=== PATIENT | female | born 1940 | race Caucasian/White ===

== ENCOUNTER 2016-05-03 15:14 | Observation (INO) ==
--- NOTE | 2016-05-03 16:01 | Emergency Department Note ---
Disposition Clinical Impression: Syncope Qualifiers: Syncope type: unspecified Qualified Code(s): R55 - Syncope and collapse Disposition: Admitted As Inpatient Syncope HPI - General Chief Complaint: ED Syncope Stated Complaint: "light-headed" from bone and joint Time Seen by Provider: 05/03/16 15:42 Source: patient, family Limitations: no limitations Nursing Notes Reviewed: Yes Vital Signs Reviewed: Yes - History of Present Illness HPI Narrative: Ms. Masterson, a 76yo female, presents from [facility] where she felt light-headed, fell striking her head on carpet covered concrete. (+) LOC, brief. Admits to chest pain described as 'thumping' and lightheadedness. Denies chest heaviness, any sharp or radiating chest pain, diaphoresis. Her only pain at this time is over her right brow which is where her head impacted the floor. Patient has known past medical history of A. fib. She is currently anticoagulated on eliquis. Patient's [id number]'s bedside; collectively therefore stories. Past medical history will be obtained from chart check. - Related Data Home Medications Medication Instructions Recorded Confirmed Aspirin 81 mg PO DAILY 12/06/14 12/06/14 Ferrous Sulfate 325 mg PO DAILY 12/06/14 12/06/14 HydrALAZINE 10 mg PO TID 12/06/14 12/06/14 Hydrochlorothiazide 25 mg PO DAILY 12/06/14 12/06/14 Isosorbide MONOnitrate (24 HR) 30 mg PO DAILY 12/06/14 12/06/14 [Imdur] Lisinopril [Zestril] 10 mg PO DAILY 12/06/14 12/06/14 Nitroglycerin 0.4 mg SL Q5MIN PRN 12/06/14 12/06/14 Oxybutynin [Ditropan] 5 mg PO DAILY 12/06/14 12/06/14 Sertraline [Zoloft] 50 mg PO DAILY 12/06/14 12/06/14 Simvastatin [Zocor] 40 mg PO HS 12/06/14 12/06/14 Previous Rx's Medication Instructions Recorded Cyanocobalamin (B-12) [Vitamin B12] 1,000 mcg IM QWEEK #4 vial 12/07/14 Mupirocin [Bactroban Oint] 1 appl TP BID 14 Days 07/15/15 Allergies Allergy/AdvReac Type Severity Reaction Status Date / Time No Known Allergies Allergy Unverified 11/27/14 02:19 All systems ED: reviewed and negative except as stated. Constitutional: Denies: fever, chills, weakness Cardiovascular: Reports: palpitations, dyspnea on exertion, syncope. Denies: chest pain Respiratory: Denies: cough, dyspnea, wheezes Gastrointestinal: Denies: abdominal pain, nausea, vomiting, diarrhea, constipation, hematemesis, melena, hematochezia Genitourinary: Denies: dysuria Musculoskeletal: Denies: back pain, neck pain Integumentary: Reports: abrasion. Denies: rash, lesions Neurological: Reports: headache. Denies: weakness, numbness, paresthesias, confusion, abnormal gait Hematological/Lymphatic: Reports: easy bleeding, easy bruising Past Medical History - Past Medical History Medical history: Reports: diabetes, hypertension, other Surgical history: Reports: other Psychiatric history: Reports: depression ASSISTANT REFINERY OPERATOR history: Reports: no ASSISTANT REFINERY OPERATOR history - Social History Smoking Status: Never smoker Smokeless Tobacco Status: No Alcohol use: Reports: none Drug use: Reports: none Physical Exam General: Patient is alert, oriented, and in no acute distress. HEENT: No facial asymmetry. Head is normocephalic with developing ecchymosis over right brow; no laceration or abrasion. PERRLA, EOMI. trachea midline. Cardiovascular: Heart irregular rate rate and rhythm without clicks, rubs, gallops, or murmurs. Respiratory: Symmetric chest rise with good respiratory effort. Bilateral breath sounds are clear without wheezing, crackles, or rhonchi. Abdomen: Bowel sounds present normoactive x-4 quadrants. Abdomen is soft, nondistended, and nontender. No organomegaly noted. Neuro: Cranial nerves II through XII grossly intact. Sensation light touch intact. Psych: Patient's affect is appropriate for situation. - General Limitations: no limitations General appearance: alert Course Course Narrative: Suspect the patient's presentation is due to symptomatic atrial fibrillation causing her syncopal episode. Will CT head given her head trauma on anticoagulation. We will also do syncopal workup. Echo December 28 showed pulmonary hypertension with preserved left ventricular ejection fraction. PMH: Hypertension, hyperlipidemia, diabetes, chronic kidney disease stage III, previous WI, previous CVA, known atrial fibrillation Vital Signs Temperature 97.3 F L 05/03/16 15:36 Pulse Rate 84 05/03/16 15:36 Respiratory Rate 16 05/03/16 15:36 Blood Pressure 114/67 05/03/16 15:36 O2 Sat by Pulse Oximetry 99 05/03/16 15:36 Temperature 97.3 F L 05/03/16 15:36 Pulse Rate 83 05/03/16 16:49 Respiratory Rate 16 05/03/16 17:44 Blood Pressure 149/87 05/03/16 17:44 O2 Sat by Pulse Oximetry 99 05/03/16 16:49 Oxygen Delivery Oxygen Delivery Room Air Syncope - Lab Data Result diagrams: 05/03/16 16:35 05/03/16 16:35 Lab Results 05/03/16 05/03/16 05/03/16 Range/Units 16:16 16:35 16:35 WBC 6.1 (4.3-11.1) K/mcL RBC 3.09 L (3.82-4.97) M/mcL Hgb 9.3 L (11.5-15.4) g/dL Hct 29.5 L (35.3-44.9) % MCV 95.5 (83.0-100.0) fL MCH 30.1 (28.0-33.3) pg MCHC 31.5 L (31.6-35.5) g/dL RDW 13.3 (11.5-14.5) % Plt Count 241 (140-400) K/mcL MPV 9.8 (9.4-12.4) fL Immature Gran % 0.3 (0-4) % Seg Neutrophils % 65.6 % Lymphocytes % 23.2 % Monocytes % 7.0 % Eosinophils % 3.1 % Basophils % 0.8 % Neutrophils # 4.0 (1.6-8.9) K/mcL Lymphocytes # 1.4 (0.6-4.6) K/mcL Monocytes # 0.4 (0.0-1.3) K/mcL Eosinophils # 0.2 (0.0-0.6) K/mcL Basophils # 0.1 (0.0-0.2) K/mcL PT 33.9 H (9.4-12.1) Seconds INR 3.0 APTT 39.2 H (26.0-36.0) Seconds Sodium (136-145) mEq/L Potassium (3.5-4.5) mEq/L Chloride (98-109) mEq/L Carbon Dioxide (19-29) mEq/L BUN (7-20) mg/dL Creatinine (0.57-1.11) mg/dL Est GFR ( Amer) (> 60) Est GFR (Non-Af Amer) (> 60) BUN/Creatinine Ratio (6-26) Glucose (70-99) mg/dL POC Glucose 106 H (58-89) Calculated Osmolality (280-300) Calcium (8.6-10.8) mg/dL Troponin I (0-0.03) ng/mL 05/03/16 05/03/16 Range/Units 16:35 16:35 WBC (4.3-11.1) K/mcL RBC (3.82-4.97) M/mcL Hgb (11.5-15.4) g/dL Hct (35.3-44.9) % MCV (83.0-100.0) fL MCH (28.0-33.3) pg MCHC (31.6-35.5) g/dL RDW (11.5-14.5) % Plt Count (140-400) K/mcL MPV (9.4-12.4) fL Immature Gran % (0-4) % Seg Neutrophils % % Lymphocytes % % Monocytes % % Eosinophils % % Basophils % % Neutrophils # (1.6-8.9) K/mcL Lymphocytes # (0.6-4.6) K/mcL Monocytes # (0.0-1.3) K/mcL Eosinophils # (0.0-0.6) K/mcL Basophils # (0.0-0.2) K/mcL PT (9.4-12.1) Seconds INR APTT (26.0-36.0) Seconds Sodium 141 (136-145) mEq/L Potassium 4.2 (3.5-4.5) mEq/L Chloride 106 (98-109) mEq/L Carbon Dioxide 24 (19-29) mEq/L BUN 33 H (7-20) mg/dL Creatinine 1.41 H (0.57-1.11) mg/dL Est GFR ( Amer) 44 L (> 60) Est GFR (Non-Af Amer) 36 L (> 60) BUN/Creatinine Ratio 23 (6-26) Glucose 107 H (70-99) mg/dL POC Glucose (58-89) Calculated Osmolality 300 (280-300) Calcium 9.6 (8.6-10.8) mg/dL Troponin I 0.02 (0-0.03) ng/mL - EKG Data EKG attestation: Yes I reviewed and interpreted this EKG. EKG results narrative: EKG dated 05/03/16 at 15:50 shows atrial fibrillation rate controlled and 73. Left axis. Nonspecific ST-T changes. No previous EKG for comparison. Attestation Statement - Attestation Attestation: I examined this patient and my medical decision-making was reviewed with the JAVA ENTERPRISE ARCHITECT/PA/Advanced Practice Nurse/Resident Physician. I agree with the documented findings, disposition and treatment plan as described except to the extent set forth below. Patient presents to the emergency department after a syncopal episode. Patient was leaving the orthopedics office when she lost consciousness. She did not strike her head. Denies chest pain or difficulty in breathing. History of A. fib coronary disease. Exam she is in no distress. Neurologically intact. Heart regular rate and rhythm lungs clear. Plan. Cardiac workup with head CT and reevaluate. CT unremarkable. Labs unremarkable. We will observe secondary to her risk factors of coronary disease and A. fib.
[2016-05-03 16:50] LABS: Basophils # 0.1 K/mcL (0.0-0.2); Basophils % 0.8 %; Eosinophils # 0.2 K/mcL (0.0-0.6); Eosinophils % 3.1 %; Hematocrit 29.5 % (35.3-44.9); Hemoglobin 9.3 g/dL (11.5-15.4); Immature Granulocytes % 0.3 % (0-4); Lymphocytes # 1.4 K/mcL (0.6-4.6); Lymphocytes % 23.2 %; Mean Corpuscular HGB Conc 31.5 g/dL (31.6-35.5); Mean Corpuscular Hemoglobin 30.1 pg (28.0-33.3); Mean Corpuscular Volume 95.5 fL (83.0-100.0); Mean Platelet Volume 9.8 fL (9.4-12.4); Monocytes # 0.4 K/mcL (0.0-1.3); Platelet Count 241 K/mcL (140-400); Red Blood Count 3.09 M/mcL (3.82-4.97); Red Cell Distribution Width 13.3 % (11.5-14.5); Segmented Neutrophils % 65.6 %
[2016-05-03 16:53] LABS: Prothrombin Time 33.9 Seconds (9.4-12.1)
[2016-05-03 16:55] LABS: Activated Partial Thrombo Time 39.2 Seconds (26.0-36.0)
[2016-05-03 16:59] LABS: Calcium 9.6 mg/dL (8.6-10.8); Potassium 4.2 mEq/L (3.5-4.5)
[2016-05-03] MEDS ORDERED: Ondansetron 4 MG/2 ML VIAL IVP PRN (18:44)
[2016-05-03] MEDS ORDERED: Naloxone 0.4 MG/ML INJ IVP PRN (18:44)
[2016-05-03] MEDS ORDERED: Acetaminophen 325 MG TABLET PO PRN (18:44)
[2016-05-03] MEDS ORDERED: *HR* LORazepam 0.5 MG TABLET PO PRN (18:57)
--- NOTE | 2016-05-03 19:21 | Internal Med History&Physical ---
<Diana Baxter Jose - Last Filed: 05/03/16 19:50> Date of Encounter: 05/03/16 Time of Encounter: 19:00 Assessment and Plan (1) Syncope Current visit: Yes Status: Acute Pt had sycopal episode today after leaving ortho office. Pt states that she got injections in floyd knees, but this did not affect her fall. Pt is unsure of what made her fall, but was dizzy prior to event. Fall is most likely from a-fib or dysrhythmia. ER EkG shows a-fib, rhythm controlled. Rate 73, QRS dur 98 ms. ECHO from 12/2014 LVEF 60-65% with normal LV structure and function. Pt appears frail and is confused at times. Continuous cardiac monitoring ECHO Serial troponins Monitor labs Fall precautions Carotid doppler Qualifiers: Syncope type: unspecified Qualified Code(s): R55 - Syncope and collapse (2) Atrial fibrillation Current visit: No Status: Chronic EKG a-fib on arrival, past EKGs reviewed are a-fib, as well. Same as above Qualifiers: Atrial fibrillation type: chronic Qualified Code(s): I48.2 - Chronic atrial fibrillation (3) Chronic kidney disease Current visit: No Status: Chronic BUN 33mg/dl today, improved from 43mg/dl in Feb, 2016. Trend has been in 30s and 40s for the last year. Creatinine 1.41mg/dl, which is also what has been the trend. Pt states that she has Stage III CKD. Monitor labs Renal diet Qualifiers: Chronic kidney disease stage: stage 3 (moderate) Qualified Code(s): N18.3 - Chronic kidney disease, stage 3 (moderate) Internal Medicine - H&P: HPI Chief complaint: syncope Admitted From: Home Plans for Post Hospital Care: Home History of present illness: Ms. Masterson is a 76 year old female with history of Stage III CKD, a-fib, anemia , and dementia. Pt had syncopal episode after getting floyd knee injections today at ortho office. Pt states that she felt dizzy prior to fall and is unsure of exactly what made her fall. States that she may have tripped or may have simply lost consciousness. +LOC after fall. Sent to ED, Head CT negative for acute traumatic injury. Pt with bruising to R brow and R frontal SCHWARTZ. Initial troponin 0.02ng/dL. Past Med Surg Social Fam HX - Past Medical History Medical history: atrial fibrillation (Stage III CKD, Anemia, Pulmonary HTN, Cor pulmonale), dementia, diabetes, hypertension, other Psychiatric history: depression - Past Surgical History Surgical History: other - Social History Smoking Status: Never smoker Smokeless Tobacco Status: No Alcohol use: none Drug use: none - Family History Mother Hx Family Cardiac Disorders: Yes (CAD, Pacemaker) Hx Family Endocrine Disorder: Yes (DM) Father Hx Family Cancer: Yes (Lung Cancer) Internal Medicine - H&P: Meds Aspirin 81 mg PO DAILY 12/06/14 [History] HydrALAZINE 10 mg PO TID 12/06/14 [History] Lisinopril [Zestril] 10 mg PO DAILY 12/06/14 [History] Nitroglycerin 0.4 mg SL Q5MIN PRN 12/06/14 [History] Oxybutynin [Ditropan] 5 mg PO DAILY 12/06/14 [History] Simvastatin [Zocor] 40 mg PO HS 12/06/14 [History] Acetaminophen [Tylenol] 500 mg PO Q6HR PRN 05/03/16 [History] Albuterol Sulfate [Proair Hfa] 2 puff IH Q4H PRN 05/03/16 [History] Calcium Carbonate/Vitamin D3 [Calcium 500 + Vit D Caplet] 1 tab PO DAILY [History] Donepezil HCl [Aricept] 10 mg PO DAILY 05/03/16 [History] Epoetin Gonzalo [Procrit] 10,000 unit IJ Q2W 05/03/16 [History] Ergocalciferol (VITAMIN D2) [Vitamin D2] 50,000 unit PO QWEEK 05/03/16 [History] Furosemide [Lasix] 20 mg PO DAILY 05/03/16 [History] LORazepam [Ativan] 0.5 mg PO BID PRN 05/03/16 [History] Metoprolol Succinate 100 mg PO DAILY 05/03/16 [History] Potassium Chloride [K-Tab ER] 10 meq PO DAILY 05/03/16 [History] Rivaroxaban [Xarelto] 20 mg PO DAILY 05/03/16 [History] SitaGLIPtin [Januvia] 25 mg PO DAILY 05/03/16 [History] Tramadol HCl [Ultram] 50 mg PO BID PRN 05/03/16 [History] Triamcinolone Acet 0.1% CRM [Kenalog] 1 appl TP BID 05/03/16 [History] Venlafaxine [Effexor] 75 mg PO DAILY 05/03/16 [History] Allergies No Known Allergies Allergy (Verified 05/03/16 17:59) All Systems PM: A 10-system review of systems was performed and is negative for pertinent findings except as documented above in the HPI. - Constitutional Constitutional: falls, no chills, no fever(s), no weakness - EENT Eyes: no change in vision, no diplopia - Cardiovascular Cardiovascular ROS IM: no chest pain, no diaphoresis, no dyspnea, no edema, no palpitations - Respiratory Respiratory: no cough, no dyspnea, no chest congestion - Gastrointestinal Gastrointestinal: no abdominal pain, no diarrhea, no nausea, no vomiting - Neurological Neurological ROS: dizziness, no weakness - Constitutional Vitals: Temp Pulse Resp BP Pulse Ox 98.1 F 81 16 135/70 100 05/03/16 18:46 05/03/16 18:46 05/03/16 18:46 05/03/16 18:46 05/03/16 18:46 General appearance: Present: cooperative, A&O X 2, pleasant, no acute distress - Eye Eye exam: Present: periorbital swelling, PERRL Additional comments: Bruising to R brow. - ENT ENT exam: Present: mucous membranes moist - Neck Neck exam general surgery: Absent: lymphadenopathy, tenderness - Respiratory Respiratory exam: Present: CTAB. Absent: chest wall tenderness, respiratory distress, rhonchi, wheezes - Cardiovascular Cardiovascular exam: Present: irregular rhythm, +S1, +S2. Absent: diastolic murmur, systolic murmur - GI/Abdominal GI/Abdominal exam: Present: hyperactive bowel sounds, soft. Absent: tenderness - Extremities Exam Extremities exam: Present: normal capillary refill. Absent: pedal edema, tenderness, warm, radial pulses palpable and symetrical - Skin Skin exam: Present: dry, pallor, warm Internal Med - H&P Results - Labs CBC & Chem 7: 05/03/16 16:35 05/03/16 16:35 <Thomas Parker - Last Filed: 05/03/16 22:04> Date of Encounter: 05/03/16 Internal Medicine - H&P: HPI History of present illness: Ms. Masterson is a 76 year old female All Systems PM: A 10-system review of systems was performed and is negative for pertinent findings except as documented above in the HPI. - Constitutional Vitals: Temp Pulse Resp BP Pulse Ox 98.1 F 79 16 114/60 100 05/03/16 18:46 05/03/16 21:07 05/03/16 18:46 05/03/16 21:07 05/03/16 18:46 Internal Med - H&P Results - Labs CBC & Chem 7: 05/03/16 16:35 05/03/16 16:35 - Attending Attestation 76 Y/O F with PMH of DM, CKD, Afib, Severe OA Being placed on observation for syncope with mild amos-occular ecchymosis. She is seen at bedside, denies any complains at that time Physical exam significant for steady gait , not in any form of distress, chest is clear, abdomen is benign, no pedal edema. Labs and Imaging reviewed: At baseline Assessment/Plan: Syncope,-obtain ECHO/Carotid doppler, brain CT unremarkable, PT /OT evaluation, Check orthostatics. Fall precautions. Afib-rate controlled, hold anticoagulation for now. Recheck INR am, currently 3.0. other chronic conditions at baseline, resume home meds
[2016-05-03] MEDS ORDERED: D5% in Water 1,000 ML IV PRN (19:27)
[2016-05-03] MEDS ORDERED: *HR* Dextrose 50 % in Water (Syg) 50 ML SYRINGE IVP PRN (19:27)
[2016-05-03] MEDS ORDERED: Dextrose Gel 15 GM PO PRN ×2 (19:27)
[2016-05-03] MEDS: hydrALAZINE 10 MG TABLET PO SCH (20:06)
[2016-05-03] MEDS: 0.9 % Sodium Chloride 1,000 ML IVC SCH (20:06)
[2016-05-03 20:10] LABS: Hemoglobin A1C 5.8 %
[2016-05-03] MEDS: Insulin LISPRO 300 UNITS/3 ML VIAL SQ SCH (20:18)
[2016-05-04] MEDS: *HR* OxyCODONE Immed Rel 5 MG TABLET PO PRN ×2 (00:44→09:02)
[2016-05-04 05:17] LABS: Basophils % 0.1 %; Hematocrit 26.2 % (35.3-44.9); Hemoglobin 8.1 g/dL (11.5-15.4); INR 2.1; Immature Granulocytes % 0.5 % (0-4); Lymphocytes # 0.7 K/mcL (0.6-4.6); Lymphocytes % 8.7 %; Mean Corpuscular HGB Conc 30.9 g/dL (31.6-35.5); Mean Corpuscular Hemoglobin 29.5 pg (28.0-33.3); Mean Corpuscular Volume 95.3 fL (83.0-100.0); Mean Platelet Volume 10.2 fL (9.4-12.4); Monocytes # 0.1 K/mcL (0.0-1.3); Monocytes % 1.3 %; Platelet Count 211 K/mcL (140-400); Prothrombin Time 23.3 Seconds (9.4-12.1); Red Blood Count 2.75 M/mcL (3.82-4.97); Red Cell Distribution Width 13.2 % (11.5-14.5); Segmented Neutrophils % 89.4 %
[2016-05-04 05:33] LABS: Calcium 8.8 mg/dL (8.6-10.8); Potassium 4.4 mEq/L (3.5-4.5)
[2016-05-04] MEDS: hydrALAZINE 10 MG TABLET PO SCH ×3 (08:53→21:38)
[2016-05-04] MEDS: Aspirin 81 MG TAB.CHEW PO SCH (08:54)
[2016-05-04] MEDS: Metoprolol XL (24 HR) Succ 50 MG TAB.ER.24H PO SCH (08:55)
[2016-05-04] MEDS: Furosemide 20 MG TABLET PO SCH (09:00)
[2016-05-04] MEDS: *HR* Rivaroxaban 15 MG TABLET PO SCH (09:00)
[2016-05-04] MEDS: Insulin LISPRO 300 UNITS/3 ML VIAL SQ SCH ×7 (09:10→21:36)
--- NOTE | 2016-05-04 10:37 | ECHO - Doppler Report ---
Echocardiogram Name: Tanvi Masterson Date of Study: 05/04/2016 Date: 1940 Ht: 59.0 in Medical Record#: [id number] Age: 76 Wt: 132.0 lb Gender: Female BSA: 1.55 Order #: [id number] Location: [facility] Room #: Reading Physician: Trey Ca MD, [facility] Soldering Machine Operator Helper: Diana Kent RDCS, RVT Ordering Physician: Diana Baxter CNP Primary Physician: Arabella Santos CNP Indications: Syncope, Dizziness Impressions: Normal left ventricular size and systolic function, LVEF 60-65%. Indeterminate diastolic function due to atrial fibrillation. Normal right ventricular size and function. Severely dilated left atrium. Moderately dilated right atrium. Mild aortic regurgitation. Mild-moderate mitral regurgitation. Moderate tricuspid regurgitation. Mild pulmonary hypertension. Estimated RVSP = 36 mmHg. Left Ventricular Wall Motion: Rest Echo Findings All wall segments showed normal motion. Findings: Study Quality * Technically adequate exam. ECG Findings * Atrial fibrillation. Left Ventricle * Normal left ventricular size and systolic function, LVEF 60-65%. * Normal LV wall thickness. * Indeterminate diastolic function due to atrial fibrillation. Right Ventricle * Normal right ventricular size and function. Left Atrium * Severely dilated left atrium. Right Atrium * Moderately dilated right atrium. Aorta * Normally sized aortic root. Pericardium * There is a trivial pericardial effusion present. IVC * Normal IVC dimensions and inspiratory collapse. Aortic Valve * Trileaflet aortic valve. * Mildly sclerotic aortic valve leaflets. * No aortic stenosis. * Mild aortic regurgitation. Mitral Valve * Moderate mitral annular calcification * No mitral stenosis. * Mild-moderate mitral regurgitation. Tricuspid Valve * Normal tricuspid valve structure. * No tricuspid stenosis. * Moderate tricuspid regurgitation. * Mild pulmonary hypertension. Estimated RVSP = 36 mmHg. Pulmonic Valve * Pulmonic valve not well visualized. * No pulmonic stenosis. * Trace pulmonic regurgitation. History Hypertension Diabetes Hypercholesteremia Rheumatic Fever Years 15 Packs 1.5 Family History of CAD History of CAD/PTCA Myocardial Infarction Valvular Disease 05-24-2014 a Previous Echo was performed. Measurements: BP: 139/ 75 2D Normal Values RVIDd: 3.40 cm IVSd: .70 cm 0.6 - 1.0 cm LVIDd: 4.90 cm 3.7 - 5.6 cm LVPWd: .80 cm 0.6 - 1.1 cm LVIDs: 3.40 cm 1.5 - 3.6 cm AO: 2.90 cm < 4.0 cm %FS: 30.60 cm >25 % LA volume: 83 Tricuspid Valve TV Regurg Peak Grad: 33.00mmHg TV Regurg Peak Rolf: 2.90m/sec Updated by Trey Ca MD, [facility] on 05/04/2016 10:29:12 AM electronically signed on 05/04/2016 10:33:00 AM with status of Final Wall Motion Sagastume: 1=Normal, 2=Hypokinesis, 3=Akinesis, 4=Dyskinesis, 5=Aneurysmal, 6=Hyperkinetic, X=Not Visualized (Blank)=Missing
--- NOTE | 2016-05-04 16:21 | Electrocardiograph Report ---
[facility] Test Date: 2016-05-03 Pat Name: Tanvi Masterson Department: 103 Room: 3B21 Gender: F Adobe Architect: MAGAN : 1940 Requested By: De Huerta Order Number: [id number] Reading MD: Nori Reza Measurements Intervals [place] Rate: 73 P: [place]: 0 QRS: -17 QRSD: 98 T: 27 QT: 385 QTc: 411 Interpretive Statements ATRIAL FIBRILLATION ABNORMAL RHYTHM ECG Electronically Signed On 05-04-16 16:17:39 EST by Nori Reza
--- NOTE | 2016-05-04 16:33 | Internal Med Progress Note ---
Date of Encounter: 05/05/16 Time of Encounter: 16:28 - Assessment and plan (1) Syncope Status: Acute Assessment and plan: Pt had sycopal episode yesterday after leaving ortho office. Pt states that she got injections in floyd knees, but this did not affect her fall. Pt is unsure of what made her fall, but was dizzy prior to event. Fall is most likely from a-fib or dysrhythmia or anemia (which appears to be chronic though) . ER EkG shows a-fib, rhythm controlled. Rate 73, QRS dur 98 ms. ECHO from 2014 LVEF 60-65% with normal LV structure and function. Continuous cardiac monitoring ECHO repeat with no new significant changes. Serial troponins are negtaive Fall precautions Carotid doppler Nonstenotic plaque only on Right Left ICA 40-59% stenosis, no further intervention required. Qualifiers: Syncope type: unspecified Qualified Code(s): R55 - Syncope and collapse (2) Anemia Status: Acute Assessment and plan: most likely anemia of chronic disease from C daily. Denies any blood in the stool or history of melena. Has appointment with renal coming up, will need Aranesp injecction , patient reports that she was taking iron at home earlier which was stopped by the PCP. will send for iron panel today and will replace if deficient. Qualifiers: Qualified Code(s): D64.9 - Anemia, unspecified (3) Atrial fibrillation Status: Chronic Assessment and plan: rate controlled. on xarelto for anti coagulation. Qualifiers: Atrial fibrillation type: chronic Qualified Code(s): I48.2 - Chronic atrial fibrillation (4) Chronic kidney disease Status: Chronic Assessment and plan: will need f.u with renal as OP fo CKD workup. GFR at baseline. Qualifiers: Chronic kidney disease stage: stage 3 (moderate) Qualified Code(s): N18.3 - Chronic kidney disease, stage 3 (moderate) - Time Spent With Patient 25 - 35 minutes - Subjective Interval history: Patient seen at the bedside, admitted for possible syncopal episode with dizziness at home. At the time of my assessment, still reports mild dizziness when walking to the bathroom. Reports that she feels better than yesterday. No evidence of orthostatic hypotension. - Constitutional Vitals: Temp Pulse Resp BP Pulse Ox 98.4 F 93 16 106/65 97 05/04/16 16:00 05/04/16 16:00 05/04/16 16:00 05/04/16 16:00 05/04/16 16:00 General appearance: Present: cooperative, A&O X 2, pleasant, no acute distress Exam: General appearance: Present: cooperative, A&O X 2, pleasant, no acute distress - Eye Eye exam: Present: periorbital swelling, PERRL - ENT ENT exam: Present: mucous membranes moist - Neck Neck exam general surgery: Absent: lymphadenopathy, tenderness - Respiratory Respiratory exam: Present: CTAB. Absent: chest wall tenderness, respiratory distress, rhonchi, wheezes - Cardiovascular Cardiovascular exam: Present: irregular rhythm, +S1, +S2. Absent: diastolic murmur, systolic murmur - GI/Abdominal GI/Abdominal exam: Present: hyperactive bowel sounds, soft. Absent: tenderness - Extremities Exam Extremities exam: Present: normal capillary refill. Absent: pedal edema, tenderness, warm, radial pulses palpable and symetrical - Skin Skin exam: Present: dry, pallor, warm Internal Medicine: Result - Labs CBC & Chem 7: 05/05/16 08:12 05/05/16 08:12 Labs: Short CBC 05/04/16 Range/Units 03:57 WBC 7.8 (4.3-11.1) K/mcL Hgb 8.1 L (11.5-15.4) g/dL Hct 26.2 L (35.3-44.9) % Plt Count 211 (140-400) K/mcL Neutrophils # 7.0 (1.6-8.9) K/mcL BMP 05/04/16 03:57 Sodium 139 Potassium 4.4 Chloride 106 Carbon Dioxide 23 BUN 32 H Creatinine 1.22 H Glucose 206 H Calcium 8.8 Cardiac Enzymes 05/03/16 05/04/16 Range/Units 22:31 03:57 Troponin I 0.02 0.02 (0-0.03) ng/mL - ABG Interpretation ABG results: PT/INR, D-dimer PT 23.3 Seconds (9.4-12.1) H 05/04/16 03:57 Consult Discharge Plan - Plan Instructions: Atrial Fibrillation (DC), Syncope (DC), Anemia (GEN) Referrals: Arabella Santos CNP [Primary Care Provider] - 05/10/16 1:15 pm
[2016-05-04] MEDS: 0.9 % Sodium Chloride 1,000 ML IVC SCH (18:34)
--- NOTE | 2016-05-04 19:22 | Carotid Imaging Report ---
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 The left internal carotid artery has a 40-59% stenosis. Recommendations: Risk factor reduction. Follow-up carotid duplex in 1 year. Findings Carotid Duplex: Right: There is nonstenotic plaque in the right mid common carotid artery. There is smooth homogeneous plaque. There is nonstenotic plaque in the right distal common carotid artery. There is smooth heterogeneous plaque. There is nonstenotic plaque in the right bifurcation. There is smooth heterogeneous plaque. There is nonstenotic plaque in the right eca. There is irregular heterogeneous plaque. There is antegrade spectral Doppler flow patterns in the right vertebral artery. Left: There is nonstenotic plaque in the left mid common carotid artery. There is smooth heterogeneous plaque. There is nonstenotic plaque in the left distal common carotid artery. There is smooth heterogeneous plaque. There is nonstenotic plaque in the left bifurcation. There is irregular, heterogeneous calcified plaque. There is 40-59% stenosis in the left proximal internal carotid artery. There is irregular, heterogeneous calcified plaque. There is antegrade spectral Doppler flow patterns in the left vertebral artery. Prior Study: No prior study available for comparison. Carotid Results Right PSV EDV Assessment Proximal CCA 45 7 Normal Mid CCA 37 10 Non Stenotic Plaque Distal CCA 43 14 Non Stenotic Plaque Bifurcation 34 11 Non Stenotic Plaque Proximal ICA 51 16 Normal Mid ICA 51 18 Normal Distal ICA 71 25 Normal ECA 83 8 Non Stenotic Plaque Vertebral Artery 48 9 Antegrade Flow Left PSV EDV Assessment Proximal CCA 49 11 Normal Mid CCA 50 9 Non Stenotic Plaque Distal CCA 51 13 Non Stenotic Plaque Bifurcation 42 13 Non Stenotic Plaque Proximal ICA 133 38 40-59% stenosis Mid ICA 99 32 Normal Distal ICA 103 31 Normal ECA 107 Normal Vertebral Artery 75 20 Antegrade Flow Ratio's Right ICA/CCA Ratio: 1.92 ICA/CCA Values: 71/37 Left ICA/CCA Ratio: 2.66 ICA/CCA Values: 133/50 Updated by Phill Kebede MD on 05/04/2016 7:18:09 PM electronically signed on 05/04/2016 7:18:18 PM with status of Final
[2016-05-05 08:40] LABS: Basophils % 0.3 %; Eosinophils % 0.1 %; Hematocrit 28.3 % (35.3-44.9); Hemoglobin 8.6 g/dL (11.5-15.4); Immature Granulocytes % 0.8 % (0-4); Lymphocytes # 1.3 K/mcL (0.6-4.6); Lymphocytes % 11.5 %; Mean Corpuscular HGB Conc 30.4 g/dL (31.6-35.5); Mean Corpuscular Volume 98.6 fL (83.0-100.0); Mean Platelet Volume 10.1 fL (9.4-12.4); Monocytes # 0.9 K/mcL (0.0-1.3); Monocytes % 7.4 %; Neutrophils # 9.3 K/mcL (1.6-8.9); Platelet Count 226 K/mcL (140-400); Red Blood Count 2.87 M/mcL (3.82-4.97); Red Cell Distribution Width 13.3 % (11.5-14.5); Segmented Neutrophils % 79.9 %
[2016-05-05 08:54] LABS: Calcium 9.7 mg/dL (8.6-10.8); Potassium 4.1 mEq/L (3.5-4.5)
[2016-05-05] MEDS: Insulin LISPRO 300 UNITS/3 ML VIAL SQ SCH ×4 (08:58→12:35)
[2016-05-05] MEDS: Metoprolol XL (24 HR) Succ 50 MG TAB.ER.24H PO SCH (08:58)
[2016-05-05] MEDS: hydrALAZINE 10 MG TABLET PO SCH (08:59)
[2016-05-05] MEDS: Aspirin 81 MG TAB.CHEW PO SCH (08:59)
[2016-05-05] MEDS: Furosemide 20 MG TABLET PO SCH (09:00)
[2016-05-05] MEDS: *HR* Rivaroxaban 15 MG TABLET PO SCH (09:04)
[2016-05-05 11:47] VITALS: BP 140/62
[2016-05-05] MEDS: 0.9 % Sodium Chloride 1,000 ML IVC SCH (12:34)
--- NOTE | 2016-05-05 12:41 | Discharge Summary ---
Date of Encounter: 05/05/16 Time of Encounter: 12:39 - Discharge Diagnosis (1) Syncope Priority: Primary Status: Acute Qualifiers: Syncope type: unspecified Qualified Code(s): R55 - Syncope and collapse (2) Anemia Priority: Primary Status: Acute Qualifiers: Qualified Code(s): D64.9 - Anemia, unspecified (3) Atrial fibrillation Priority: Secondary Status: Chronic Qualifiers: Atrial fibrillation type: chronic Qualified Code(s): I48.2 - Chronic atrial fibrillation (4) Chronic kidney disease Priority: Secondary Status: Chronic Qualifiers: Chronic kidney disease stage: stage 3 (moderate) Qualified Code(s): N18.3 - Chronic kidney disease, stage 3 (moderate) - Discharge Medications Home Medications: Aspirin 81 mg PO DAILY 12/06/14 [History] HydrALAZINE 10 mg PO TID 12/06/14 [History] Lisinopril [Zestril] 10 mg PO DAILY 12/06/14 [History] Nitroglycerin 0.4 mg SL Q5MIN PRN 12/06/14 [History] Oxybutynin [Ditropan] 5 mg PO DAILY 12/06/14 [History] Simvastatin [Zocor] 40 mg PO HS 12/06/14 [History] Acetaminophen [Tylenol] 500 mg PO Q6HR PRN 05/03/16 [History] Albuterol Sulfate [Proair Hfa] 2 puff IH Q4H PRN 05/03/16 [History] Calcium Carbonate/Vitamin D3 [Calcium 500 + Vit D Caplet] 1 tab PO DAILY [History] Donepezil HCl [Aricept] 10 mg PO DAILY 05/03/16 [History] Epoetin Gonzalo [Procrit] 10,000 unit IJ Q2W 05/03/16 [History] Ergocalciferol (VITAMIN D2) [Vitamin D2] 50,000 unit PO QWEEK 05/03/16 [History] Furosemide [Lasix] 20 mg PO DAILY 05/03/16 [History] LORazepam [Ativan] 0.5 mg PO BID PRN 05/03/16 [History] Metoprolol Succinate 100 mg PO DAILY 05/03/16 [History] Potassium Chloride [K-Tab ER] 10 meq PO DAILY 05/03/16 [History] Rivaroxaban [Xarelto] 20 mg PO DAILY 05/03/16 [History] SitaGLIPtin [Januvia] 25 mg PO DAILY 05/03/16 [History] Tramadol HCl [Ultram] 50 mg PO BID PRN 05/03/16 [History] Triamcinolone Acet 0.1% CRM [Kenalog] 1 appl TP BID 05/03/16 [History] Venlafaxine [Effexor] 75 mg PO DAILY 05/03/16 [History] Allergies/Adverse Reactions: Allergies No Known Allergies Allergy (Verified 05/03/16 17:59) Procedures/tests Complete & Pending: Procedures Performed prior 72 hours Category Date Time Status EV carotid duplex imaging BI Routine Y 05/04/16 19:42 Completed EV echocardiogram Routine Y 05/04/16 19:12 Completed Date of admission: 05/03/16 17:32 Primary care physician: Arabella Santos CNP Discharging clinician: Oralia Reid Anticipated date of discharge: 05/05/16 - Patient Status Disposition: Home, Self-Care Condition: Fair Functional capacity at discharge: independent ambulation Overall status at discharge: patient is back to baseline - Discharge Instructions Instructions: Atrial Fibrillation (DC), Syncope (DC), Anemia (GEN) Follow Up With: Arabella Santos CNP [Primary Care Provider] - 05/10/16 1:15 pm - Diet and Activity Activity: resume usual activities as tolerated Diet: advance to your usual diet Interval History: 76 Y/O F with PMH of DM, CKD, Afib, Severe OA Being placed on observation for syncope with mild amos-occular ecchymosis. She is seen at bedside, denies any complains at that time Physical exam significant for steady gait , not in any form of distress, chest is clear, abdomen is benign, no pedal edema. Labs and Imaging reviewed: At baseline She was admitted for further evaluation and workup of syncope Syncope, most likely anemia of chronic disease from C daily. Denies any blood in the stool or history of melena. Has appointment with renal coming up, will need Aranesp injecction - EkG shows a-fib, rhythm controlled. Rate 73, QRS dur 98 msobtain ECHO/showed normal LVEF 60-65% with indeterminant diastolic dysfunction due to atrial fibrillation, also noted severe right atrial dilatation. HR is controlled throughout the admission and there has been no signficant arrhythmias on the telemetry. Carotid doppler, showed nonstenotic plaque on the right carotid artery and 40-59 % stenosis on the left ICA. brain CT unremarkable, PT/OT evaluation was completed and she has no further needs at this time. orthostatics was negative. HEr syncope workup was basically negative, she may have felt dizzy from her chronic anemia vs ? arrhythmia. at this time she is stable enough to be discharged home. she was advised to f/u with her PCP as oP. Hospital course: Ms. Masterson is a 76 year old female Time spent discussing smoking cessation with patient: more than 10 minutes - Time Spent with Patient Total time spent providing and/or coordinating discharge services: Greater than 30 minutes - Constitutional Vitals: Temp Pulse Resp BP Pulse Ox 98.2 F 84 17 140/62 100 05/05/16 11:36 05/05/16 11:36 05/05/16 11:36 05/05/16 11:36 05/05/16 11:36 General appearance: Present: cooperative, A&O X 2, pleasant, no acute distress Exam: General appearance: Present: cooperative, A&O X 2, pleasant, no acute distress - Eye Eye exam: Present: periorbital swelling, PERRL Additional comments: Bruising to R brow. - ENT ENT exam: Present: mucous membranes moist - Neck Neck exam general surgery: Absent: lymphadenopathy, tenderness - Respiratory Respiratory exam: Present: CTAB. Absent: chest wall tenderness, respiratory distress, rhonchi, wheezes - Cardiovascular Cardiovascular exam: Present: irregular rhythm, +S1, +S2. Absent: diastolic murmur, systolic murmur - GI/Abdominal GI/Abdominal exam: Present: hyperactive bowel sounds, soft. Absent: tenderness - Extremities Exam Extremities exam: Present: normal capillary refill. Absent: pedal edema, tenderness, warm, radial pulses palpable and symetrical - Skin Skin exam: Present: dry, pallor, warm
== END 2016-05-05 13:05 | disposition home or self-care (01) ==
LOC: 3BNU 15:14 → EMEROO 15:14 → SUATTDRO 17:32 → 3BNU 18:02
PROVIDERS: ADMIT Internal Medicine; ATTEND Internal Medicine Endocrinology, Diabetes & Metabolism

== ENCOUNTER 2016-05-23 06:31 | Inpatient (IN) ==
[2016-05-23 07:29] LABS: Platelet Count 264 K/mcL (140-400)
[2016-05-23 07:31] LABS: Basophils % 0.2 %; Eosinophils # 0.1 K/mcL (0.0-0.6); Eosinophils % 0.6 %; Immature Granulocytes % 0.7 % (0-4); Immature Platelets 2.4 % (1.1-6.1); Lymphocytes # 1.4 K/mcL (0.6-4.6); Lymphocytes % 15.9 %; Mean Corpuscular HGB Conc 30.2 g/dL (31.6-35.5); Mean Corpuscular Hemoglobin 31.3 pg (28.0-33.3); Mean Corpuscular Volume 103.5 fL (83.0-100.0); Mean Platelet Volume 9.8 fL (9.4-12.4); Monocytes # 0.9 K/mcL (0.0-1.3); Monocytes % 10.3 %; Neutrophils # 6.3 K/mcL (1.6-8.9); Nucleated Red Blood Cells 1.3 /100 WBC (0); Red Blood Count 1.44 M/mcL (3.82-4.97); Red Cell Distribution Width 16.5 % (11.5-14.5); Segmented Neutrophils % 72.3 %
[2016-05-23 07:35] LABS: Albumin 3.3 g/dL (3.5-5.0); Albumin/Globulin Ratio 1.4 (1.1-2.2); Bilirubin,Total 0.3 mg/dL (0.2-1.2); Calcium 9.1 mg/dL (8.6-10.8); Globulin 2.4 g/dL (2.4-3.5); Potassium 4.7 mEq/L (3.5-4.5); Total Protein 5.7 g/dL (6.0-8.3)
[2016-05-23 07:47] LABS: Hemoglobin 4.5 g/dL (11.5-15.4)
[2016-05-23 07:49] LABS: Hematocrit 14.9 % (35.3-44.9)
[2016-05-23] MEDS ORDERED: 0.9 % Sodium Chloride 500 ML IVC ONE (07:56)
--- NOTE | 2016-05-23 07:56 | Emergency Department Note ---
Disposition Clinical Impression: Acute kidney injury Anemia Qualifiers: Anemia type: unspecified type Qualified Code(s): D64.9 - Anemia, unspecified Fatigue Qualifiers: Fatigue type: unspecified Qualified Code(s): R53.83 - Other fatigue Disposition: Admitted As Inpatient Condition: Fair General Adult HPI - General Chief complaint: ED Weakness Stated complaint: gen weakness Time Seen by Provider: 05/23/16 06:41 Source: patient Mode of arrival: wheelchair Limitations: no limitations Nursing Notes Reviewed: Yes Vital Signs Reviewed: Yes - History of Present Illness HPI Narrative: 76-year-old female who reports she has had a few days of progressive weakness with difficulty with ambulation. She states this has happened to her in the past but she does not know why this is happening. She does report she has a past medical history diabetes, hypertension, A. fib, CAD, dementia. In reviewing her medical records she does take aspirin, xarelto, Effexor, Lasix, Procrit, donepezil, statin, lisinopril. She denies having any pain anywhere. She denies any changes in her stool. She does say that she is urinating more than usual. She denies a fever, cough, chest pain, shortness of breath. Pain Scale: 0 Consistency: constant Improves with: nothing Worsens with: nothing Associated symptoms: Reports: denies other symptoms Treatments Prior to Arrival: none - Related Data Home Medications Medication Instructions Recorded Confirmed Aspirin 81 mg PO DAILY 12/06/14 05/23/16 HydrALAZINE 10 mg PO TID 12/06/14 05/23/16 Lisinopril [Zestril] 10 mg PO DAILY 12/06/14 05/23/16 Nitroglycerin 0.4 mg SL Q5MIN PRN 12/06/14 05/23/16 Oxybutynin [Ditropan] 5 mg PO BID 12/06/14 05/23/16 Simvastatin [Zocor] 40 mg PO HS 12/06/14 05/23/16 Acetaminophen [Tylenol] 500 mg PO Q6HR PRN 05/03/16 05/23/16 Albuterol Sulfate [Proair Hfa] 2 puff IH Q4H PRN 05/03/16 05/23/16 Calcium Carbonate/Vitamin D3 1 tab PO DAILY 05/03/16 05/23/16 [Calcium 500 + Vit D Caplet] Donepezil HCl [Aricept] 10 mg PO DAILY 05/03/16 05/23/16 Epoetin Gonzalo [Procrit] 10,000 unit IJ Q2W 05/03/16 05/23/16 Ergocalciferol (VITAMIN D2) 50,000 unit PO QWEEK 05/03/16 05/23/16 [Vitamin D2] Furosemide [Lasix] 20 mg PO DAILY 05/03/16 05/23/16 LORazepam [Ativan] 0.5 mg PO BID PRN 05/03/16 05/23/16 Metoprolol Succinate 100 mg PO DAILY 05/03/16 05/23/16 Potassium Chloride [K-Tab ER] 10 meq PO DAILY 05/03/16 05/23/16 Rivaroxaban [Xarelto] 20 mg PO DAILY 05/03/16 05/23/16 SitaGLIPtin [Januvia] 25 mg PO DAILY 05/03/16 05/23/16 Tramadol HCl [Ultram] 50 mg PO BID PRN 05/03/16 05/23/16 Triamcinolone Acet 0.1% CRM 1 appl TP BID 05/03/16 05/23/16 [Kenalog] Venlafaxine XR (24 HR) [Effexor XR] 75 mg PO DAILY 05/23/16 05/23/16 Allergies Allergy/AdvReac Type Severity Reaction Status Date / Time No Known Allergies Allergy Verified 05/03/16 17:59 All systems ED: reviewed and negative except as stated. Constitutional: Denies: fever Cardiovascular: Denies: chest pain Respiratory: Denies: cough, dyspnea Gastrointestinal: Denies: abdominal pain, nausea, vomiting, hematochezia Genitourinary: Reports: frequency. Denies: dysuria Musculoskeletal: Denies: back pain Endocrine: Reports: fatigue Past Medical History - Past Medical History Medical history: Reports: atrial fibrillation, dementia, diabetes, hypertension , myocardial infarction, renal disease, other Surgical history: Reports: other Psychiatric history: Reports: depression ARTIST AGENT history: Reports: no ARTIST AGENT history - Social History Smoking Status: Never smoker Smokeless Tobacco Status: No Alcohol use: Reports: none Drug use: Reports: none Physical Exam - General Limitations: no limitations General appearance: alert, in no apparent distress - Head Head exam: atraumatic - Eye Eye exam: Present: normal appearance, PERRL, EOMI - ENT ENT exam: normal exam, normal oropharynx - Neck Neck exam: Present: normal inspection - Respiratory Respiratory exam: Present: normal lung sounds bilaterally. Absent: respiratory distress - Cardiovascular Cardiovascular exam: Present: regular rate, irregular rhythm - Abdominal Exam Abdominal exam: Present: soft, Non-Tender - Extremities Exam Extremities exam: Present: normal inspection - Neurological Exam Neurological exam: Present: alert - Psychiatric Psychiatric exam: Present: normal affect - Skin Skin exam: Present: warm, dry Course Course Narrative: On my physical exam she does appear pale but seems to have full strength in her lower extremities. She does not have any focal neurologic deficit. Abdominal exam is benign with no pain on palpation. She has some mild tachycardia and her blood pressures in the 90 systolic. Critical result of low hemoglobin. We will go ahead and transfuse 2 units of packed red blood cells. I will go ahead and do a rectal exam to look for occult blood. She denies any bleeding from her rectum or dark stool. She is currently on Xarelto. Last dose was this morning before coming to the ER. She does not appear to be rapidly exsanguinating as her heart rate is not markedly elevated. Blood pressure is in the high 90's systolic and we will give fluids and blood to correct this. This does appear to be a slower decline of her hemoglobin over multiple days. Fluids increased her BP to 109 systolic. Accepted by hospitalist by for admission Vital Signs Temperature 97.0 F L 05/23/16 06:34 Pulse Rate 86 05/23/16 06:34 Respiratory Rate 16 05/23/16 06:34 Blood Pressure 95/38 05/23/16 06:34 O2 Sat by Pulse Oximetry 100 05/23/16 06:34 Temperature 97.4 F L 05/23/16 11:51 Pulse Rate 78 05/23/16 11:51 Respiratory Rate 18 05/23/16 11:51 Blood Pressure 105/63 05/23/16 11:51 O2 Sat by Pulse Oximetry 91 L 05/23/16 11:51 Oxygen Delivery Oxygen Delivery Room Air Medical Decision Making - Medical Records Medical records reviewed: Yes I reviewed the patient's medical records. - Lab Data Lab results reviewed: Yes I reviewed the patient's lab results. Result diagrams: 05/23/16 07:16 05/23/16 07:16 Lab Results 05/23/16 05/23/16 05/23/16 Range/Units 06:41 07:16 07:16 WBC 8.7 (4.3-11.1) K/mcL RBC 1.44 L (3.82-4.97) M/mcL Hgb 4.5 L* (11.5-15.4) g/dL Hct 14.9 L* (35.3-44.9) % MCV 103.5 H (83.0-100.0) fL MCH 31.3 (28.0-33.3) pg MCHC 30.2 L (31.6-35.5) g/dL RDW 16.5 H (11.5-14.5) % Plt Count 264 (140-400) K/mcL MPV 9.8 (9.4-12.4) fL Immature Gran % 0.7 (0-4) % Seg Neutrophils % 72.3 % Lymphocytes % 15.9 % Monocytes % 10.3 % Eosinophils % 0.6 % Basophils % 0.2 % Neutrophils # 6.3 (1.6-8.9) K/mcL Lymphocytes # 1.4 (0.6-4.6) K/mcL Monocytes # 0.9 (0.0-1.3) K/mcL Eosinophils # 0.1 (0.0-0.6) K/mcL Basophils # 0.0 (0.0-0.2) K/mcL Nucleated RBCs/100 WBC 1.3 H (0) /100 WBC Platelet Estimate Normal (Normal) Immature Plt Fraction 2.4 (1.1-6.1) % Polychromasia 1+ A (Not Present) Hypochromasia Present A (Not Present) Anisocytosis 2+ A (Not Present) Macrocytosis Present A (Not Present) PT (9.4-12.1) Seconds INR APTT (26.0-36.0) Seconds Sodium 140 (136-145) mEq/L Potassium 4.7 H (3.5-4.5) mEq/L Chloride 107 (98-109) mEq/L Carbon Dioxide 21 (19-29) mEq/L BUN 98 H (7-20) mg/dL Creatinine 2.10 H (0.57-1.11) mg/dL Est GFR ( Amer) 28 L (> 60) Est GFR (Non-Af Amer) 23 L (> 60) BUN/Creatinine Ratio 47 H (6-26) Glucose 141 H (70-99) mg/dL POC Glucose 111 H (58-89) Calculated Osmolality 323 H (280-300) Calcium 9.1 (8.6-10.8) mg/dL Total Bilirubin 0.3 (0.2-1.2) mg/dL AST 18 (5-34) Units/L ALT 9 (0-55) Units/L Alkaline Phosphatase 54 (38-126) Units/L Troponin I (0-0.03) ng/mL Serum Total Protein 5.7 L (6.0-8.3) g/dL Albumin 3.3 L (3.5-5.0) g/dL Globulin 2.4 (2.4-3.5) g/dL Albumin/Globulin Ratio 1.4 (1.1-2.2) Urine Color (Yellow) Urine Clarity (Clear) Urine pH (5.0-8.0) pH Units Ur Specific [place] (1.010-1.025) Urine Protein (Neg-Trace) mg/dL Urine Glucose (UA) (Normal) mg/dL Urine Ketones (Negative) mg/dL Urine Blood (Negative) Urine Nitrite (Negative) Urine Bilirubin (Negative) Urine Urobilinogen (Normal) mg/dL Ur Leukocyte Esterase (Negative) Urine Microscopic RBC (0-3) per hpf Urine Microscopic WBC (0-3) per hpf Ur Squamous Epith Cells (None-Few) per lpf Urine Bacteria (None-Few) per hpf Hyaline Casts (None-Few) per lpf Ur Culture Indicated? (NO) Stool Occult Blood (Negative) Blood Type Antibody Screen Crossmatch 05/23/16 05/23/16 05/23/16 Range/Units 07:16 07:16 07:56 WBC (4.3-11.1) K/mcL RBC (3.82-4.97) M/mcL Hgb (11.5-15.4) g/dL Hct (35.3-44.9) % MCV (83.0-100.0) fL MCH (28.0-33.3) pg MCHC (31.6-35.5) g/dL RDW (11.5-14.5) % Plt Count (140-400) K/mcL MPV (9.4-12.4) fL Immature Gran % (0-4) % Seg Neutrophils % % Lymphocytes % % Monocytes % % Eosinophils % % Basophils % % Neutrophils # (1.6-8.9) K/mcL Lymphocytes # (0.6-4.6) K/mcL Monocytes # (0.0-1.3) K/mcL Eosinophils # (0.0-0.6) K/mcL Basophils # (0.0-0.2) K/mcL Nucleated RBCs/100 WBC (0) /100 WBC Platelet Estimate (Normal) Immature Plt Fraction (1.1-6.1) % Polychromasia (Not Present) Hypochromasia (Not Present) Anisocytosis (Not Present) Macrocytosis (Not Present) PT 27.9 H (9.4-12.1) Seconds INR 2.5 APTT 28.5 (26.0-36.0) Seconds Sodium (136-145) mEq/L Potassium (3.5-4.5) mEq/L Chloride (98-109) mEq/L Carbon Dioxide (19-29) mEq/L BUN (7-20) mg/dL Creatinine (0.57-1.11) mg/dL Est GFR ( Amer) (> 60) Est GFR (Non-Af Amer) (> 60) BUN/Creatinine Ratio (6-26) Glucose (70-99) mg/dL POC Glucose (58-89) Calculated Osmolality (280-300) Calcium (8.6-10.8) mg/dL Total Bilirubin (0.2-1.2) mg/dL AST (5-34) Units/L ALT (0-55) Units/L Alkaline Phosphatase (38-126) Units/L Troponin I 0.03 (0-0.03) ng/mL Serum Total Protein (6.0-8.3) g/dL Albumin (3.5-5.0) g/dL Globulin (2.4-3.5) g/dL Albumin/Globulin Ratio (1.1-2.2) Urine Color (Yellow) Urine Clarity (Clear) Urine pH (5.0-8.0) pH Units Ur Specific [place] (1.010-1.025) Urine Protein (Neg-Trace) mg/dL Urine Glucose (UA) (Normal) mg/dL Urine Ketones (Negative) mg/dL Urine Blood (Negative) Urine Nitrite (Negative) Urine Bilirubin (Negative) Urine Urobilinogen (Normal) mg/dL Ur Leukocyte Esterase (Negative) Urine Microscopic RBC (0-3) per hpf Urine Microscopic WBC (0-3) per hpf Ur Squamous Epith Cells (None-Few) per lpf Urine Bacteria (None-Few) per hpf Hyaline Casts (None-Few) per lpf Ur Culture Indicated? (NO) Stool Occult Blood (Negative) Blood Type O POSITIVE Antibody Screen NEGATIVE Crossmatch See Detail 05/23/16 05/23/16 Range/Units 08:05 08:06 WBC (4.3-11.1) K/mcL RBC (3.82-4.97) M/mcL Hgb (11.5-15.4) g/dL Hct (35.3-44.9) % MCV (83.0-100.0) fL MCH (28.0-33.3) pg MCHC (31.6-35.5) g/dL RDW (11.5-14.5) % Plt Count (140-400) K/mcL MPV (9.4-12.4) fL Immature Gran % (0-4) % Seg Neutrophils % % Lymphocytes % % Monocytes % % Eosinophils % % Basophils % % Neutrophils # (1.6-8.9) K/mcL Lymphocytes # (0.6-4.6) K/mcL Monocytes # (0.0-1.3) K/mcL Eosinophils # (0.0-0.6) K/mcL Basophils # (0.0-0.2) K/mcL Nucleated RBCs/100 WBC (0) /100 WBC Platelet Estimate (Normal) Immature Plt Fraction (1.1-6.1) % Polychromasia (Not Present) Hypochromasia (Not Present) Anisocytosis (Not Present) Macrocytosis (Not Present) PT (9.4-12.1) Seconds INR APTT (26.0-36.0) Seconds Sodium (136-145) mEq/L Potassium (3.5-4.5) mEq/L Chloride (98-109) mEq/L Carbon Dioxide (19-29) mEq/L BUN (7-20) mg/dL Creatinine (0.57-1.11) mg/dL Est GFR ( Amer) (> 60) Est GFR (Non-Af Amer) (> 60) BUN/Creatinine Ratio (6-26) Glucose (70-99) mg/dL POC Glucose (58-89) Calculated Osmolality (280-300) Calcium (8.6-10.8) mg/dL Total Bilirubin (0.2-1.2) mg/dL AST (5-34) Units/L ALT (0-55) Units/L Alkaline Phosphatase (38-126) Units/L Troponin I (0-0.03) ng/mL Serum Total Protein (6.0-8.3) g/dL Albumin (3.5-5.0) g/dL Globulin (2.4-3.5) g/dL Albumin/Globulin Ratio (1.1-2.2) Urine Color Yellow (Yellow) Urine Clarity Clear (Clear) Urine pH 5.0 (5.0-8.0) pH Units Ur Specific [place] 1.013 (1.010-1.025) Urine Protein Negative (Neg-Trace) mg/dL Urine Glucose (UA) Normal (Normal) mg/dL Urine Ketones Negative (Negative) mg/dL Urine Blood Negative (Negative) Urine Nitrite Negative (Negative) Urine Bilirubin Negative (Negative) Urine Urobilinogen Normal (Normal) mg/dL Ur Leukocyte Esterase Small H (Negative) Urine Microscopic RBC 0-3 (0-3) per hpf Urine Microscopic WBC 0-3 (0-3) per hpf Ur Squamous Epith Cells Many H (None-Few) per lpf Urine Bacteria Few (None-Few) per hpf Hyaline Casts None Seen (None-Few) per lpf Ur Culture Indicated? YES A (NO) Stool Occult Blood Negative (Negative) Blood Type Antibody Screen Crossmatch - EKG Data EKG #1 EKG attestation: Yes I reviewed and interpreted this EKG. Rate: normal Rhythm: A.Fib [place]/QRS: normal When compared to previous EKG there are: no significant changes (78) Interpretation: no acute changes Attestation Statement - Attestation Attestation: I examined this patient and my medical decision-making was reviewed with the Resident Physician. I agree with the documented findings, disposition and treatment plan as described except to the extent set forth below. Symptomatic anemia in HD stable pt on Xarelto. No hematemesis, stool brown and heme negative. Admit, transfuse.
[2016-05-23 07:57] LABS: Macrocytosis Present (Not Present); Platelet Estimate Normal (Normal)
[2016-05-23 07:58] LABS: Anisocytosis 2+ (Not Present); Hypochromasia Present (Not Present); Polychromasia 1+ (Not Present)
[2016-05-23 08:10] LABS: Bilirubin,Urine Negative (Negative); Blood,Urine Negative (Negative); Clarity,Urine Clear (Clear); Color,Urine Yellow (Yellow); Glucose,Urine (UA) Normal (Normal); Ketones,Urine Negative (Negative); Leukocyte Esterase,Urine Small (Negative); Nitrite,Urine Negative (Negative); Protein,Urine Negative (Neg-Trace); Specific Gravity,Urine 1.013 (1.010-1.025); Urobilinogen,Urine Normal (Normal)
[2016-05-23 08:14] LABS: Bacteria,Urine Few per hpf (None-Few); Hyaline Casts,Urine None Seen per lpf (None-Few); RBC,Urine 0-3 per hpf (0-3); Squamous Epithelial Cell,Urine Many per lpf (None-Few); WBC,Urine 0-3 per hpf (0-3)
[2016-05-23 08:37] LABS: INR 2.5; Prothrombin Time 27.9 Seconds (9.4-12.1)
[2016-05-23 08:39] LABS: Activated Partial Thrombo Time 28.5 Seconds (26.0-36.0)
--- NOTE | 2016-05-23 09:22 | Internal Med History&Physical ---
Date of Encounter: 05/23/16 Time of Encounter: 08:45 Internal Medicine - H&P: HPI Chief complaint: Progressive weaakness, inability to walk over a couple of days. Admitted From: Emergency Dept Plans for Post Hospital Care: Home History of present illness: Ms. Masterson is a 76 year old female with chronic anemia, presents with progressive weakness that has now led to complete ambulatory dysfunction. Previously, she was able to walk with a cane/and or walker due to bilateral lower extremity osteoarthritis, now she thinks it is because she is very lethargic. She reports mild subjective SOB/MARTIN. She reports persistent aches and pain she relates to her osteoarthritis which is relieved with Tramadol. She denies hematochezia, melena, hematemesis, hemoptysis, vaginal bleeding or gross hematuria. No bruising. She takes aspirin and Xarelto for persistent atrial fibrillation. She was recommended Erythropioetin by the porcelain enamel installer but has not commenced treatment. I see she was evaluated by the management specialist in 2014, but has not followed up since then. I see she has had extensive hematological testing. Methylanic acid was marginally elevated, however, B12 and serum Folate levels were normal (No report on RBC Folate). I do not see a report on bone marrow aspiration. She has received blood transfusion in the past. She is FULL CODE as per discussion. She nominates her son, Billy Barajas as her NOK/POA ([phone]). Medical history: Reports: persistent atrial fibrillation, dementia, diabetes, hypertension, myocardial infarction (CARDIAC CATH, WITH PCI in 2009), CKDIII, OSTEOARTHRITIS, ambulatory dysfunction due to osteoarthritis, uses walker and cane. Surgical history: Reports: ORIF left shoulder 2001, ORIF right wrist 2002, COLONOSCOPY 2012 Psychiatric history: Reports: depression Smoking Status: Former smoker Alcohol use: Reports: none Drug use: Reports: none Other social history: . Family history: mother: diabetes, father: lung cancer, other family member: HTN , DM2, heart disease. ROS: A 10-point ROS was performed, positives and relevant negatives are detailed , system-symptom not mentioned is assumed negative unless otherwise stated. Positives: chronic malaise, inability to walk Negatives: No PND or orthopnea., no chest pain no sore-throat, no hemoptysis, hematemesis, or hematochezia, no abdominal pain or diarrhea, no objective weight loss, no urinary or new-onset neurological symptoms. Vital Signs Temperature 97.0 F L 05/23/16 06:34 Pulse Rate 86 05/23/16 06:34 Respiratory Rate 16 05/23/16 06:34 Blood Pressure 95/38 05/23/16 06:34 O2 Sat by Pulse Oximetry 100 05/23/16 06:34 Temperature 97.0 F L 05/23/16 06:34 Pulse Rate 76 05/23/16 08:12 Respiratory Rate 18 05/23/16 08:12 Blood Pressure 109/49 05/23/16 08:12 O2 Sat by Pulse Oximetry 99 05/23/16 08:12 Not in distress, ill but, non-toxic looking. Pale++, anicteric, afebrile, acyanotic. Moist mucosa, no thrush, no mucositis or glossitis HEENT: No JVD, no cervical or axillary lymphadenopathy, Chest : CTAB, Heart: RRR, HS1/2, Abdomen: soft, non-tender, no masses, HAND POTTER: AAO X 3, no gross focal neurological signs. Skin: No active skin lesion (no rash, petechiae, purpura), no mass lesions. Extremities: normal pedal pulses, no calf tenderness. no axillary or inguinal lymphadenopathy. There is some varus deformity of the lower extremities and chronic, non-pitting swelling. I did not observe her walk. Lab Results 05/23/16 05/23/16 05/23/16 Range/Units 06:41 07:16 07:16 WBC 8.7 (4.3-11.1) K/mcL RBC 1.44 L (3.82-4.97) M/mcL Hgb 4.5 L* (11.5-15.4) g/dL Hct 14.9 L* (35.3-44.9) % MCV 103.5 H (83.0-100.0) fL MCH 31.3 (28.0-33.3) pg MCHC 30.2 L (31.6-35.5) g/dL RDW 16.5 H (11.5-14.5) % Plt Count 264 (140-400) K/mcL MPV 9.8 (9.4-12.4) fL Immature Gran % 0.7 (0-4) % Seg Neutrophils % 72.3 % Lymphocytes % 15.9 % Monocytes % 10.3 % Eosinophils % 0.6 % Basophils % 0.2 % Neutrophils # 6.3 (1.6-8.9) K/mcL Lymphocytes # 1.4 (0.6-4.6) K/mcL Monocytes # 0.9 (0.0-1.3) K/mcL Eosinophils # 0.1 (0.0-0.6) K/mcL Basophils # 0.0 (0.0-0.2) K/mcL Nucleated RBCs/100 WBC 1.3 H (0) /100 WBC Platelet Estimate Normal (Normal) Immature Plt Fraction 2.4 (1.1-6.1) % Polychromasia 1+ A (Not Present) Hypochromasia Present A (Not Present) Anisocytosis 2+ A (Not Present) Macrocytosis Present A (Not Present) PT (9.4-12.1) Seconds INR APTT (26.0-36.0) Seconds Sodium 140 (136-145) mEq/L Potassium 4.7 H (3.5-4.5) mEq/L Chloride 107 (98-109) mEq/L Carbon Dioxide 21 (19-29) mEq/L BUN 98 H (7-20) mg/dL Creatinine 2.10 H (0.57-1.11) mg/dL Est GFR ( Amer) 28 L (> 60) Est GFR (Non-Af Amer) 23 L (> 60) BUN/Creatinine Ratio 47 H (6-26) Glucose 141 H (70-99) mg/dL POC Glucose 111 H (58-89) Calculated Osmolality 323 H (280-300) Calcium 9.1 (8.6-10.8) mg/dL Total Bilirubin 0.3 (0.2-1.2) mg/dL AST 18 (5-34) Units/L ALT 9 (0-55) Units/L Alkaline Phosphatase 54 (38-126) Units/L Troponin I (0-0.03) ng/mL Serum Total Protein 5.7 L (6.0-8.3) g/dL Albumin 3.3 L (3.5-5.0) g/dL Globulin 2.4 (2.4-3.5) g/dL Albumin/Globulin Ratio 1.4 (1.1-2.2) Urine Color (Yellow) Urine Clarity (Clear) Urine pH (5.0-8.0) pH Units Ur Specific [place] (1.010-1.025) Urine Protein (Neg-Trace) mg/dL Urine Glucose (UA) (Normal) mg/dL Urine Ketones (Negative) mg/dL Urine Blood (Negative) Urine Nitrite (Negative) Urine Bilirubin (Negative) Urine Urobilinogen (Normal) mg/dL Ur Leukocyte Esterase (Negative) Urine Microscopic RBC (0-3) per hpf Urine Microscopic WBC (0-3) per hpf Ur Squamous Epith Cells (None-Few) per lpf Urine Bacteria (None-Few) per hpf Hyaline Casts (None-Few) per lpf Ur Culture Indicated? (NO) Stool Occult Blood (Negative) Blood Type Antibody Screen Crossmatch EKG: Afib, rate controlled, no acute ST-T segment or T wave anomaly IMP Severe anemia, acute on chronic: Macrocytic. No clinical evidence of GI bleeding as stool occul blood is negative and patient denies gross gastrointestinal bleeding. Acute on CKDIII, may be related to anemia, Lisinopril Furosemide Chronic Chronic normocytic anemia Persistent atrial fibrillation on XARELTO Hypertension CAD s/p NM, PCI CKDIII dm2 Dementia Depression PLAN Admit Transfuse 3u of PRBC Check post transfusion HH Obtain Iron profile with Ferritin, serum and RBC folate, MMA and B12, serum erythropoietin. I think she need bone marrow aspiration if one has not been done before as her degree of anemia may not explained completely by the deficiency of Erythropoitiin. 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 I will consider red-cell aplasia too. Consult management specialist and porcelain enamel installer. Continue aspirin and xarelto Hold Lisinopril and Furosemide Low dose insulin sliding scale QACHS Continue other essential medication of chronic morbidities Xarelto will also provide DVT prophylaxis No indication for GI prophylaxis. I discussed my findings and assessment with the patient, she verbalized understanding and is agreeable to admission. She is admitted for blood transfusion and consultation with hematology and nephrology services especially for coordination of care in the out-patient setting. Past Med Surg Social Fam HX - Past Medical History Medical history: atrial fibrillation, dementia, diabetes, hypertension, myocardial infarction, renal disease, other Psychiatric history: depression - Past Surgical History Surgical History: other - Social History Smoking Status: Never smoker Smokeless Tobacco Status: No Alcohol use: none Drug use: none - Family History Mother Hx Family Cardiac Disorders: Yes (CAD, Pacemaker) Hx Family Endocrine Disorder: Yes (DM) Father Hx Family Cancer: Yes (Lung Cancer) Internal Medicine - H&P: Meds Aspirin 81 mg PO DAILY 12/06/14 [History] HydrALAZINE 10 mg PO TID 12/06/14 [History] Lisinopril [Zestril] 10 mg PO DAILY 12/06/14 [History] Nitroglycerin 0.4 mg SL Q5MIN PRN 12/06/14 [History] Oxybutynin [Ditropan] 5 mg PO BID 12/06/14 [History] Simvastatin [Zocor] 40 mg PO HS 12/06/14 [History] Acetaminophen [Tylenol] 500 mg PO Q6HR PRN 05/03/16 [History] Albuterol Sulfate [Proair Hfa] 2 puff IH Q4H PRN 05/03/16 [History] Calcium Carbonate/Vitamin D3 [Calcium 500 + Vit D Caplet] 1 tab PO DAILY [History] Donepezil HCl [Aricept] 10 mg PO DAILY 05/03/16 [History] Epoetin Gonzalo [Procrit] 10,000 unit IJ Q2W 05/03/16 [History] Ergocalciferol (VITAMIN D2) [Vitamin D2] 50,000 unit PO QWEEK 05/03/16 [History] Furosemide [Lasix] 20 mg PO DAILY 05/03/16 [History] LORazepam [Ativan] 0.5 mg PO BID PRN 05/03/16 [History] Metoprolol Succinate 100 mg PO DAILY 05/03/16 [History] Potassium Chloride [K-Tab ER] 10 meq PO DAILY 05/03/16 [History] Rivaroxaban [Xarelto] 20 mg PO DAILY 05/03/16 [History] SitaGLIPtin [Januvia] 25 mg PO DAILY 05/03/16 [History] Tramadol HCl [Ultram] 50 mg PO BID PRN 05/03/16 [History] Triamcinolone Acet 0.1% CRM [Kenalog] 1 appl TP BID 05/03/16 [History] Venlafaxine XR (24 HR) [Effexor XR] 75 mg PO DAILY 05/23/16 [History] Allergies No Known Allergies Allergy (Verified 05/03/16 17:59) All Systems PM: A 10-system review of systems was performed and is negative for pertinent findings except as documented above in the HPI. - Constitutional Vitals: Temp Pulse Resp BP Pulse Ox 97.0 F L 76 18 109/49 99 05/23/16 06:34 05/23/16 08:12 05/23/16 08:12 05/23/16 08:12 05/23/16 08:12 Internal Med - H&P Results - Labs CBC & Chem 7: 05/23/16 07:16 05/23/16 07:16
[2016-05-23] MEDS ORDERED: Nitroglycerin 0.4 MG TAB.SUBL SL PRN (09:25)
[2016-05-23] MEDS ORDERED: *HR* LORazepam 0.5 MG TABLET PO PRN (09:25)
[2016-05-23] MEDS ORDERED: traMADol 50 MG TABLET PO PRN (09:25)
[2016-05-23] MEDS: 0.9 % Sodium Chloride 250 ML ONE ×2 (09:27→13:37)
[2016-05-23] MEDS ORDERED: Ondansetron 4 MG/2 ML VIAL IVP PRN (09:37)
[2016-05-23] MEDS ORDERED: Naloxone 0.4 MG/ML INJ IVP PRN (09:37)
[2016-05-23] MEDS ORDERED: Acetaminophen 325 MG TABLET PO PRN (09:37)
[2016-05-23] MEDS ORDERED: 0.9 % Sodium Chloride 250 ML ONE ×2 (11:37→14:50)
--- NOTE | 2016-05-23 15:03 | Oncology Inp Consult Note ---
Date of Encounter: 05/23/16 - Data of Consult Patient: new to practice Consult date: 05/23/16 Requesting Physician: Oralia Reid Primary Care Provider: Arabella Santos CNP - Consult Narrative Reason for consult: anemia of chronic disease History of present illness: Ms. Masterson is a 76 year old female with a known history of anemia of chronic disease, last seen by an outside power plant supervisor in 2014. No follow up since that time. According to her [facility] medical records from PCP and specialists, she has a history of chronic anemia, most likely secondary to CKD III. She is a patient of Dr Bhavesh Veliz at [facility]. Currently receiving Epoetin Gonzalo [ Procrit] 10,000 unit IJ Q2W according to history. The patient presented with progressive weakness that transitioned to complete ambulatory dysfunction. She denies hematochezia, melena, hematemesis, hemoptysis , vaginal bleeding or gross hematuria. No bruising. She takes aspirin and Xarelto for chronic atrial fibrillation. She was recommended Erythropioetin by Dr. Veliz, but has not commenced treatment. She has had extensive hematological testing in the past, according to records. Methylanic acid was marginally elevated. Vitamin B12 and serum Folate levels were normal. Patient has received blood transfusions in the past. The patient was admitted to hospitalist service, for blood transfusions and evaluation. Hematology consulted for evaluation and opinion of worsening anemia of chronic disease. Past Med Surg Social Fam HX - Past Medical History Medical history: atrial fibrillation, dementia, diabetes, hypertension, myocardial infarction, renal disease, other Psychiatric history: depression - Past Surgical History Surgical History: other - Social History Smoking Status: Never smoker Smokeless Tobacco Status: No Alcohol use: none Drug use: none - Family History Mother Hx Family Cardiac Disorders: Yes (CAD, Pacemaker) Hx Family Endocrine Disorder: Yes (DM) Father Hx Family Cancer: Yes (Lung Cancer) Medications and Allergies Aspirin 81 mg PO DAILY 12/06/14 [History] HydrALAZINE 10 mg PO TID 12/06/14 [History] Lisinopril [Zestril] 10 mg PO DAILY 12/06/14 [History] Nitroglycerin 0.4 mg SL Q5MIN PRN 12/06/14 [History] Oxybutynin [Ditropan] 5 mg PO BID 12/06/14 [History] Simvastatin [Zocor] 40 mg PO HS 12/06/14 [History] Acetaminophen [Tylenol] 500 mg PO Q6HR PRN 05/03/16 [History] Albuterol Sulfate [Proair Hfa] 2 puff IH Q4H PRN 05/03/16 [History] Calcium Carbonate/Vitamin D3 [Calcium 500 + Vit D Caplet] 1 tab PO DAILY [History] Donepezil HCl [Aricept] 10 mg PO DAILY 05/03/16 [History] Epoetin Gonzalo [Procrit] 10,000 unit IJ Q2W 05/03/16 [History] Ergocalciferol (VITAMIN D2) [Vitamin D2] 50,000 unit PO QWEEK 05/03/16 [History] Furosemide [Lasix] 20 mg PO DAILY 05/03/16 [History] LORazepam [Ativan] 0.5 mg PO BID PRN 05/03/16 [History] Metoprolol Succinate 100 mg PO DAILY 05/03/16 [History] Potassium Chloride [K-Tab ER] 10 meq PO DAILY 05/03/16 [History] Rivaroxaban [Xarelto] 20 mg PO DAILY 05/03/16 [History] SitaGLIPtin [Januvia] 25 mg PO DAILY 05/03/16 [History] Tramadol HCl [Ultram] 50 mg PO BID PRN 05/03/16 [History] Triamcinolone Acet 0.1% CRM [Kenalog] 1 appl TP BID 05/03/16 [History] Venlafaxine XR (24 HR) [Effexor XR] 75 mg PO DAILY 05/23/16 [History] Allergies No Known Allergies Allergy (Verified 05/03/16 17:59) Oncology - Exam - Constitutional Vitals: Temp Pulse Resp BP Pulse Ox 97.8 F 81 16 93/54 92 L 05/23/16 12:06 05/23/16 12:06 05/23/16 12:06 05/23/16 12:06 05/23/16 12:06 Oncology - Results - Labs Labs: Laboratory Last Values WBC 8.7 K/mcL (4.3-11.1) 05/23/16 07:16 RBC 1.44 M/mcL (3.82-4.97) L 05/23/16 07:16 Hgb 4.5 g/dL (11.5-15.4) L* 05/23/16 07:16 Hct 14.9 % (35.3-44.9) L* 05/23/16 07:16 MCV 103.5 fL (83.0-100.0) H 05/23/16 07:16 MCH 31.3 pg (28.0-33.3) 05/23/16 07:16 MCHC 30.2 g/dL (31.6-35.5) L 05/23/16 07:16 RDW 16.5 % (11.5-14.5) H 05/23/16 07:16 Plt Count 264 K/mcL (140-400) 05/23/16 07:16 MPV 9.8 fL (9.4-12.4) 05/23/16 07:16 Immature Gran % 0.7 % (0-4) 05/23/16 07:16 Seg Neutrophils % 72.3 % 05/23/16 07:16 Lymphocytes % 15.9 % 05/23/16 07:16 Monocytes % 10.3 % 05/23/16 07:16 Eosinophils % 0.6 % 05/23/16 07:16 Basophils % 0.2 % 05/23/16 07:16 Neutrophils # 6.3 K/mcL (1.6-8.9) 05/23/16 07:16 Lymphocytes # 1.4 K/mcL (0.6-4.6) 05/23/16 07:16 Monocytes # 0.9 K/mcL (0.0-1.3) 05/23/16 07:16 Eosinophils # 0.1 K/mcL (0.0-0.6) 05/23/16 07:16 Basophils # 0.0 K/mcL (0.0-0.2) 05/23/16 07:16 Nucleated RBCs/100 WBC 1.3 /100 WBC (0) H 05/23/16 07:16 Platelet Estimate Normal (Normal) 05/23/16 07:16 Immature Plt Fraction 2.4 % (1.1-6.1) 05/23/16 07:16 Polychromasia 1+ (Not Present) A 05/23/16 07:16 Hypochromasia Present (Not Present) A 05/23/16 07:16 Anisocytosis 2+ (Not Present) A 05/23/16 07:16 Macrocytosis Present (Not Present) A 05/23/16 07:16 PT 27.9 Seconds (9.4-12.1) H 05/23/16 07:16 INR 2.5 05/23/16 07:16 APTT 28.5 Seconds (26.0-36.0) 05/23/16 07:16 Sodium 140 mEq/L (136-145) 05/23/16 07:16 Potassium 4.7 mEq/L (3.5-4.5) H 05/23/16 07:16 Chloride 107 mEq/L (98-109) 05/23/16 07:16 Carbon Dioxide 21 mEq/L (19-29) 05/23/16 07:16 BUN 98 mg/dL (7-20) H 05/23/16 07:16 Creatinine 2.10 mg/dL (0.57-1.11) H 05/23/16 07:16 Est GFR ( Amer) 28 (> 60) L 05/23/16 07:16 Est GFR (Non-Af Amer) 23 (> 60) L 05/23/16 07:16 BUN/Creatinine Ratio 47 (6-26) H 05/23/16 07:16 Glucose 141 mg/dL (70-99) H 05/23/16 07:16 POC Glucose 111 (58-89) H 05/23/16 06:41 Calculated Osmolality 323 (280-300) H 05/23/16 07:16 Calcium 9.1 mg/dL (8.6-10.8) 05/23/16 07:16 Total Bilirubin 0.3 mg/dL (0.2-1.2) 05/23/16 07:16 AST 18 Units/L (5-34) 05/23/16 07:16 ALT 9 Units/L (0-55) 05/23/16 07:16 Alkaline Phosphatase 54 Units/L (38-126) 05/23/16 07:16 Troponin I 0.03 ng/mL (0-0.03) 05/23/16 07:16 Serum Total Protein 5.7 g/dL (6.0-8.3) L 05/23/16 07:16 Albumin 3.3 g/dL (3.5-5.0) L 05/23/16 07:16 Globulin 2.4 g/dL (2.4-3.5) 05/23/16 07:16 Albumin/Globulin Ratio 1.4 (1.1-2.2) 05/23/16 07:16 Urine Color Yellow (Yellow) 05/23/16 08:05 Urine Clarity Clear (Clear) 05/23/16 08:05 Urine pH 5.0 pH Units (5.0-8.0) 05/23/16 08:05 Ur Specific [place] 1.013 (1.010-1.025) 05/23/16 08:05 Urine Protein Negative mg/dL (Neg-Trace) 05/23/16 08:05 Urine Glucose (UA) Normal mg/dL (Normal) 05/23/16 08:05 Urine Ketones Negative mg/dL (Negative) 05/23/16 08:05 Urine Blood Negative (Negative) 05/23/16 08:05 Urine Nitrite Negative (Negative) 05/23/16 08:05 Urine Bilirubin Negative (Negative) 05/23/16 08:05 Urine Urobilinogen Normal mg/dL (Normal) 05/23/16 08:05 Ur Leukocyte Esterase Small (Negative) H 05/23/16 08:05 Urine Microscopic RBC 0-3 per hpf (0-3) 05/23/16 08:05 Urine Microscopic WBC 0-3 per hpf (0-3) 05/23/16 08:05 Ur Squamous Epith Cells Many per lpf (None-Few) H 05/23/16 08:05 Urine Bacteria Few per hpf (None-Few) 05/23/16 08:05 Hyaline Casts None Seen per lpf (None-Few) 05/23/16 08:05 Ur Culture Indicated? YES (NO) A 05/23/16 08:05 Stool Occult Blood Negative (Negative) 05/23/16 08:06 Blood Type O POSITIVE 05/23/16 07:56 Antibody Screen NEGATIVE 05/23/16 07:56 Crossmatch See Detail 05/23/16 07:56 Consult Discharge Plan - Plan Referrals: Arabella Santos METHODS EXAMINER [Primary Care Provider] - 05/30/16 ( )
[2016-05-23] MEDS: hydrALAZINE 10 MG TABLET PO SCH ×2 (15:23→21:07)
--- NOTE | 2016-05-23 17:17 | Nephrology Consult Note ---
Date of Encounter: 05/23/16 Time of Encounter: 17:00 Assessment and Plan (1) Acute kidney injury Current Visit: Yes Status: Acute Nonoliguric SAUL on CKD stage III with a b/l eGFR of 36-43, and the SAUL is likely hemodynamic insult from severe anemia and relative hypotension. She is a high risk patient given these findings, monique with the severe anemia. Anemia: +FOBT. Appears to be more than from just chronic disease. Agree with anemia work up. Volume status: stable without LE edema, so she should be able to tolerate the several units of blood Mild hyperkalemia at 4.7: low K+ diet Hold any nephrotoxins. Renal dosing. Strict I/Os and daily weights. I asked the RN to fix the pt's bed, which was fixed at a high position off the ground. Thank you for consulting the [facility] group. Will follow with you. (2) CKD (chronic kidney disease), stage III Current Visit: Yes Status: Chronic See above (3) Fatigue Current Visit: Yes Status: Acute Sec to her severe anemia. Agree with transfusion. Qualifiers: Fatigue type: chronic, unspecified Qualified Code(s): R53.82 - Chronic fatigue, unspecified (4) Anemia Current Visit: No Status: Acute acute on chronic. see above Qualifiers: Anemia type: other cause Other causes of anemia: other cause, not classified Qualified Code(s): D64.89 - Other specified anemias History of Present Illness - Reason for Consult Consult date: 05/23/16 Acute Kidney Injury, Chronic Kidney Disease Requesting physician: Bryan Powers - Chief Complaint SAUL on CKD stage III, Anemia - History of Present Illness Tanvi Masterson is a very pleasant lady with a pmh of CKD stage III, chronic anemia , HTN and et al who presented after being found to be very anemic. She happens to be a patient I see for CKD who was noted noted to have anemia and was arranged for IV iron, but since her Hgb was much lower than previously checked, she was admitted. She affirmed having progressively worsening fatigue but did not report CP, F/C, dysuria, diarrhea. She did report having mild "dry heaves" about 1 week ago without actual emesis. She reported constipation but no abd pain. She denied use of NSAIDS or visible blood in her stool. No hematemesis or hemoptysis was reported. Past Med Surg Social Fam HX - Past Medical History Medical history: atrial fibrillation, dementia, diabetes, hypertension, myocardial infarction, renal disease, other Psychiatric history: depression - Past Surgical History Surgical History: other - Social History Smoking Status: Never smoker Smokeless Tobacco Status: No Alcohol use: none Drug use: none - Family History Mother Hx Family Cardiac Disorders: Yes (CAD, Pacemaker) Hx Family Endocrine Disorder: Yes (DM) Father Hx Family Cancer: Yes (Lung Cancer) Medications and Allergies Aspirin 81 mg PO DAILY 12/06/14 [History] HydrALAZINE 10 mg PO TID 12/06/14 [History] Lisinopril [Zestril] 10 mg PO DAILY 12/06/14 [History] Nitroglycerin 0.4 mg SL Q5MIN PRN 12/06/14 [History] Oxybutynin [Ditropan] 5 mg PO BID 12/06/14 [History] Simvastatin [Zocor] 40 mg PO HS 12/06/14 [History] Acetaminophen [Tylenol] 500 mg PO Q6HR PRN 05/03/16 [History] Albuterol Sulfate [Proair Hfa] 2 puff IH Q4H PRN 05/03/16 [History] Calcium Carbonate/Vitamin D3 [Calcium 500 + Vit D Caplet] 1 tab PO DAILY [History] Donepezil HCl [Aricept] 10 mg PO DAILY 05/03/16 [History] Epoetin Gonzalo [Procrit] 10,000 unit IJ Q2W 05/03/16 [History] Ergocalciferol (VITAMIN D2) [Vitamin D2] 50,000 unit PO QWEEK 05/03/16 [History] Furosemide [Lasix] 20 mg PO DAILY 05/03/16 [History] LORazepam [Ativan] 0.5 mg PO BID PRN 05/03/16 [History] Metoprolol Succinate 100 mg PO DAILY 05/03/16 [History] Potassium Chloride [K-Tab ER] 10 meq PO DAILY 05/03/16 [History] Rivaroxaban [Xarelto] 20 mg PO DAILY 05/03/16 [History] SitaGLIPtin [Januvia] 25 mg PO DAILY 05/03/16 [History] Tramadol HCl [Ultram] 50 mg PO BID PRN 05/03/16 [History] Triamcinolone Acet 0.1% CRM [Kenalog] 1 appl TP BID 05/03/16 [History] Venlafaxine XR (24 HR) [Effexor XR] 75 mg PO DAILY 05/23/16 [History] Allergies No Known Allergies Allergy (Verified 05/03/16 17:59) Review of Systems All Systems: reviewed and no additional remarkable complaints except as stated Exam - Vital Signs Vital signs: Initial Vital Signs Temp Pulse Resp BP Pulse Ox 97.0 F L 86 16 95/38 100 05/23/16 06:34 05/23/16 06:34 05/23/16 06:34 05/23/16 06:34 05/23/16 06:34 Vital Signs - Last 8 Hours Temp Pulse Resp BP Pulse Ox 05/23/16 16:09 97.5 F L 60 14 107/49 99 05/23/16 15:11 98.2 F 70 18 102/55 96 05/23/16 14:56 98.3 F 76 18 100/58 92 L 05/23/16 14:04 98.3 F 76 18 100/58 92 L 05/23/16 12:06 97.8 F 81 16 93/54 92 L 05/23/16 11:51 97.4 F L 78 18 105/63 91 L 05/23/16 11:46 98.2 F 75 16 100/59 100 05/23/16 11:40 98.2 F 80 16 100/59 99 05/23/16 10:27 97.7 F 71 20 97/59 97 05/23/16 10:00 18 106/49 05/23/16 09:40 97.8 F 80 16 112/50 100 Intake and Output 05/23/16 05/23/16 05/23/16 07:59 15:59 23:59 Intake Total 989 / 1489 Output Total 0 / 0 Balance 989 / 1489 Intake: Oral 360 / 360 Blood Product 629 / 1129 Rbcs Leuko Poor As-1 0 / 0 Unit [id number] Rbcs Leuko Poor As-1 350 / 850 Unit [id number] Rbcs Leuko Poor As-3 Ph 279 / 279 Unit [id number] Output: Urine 0 / 0 Other: Meal Lunch Percent of Meal Consumed 50% # Voids 1 Weight 64.127 kg Patient Weight 05/23/16 23:59 Weight 64.127 kg - General Appearance General appearance: appears started age, cachectic, frail Exam: Palor EENT: ATNC, PERRL, mucous membranes moist Neck: supple Respiratory: clear Cardiology: no edema, regular rate, regular rhythm, normal S1, normal S2 Gastrointestinal: normoactive bowel sounds, no tenderness, no guarding, no organomegaly Integumentary: no rash Neurologic: no focal deficit, no asterixis, alert and oriented x3 Musculoskeletal: no deformities, no erythema, no cyanosis, no clubbing Psychiatric: mood/affect appropriate, cooperative Results - Lab Results 05/23/16 07:16 05/23/16 07:16 Most recent lab results Calcium 9.1 mg/dL (8.6-10.8) 05/23/16 07:16 I reviewed the above autogenerated data. I reviewed progress notes from [facility] and from [facility]. I reviewed imaging, labs, meds, vitals and focused/reviewed on at least 10 review of systems. Consult Discharge Plan - Plan Referrals: Arabella Santos MEDICAL TECHNICIAN [Primary Care Provider] - 05/30/16 ( )
[2016-05-23 19:12] LABS: Immature Reticulocyte % 36.1 % (11.0-38.0); Retculocyte # 0.15 M/mcL (0.05-0.10); Reticulocyte % 4.5 % (1.6-2.8)
[2016-05-23 19:30] LABS: % Iron Saturation 32 % (15-50); Iron 114 mcg/dL (50-170); Transferrin 258 mg/dL (180-382)
[2016-05-23 19:50] LABS: Ferritin 356 ng/ml (5-204)
[2016-05-23 19:51] LABS: Thyroid Stimulating Hormone 1.335 mcIU/mL (0.350-4.840)
[2016-05-23 20:04] LABS: Folate 13.4 ng/mL (7.0-31.4)
--- NOTE | 2016-05-24 05:40 | Oncology Inp Consult Note ---
Date of Encounter: 05/24/16 Time of Encounter: 06:30 - Data of Consult Patient: new to practice Consult date: 05/24/16 Requesting Physician: Oralia Reid Primary Care Provider: Arabella Santos CNP - Consult Narrative Reason for consult: Severe anemia History of present illness: Ms. Masterson is a 76 year old woman who is known to the hematology and seen in consultation regarding unexplained severe macrocytic anemia. I saw her in November for anemia evaluation but has been lost to follow up after her initial visit with me. She has a history of chronic anemia documented as far back 2014. She also has history of stage III CKD with associated anemia and is established with nephrology for ongoing management. Epo was recommended in the past but she has yet to start. She presented with progressive weakness and activity intolerance. CBC 05/23/16 showed hemoglobin 4.5 with macrocytic RBC index. no other associated cytopenias. She denies hematochezia, melena, hematemesis, hemoptysis, vaginal bleeding or gross hematuria. No bruising. She takes aspirin and Xarelto for persistent atrial fibrillation. She was evaluated by the cut off machine operator in 2014 and her anemia work up revealed elevated MMA level and low normal B12 level. Her other comorbidities include atrial fibrillation, dementia, diabetes, hypertension, CAD, DJD with impaired mobility- uses walker and cane,depression. She is on tramadol for chronic pain due to DJD. She is on Xarelto for A.fib. She had a colonoscopy 2012 which was unremarkable. Son was diagnosed with bone cancer in his 50s. from his disease. No other significant history of heme disorders or cancer. Smoking Status: Former smoker.15-20 pk yrs. Quit 15 yrs ago. Alcohol use: Quit about 6-7 yrs ago. She is . Lives at home with son and DIL. We are consulted re:anemia evaluation and concern about a primary bone marrow abnormality. At her last visit with me, I had to send her to the ED due to concern about acute CHF exacerbation. Patient seen and examined at bedside and chart reviewed for details of ongoing management by hospital team which is much appreciated. He has also been evaluated by Dr. Veliz and I reviewed his consultation report. Appreciate his input and agree that the severity patient's anemia suggests additional contributing factor beyond CKD/chronic disease. Rest of past medical, surgical, family, social history detailed below and verified with patient today. Review of systems: 12 point review of systems performed with patient and positive findings noted in history of present illness. All other systems are negative: Physical exam: Vital Signs Temp 98.3 F 05/24/16 04:27 Pulse 96 05/24/16 04:27 Resp 18 05/24/16 04:27 BP 117/57 05/24/16 04:27 Pulse Ox 98 05/24/16 04:27 GENERAL: Alert and oriented, [default value] appearing. Mental Status: Affect appropriate for circumstances HEENT: Sclerae anicteric. No mucositis or thrush. No other oral or pharyngeal lesions or erythema. Skin: No rashes or petechiae. No evidence of skin malignancy Lymph nodes: No cervical, supraclavicular, axillary, or inguinal adenopathy. Lungs: Clear to auscultation bilaterally. Clear to percussion bilaterally. Cardiovascular: Regular rate and rhythm. No gallops, murmurs, or rubs. Abdomen: Soft, nontender; No organomegaly or masses palpable. Extremities: No edema. No calf swelling or tenderness. No joint deformity. Neurologic: Alert, normal gait; no focal weakness or sensory abnormalities. Results: Laboratory Last Values WBC 8.7 K/mcL (4.3-11.1) 05/23/16 07:16 RBC 1.44 M/mcL (3.82-4.97) L 05/23/16 07:16 Hgb 4.5 g/dL (11.5-15.4) L* 05/23/16 07:16 Hct 14.9 % (35.3-44.9) L* 05/23/16 07:16 MCV 103.5 fL (83.0-100.0) H 05/23/16 07:16 MCH 31.3 pg (28.0-33.3) 05/23/16 07:16 MCHC 30.2 g/dL (31.6-35.5) L 05/23/16 07:16 RDW 16.5 % (11.5-14.5) H 05/23/16 07:16 Plt Count 264 K/mcL (140-400) 05/23/16 07:16 MPV 9.8 fL (9.4-12.4) 05/23/16 07:16 Reticulocyte # 0.15 M/mcL (0.05-0.10) H 05/23/16 18:56 Immature Gran % 0.7 % (0-4) 05/23/16 07:16 Seg Neutrophils % 72.3 % 05/23/16 07:16 Lymphocytes % 15.9 % 05/23/16 07:16 Monocytes % 10.3 % 05/23/16 07:16 Eosinophils % 0.6 % 05/23/16 07:16 Basophils % 0.2 % 05/23/16 07:16 Neutrophils # 6.3 K/mcL (1.6-8.9) 05/23/16 07:16 Lymphocytes # 1.4 K/mcL (0.6-4.6) 05/23/16 07:16 Monocytes # 0.9 K/mcL (0.0-1.3) 05/23/16 07:16 Eosinophils # 0.1 K/mcL (0.0-0.6) 05/23/16 07:16 Basophils # 0.0 K/mcL (0.0-0.2) 05/23/16 07:16 Nucleated RBCs/100 WBC 1.3 /100 WBC (0) H 05/23/16 07:16 Platelet Estimate Normal (Normal) 05/23/16 07:16 Immature Plt Fraction 2.4 % (1.1-6.1) 05/23/16 07:16 Polychromasia 1+ (Not Present) A 05/23/16 07:16 Hypochromasia Present (Not Present) A 05/23/16 07:16 Anisocytosis 2+ (Not Present) A 05/23/16 07:16 Macrocytosis Present (Not Present) A 05/23/16 07:16 Percent Retic 4.5 % (1.6-2.8) H 05/23/16 18:56 Immature Retic Fraction 36.1 % (11.0-38.0) 05/23/16 18:56 Retic Hgb Equivalent 35.6 pg (28.61-36.33) 05/23/16 18:56 PT 27.9 Seconds (9.4-12.1) H 05/23/16 07:16 INR 2.5 05/23/16 07:16 APTT 28.5 Seconds (26.0-36.0) 05/23/16 07:16 Sodium 140 mEq/L (136-145) 05/23/16 07:16 Potassium 4.7 mEq/L (3.5-4.5) H 05/23/16 07:16 Chloride 107 mEq/L (98-109) 05/23/16 07:16 Carbon Dioxide 21 mEq/L (19-29) 05/23/16 07:16 BUN 98 mg/dL (7-20) H 05/23/16 07:16 Creatinine 2.10 mg/dL (0.57-1.11) H 05/23/16 07:16 Est GFR ( Amer) 28 (> 60) L 05/23/16 07:16 Est GFR (Non-Af Amer) 23 (> 60) L 05/23/16 07:16 BUN/Creatinine Ratio 47 (6-26) H 05/23/16 07:16 Glucose 141 mg/dL (70-99) H 05/23/16 07:16 POC Glucose 111 (58-89) H 05/23/16 06:41 Calculated Osmolality 323 (280-300) H 05/23/16 07:16 Calcium 9.1 mg/dL (8.6-10.8) 05/23/16 07:16 Iron 114 mcg/dL (50-170) 05/23/16 18:56 % Saturation 32 % (15-50) 05/23/16 18:56 Transferrin 258 mg/dL (180-382) 05/23/16 18:56 Ferritin 356 ng/ml (5-204) H 05/23/16 18:56 Total Bilirubin 0.3 mg/dL (0.2-1.2) 05/23/16 07:16 AST 18 Units/L (5-34) 05/23/16 07:16 ALT 9 Units/L (0-55) 05/23/16 07:16 Alkaline Phosphatase 54 Units/L (38-126) 05/23/16 07:16 Lactate Dehydrogenase 172 Units/L (159-327) 05/23/16 18:56 Troponin I 0.03 ng/mL (0-0.03) 05/23/16 07:16 Serum Total Protein 5.7 g/dL (6.0-8.3) L 05/23/16 07:16 Albumin 3.3 g/dL (3.5-5.0) L 05/23/16 07:16 Globulin 2.4 g/dL (2.4-3.5) 05/23/16 07:16 Albumin/Globulin Ratio 1.4 (1.1-2.2) 05/23/16 07:16 Vitamin B12 399 pg/mL (213-816) 05/23/16 18:56 Folate 13.4 ng/mL (7.0-31.4) 05/23/16 18:56 TSH 1.335 mcIU/mL (0.350-4.840) 05/23/16 18:56 Thyroxine (T4) 5.80 mcg/dL (4.87-11.72) 05/23/16 18:56 Urine Color Yellow (Yellow) 05/23/16 08:05 Urine Clarity Clear (Clear) 05/23/16 08:05 Urine pH 5.0 pH Units (5.0-8.0) 05/23/16 08:05 Ur Specific [place] 1.013 (1.010-1.025) 05/23/16 08:05 Urine Protein Negative mg/dL (Neg-Trace) 05/23/16 08:05 Urine Glucose (UA) Normal mg/dL (Normal) 05/23/16 08:05 Urine Ketones Negative mg/dL (Negative) 05/23/16 08:05 Urine Blood Negative (Negative) 05/23/16 08:05 Urine Nitrite Negative (Negative) 05/23/16 08:05 Urine Bilirubin Negative (Negative) 05/23/16 08:05 Urine Urobilinogen Normal mg/dL (Normal) 05/23/16 08:05 Ur Leukocyte Esterase Small (Negative) H 05/23/16 08:05 Urine Microscopic RBC 0-3 per hpf (0-3) 05/23/16 08:05 Urine Microscopic WBC 0-3 per hpf (0-3) 05/23/16 08:05 Ur Squamous Epith Cells Many per lpf (None-Few) H 05/23/16 08:05 Urine Bacteria Few per hpf (None-Few) 05/23/16 08:05 Hyaline Casts None Seen per lpf (None-Few) 05/23/16 08:05 Ur Culture Indicated? YES (NO) A 05/23/16 08:05 Stool Occult Blood Negative (Negative) 05/23/16 08:06 Blood Type O POSITIVE 05/23/16 07:56 Antibody Screen NEGATIVE 05/23/16 07:56 CHARLEE, Poly Interpret NEG 05/23/16 18:56 Crossmatch See Detail 05/23/16 07:56 Radiographic studies: I personally reviewed and interpreted patient's most recent imaging studies dated [default value]. I discussed the findings with the patient today. Impression/recommendations: Severe anemia: macrocytic variant. I discussed in detail with the patient today regarding diagnostic considerations for her macrocytic anemia. We also discussed the basis for concern about additional contributing factors other than underlying kidney disease. Macrocytosis may be an indication of B12 or folate deficiency, thyroid dysfunction, liver disease, alcohol use disorder, medication use etc. but she does not have any evidence of off of foregoing. On the other hand, it may also be an indication of reticulocytosis from bone marrow response to severe anemia. Previous hematinic panel showed borderline B12 level with mildly elevated methylmalonic acid which may indicate subtle B12 deficiency. Based on above, we'll recommend a trial of B12 injections daily 7. Upon discharge will arrange for weekly B12 injections while workup is ongoing. We'll also recommend pernicious anemia workup including parietal cell and intrinsic factor antibodies. If negative, will switch to by mouth B12. To evaluate possible malignancy, we'll send peripheral blood flow cytometry to look for monoclonal cell population or increased blast. To evaluate possible liver dysfunction, we'll recommend liver/spleen ultrasound. If all above negative, will arrange for patient to have bone marrow exam if anemia remains problematic. In the interim, will recommend transfusion to maintain hemoglobin of 7 or greater unless symptomatic. I agree with the previous recommendation by nephrology for LILA to treat anemia due to CKD. Once patient is medically optimal for discharge, we'll make an appointment for further recommendations as an outpatient based on results of pending studies We'll follow the patient along side you during this hospitalization but please do not hesitate to call regarding interval hematologic questions as they arise. Thank you for your excellent ongoing care for allowing us to see her while in- house. This report was created using voice recognition software and may contain errors. It was signed but not edited to expedite communication. Past Med Surg Social Fam HX - Past Medical History Medical history: atrial fibrillation, dementia, diabetes, hypertension, myocardial infarction, renal disease, other Psychiatric history: depression - Past Surgical History Surgical History: other - Social History Smoking Status: Never smoker Smokeless Tobacco Status: No Alcohol use: none Drug use: none - Family History Mother Hx Family Cardiac Disorders: Yes (CAD, Pacemaker) Hx Family Endocrine Disorder: Yes (DM) Father Hx Family Cancer: Yes (Lung Cancer) Medications and Allergies Aspirin 81 mg PO DAILY 12/06/14 [History] HydrALAZINE 10 mg PO TID 12/06/14 [History] Lisinopril [Zestril] 10 mg PO DAILY 12/06/14 [History] Nitroglycerin 0.4 mg SL Q5MIN PRN 12/06/14 [History] Oxybutynin [Ditropan] 5 mg PO BID 12/06/14 [History] Simvastatin [Zocor] 40 mg PO HS 12/06/14 [History] Acetaminophen [Tylenol] 500 mg PO Q6HR PRN 05/03/16 [History] Albuterol Sulfate [Proair Hfa] 2 puff IH Q4H PRN 05/03/16 [History] Calcium Carbonate/Vitamin D3 [Calcium 500 + Vit D Caplet] 1 tab PO DAILY [History] Donepezil HCl [Aricept] 10 mg PO DAILY 05/03/16 [History] Epoetin Gonzalo [Procrit] 10,000 unit IJ Q2W 05/03/16 [History] Ergocalciferol (VITAMIN D2) [Vitamin D2] 50,000 unit PO QWEEK 05/03/16 [History] Furosemide [Lasix] 20 mg PO DAILY 05/03/16 [History] LORazepam [Ativan] 0.5 mg PO BID PRN 05/03/16 [History] Metoprolol Succinate 100 mg PO DAILY 05/03/16 [History] Potassium Chloride [K-Tab ER] 10 meq PO DAILY 05/03/16 [History] Rivaroxaban [Xarelto] 20 mg PO DAILY 05/03/16 [History] SitaGLIPtin [Januvia] 25 mg PO DAILY 05/03/16 [History] Tramadol HCl [Ultram] 50 mg PO BID PRN 05/03/16 [History] Triamcinolone Acet 0.1% CRM [Kenalog] 1 appl TP BID 05/03/16 [History] Venlafaxine XR (24 HR) [Effexor XR] 75 mg PO DAILY 05/23/16 [History] Allergies No Known Allergies Allergy (Verified 05/03/16 17:59) Oncology - Exam - Constitutional Vitals: Temp Pulse Resp BP Pulse Ox 98.3 F 96 18 117/57 98 05/24/16 04:27 05/24/16 04:27 05/24/16 04:27 05/24/16 04:27 05/24/16 04:27 Consult Discharge Plan - Plan Referrals: Arabella Santos, SEWING SUPERVISOR [Primary Care Provider] - 05/30/16 ( )
[2016-05-24 06:25] LABS: Basophils % 0.3 %; Eosinophils # 0.1 K/mcL (0.0-0.6); Eosinophils % 1.5 %; Hematocrit 28.2 % (35.3-44.9); Hemoglobin 9.3 g/dL (11.5-15.4); Lymphocytes # 1.3 K/mcL (0.6-4.6); Lymphocytes % 22.1 %; Mean Corpuscular Hemoglobin 30.5 pg (28.0-33.3); Mean Corpuscular Volume 92.5 fL (83.0-100.0); Mean Platelet Volume 9.6 fL (9.4-12.4); Monocytes # 0.8 K/mcL (0.0-1.3); Monocytes % 13.1 %; Neutrophils # 3.7 K/mcL (1.6-8.9); Nucleated Red Blood Cells 0.5 /100 WBC (0); Platelet Count 196 K/mcL (140-400); Red Blood Count 3.05 M/mcL (3.82-4.97); Red Cell Distribution Width 16.5 % (11.5-14.5)
[2016-05-24 06:37] LABS: Calcium 8.9 mg/dL (8.6-10.8); Phosphorous 3.9 mg/dL (2.3-4.7); Potassium 4.4 mEq/L (3.5-4.5); Uric Acid 13.3 mg/dL (2.6-6.0)
[2016-05-24] MEDS: *HR* Rivaroxaban 15 MG TABLET PO SCH (08:34)
[2016-05-24] MEDS: Venlafaxine XR (24 HR) 75 MG CAP.ER.24H PO SCH (08:34)
[2016-05-24] MEDS: Metoprolol XL (24 HR) Succ 50 MG TAB.ER.24H PO SCH (08:34)
[2016-05-24] MEDS: hydrALAZINE 10 MG TABLET PO SCH ×3 (08:35→20:37)
[2016-05-24] MEDS ORDERED: Furosemide 20 MG TABLET PO SCH (09:00)
[2016-05-24] MEDS ORDERED: VITAMIN D3 PO SCH (09:00)
[2016-05-24] MEDS ORDERED: CALCIUM CARBONATE PO SCH (09:00)
[2016-05-24] MEDS ORDERED: Aspirin 81 MG TAB.CHEW PO SCH (09:00)
--- NOTE | 2016-05-24 09:19 | Nephrology Progress Note ---
Date of Encounter: 05/24/16 Time of Encounter: 09:19 - Assessment and Plan (1) Acute kidney injury superimposed on chronic kidney disease Current Visit: Yes Status: Acute Nonoliguric acute kidney injury on chronic kidney disease stage III with a baseline GFR in the high 30s. Etiology of the patient's kidney injury likely related to her severe anemia as well as hypoperfusion. She received 3 units packed red blood cells with improvement in her hemoglobin to 9.3. Blood pressures also improved most recent 119/52. Serum creatinine improved overnight, today 1.62. Continue renal protective strategy. (2) Macrocytic anemia Current Visit: Yes Status: Acute Hematology has been consulted. Status post 3 unit packed red blood cells. Hemoglobin 9.3 today. (3) Diabetes mellitus Current Visit: Yes Status: Chronic Qualifiers: Diabetes mellitus type: type 2 Diabetes mellitus complication status: with unspecified complications Diabetes mellitus intermediate project manager insulin use: without intermediate project manager use Qualified Code(s): E11.8 - Type 2 diabetes mellitus with unspecified complications (4) Atrial fibrillation Current Visit: Yes Status: Chronic Qualifiers: Atrial fibrillation type: chronic Qualified Code(s): I48.2 - Chronic atrial fibrillation Subjective Interval history: Patient seen and examined at the bedside. No acute events overnight per nursing staff. Received 3 units of packed red blood cells with improvement in her serum hemoglobin. Patient continues to complain of fatigue this morning, no other complaints at this time. Objective - Vital Signs Vital signs: Vital Signs Temp Pulse Resp BP Pulse Ox 05/24/16 08:44 98 05/24/16 06:58 97.9 F 88 16 119/52 98 05/24/16 04:27 98.3 F 96 18 117/57 98 05/23/16 23:30 98.2 F 82 16 148/95 98 05/23/16 20:51 97.7 F 74 18 109/56 99 05/23/16 17:48 97.4 F L 71 16 100/52 99 05/23/16 16:09 97.5 F L 60 14 107/49 99 05/23/16 15:11 98.2 F 70 18 102/55 96 05/23/16 14:56 98.3 F 76 18 100/58 92 L 05/23/16 14:04 98.3 F 76 18 100/58 92 L 05/23/16 12:06 97.8 F 81 16 93/54 92 L 05/23/16 11:51 97.4 F L 78 18 105/63 91 L 05/23/16 11:46 98.2 F 75 16 100/59 100 05/23/16 11:40 98.2 F 80 16 100/59 99 05/23/16 10:27 97.7 F 71 20 97/59 97 05/23/16 10:00 18 106/49 05/23/16 09:40 97.8 F 80 16 112/50 100 Intake and Output 05/23/16 05/24/16 05/24/16 23:59 07:59 15:59 Intake Total 710 / 710 0 / 0 0 / 0 Output Total 600 / 600 0 / 0 0 / 0 Balance 110 / 110 0 / 0 0 / 0 Intake: Oral 360 / 360 0 / 0 0 / 0 Blood Product 350 / 350 Rbcs Leuko Poor As-1 350 / 350 Unit [id number] Output: Urine 600 / 600 0 / 0 0 / 0 Other: Meal Dinner Percent of Meal Consumed 100% Stool Size Small Stool Consistency formed Stool Color Black # Voids 1 - General Appearance Exam: General: Patient is alert and in no acute distress, ill-appearing HEENT: Normocephalic atraumatic, pupils are equal round and reactive to light and accommodation, tympanic membrane is intact, nares is patent, mucous membranes moist, throat is not injected, no JVD, trachea is midline Cardiovascular: Regular rate and rhythm without murmur Respiratory: Lungs are clear to auscultation bilaterally, no wheezing, rhonchi, rales Abdomen: Soft, nontender, nondistended, positive bowel sounds in all 4 quadrants Extremities: Warm, dry, no edema Neuro: A&Ox3, speech is appropriate, cranial nerves II through XII are normal as tested - Lab 05/24/16 05:55 05/24/16 05:55 Most recent lab results Calcium 8.9 mg/dL (8.6-10.8) 05/24/16 05:55 Phosphorus 3.9 mg/dL (2.3-4.7) 05/24/16 05:55 - VTE Reasons for not Prescribing Prophylaxis: Not indicated-Anticoagulated or INR therapeutic Documentation of Mechanical Device: Graduated compression elastic hosiery Consult Discharge Plan - Plan Referrals: Arabella Santos, RASPBERRY CHECKER [Primary Care Provider] - 05/30/16 ( )
[2016-05-24] MEDS ORDERED: traMADol 50 MG TABLET PO PRN (12:03)
--- NOTE | 2016-05-24 14:18 | Internal Med Progress Note ---
Date of Encounter: 05/24/16 Time of Encounter: 14:16 - Subjective Interval history: Patient admitted for severe anemia, hemoglobin of 4.5. Received 3 units of blood transfusion overnight, hemoglobin today at 9. Patient appears very drowsy however weeks of easily on verbal command, denies any chest pain, shortness of breath, abdominal pain, nausea and vomiting. Stool occult at emergency was negative. Nephrology and hematology has been consulted for the concern of severe anemia. - Constitutional Vitals: Temp Pulse Resp BP Pulse Ox 97.8 F 91 17 114/56 98 05/24/16 11:04 05/24/16 11:04 05/24/16 11:04 05/24/16 11:04 05/24/16 11:04 General appearance: Present: A&O X 3, no acute distress Exam: HEENT: Sclerae anicteric. No mucositis or thrush. No other oral or pharyngeal lesions or erythema. Lymph nodes: No cervical, supraclavicular, axillary, or inguinal adenopathy. Lungs: Clear to auscultation bilaterally.Clear to percussion bilaterally. Cardiovascular: Regular rate and rhythm. No gallops, murmurs, or rubs. Abdomen: Soft, nontender; No organomegaly or masses palpable. Extremities: No edema. No calf swelling or tenderness. No joint deformity. Neurologic: Alert, normal gait; no focal weakness or sensory abnormalities. Internal Medicine: Result - Labs CBC & Chem 7: 05/24/16 05:55 05/24/16 05:55 Labs: Short CBC 05/24/16 Range/Units 05:55 WBC 6.0 (4.3-11.1) K/mcL Hgb 9.3 L D (11.5-15.4) g/dL Hct 28.2 L (35.3-44.9) % Plt Count 196 (140-400) K/mcL Neutrophils # 3.7 (1.6-8.9) K/mcL BMP 05/24/16 05:55 Sodium 142 Potassium 4.4 Chloride 112 H Carbon Dioxide 22 BUN 69 H D Creatinine 1.62 H Glucose 121 H Calcium 8.9 - ABG Interpretation ABG results: PT/INR, D-dimer PT 27.9 Seconds (9.4-12.1) H 05/23/16 07:16 - VTE Reasons for not Prescribing Prophylaxis: Not indicated-Anticoagulated or INR therapeutic Documentation of Mechanical Device: Graduated compression elastic hosiery Consult Discharge Plan - Plan Referrals: Arabella Santos, TIBURCIO [Primary Care Provider] - 05/30/16 ( )
--- NOTE | 2016-05-24 16:22 | Electrocardiograph Report ---
[address] [place], [place] [address] Test Date: 2016-05-23 Pat Name: Tanvi Masterson Department: 105 Room: 2A13 Gender: F Center Medical Director: : 1940 Requested By: Leon Palma Order Number: [id number] Reading MD: Leon Reza Measurements Intervals [place] Rate: 78 P: GA: 0 QRS: -6 QRSD: 101 T: 43 QT: 386 QTc: 419 Interpretive Statements ATRIAL FIBRILLATION ABNORMAL RHYTHM ECG Electronically Signed On 05-24-2016 16:20:50 EST by Leon Reza
[2016-05-24] MEDS: Cyanocobalamin (B-12) 1,000 MCG/ML VIAL IM SCH (17:45)
[2016-05-25 00:35] LABS: Bilirubin,Urine Negative (Negative); Blood,Urine Negative (Negative); Clarity,Urine Turbid (Clear); Color,Urine Yellow (Yellow); Glucose,Urine (UA) Normal (Normal); Ketones,Urine Negative (Negative); Leukocyte Esterase,Urine Large (Negative); Nitrite,Urine Positive (Negative); PH,Urine 5.5 pH Units (5.0-8.0); Protein,Urine Negative (Neg-Trace); Specific Gravity,Urine 1.016 (1.010-1.025); Urobilinogen,Urine Normal (Normal)
[2016-05-25 00:37] LABS: Bacteria,Urine Many per hpf (None-Few); Hyaline Casts,Urine None Seen per lpf (None-Few); RBC,Urine 0-3 per hpf (0-3); Squamous Epithelial Cell,Urine Many per lpf (None-Few); WBC,Urine TNTC per hpf (0-3)
[2016-05-25 06:24] LABS: Basophils % 0.3 %; Eosinophils # 0.1 K/mcL (0.0-0.6); Hematocrit 31.1 % (35.3-44.9); Immature Granulocytes % 0.6 % (0-4); Lymphocytes # 1.4 K/mcL (0.6-4.6); Lymphocytes % 22.1 %; Mean Corpuscular HGB Conc 32.2 g/dL (31.6-35.5); Mean Corpuscular Hemoglobin 30.9 pg (28.0-33.3); Mean Platelet Volume 9.5 fL (9.4-12.4); Monocytes # 0.8 K/mcL (0.0-1.3); Platelet Count 210 K/mcL (140-400); Red Blood Count 3.24 M/mcL (3.82-4.97); Red Cell Distribution Width 16.9 % (11.5-14.5)
[2016-05-25 06:38] LABS: Potassium 4.6 mEq/L (3.5-4.5)
[2016-05-25] MEDS: *HR* Rivaroxaban 15 MG TABLET PO SCH (07:42)
[2016-05-25] MEDS: Cyanocobalamin (B-12) 1,000 MCG/ML VIAL IM SCH (07:43)
[2016-05-25] MEDS: Metoprolol XL (24 HR) Succ 50 MG TAB.ER.24H PO SCH (07:43)
[2016-05-25] MEDS: hydrALAZINE 10 MG TABLET PO SCH ×2 (07:43→15:13)
[2016-05-25] MEDS: Venlafaxine XR (24 HR) 75 MG CAP.ER.24H PO SCH (07:43)
[2016-05-25] MEDS ORDERED: Aspirin Enteric Coated 81 MG Tablet PO SCH (09:00)
--- NOTE | 2016-05-25 12:18 | Discharge Summary ---
Date of Encounter: 05/25/16 Time of Encounter: 12:06 - Discharge Diagnosis (1) Anemia Priority: Primary Status: Acute Qualifiers: Anemia type: unspecified type Qualified Code(s): D64.9 - Anemia, unspecified (2) Atrial fibrillation Priority: Secondary Status: Chronic Qualifiers: Atrial fibrillation type: chronic Qualified Code(s): I48.2 - Chronic atrial fibrillation (3) CKD (chronic kidney disease), stage III Priority: Secondary Status: Chronic (4) Diabetes mellitus Priority: Secondary Status: Chronic Qualifiers: Diabetes mellitus type: type 2 Diabetes mellitus complication status: with unspecified complications Diabetes mellitus safety equipment tester insulin use: without safety equipment tester use Qualified Code(s): E11.8 - Type 2 diabetes mellitus with unspecified complications - Discharge Medications Prescriptions: Cyanocobalamin (B-12) [Vitamin B12] 1,000 mcg IM DAILY 10 Days Home Medications: Aspirin 81 mg PO DAILY 12/06/14 [History] HydrALAZINE 10 mg PO TID 12/06/14 [History] Lisinopril [Zestril] 10 mg PO DAILY 12/06/14 [History] Nitroglycerin 0.4 mg SL Q5MIN PRN 12/06/14 [History] Oxybutynin [Ditropan] 5 mg PO BID 12/06/14 [History] Simvastatin [Zocor] 40 mg PO HS 12/06/14 [History] Acetaminophen [Tylenol] 500 mg PO Q6HR PRN 05/03/16 [History] Albuterol Sulfate [Proair Hfa] 2 puff IH Q4H PRN 05/03/16 [History] Calcium Carbonate/Vitamin D3 [Calcium 500 + Vit D Caplet] 1 tab PO DAILY [History] Donepezil HCl [Aricept] 10 mg PO DAILY 05/03/16 [History] Epoetin Gonzalo [Procrit] 10,000 unit IJ Q2W 05/03/16 [History] Ergocalciferol (VITAMIN D2) [Vitamin D2] 50,000 unit PO QWEEK 05/03/16 [History] Furosemide [Lasix] 20 mg PO DAILY 05/03/16 [History] LORazepam [Ativan] 0.5 mg PO BID PRN 05/03/16 [History] Metoprolol Succinate 100 mg PO DAILY 05/03/16 [History] Potassium Chloride [K-Tab ER] 10 meq PO DAILY 05/03/16 [History] Rivaroxaban [Xarelto] 20 mg PO DAILY 05/03/16 [History] SitaGLIPtin [Januvia] 25 mg PO DAILY 05/03/16 [History] Tramadol HCl [Ultram] 50 mg PO BID PRN 05/03/16 [History] Triamcinolone Acet 0.1% CRM [Kenalog] 1 appl TP BID 05/03/16 [History] Venlafaxine XR (24 HR) [Effexor XR] 75 mg PO DAILY 05/23/16 [History] Cyanocobalamin (B-12) [Vitamin B12] 1,000 mcg IM DAILY 10 Days 05/25/16 [Rx] Allergies/Adverse Reactions: Allergies No Known Allergies Allergy (Verified 05/03/16 17:59) Date of admission: 05/23/16 09:37 Primary care physician: Arabella Santos CNP Consults: 05/23/16 11:18 Consult to Nutrition [CONS] Routine Comment: Consulting Provider: NUTRITION Reason for Dietary Consult: MST Score Discharging clinician: Oralia Reid Anticipated date of discharge: 05/25/16 - Patient Status Disposition: Home, Self-Care Condition: Fair Functional capacity at discharge: independent ambulation Overall status at discharge: patient is back to baseline - Discharge Instructions Instructions: Cyanocobalamin (Vitamin B-12) (Injection), Anemia (GEN) Follow Up With: Arabella Santos CNP [Primary Care Provider] - 05/30/16 ( ) Bhavesh Veliz DO [Partnered Physician] - 06/14/16 11:00 am - Diet and Activity Activity: resume usual activities as tolerated Interval History: Tanvi Masterson is a very pleasant lady with a pmh of CKD stage III, chronic anemia , HTN and et al who presented after being found to be very anemic,. She affirmed having progressively worsening fatigue but did not report CP, F/C, dysuria, diarrhea. She did report having mild "dry heaves" about 1 week ago without actual emesis. She reported constipation but no abd pain. She denied use of NSAIDS or visible blood in her stool. No hematemesis or hemoptysis was reported. Hb at presentation was 4.5, MCV of 103, she received 3 units of PRBC , which improved her hemoglobin to 9.3. She denies any hematemesis or melena, she has not yet received Aranesp for her CKD. Renal has been consulted and will follow up as outpatient for iron and Aranesp treatment. Oncology was also consulted while inpatient for the evaluation of anemia. Stool occult was negative, she was started on B12 injection as per oncology recommendation will receive daily B12 for 1 week followed by weekly injections. Macrocytosis may be an indication of B12 or folate deficiency, thyroid dysfunction, liver disease, alcohol use disorder, medication use etc. but she does not have any evidence of off of foregoing. On the other hand, it may also be an indication of reticulocytosis from bone marrow response to severe anemia. Previous hematinic panel showed borderline B12 level with mildly elevated methylmalonic acid which may indicate subtle B12 deficiency. Based on above, was started on trial of B12 injections daily 7. followed by weekly B12 injections. b12 , folate and TSH checked on this admission appears normal. pernicious anemia workup iwas also sent ncluding parietal cell and intrinsic factor antibodies. If negative, will switch to by mouth B12. To evaluate possible malignancy, peripheral blood flow cytometry was sent to look for monoclonal cell population or increased blast. liver fxn appears to be normal. Patient will follow up with oncology in 2 weeks with all the above results ,,If all above negative, will arrange for patient to have bone marrow exam if anemia remains problematic. Hospital course: Ms. Masterson is a 76 year old female Time spent discussing smoking cessation with patient: more than 10 minutes - Time Spent with Patient Total time spent providing and/or coordinating discharge services: Greater than 30 minutes - Constitutional Vitals: Temp Pulse Resp BP Pulse Ox 97.4 F L 78 16 133/69 99 05/25/16 06:55 05/25/16 06:55 05/25/16 06:55 05/25/16 06:55 05/25/16 08:15 General appearance: Present: A&O X 3, no acute distress Exam: HEENT: Sclerae anicteric. No mucositis or thrush. No other oral or pharyngeal lesions or erythema. Skin: No rashes or petechiae. No evidence of skin malignancy Lymph nodes: No cervical, supraclavicular, axillary, or inguinal adenopathy. Lungs: Clear to auscultation bilaterally. Clear to percussion bilaterally. Cardiovascular: Regular rate and rhythm. No gallops, murmurs, or rubs. Abdomen: Soft, nontender; No organomegaly or masses palpable. Extremities: No edema. No calf swelling or tenderness. No joint deformity. Neurologic: Alert, normal gait; no focal weakness or sensory abnormalities. - VTE Reasons for not Prescribing Prophylaxis: Not indicated-Anticoagulated or INR therapeutic Documentation of Mechanical Device: Graduated compression elastic hosiery
[2016-05-25 12:52] VITALS: BP 125/66
--- NOTE | 2016-05-25 14:28 | Physician Discharge Referral ---
Home Health/Hosp Referral Info Transfer to: Home Health Attending Provider: isreal harrell - Diagnosis (1) Anemia Status: Acute (2) Atrial fibrillation Status: Chronic (3) CKD (chronic kidney disease), stage III Status: Chronic (4) Diabetes mellitus Status: Chronic - Respiratory Orders Smoking Cessation: Smoking cessation has been advised. For more information, call the [place] Tobacco Quit Line at 5-961-YERM-NOW. - Diet/Nutrition Diet/Nutrition Orders: Regular - Activity Activity Orders: Ambulate, Chair - Services Needed Following services are medically necessary services: Nursing, Home Health Aide, Home Infusion (vitamin b12 injection IM) - Transfer Medications Prescriptions: Cyanocobalamin (B-12) [Vitamin B12] 1,000 mcg IM DAILY 10 Days Home Medications: Aspirin 81 mg PO DAILY 12/06/14 [History] HydrALAZINE 10 mg PO TID 12/06/14 [History] Lisinopril [Zestril] 10 mg PO DAILY 12/06/14 [History] Nitroglycerin 0.4 mg SL Q5MIN PRN 12/06/14 [History] Oxybutynin [Ditropan] 5 mg PO BID 12/06/14 [History] Simvastatin [Zocor] 40 mg PO HS 12/06/14 [History] Acetaminophen [Tylenol] 500 mg PO Q6HR PRN 05/03/16 [History] Albuterol Sulfate [Proair Hfa] 2 puff IH Q4H PRN 05/03/16 [History] Calcium Carbonate/Vitamin D3 [Calcium 500 + Vit D Caplet] 1 tab PO DAILY [History] Donepezil HCl [Aricept] 10 mg PO DAILY 05/03/16 [History] Epoetin Gonzalo [Procrit] 10,000 unit IJ Q2W 05/03/16 [History] Ergocalciferol (VITAMIN D2) [Vitamin D2] 50,000 unit PO QWEEK 05/03/16 [History] Furosemide [Lasix] 20 mg PO DAILY 05/03/16 [History] LORazepam [Ativan] 0.5 mg PO BID PRN 05/03/16 [History] Metoprolol Succinate 100 mg PO DAILY 05/03/16 [History] Potassium Chloride [K-Tab ER] 10 meq PO DAILY 05/03/16 [History] Rivaroxaban [Xarelto] 20 mg PO DAILY 05/03/16 [History] SitaGLIPtin [Januvia] 25 mg PO DAILY 05/03/16 [History] Tramadol HCl [Ultram] 50 mg PO BID PRN 05/03/16 [History] Triamcinolone Acet 0.1% CRM [Kenalog] 1 appl TP BID 05/03/16 [History] Venlafaxine XR (24 HR) [Effexor XR] 75 mg PO DAILY 05/23/16 [History] Cyanocobalamin (B-12) [Vitamin B12] 1,000 mcg IM DAILY 10 Days 05/25/16 [Rx] Allergies/Adverse Reactions: Allergies No Known Allergies Allergy (Verified 05/03/16 17:59) Certification: Further, I certify that my clinical findings support that this patient is homebound (i.e. absences from home require considerable and taxing effort and are for medical reasons or advent services or infrequently or short duration when for other reasons) because: Homebound Reason: Patient requires assistance of a person or device to safely leave home Attestation: My signature below is to certify that this patient is under my care and that I, or nurse practitioner, or a physician's assistant professor of criminal justice working with me, has a face-to -face encounter with this patient.
[2016-05-25 14:57] LABS: Hematocrit RBC Folate 14.9 %
[2016-05-28 07:38] LABS: ANA IgG by ELISA NONE DETECTED (None Detected)
[2016-05-28 08:13] LABS: Parietal Cell IgG 9.5 Units (0.0-24.9)
[2016-05-28 08:23] LABS: Intrinsic Factor Blocking Ab NEGATIVE (Negative)
[2016-05-28 14:05] LABS: Alpha 2 Globulin (PEP) 0.7 g/dL (0.5-1.1); Beta Globulin (PEP) 0.8 g/dL (0.5-1.1)
== END 2016-05-25 15:29 | disposition home or self-care (01) | DRG 663 ==
LOC: 2ANU 06:31 → EMEROO 06:31 → 2ANU 10:04
PROVIDERS: ADMIT Family Medicine; ATTEND Internal Medicine Endocrinology, Diabetes & Metabolism

== ENCOUNTER 2016-09-13 12:41 | Observation (INO) ==
[2016-09-13] MEDS ORDERED: 0.9 % Sodium Chloride 1,000 ML IVC ONE (13:12)
[2016-09-13] MEDS ORDERED: *HR* Morphine 2 MG/ML SYRINGE IVP ONE (13:23)
[2016-09-13] MEDS ORDERED: Ondansetron 4 MG/2 ML VIAL IVP ONE (13:24)
--- NOTE | 2016-09-13 13:34 | Emergency Department Note ---
Disposition Clinical Impression: Fever Qualifiers: Fever type: unspecified Qualified Code(s): R50.9 - Fever, unspecified Foot pain Qualifiers: Laterality: bilateral Qualified Code(s): M79.671 - Pain in right foot UTI (urinary tract infection) Qualifiers: Urinary tract infection type: site unspecified Hematuria presence: without hematuria Qualified Code(s): N39.0 - Urinary tract infection, site not specified Gout Qualifiers: Gout site: foot Gout etiology: unspecified cause Laterality: unspecified laterality Chronicity: unspecified Qualified Code(s): M10.9 - Gout, unspecified Disposition: Admitted As Inpatient Condition: Fair General Adult HPI - General Chief complaint: ED Weakness Stated complaint: BLE weakness Time Seen by Provider: 09/13/16 13:03 Source: patient, EMS Mode of arrival: EMS Limitations: no limitations Nursing Notes Reviewed: Yes Vital Signs Reviewed: Yes - History of Present Illness HPI Narrative: 76-year-old female history of hypertension, diabetes, heart disease presents for evaluation of pain in her lower extremities. Primarily on the dorsum and plantar aspect of feet bilaterally. Denies any trauma. States that she does ambulate with the sense of a walker. Patient lives at home by herself denies any fevers or chills. Denies any recent falls. No abdominal pain or nausea vomiting. No back pain. Denies any dysuria. No cough or chest pain. States this is happened to her once before but is not able to recall what happened. Patient states she did not take any pain medicine prior to arrival. Pain Scale: 8 - Related Data Home Medications Medication Instructions Recorded Confirmed Aspirin 81 mg PO DAILY 12/06/14 09/13/16 HydrALAZINE 10 mg PO BID 12/06/14 09/13/16 Lisinopril [Zestril] 10 mg PO DAILY 12/06/14 09/13/16 Nitroglycerin 0.4 mg SL Q5MIN PRN 12/06/14 09/13/16 Oxybutynin [Ditropan] 5 mg PO BID 12/06/14 09/13/16 Simvastatin [Zocor] 40 mg PO HS 12/06/14 09/13/16 Acetaminophen [Tylenol] 500 mg PO Q6HR PRN 05/03/16 09/13/16 Albuterol Sulfate [Proair Hfa] 2 puff IH Q4H PRN 05/03/16 09/13/16 Epoetin Gonzalo [Procrit] 10,000 unit IJ Q2W 05/03/16 09/13/16 Furosemide [Lasix] 20 mg PO DAILY 05/03/16 09/13/16 LORazepam [Ativan] 0.5 mg PO BID PRN 05/03/16 09/13/16 Metoprolol Succinate 100 mg PO DAILY 05/03/16 09/13/16 Potassium Chloride [K-Tab ER] 10 meq PO DAILY 05/03/16 09/13/16 Rivaroxaban [Xarelto] 15 mg PO DAILY 05/03/16 09/13/16 Tramadol HCl [Ultram] 50 mg PO BID PRN 05/03/16 09/13/16 Venlafaxine XR (24 HR) [Effexor XR] 75 mg PO DAILY 05/23/16 09/13/16 Cyanocobalamin (B-12) [Vitamin B12] 1,000 mcg IM QWEEK 09/13/16 09/13/16 Ergocalciferol (VITAMIN D2) 50,000 unit PO QWEEK 09/13/16 09/13/16 [Vitamin D2] Triamcinolone Acet 0.1% CRM 1 appl TP BID PRN 09/13/16 09/13/16 [Kenalog] Allergies Allergy/AdvReac Type Severity Reaction Status Date / Time Donepezil [From Aricept] AdvReac Hallucinati Verified 09/13/16 18:09 ng memantine [From Namenda] AdvReac Hallucinati Verified 09/13/16 18:09 ng All systems ED: reviewed and negative except as stated. Constitutional: Reports: as per HPI. Denies: fever Eyes: Reports: as per HPI ENT ED: Reports: as per HPI Cardiovascular: Reports: as per HPI Respiratory: Reports: as per HPI. Denies: cough, dyspnea Gastrointestinal: Reports: as per HPI. Denies: abdominal pain, nausea, vomiting Genitourinary: Reports: as per HPI Musculoskeletal: Reports: as per HPI. Denies: back pain Integumentary: Reports: as per HPI Neurological: Reports: as per HPI Psychiatric: Reports: as per HPI Past Medical History - Past Medical History Attestation: Yes The following information was validated with the patient. Medical history: Reports: diabetes, hypertension, myocardial infarction, other Surgical history: Reports: other Psychiatric history: Reports: depression FINAL INSPECTOR PAPER history: Reports: no FINAL INSPECTOR PAPER history - Social History Smoking Status: Former smoker Smokeless Tobacco Status: No Alcohol use: Reports: none Drug use: Reports: none Physical Exam - General Limitations: no limitations General appearance: alert, in no apparent distress, other (Appears uncomfortable ) - Head Head exam: atraumatic, normocephalic, normal inspection - Eye Eye exam: Present: normal appearance, EOMI. Absent: scleral icterus - ENT ENT exam: normal exam, mucous membranes moist - Neck Neck exam: Present: normal inspection, trachea midline - Chest Chest inspection: Present: normal inspection, symmetric chest wall rise - Respiratory Respiratory exam: Present: other (Diffusely decreased breath sounds) - Cardiovascular Cardiovascular exam: Present: regular rate, tachycardia - Abdominal Exam Abdominal exam: Present: soft, Non-Tender - Expanded Lower Extremity Exam Hip/Pelvis exam: Present: normal inspection Upper leg exam: Present: normal inspection Knee exam: Present: normal inspection Lower leg exam: Present: normal inspection Ankle exam: Present: normal inspection Foot/toe exam: Present: tenderness, erythema (Faint erythema along the dorsum lateral aspect of the feet bilaterally. No ulcers.), other (Bilateral warmth. Appears soft compartments. Pain to soft touch on the plantar aspect of the feet bilaterally.). Absent: swelling, deformity, crepitus, puncture wound Neurovascular/Tendon exam: Present: normal capillary refill. Absent: pulse deficit, motor deficit, sensory deficit - Neurological Exam Neurological exam: Present: alert, oriented X3 - Skin Skin exam: Present: warm, dry, intact, normal color Course Course Narrative: 76 old female presents for bilateral feet pain. Patient pain appears to be out of proportion to exam. Patient does have a fever of 100.7. Concerns for overlying infection. Patient will get lab work on 5 fluids, symptomatically treatment, imaging of the feet to rule out any gas-forming organisms. Patient will also get a chest x-ray as well as UA to help elucidate any other source of the fever. - Reevaluation(s) Reevaluation #1: Patient states the pain has improved. Resting comfortably. Time: 16:13 Reevaluation #2: Patient failed to ambulate in the emergency department due to pain on the dorsum of her foot. Time: 17:13 Reevaluation #3: No needs at this time. Patient is awaiting bed upstairs. Time: 19:45 Vital Signs Temperature 100.7 F H 09/13/16 12:43 Pulse Rate 106 09/13/16 12:43 Respiratory Rate 22 09/13/16 12:43 Blood Pressure 163/80 09/13/16 12:43 O2 Sat by Pulse Oximetry 98 09/13/16 12:43 Temperature 100.7 F H 09/13/16 12:43 Pulse Rate 92 09/13/16 19:26 Respiratory Rate 20 09/13/16 19:29 Blood Pressure 0/0 09/13/16 19:29 O2 Sat by Pulse Oximetry 95 09/13/16 19:26 Oxygen Delivery Oxygen Delivery Room Air Medical Decision Making - MDM Narrative Medical decision making narrative: 76 old female presents for bilateral lower foot pain. Patient pain is localized to the bilateral feet. Does have some warmth over the ankle and the dorsum of the foot. No gross deformity. Patient did have an elevated uric acid. Patient was given some colchicine. Patient also had a temperature at triage 100.7. Patient was given Tylenol IV fluid and pain control. Patient's urine exercise infection. Looking in the past the patient had Klebsiella which was pansensitive. The patient's given a gram of Rocephin IV. Patient trial of ambulation in the emergency department. Concern that the patient cannot take care of herself at home given her current painful episode. Patient will likely need admission with PT OT evaluation, IV fluids, pain control as well as discharge planning. Patient does not have any back pain which would suggest imaging of the lumbar spine. No concerns for central cord abnormalities or abscesses. Patient does have chronic anemia with no overt signs of bleeding. Patient did meet surge criteria however this patient was not septic and was not treated as a septic patient. Patient had a mild elevation in fever. Patient was also given IV fluids. Fluids were given gradually as her cardiopulmonary status was not known. Patient was given a single dose of Rocephin to cover for any urinary tract infections. Patient Klebsiella in the past which was pansensitive. - Medical Records Medical records reviewed: Yes I reviewed the patient's medical records. - Lab Data Lab results reviewed: Yes I reviewed the patient's lab results. Result diagrams: 09/13/16 13:27 09/13/16 13:27 Lab Results 09/13/16 09/13/16 09/13/16 Range/Units 13:27 13:27 13:27 WBC 9.0 (4.3-11.1) K/mcL RBC 2.76 L (3.82-4.97) M/mcL Hgb 8.1 L (11.5-15.4) g/dL Hct 26.3 L (35.3-44.9) % MCV 95.3 (83.0-100.0) fL MCH 29.3 (28.0-33.3) pg MCHC 30.8 L (31.6-35.5) g/dL RDW 14.6 H (11.5-14.5) % Plt Count 274 (140-400) K/mcL MPV 9.7 (9.4-12.4) fL Immature Gran % 0.4 (0-4) % Seg Neutrophils % 79.5 % Lymphocytes % 9.9 % Monocytes % 9.7 % Eosinophils % 0.2 % Basophils % 0.3 % Neutrophils # 7.1 (1.6-8.9) K/mcL Lymphocytes # 0.9 (0.6-4.6) K/mcL Monocytes # 0.9 (0.0-1.3) K/mcL Eosinophils # 0.0 (0.0-0.6) K/mcL Basophils # 0.0 (0.0-0.2) K/mcL Sodium 138 (136-145) mEq/L Potassium 3.9 (3.5-4.5) mEq/L Chloride 104 (98-109) mEq/L Carbon Dioxide 23 (19-29) mEq/L BUN 41 H (7-20) mg/dL Creatinine 1.37 H (0.57-1.11) mg/dL Est GFR ( Amer) 46 L (> 60) Est GFR (Non-Af Amer) 38 L (> 60) BUN/Creatinine Ratio 30 H (6-26) Glucose 154 H (70-99) mg/dL Calculated Osmolality 299 (280-300) Lactic Acid 1.8 (0.5-2.2) mmol/L Uric Acid (2.6-6.0) mg/dL Calcium 9.4 (8.6-10.8) mg/dL Total Bilirubin 0.5 (0.2-1.2) mg/dL AST 41 H (5-34) Units/L ALT 45 (0-55) Units/L Alkaline Phosphatase 158 H (38-126) Units/L Troponin I (0-0.03) ng/mL Serum Total Protein 7.3 (6.0-8.3) g/dL Albumin 3.1 L (3.5-5.0) g/dL Globulin 4.2 H (2.4-3.5) g/dL Albumin/Globulin Ratio 0.7 L (1.1-2.2) Urine Color (Yellow) Urine Clarity (Clear) Urine pH (5.0-8.0) pH Units Ur Specific [place] (1.010-1.025) Urine Protein (Neg-Trace) mg/dL Urine Glucose (UA) (Normal) mg/dL Urine Ketones (Negative) mg/dL Urine Blood (Negative) Urine Nitrite (Negative) Urine Bilirubin (Negative) Urine Urobilinogen (Normal) mg/dL Ur Leukocyte Esterase (Negative) Urine Microscopic RBC (0-3) per hpf Urine Microscopic WBC (0-3) per hpf Ur Squamous Epith Cells (None-Few) per lpf Urine Bacteria (None-Few) per hpf Hyaline Casts (None-Few) per lpf Ur Culture Indicated? (NO) 09/13/16 09/13/16 09/13/16 Range/Units 13:27 13:27 14:25 WBC (4.3-11.1) K/mcL RBC (3.82-4.97) M/mcL Hgb (11.5-15.4) g/dL Hct (35.3-44.9) % MCV (83.0-100.0) fL MCH (28.0-33.3) pg MCHC (31.6-35.5) g/dL RDW (11.5-14.5) % Plt Count (140-400) K/mcL MPV (9.4-12.4) fL Immature Gran % (0-4) % Seg Neutrophils % % Lymphocytes % % Monocytes % % Eosinophils % % Basophils % % Neutrophils # (1.6-8.9) K/mcL Lymphocytes # (0.6-4.6) K/mcL Monocytes # (0.0-1.3) K/mcL Eosinophils # (0.0-0.6) K/mcL Basophils # (0.0-0.2) K/mcL Sodium (136-145) mEq/L Potassium (3.5-4.5) mEq/L Chloride (98-109) mEq/L Carbon Dioxide (19-29) mEq/L BUN (7-20) mg/dL Creatinine (0.57-1.11) mg/dL Est GFR ( Amer) (> 60) Est GFR (Non-Af Amer) (> 60) BUN/Creatinine Ratio (6-26) Glucose (70-99) mg/dL Calculated Osmolality (280-300) Lactic Acid (0.5-2.2) mmol/L Uric Acid 11.4 H (2.6-6.0) mg/dL Calcium (8.6-10.8) mg/dL Total Bilirubin (0.2-1.2) mg/dL AST (5-34) Units/L ALT (0-55) Units/L Alkaline Phosphatase (38-126) Units/L Troponin I 0.02 (0-0.03) ng/mL Serum Total Protein (6.0-8.3) g/dL Albumin (3.5-5.0) g/dL Globulin (2.4-3.5) g/dL Albumin/Globulin Ratio (1.1-2.2) Urine Color Yellow (Yellow) Urine Clarity Cloudy A (Clear) Urine pH 6.0 (5.0-8.0) pH Units Ur Specific [place] 1.018 (1.010-1.025) Urine Protein 30 H (Neg-Trace) mg/dL Urine Glucose (UA) Normal (Normal) mg/dL Urine Ketones Negative (Negative) mg/dL Urine Blood Negative (Negative) Urine Nitrite Negative (Negative) Urine Bilirubin Negative (Negative) Urine Urobilinogen Normal (Normal) mg/dL Ur Leukocyte Esterase Large H (Negative) Urine Microscopic RBC 0-3 (0-3) per hpf Urine Microscopic WBC TNTC H (0-3) per hpf Ur Squamous Epith Cells Moderate H (None-Few) per lpf Urine Bacteria Many H (None-Few) per hpf Hyaline Casts None Seen (None-Few) per lpf Ur Culture Indicated? YES A (NO) - Radiology Data Radiology results reviewed: Yes I reviewed the patient's radiology results. Chest X-Ray 09/13/16 13:12 IMPRESSION: No evidence of acute cardiopulmonary disease. D/ / Mike Marmolejo MD / Mike Marmolejo MD Interpreting Provider: Mike Marmolejo MD Foot X-Ray 09/13/16 13:22 IMPRESSION: No acute osseous abnormality. Peripheral vascular disease. D/ / 09/13/2016 14:07:52 Merrill Danielle MD / Dina Tate Interpreting Provider: Merrill Danielle MD - EKG Data EKG #1 EKG attestation: Yes I reviewed and interpreted this EKG. Rate: tachycardia Rhythm: A.Fib [place]/QRS: normal Interpretation: no acute changes, unchanged when compared to prior tracing (date ), nonspecific ST-T wave changes (05/23/16) Ori - Ori Situation: Demographics Background: Presenting Complaint Assessment: Vital Signs, Course and respsone to treatment, Patient/Family Expectation Recommendation: Barrier(s) to disposition, Recommendation based on pending studies, treatments, or consults STatiana Report Given to: Luisa Rehman Repor Time: 17:33 Attestation Statement - Attestation Attestation: I examined this patient and my medical decision-making was reviewed with the RAT POISONER/PA/Advanced Practice Nurse/Resident Physician. I agree with the documented findings, disposition and treatment plan as described except to the extent set forth below. 76-year-old female presents to the ED because of inability to ambulate, generalized weakness and bilateral foot pain. Symptoms have been evolving for the past several days to the proximal unable to maneuver at home prompting her to come to the ED. She has not had known fever at home but has had periods of chills. No productive cough. No dyspnea. Denies abdominal pain or vomiting. No diarrhea. No dysuria hematuria or flank pain. Denies chest pain. No recent change in medications. Elderly female in no apparent distress. Oropharynx clear mucous membranes slightly dry. Neck supple. Trachea midline without JVD. Chest clear to auscultation bilaterally. Cardiac exam regular without rubs or gallops. Abdomen soft nondistended nontender. Flanks are nontender. Lower extremities with erythema on the lateral aspect of both feet. These areas are hypersensitive to superficial touch. No proximal lymphangitis. No palpable fluctuance. Dorsal pedal pulses are brisk bilaterally. X-rays of both he was unremarkable. Chest x-ray is negative. She did have low- grade fever in the ED and was found have UTI. Uric acid level was also elevated. She was given 1 dose of colchicine 1.2 mg orally and 1 g of IV Rocephin. She did have control of her pain with low-dose of morphine but was still unable to ambulate. This is likely resistant related pain. This might his pain. Gouty arthritis but given her fever, further evaluation and treatment is warranted. She will be admitted on IV antibiotics and further pain control measures.
[2016-09-13 13:41] LABS: Basophils % 0.3 %; Eosinophils % 0.2 %; Hematocrit 26.3 % (35.3-44.9); Hemoglobin 8.1 g/dL (11.5-15.4); Immature Granulocytes % 0.4 % (0-4); Lymphocytes # 0.9 K/mcL (0.6-4.6); Lymphocytes % 9.9 %; Mean Corpuscular HGB Conc 30.8 g/dL (31.6-35.5); Mean Corpuscular Hemoglobin 29.3 pg (28.0-33.3); Mean Corpuscular Volume 95.3 fL (83.0-100.0); Mean Platelet Volume 9.7 fL (9.4-12.4); Monocytes # 0.9 K/mcL (0.0-1.3); Monocytes % 9.7 %; Neutrophils # 7.1 K/mcL (1.6-8.9); Platelet Count 274 K/mcL (140-400); Red Blood Count 2.76 M/mcL (3.82-4.97); Red Cell Distribution Width 14.6 % (11.5-14.5); Segmented Neutrophils % 79.5 %
[2016-09-13 13:47] LABS: Albumin 3.1 g/dL (3.5-5.0); Albumin/Globulin Ratio 0.7 (1.1-2.2); Bilirubin,Total 0.5 mg/dL (0.2-1.2); Calcium 9.4 mg/dL (8.6-10.8); Globulin 4.2 g/dL (2.4-3.5); Potassium 3.9 mEq/L (3.5-4.5); Total Protein 7.3 g/dL (6.0-8.3)
[2016-09-13 14:35] LABS: Bilirubin,Urine Negative (Negative); Blood,Urine Negative (Negative); Clarity,Urine Cloudy (Clear); Color,Urine Yellow (Yellow); Glucose,Urine (UA) Normal (Normal); Ketones,Urine Negative (Negative); Leukocyte Esterase,Urine Large (Negative); Nitrite,Urine Negative (Negative); Protein,Urine 30 mg/dL (Neg-Trace); Specific Gravity,Urine 1.018 (1.010-1.025); Urobilinogen,Urine Normal (Normal)
[2016-09-13 14:39] LABS: Bacteria,Urine Many per hpf (None-Few); Hyaline Casts,Urine None Seen per lpf (None-Few); RBC,Urine 0-3 per hpf (0-3); Squamous Epithelial Cell,Urine Moderate per lpf (None-Few); WBC,Urine TNTC per hpf (0-3)
[2016-09-13] MEDS ORDERED: Colchicine 0.6 MG TABLET PO ONE (16:19)
[2016-09-13] MEDS ORDERED: Naloxone 0.4 MG/ML INJ IVP PRN (19:51)
[2016-09-13] MEDS ORDERED: Acetaminophen 325 MG TABLET PO PRN (19:51)
[2016-09-13] MEDS ORDERED: Nitroglycerin 0.4 MG TAB.SUBL SL PRN (19:53)
[2016-09-13] MEDS ORDERED: *HR* LORazepam 0.5 MG TABLET PO PRN (19:53)
[2016-09-13] MEDS ORDERED: traMADol 50 MG TABLET PO PRN (19:55)
--- NOTE | 2016-09-13 20:01 | Internal Med History&Physical ---
Date of Encounter: 09/13/16 Time of Encounter: 19:56 Assessment and Plan (1) UTI (urinary tract infection) Current visit: Yes Status: Acute 1 patient has low-grade temperature 100.7 she denies any urinary symptoms UA tests reveal positive for leuk estrase and bacteria. Previous urine culture has grown Klebsiella which has been pansensitive. Patient was given Rocephin in the ER we will continue with Rocephin 2 monitor CBC Qualifiers: Urinary tract infection type: site unspecified Hematuria presence: without hematuria Qualified Code(s): N39.0 - Urinary tract infection, site not specified (2) Gout Current visit: Yes Status: Acute 1 patient has been experiencing tenderness and pain to the plantar dorsal side of feet bilaterally. She has been unable to ambulate. She does have some redness and warmth to the dorsal aspect of her feet bilaterally right more than left. Uric acid was 11.4 suspect gout. Patient was giving Colchine in the ER we will continue. We will add prednisone 40 mg daily 5 days 2 no improvement may need to consult rheumatology Qualifiers: Gout site: foot Gout etiology: unspecified cause Laterality: unspecified laterality Chronicity: unspecified Qualified Code(s): M10.9 - Gout, unspecified (3) Atrial fibrillation Current visit: No Status: Chronic 1 presently rate controlled we will continue with xarelto and BB Qualifiers: Atrial fibrillation type: chronic Qualified Code(s): I48.2 - Chronic atrial fibrillation (4) CKD (chronic kidney disease), stage III Current visit: No Status: Chronic Paddy creatinine is 1.37 which seems to be around baseline. We will continue to monitor creatinine 2 monitor intake and output daily weight 3 avoid nephrotoxins (5) Diabetes mellitus Current visit: No Status: Chronic 1 Accu-Cheks before meals at bedtime with sliding scale insulin. Patient's started on steroid may need to titrate insulin due to hypoglycemia Qualifiers: Diabetes mellitus type: type 2 Diabetes mellitus complication status: with unspecified complications Diabetes mellitus mcc insulin use: without mcc use Qualified Code(s): E11.8 - Type 2 diabetes mellitus with unspecified complications (6) DVT prophylaxis Current visit: Yes Status: Acute on xarelto Internal Medicine - H&P: HPI Chief complaint: Not able to stand on my feet-painful Admitted From: Emergency Dept Plans for Post Hospital Care: Home History of present illness: Ms. Masterson is a 76 year old female past history of hypertension diabetes C daily stage III anemia CVA atrial fibrillation. According to the patient for approximately 3 days she has been experiencing pain in the plantar aspect of her feet bilaterally. She denies any recent trauma or falls fevers or chills. She is unable to bear weight. She presented to the ER with above complaint. According to ER records upon presentation patient did have a low-grade temperature 100.7 with a vital signs were stable . x-rays were obtained which were negative for any fractures or abnormalities lab work was unremarkable with no leukocytosis currently was 1.37 however this seems to be her baseline lactate was 1.8 troponin was 0.02 urinalysis did reveal infectious process. Uric acid was 11.4. Past records indicated previous urinary culture growing Klebsiella which was pansensitive. Patient was given IV fluids and pain medication Rocephin Colchine . Nursing attempted to a bili patient however patient still unable to bear weight. She has been admitted for further workup and evaluation. Upon assessment of lower extremities there appears to be no gross deformities she does have erythema to the dorsum and plantar aspect of her feet bilaterally. Lower extremities are slightly edematous there is some warmth over the ankle and dorsum of feet. Patient denies any back pain or hip pain she denies any urinary frequency urgency or dysuria. Lung sounds are clear throughout heart sounds are irregular S1-S2 no rubs clicks gallops murmurs noted abdomen soft nontender to palpation. She is hemodynamically stable at this time. I reviewed this case with Dr. Hicks who agrees with plan Past Med Surg Social Fam HX - Past Medical History Medical history: diabetes, hypertension, myocardial infarction, other Psychiatric history: depression - Past Surgical History Surgical History: other - Social History Smoking Status: Former smoker Smokeless Tobacco Status: No Alcohol use: none Drug use: none - Family History Mother Hx Family Cardiac Disorders: Yes (CAD, Pacemaker) Hx Family Endocrine Disorder: Yes (DM) Father Hx Family Cancer: Yes (Lung Cancer) Internal Medicine - H&P: Meds Aspirin 81 mg PO DAILY 12/06/14 [History] HydrALAZINE 10 mg PO BID 12/06/14 [History] Lisinopril [Zestril] 10 mg PO DAILY 12/06/14 [History] Nitroglycerin 0.4 mg SL Q5MIN PRN 12/06/14 [History] Oxybutynin [Ditropan] 5 mg PO BID 12/06/14 [History] Simvastatin [Zocor] 40 mg PO HS 12/06/14 [History] Acetaminophen [Tylenol] 500 mg PO Q6HR PRN 05/03/16 [History] Albuterol Sulfate [Proair Hfa] 2 puff IH Q4H PRN 05/03/16 [History] Epoetin Gonzalo [Procrit] 10,000 unit IJ Q2W 05/03/16 [History] Furosemide [Lasix] 20 mg PO DAILY 05/03/16 [History] LORazepam [Ativan] 0.5 mg PO BID PRN 05/03/16 [History] Metoprolol Succinate 100 mg PO DAILY 05/03/16 [History] Potassium Chloride [K-Tab ER] 10 meq PO DAILY 05/03/16 [History] Rivaroxaban [Xarelto] 15 mg PO DAILY 05/03/16 [History] Tramadol HCl [Ultram] 50 mg PO BID PRN 05/03/16 [History] Venlafaxine XR (24 HR) [Effexor XR] 75 mg PO DAILY 05/23/16 [History] Cyanocobalamin (B-12) [Vitamin B12] 1,000 mcg IM QWEEK 09/13/16 [History] Ergocalciferol (VITAMIN D2) [Vitamin D2] 50,000 unit PO QWEEK 09/13/16 [History] Triamcinolone Acet 0.1% CRM [Kenalog] 1 appl TP BID PRN 09/13/16 [History] Allergies Donepezil [From Aricept] Adverse Reaction (Verified 09/13/16 18:09) Hallucinating memantine [From Namenda] Adverse Reaction (Verified 09/13/16 18:09) Hallucinating All Systems PM: A 10-system review of systems was performed and is negative for pertinent findings except as documented above in the HPI. - Constitutional Constitutional: no chills, no fever(s), no night sweats - EENT Eyes: no change in vision, no discharge, no pain, no photophobia Nose, mouth and throat: no dysphagia, no nasal discharge, no neck pain, no sore throat - Cardiovascular Cardiovascular ROS IM: edema, no chest pain, no diaphoresis, no dyspnea, no lightheadedness, no palpitations, no syncope - Respiratory Respiratory: no cough, no dyspnea, no wheezing, no excessive phlegm production - Gastrointestinal Gastrointestinal: no abdominal pain, no diarrhea, no hematemesis, no hematochezia, no melena, no nausea, no vomiting - Genitourinary Genitourinary: no change in urinary stream, no dysuria, no flank pain, no hematuria - Musculoskeletal Musculoskeletal ROS IM: arthralgias - Integumentary Integumentary IM: erythema - Neurological Neurological ROS: no confusion, no convulsions, no focal weakness, no numbness, no tingling, no tremor(s) - Constitutional Vitals: Temp Pulse Resp BP Pulse Ox 100.7 F H 92 20 0/0 95 09/13/16 12:43 09/13/16 19:26 09/13/16 19:29 09/13/16 19:29 09/13/16 19:26 General appearance: Present: A&O X 3 - Head Head exam: Present: atraumatic, normocephalic - Eye Eye exam: Present: PERRL, conjuntiva pink, sclera anicteric Pupils: Present: PERRL - Neck Neck exam general surgery: Present: supple, trachea midline. Absent: lymphadenopathy - Respiratory Respiratory exam: Present: CTAB. Absent: accessory muscle use, rales, rhonchi, wheezes - Cardiovascular Cardiovascular exam: Present: RRR, +S1, +S2. Absent: diastolic murmur, gallop, rubs, systolic murmur - GI/Abdominal GI/Abdominal exam: Present: normal bowel sounds, soft, no peritoneal signs. Absent: distended, tenderness - Extremities Exam Extremities exam: Present: joint swelling, warm, radial pulses palpable and symetrical. Absent: calf tenderness, cyanotic, pedal edema - Neurological Exam Neurological exam: Present: CN II-XII intact, oriented X3, no focal deficits. Absent: pronater drift, facial droop, speech deficit - Skin Skin exam: Present: dry, erythema, intact, warm Internal Med - H&P Results - Labs CBC & Chem 7: 09/13/16 13:27 09/13/16 13:27 - EKG Data EKG comments: 09/13/16 20:39 Atrial fibrillation-no ST-T wave abnormalities noted - Diagnostic Studies Other Images Additional comments: Chest X-Ray 09/13/16 13:12 IMPRESSION: No evidence of acute cardiopulmonary disease. D/ / Mike Marmolejo MD / Mike Marmolejo MD Interpreting Provider: Mike Marmolejo MD Foot X-Ray 09/13/16 13:22 IMPRESSION: No acute osseous abnormality. Peripheral vascular disease. D/ / 09/13/2016 14:07:52 Merrill Danielle MD / Dina Tate Interpreting Provider: Merrill Danielle MD
[2016-09-13] MEDS ORDERED: D5% in Water 1,000 ML IVC PRN (20:09)
[2016-09-13] MEDS ORDERED: Dextrose Gel 15 GM PO PRN ×2 (20:09)
[2016-09-13] MEDS ORDERED: *HR* Dextrose 50 % in Water (Syg) 50 ML SYRINGE IVP PRN (20:09)
--- NOTE | 2016-09-13 21:30 | Electrocardiograph Report ---
[facility] Test Date: 2016-09-13 Pat Name: Ada Masterson Department: 102 Room: 3A41 Gender: F Nurse Companion: Pearl : 1940 Requested By: Jemal Morgan Order Number: [id number] Reading MD: Antonino Velazco MD Measurements Intervals [place] Rate: 117 P: [place]: 0 QRS: -4 QRSD: 98 T: 55 QT: 323 QTc: 393 Interpretive Statements ATRIAL FIBRILLATION WITH RAPID VENTRICULAR RESPONSE NONSPECIFIC ST \T\ T-WAVE ABNORMALITY ABNORMAL RHYTHM ECG Electronically Signed On 09-13-2016 21:28:19 EDT by Antonino Velazco MD
[2016-09-13] MEDS ORDERED: predniSONE 20 MG TABLET PO SCH (21:31)
[2016-09-13] MEDS: *HR* HYDROcodone/Acet 5/325 mg TABLET PO PRN (21:52)
[2016-09-13] MEDS: hydrALAZINE 10 MG TABLET PO SCH (21:52)
[2016-09-13] MEDS: predniSONE 20 MG TABLET PO SCH (22:01)
[2016-09-13] MEDS: Insulin LISPRO 300 UNITS/3 ML VIAL SQ SCH (22:01)
[2016-09-14 01:02] LABS: Basophils % 0.3 %; Hematocrit 23.2 % (35.3-44.9); Hemoglobin 7.2 g/dL (11.5-15.4); Immature Granulocytes % 0.8 % (0-4); Lymphocytes # 0.7 K/mcL (0.6-4.6); Lymphocytes % 8.4 %; Mean Corpuscular Hemoglobin 29.4 pg (28.0-33.3); Mean Corpuscular Volume 94.7 fL (83.0-100.0); Mean Platelet Volume 9.7 fL (9.4-12.4); Monocytes # 0.5 K/mcL (0.0-1.3); Monocytes % 6.5 %; Neutrophils # 6.6 K/mcL (1.6-8.9); Platelet Count 261 K/mcL (140-400); Red Blood Count 2.45 M/mcL (3.82-4.97); Red Cell Distribution Width 14.5 % (11.5-14.5)
[2016-09-14 01:22] LABS: Calcium 8.8 mg/dL (8.6-10.8); Potassium 3.7 mEq/L (3.5-4.5)
[2016-09-14] MEDS: *HR* HYDROcodone/Acet 5/325 mg TABLET PO PRN (05:08)
[2016-09-14] MEDS: Insulin LISPRO 300 UNITS/3 ML VIAL SQ SCH ×4 (08:22→21:28)
[2016-09-14] MEDS: *HR* Rivaroxaban 15 MG TABLET PO SCH (08:23)
[2016-09-14] MEDS: Colchicine 0.6 MG TABLET PO SCH (08:23)
[2016-09-14] MEDS: Metoprolol XL (24 HR) Succ 50 MG TAB.ER.24H PO SCH (08:23)
[2016-09-14] MEDS: predniSONE 20 MG TABLET PO SCH (08:23)
[2016-09-14] MEDS: hydrALAZINE 10 MG TABLET PO SCH ×2 (08:23→21:43)
[2016-09-14] MEDS: Venlafaxine XR (24 HR) 75 MG CAP.ER.24H PO SCH (08:24)
[2016-09-14] MEDS: Furosemide 20 MG TABLET PO SCH (08:24)
[2016-09-14] MEDS: Aspirin 81 MG TAB.CHEW PO SCH (08:24)
[2016-09-14] MEDS ORDERED: predniSONE 20 MG TABLET PO SCH (09:00)
--- NOTE | 2016-09-14 14:17 | Internal Med Progress Note ---
Date of Encounter: 09/14/16 Time of Encounter: 14:15 - Assessment and plan (1) Anemia Current Visit: No Status: Acute Assessment and plan: Follows with oncology and has been evaluated in the past for macrocytic anemia. Patient is on B12 injections every week, hemoglobin now is 7.2. If less than 7 we will transfuse, however asymptomatic at this time. Patient denies any hematochezia or melena. Recommend follow-up with oncology as outpatient. Qualifiers: Anemia type: other cause Other causes of anemia: other cause, not classified Qualified Code(s): D64.89 - Other specified anemias (2) Chronic kidney disease Current Visit: No Status: Chronic Assessment and plan: Creatinine at baseline. We will continue to monitor renal function, avoid nephrotoxins. Qualifiers: Chronic kidney disease stage: stage 3 (moderate) Qualified Code(s): N18.3 - Chronic kidney disease, stage 3 (moderate) (3) Atrial fibrillation Current Visit: No Status: Chronic Assessment and plan: Stable, not in RVR. On several to for anticoagulation, will continue the same. Qualifiers: Atrial fibrillation type: chronic Qualified Code(s): I48.2 - Chronic atrial fibrillation (4) Cor pulmonale Current Visit: No Status: Chronic Assessment and plan: Stable, continue home medications. (5) Foot pain Current Visit: Yes Status: Acute Assessment and plan: presented yesterday with bilateral foot pain with redness. denies any trauma, she has swelling of b/l feet at baseline. Was treated as gout with colchicine and prednisone yesterday. Swelling appears to be more diffuse and bilateral, clinically making it less likely to be gout. Uric acid high at 11, however she has elevated uric acid in the past which may be secondary to see daily as well. The foot swelling and pain is already better, no indication for starting steroids at this time. We will continue colchicine, follow-up with rheumatology as outpatient to r/o gouty arthritis. Qualifiers: Laterality: bilateral Qualified Code(s): M79.671 - Pain in right foot; M79.672 - Pain in left foot (6) UTI (urinary tract infection) Current Visit: Yes Status: Acute Assessment and plan: has fever, no leukocytosis, urine cx growing gram neg jane will contiune IV ceftriaxone for now. Qualifiers: Urinary tract infection type: site unspecified Hematuria presence: without hematuria Qualified Code(s): N39.0 - Urinary tract infection, site not specified - Subjective Interval history: Patient seen at the bedside, reports much improvement in bilateral foot pain and swelling. Denies any nausea, vomiting, burning micturition or increased frequency. Was noted to have MAXIMUM TEMPERATURE of 101 last night. - Constitutional Vitals: Temp Pulse Resp BP Pulse Ox 98.0 F 68 20 107/56 94 09/14/16 11:05 09/14/16 11:05 09/14/16 11:05 09/14/16 11:05 09/14/16 11:05 General appearance: Present: A&O X 3 Exam: - Head Head exam: Present: atraumatic, normocephalic - Eye Eye exam: Present: PERRL, conjuntiva pink, sclera anicteric Pupils: Present: PERRL - Neck Neck exam general surgery: Present: supple, trachea midline. Absent: lymphadenopathy - Respiratory Respiratory exam: Present: CTAB. Absent: accessory muscle use, rales, rhonchi, wheezes - Cardiovascular Cardiovascular exam: Present: RRR, +S1, +S2. Absent: diastolic murmur, gallop, rubs, systolic murmur - GI/Abdominal GI/Abdominal exam: Present: normal bowel sounds, soft, no peritoneal signs. Absent: distended, tenderness - Extremities Exam Extremities exam: Present: mild swelling of b/l feet more on the right foot on the dorsal side, mild tenderness, no redness Absent: calf tenderness, cyanotic , pedal edema - Neurological Exam Neurological exam: Present: CN II-XII intact, oriented X3, no focal deficits. Absent: pronater drift, facial droop, speech deficit - Skin Skin exam: Present: dry, erythema, intact, warm Internal Medicine: Result - Labs CBC & Chem 7: 09/14/16 00:41 09/14/16 00:41 Labs: Short CBC 09/14/16 Range/Units 00:41 WBC 7.8 (4.3-11.1) K/mcL Hgb 7.2 L (11.5-15.4) g/dL Hct 23.2 L (35.3-44.9) % Plt Count 261 (140-400) K/mcL Neutrophils # 6.6 (1.6-8.9) K/mcL BMP 09/14/16 00:41 Sodium 138 Potassium 3.7 Chloride 105 Carbon Dioxide 21 BUN 32 H Creatinine 1.17 H Glucose 213 H Calcium 8.8 Consult Discharge Plan - Plan Referrals: Tila Bhatti CNP [Advanced Practice Nurse] - 09/24/16 10:00 am
[2016-09-15] MEDS ORDERED: *HR* Promethazine 25 MG/ML VIAL IVP PRN (01:31)
[2016-09-15 06:19] LABS: Basophils % 0.1 %; Hematocrit 23.5 % (35.3-44.9); Hemoglobin 7.2 g/dL (11.5-15.4); Immature Granulocytes % 0.4 % (0-4); Lymphocytes # 0.8 K/mcL (0.6-4.6); Lymphocytes % 8.6 %; Mean Corpuscular HGB Conc 30.6 g/dL (31.6-35.5); Mean Corpuscular Hemoglobin 29.1 pg (28.0-33.3); Mean Corpuscular Volume 95.1 fL (83.0-100.0); Mean Platelet Volume 9.8 fL (9.4-12.4); Monocytes # 0.9 K/mcL (0.0-1.3); Monocytes % 9.8 %; Neutrophils # 7.7 K/mcL (1.6-8.9); Platelet Count 305 K/mcL (140-400); Red Blood Count 2.47 M/mcL (3.82-4.97); Red Cell Distribution Width 14.6 % (11.5-14.5); Segmented Neutrophils % 81.1 %
[2016-09-15 06:32] LABS: Calcium 8.7 mg/dL (8.6-10.8); Potassium 3.4 mEq/L (3.5-4.5)
[2016-09-15] MEDS: *HR* Rivaroxaban 15 MG TABLET PO SCH (08:59)
[2016-09-15] MEDS: Aspirin 81 MG TAB.CHEW PO SCH (08:59)
[2016-09-15] MEDS: hydrALAZINE 10 MG TABLET PO SCH ×2 (08:59→20:50)
[2016-09-15] MEDS: Metoprolol XL (24 HR) Succ 50 MG TAB.ER.24H PO SCH (08:59)
[2016-09-15] MEDS: Furosemide 20 MG TABLET PO SCH (08:59)
[2016-09-15] MEDS: Colchicine 0.6 MG TABLET PO SCH (08:59)
[2016-09-15] MEDS: Venlafaxine XR (24 HR) 75 MG CAP.ER.24H PO SCH (09:00)
[2016-09-15] MEDS: Insulin LISPRO 300 UNITS/3 ML VIAL SQ SCH ×4 (09:02→20:41)
--- NOTE | 2016-09-15 10:20 | Electrocardiograph Report ---
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
--- NOTE | 2016-09-15 11:05 | Internal Med Progress Note ---
Date of Encounter: 09/15/16 Time of Encounter: 11:02 - Assessment and plan (1) Anemia Current Visit: No Status: Acute Assessment and plan: Follows with oncology and has been evaluated in the past for macrocytic anemia. Patient is on B12 injections every week, hemoglobin now is 7.2. If less than 7 we will transfuse, however asymptomatic at this time. Patient denies any hematochezia or melena. Recommend follow-up with oncology as outpatient. Qualifiers: Anemia type: other cause Other causes of anemia: other cause, not classified Qualified Code(s): D64.89 - Other specified anemias (2) Chronic kidney disease Current Visit: No Status: Chronic Assessment and plan: Creatinine at baseline. We will continue to monitor renal function, avoid nephrotoxins. Qualifiers: Chronic kidney disease stage: stage 3 (moderate) Qualified Code(s): N18.3 - Chronic kidney disease, stage 3 (moderate) (3) Atrial fibrillation Current Visit: No Status: Chronic Assessment and plan: Stable, not in RVR. On several to for anticoagulation, will continue the same. Qualifiers: Atrial fibrillation type: chronic Qualified Code(s): I48.2 - Chronic atrial fibrillation (4) Cor pulmonale Current Visit: No Status: Chronic Assessment and plan: Stable, continue home medications. (5) Foot pain Current Visit: Yes Status: Acute Assessment and plan: presented with bilateral foot pain and swelling with redness. denies any trauma , she has swelling of b/l feet at baseline. Was treated as gout with colchicine and prednisone initially. Swelling appears to be more diffuse and bilateral, clinically making it less likely to be gout. Uric acid high at 11, however she has elevated uric acid in the past which may be secondary to CKD as well. The foot swelling and pain is already better, no indication for starting steroids at this time. given diarrhea and vomiting, rebecca stop colchicine, follow-up with rheumatology as outpatient to r/o gouty arthritis. Qualifiers: Laterality: bilateral Qualified Code(s): M79.671 - Pain in right foot; M79.672 - Pain in left foot (6) UTI (urinary tract infection) Current Visit: Yes Status: Acute Assessment and plan: has fever, no leukocytosis, urine cx growing Klebsiella which is pansensitive. will contiune IV ceftriaxone for now. Qualifiers: Urinary tract infection type: site unspecified Hematuria presence: without hematuria Qualified Code(s): N39.0 - Urinary tract infection, site not specified - Subjective Interval history: Patient seen at the bedside, reports diarrhea and vomiting overnight. Denies any nausea, vomiting at this time, no abdominal pain, burning micturition or increased frequency. No fever overnight. The swelling in both of her legs has gone down. Reports improvement in the pain and swelling of her legs. Patient is seen by PT OT, recommend inpatient rehabilitation, patient awaiting approval - Constitutional Vitals: Temp Pulse Resp BP Pulse Ox 97.5 F L 95 16 144/74 97 09/14/16 23:00 09/14/16 23:00 09/14/16 23:00 09/14/16 23:00 09/14/16 23:00 General appearance: Present: A&O X 3 Exam: Head Head exam: Present: atraumatic, normocephalic - Eye Eye exam: Present: PERRL, conjuntiva pink, sclera anicteric Pupils: Present: PERRL - Neck Neck exam general surgery: Present: supple, trachea midline. Absent: lymphadenopathy - Respiratory Respiratory exam: Present: CTAB. Absent: accessory muscle use, rales, rhonchi, wheezes - Cardiovascular Cardiovascular exam: Present: RRR, +S1, +S2. Absent: diastolic murmur, gallop, rubs, systolic murmur - GI/Abdominal GI/Abdominal exam: Present: normal bowel sounds, soft, no peritoneal signs. Absent: distended, tenderness - Extremities Exam Extremities exam: Present: mild swelling of b/l feet more on the right foot on the dorsal side, mild tenderness, no redness Absent: calf tenderness, cyanotic , pedal edema - Neurological Exam Neurological exam: Present: CN II-XII intact, oriented X3, no focal deficits. Absent: pronater drift, facial droop, speech deficit - Skin Skin exam: Present: dry, erythema, intact, warm Internal Medicine: Result - Labs CBC & Chem 7: 09/15/16 05:12 09/15/16 05:12 Labs: Short CBC 09/15/16 Range/Units 05:12 WBC 9.5 (4.3-11.1) K/mcL Hgb 7.2 L (11.5-15.4) g/dL Hct 23.5 L (35.3-44.9) % Plt Count 305 (140-400) K/mcL Neutrophils # 7.7 (1.6-8.9) K/mcL BMP 09/15/16 05:12 Sodium 140 Potassium 3.4 L Chloride 107 Carbon Dioxide 23 BUN 53 H D Creatinine 1.37 H Glucose 151 H Calcium 8.7 Consult Discharge Plan - Plan Referrals: Tila Bhatti [employer] PATH[employer] [Advanced Practice Nurse] - 09/24/16 10:00 am
[2016-09-15] MEDS: 0.9 % Sodium Chloride 1,000 ML IVC SCH (15:27)
[2016-09-16] MEDS: 0.9 % Sodium Chloride 1,000 ML IVC SCH (06:47)
[2016-09-16 08:11] LABS: Basophils % 0.3 %; Eosinophils % 0.5 %; Hematocrit 23.2 % (35.3-44.9); Immature Granulocytes % 0.3 % (0-4); Lymphocytes # 1.1 K/mcL (0.6-4.6); Lymphocytes % 18.2 %; Mean Corpuscular HGB Conc 30.2 g/dL (31.6-35.5); Mean Corpuscular Hemoglobin 29.4 pg (28.0-33.3); Mean Corpuscular Volume 97.5 fL (83.0-100.0); Mean Platelet Volume 9.2 fL (9.4-12.4); Monocytes # 0.6 K/mcL (0.0-1.3); Monocytes % 10.1 %; Neutrophils # 4.2 K/mcL (1.6-8.9); Platelet Count 286 K/mcL (140-400); Red Blood Count 2.38 M/mcL (3.82-4.97); Red Cell Distribution Width 14.8 % (11.5-14.5); Segmented Neutrophils % 70.6 %
[2016-09-16 08:27] LABS: Calcium 8.4 mg/dL (8.6-10.8); Potassium 3.7 mEq/L (3.5-4.5)
[2016-09-16] MEDS: Insulin LISPRO 300 UNITS/3 ML VIAL SQ SCH ×4 (09:19→21:03)
[2016-09-16] MEDS: Venlafaxine XR (24 HR) 75 MG CAP.ER.24H PO SCH (09:44)
[2016-09-16] MEDS: *HR* Rivaroxaban 15 MG TABLET PO SCH (09:45)
[2016-09-16] MEDS: hydrALAZINE 10 MG TABLET PO SCH ×2 (09:45→21:23)
[2016-09-16] MEDS: Aspirin 81 MG TAB.CHEW PO SCH (09:46)
[2016-09-16] MEDS: Furosemide 20 MG TABLET PO SCH (09:46)
[2016-09-16] MEDS: Metoprolol XL (24 HR) Succ 50 MG TAB.ER.24H PO SCH (09:46)
--- NOTE | 2016-09-16 11:27 | Internal Med Progress Note ---
Date of Encounter: 09/16/16 Time of Encounter: 11:25 - Assessment and plan (1) Anemia Current Visit: No Status: Acute Assessment and plan: Follows with oncology and has been evaluated in the past for macrocytic anemia. Patient is on B12 injections every week, hemoglobin now is 7.2. we will transfuse one unit prbc today Patient denies any hematochezia or melena. Recommend follow-up with oncology as outpatient. Qualifiers: Anemia type: other cause Other causes of anemia: other cause, not classified Qualified Code(s): D64.89 - Other specified anemias (2) Chronic kidney disease Current Visit: No Status: Chronic Assessment and plan: Creatinine at baseline. We will continue to monitor renal function, avoid nephrotoxins. Qualifiers: Chronic kidney disease stage: stage 3 (moderate) Qualified Code(s): N18.3 - Chronic kidney disease, stage 3 (moderate) (3) Atrial fibrillation Current Visit: No Status: Chronic Assessment and plan: Stable, not in RVR. On several to for anticoagulation, will continue the same. Qualifiers: Atrial fibrillation type: chronic Qualified Code(s): I48.2 - Chronic atrial fibrillation (4) Cor pulmonale Current Visit: No Status: Chronic Assessment and plan: Stable, continue home medications. (5) Foot pain Current Visit: Yes Status: Acute Assessment and plan: presented with bilateral foot pain and swelling with redness. denies any trauma , she has swelling of b/l feet at baseline. Was treated as gout with colchicine and prednisone initially. Swelling appears to be more diffuse and bilateral, clinically making it less likely to be gout. Uric acid high at 11, however she has elevated uric acid in the past which may be secondary to CKD as well. The foot swelling and pain is already better, no indication for starting steroids at this time. given diarrhea and vomiting, rebecca stop colchicine, follow-up with rheumatology as outpatient to r/o gouty arthritis. Qualifiers: Laterality: bilateral Qualified Code(s): M79.671 - Pain in right foot; M79.672 - Pain in left foot (6) UTI (urinary tract infection) Current Visit: Yes Status: Acute Assessment and plan: has fever, no leukocytosis, urine cx growing Klebsiella which is pansensitive. will contiune IV ceftriaxone for now. Qualifiers: Urinary tract infection type: site unspecified Hematuria presence: without hematuria Qualified Code(s): N39.0 - Urinary tract infection, site not specified - Subjective Interval history: Patient seen at the bedside, reports diarrhea and vomiting has stopped. Denies abdominal pain, burning micturition or increased frequency. No fever overnight. The swelling in both of her legs has gone down. Reports improvement in the pain and swelling of her legs but says it still hard for her to walk Patient is seen by PT OT, recommend inpatient rehabilitation, patient awaiting approval - Constitutional Vitals: Temp Pulse Resp BP Pulse Ox 97.9 F 87 18 116/65 98 09/16/16 11:16 09/16/16 11:16 09/16/16 11:16 09/16/16 11:16 09/16/16 11:16 General appearance: Present: A&O X 3 Exam: Head Head exam: Present: atraumatic, normocephalic - Eye Eye exam: Present: PERRL, conjuntiva pink, sclera anicteric Pupils: Present: PERRL - Neck Neck exam general surgery: Present: supple, trachea midline. Absent: lymphadenopathy - Respiratory Respiratory exam: Present: CTAB. Absent: accessory muscle use, rales, rhonchi, wheezes - Cardiovascular Cardiovascular exam: Present: RRR, +S1, +S2. Absent: diastolic murmur, gallop, rubs, systolic murmur - GI/Abdominal GI/Abdominal exam: Present: normal bowel sounds, soft, no peritoneal signs. Absent: distended, tenderness - Extremities Exam Extremities exam: Present: mild swelling of b/l feet more on the right foot on the dorsal side, mild tenderness, no redness Absent: calf tenderness, cyanotic , pedal edema - Neurological Exam Neurological exam: Present: CN II-XII intact, oriented X3, no focal deficits. Absent: pronater drift, facial droop, speech deficit - Skin Skin exam: Present: dry, erythema, intact, warm Internal Medicine: Result - Labs CBC & Chem 7: 09/16/16 08:05 09/16/16 08:05 Labs: Short CBC 09/16/16 Range/Units 08:05 WBC 6.0 (4.3-11.1) K/mcL Hgb 7.0 L (11.5-15.4) g/dL Hct 23.2 L (35.3-44.9) % Plt Count 286 (140-400) K/mcL Neutrophils # 4.2 (1.6-8.9) K/mcL BMP 09/16/16 08:05 Sodium 141 Potassium 3.7 Chloride 111 H Carbon Dioxide 22 BUN 50 H Creatinine 1.16 H Glucose 110 H Calcium 8.4 L Consult Discharge Plan - Plan Referrals: Tila Bhatti, [employer] MANAGER [Advanced Practice Nurse] - 09/24/16 10:00 am
[2016-09-16] MEDS ORDERED: 0.9 % Sodium Chloride 250 ML ONE (16:17)
[2016-09-17 07:32] VITALS: BP 170/77
[2016-09-17] MEDS: hydrALAZINE 10 MG TABLET PO SCH (07:46)
[2016-09-17] MEDS: Furosemide 20 MG TABLET PO SCH (07:47)
[2016-09-17] MEDS: Aspirin 81 MG TAB.CHEW PO SCH (07:47)
[2016-09-17] MEDS: Metoprolol XL (24 HR) Succ 50 MG TAB.ER.24H PO SCH (07:47)
[2016-09-17] MEDS: *HR* Rivaroxaban 15 MG TABLET PO SCH (07:47)
[2016-09-17] MEDS: Venlafaxine XR (24 HR) 75 MG CAP.ER.24H PO SCH (07:47)
[2016-09-17] MEDS: Insulin LISPRO 300 UNITS/3 ML VIAL SQ SCH ×2 (08:07→13:42)
[2016-09-17 08:16] LABS: Basophils % 0.5 %; Eosinophils # 0.1 K/mcL (0.0-0.6); Eosinophils % 2.4 %; Immature Granulocytes % 0.7 % (0-4); Immature Platelets 2.3 % (1.1-6.1); Lymphocytes # 1.1 K/mcL (0.6-4.6); Lymphocytes % 19.2 %; Mean Corpuscular HGB Conc 31.1 g/dL (31.6-35.5); Mean Corpuscular Hemoglobin 29.2 pg (28.0-33.3); Mean Platelet Volume 9.4 fL (9.4-12.4); Monocytes # 0.6 K/mcL (0.0-1.3); Monocytes % 10.8 %; Neutrophils # 3.8 K/mcL (1.6-8.9); Platelet Count 341 K/mcL (140-400); Red Blood Count 2.98 M/mcL (3.82-4.97); Red Cell Distribution Width 16.4 % (11.5-14.5); Segmented Neutrophils % 66.4 %
[2016-09-17 08:18] LABS: Hemoglobin 8.7 g/dL (11.5-15.4)
[2016-09-17 08:31] LABS: BUN/Creatinine Ratio 37 (6-26); Blood Urea Nitrogen 36 mg/dL (7-20); Calcium 9.2 mg/dL (8.6-10.8); Carbon Dioxide 24 mEq/L (19-29); Chloride 112 mEq/L (98-109); Glucose 125 mg/dL (70-99); Osmolality,Calculated 308 (280-300); Potassium 3.6 mEq/L (3.5-4.5); Sodium 144 mEq/L (136-145); eGFR For African Americans > 60 (> 60); eGFR For Non-African Americans 55 (> 60)
--- NOTE | 2016-09-17 12:02 | Discharge Summary ---
Date of Encounter: 09/17/16 Time of Encounter: 12:01 - Discharge Diagnosis (1) Anemia Priority: Secondary Status: Acute Qualifiers: Anemia type: other cause Other causes of anemia: other cause, not classified Qualified Code(s): D64.89 - Other specified anemias (2) Chronic kidney disease Priority: Secondary Status: Chronic Qualifiers: Chronic kidney disease stage: stage 3 (moderate) Qualified Code(s): N18.3 - Chronic kidney disease, stage 3 (moderate) (3) Atrial fibrillation Priority: Secondary Status: Chronic Qualifiers: Atrial fibrillation type: chronic Qualified Code(s): I48.2 - Chronic atrial fibrillation (4) Cor pulmonale Priority: Secondary Status: Chronic (5) Foot pain Priority: Primary Status: Acute Qualifiers: Laterality: bilateral Qualified Code(s): M79.671 - Pain in right foot; M79.672 - Pain in left foot (6) UTI (urinary tract infection) Priority: Primary Status: Acute Qualifiers: Urinary tract infection type: site unspecified Hematuria presence: without hematuria Qualified Code(s): N39.0 - Urinary tract infection, site not specified - Discharge Medications Prescriptions: Nitrofurantoin (BID) [Macrobid] 100 mg PO BID #6 capsule Home Medications: Aspirin 81 mg PO DAILY 12/06/14 [History] HydrALAZINE 10 mg PO BID 12/06/14 [History] Lisinopril [Zestril] 10 mg PO DAILY 12/06/14 [History] Nitroglycerin 0.4 mg SL Q5MIN PRN 12/06/14 [History] Oxybutynin [Ditropan] 5 mg PO BID 12/06/14 [History] Simvastatin [Zocor] 40 mg PO HS 12/06/14 [History] Acetaminophen [Tylenol] 500 mg PO Q6HR PRN 05/03/16 [History] Albuterol Sulfate [Proair Hfa] 2 puff IH Q4H PRN 05/03/16 [History] Epoetin Gonzalo [Procrit] 10,000 unit IJ Q2W 05/03/16 [History] Furosemide [Lasix] 20 mg PO DAILY 05/03/16 [History] Metoprolol Succinate 100 mg PO DAILY 05/03/16 [History] Potassium Chloride [K-Tab ER] 10 meq PO DAILY 05/03/16 [History] Rivaroxaban [Xarelto] 15 mg PO DAILY 05/03/16 [History] Venlafaxine XR (24 HR) [Effexor XR] 75 mg PO DAILY 05/23/16 [History] Cyanocobalamin (B-12) [Vitamin B12] 1,000 mcg IM QWEEK 09/13/16 [History] Ergocalciferol (VITAMIN D2) [Vitamin D2] 50,000 unit PO QWEEK 09/13/16 [History] Triamcinolone Acet 0.1% CRM [Kenalog] 1 appl TP BID PRN 09/13/16 [History] Nitrofurantoin (BID) [Macrobid] 100 mg PO BID #6 capsule 09/17/16 [Rx] Allergies/Adverse Reactions: Allergies Donepezil [From Aricept] Adverse Reaction (Verified 09/13/16 18:09) Hallucinating memantine [From Namenda] Adverse Reaction (Verified 09/13/16 18:09) Hallucinating Date of admission: 09/13/16 18:31 Primary care physician: Arabella Santos CNP Consults: 09/13/16 20:54 Consult to Pastoral Services [CONS] Routine Comment: 09/14/16 09:00 Consult to Occupational Therapy [CONS] Routine Comment: Evaluate, develop and implement POC Reason for Consult: discharge planning Consult to Physical Therapy [CONS] Routine Comment: Evaluate, develop and implement POC Reason for Consult: discharge planning 09/14/16 14:40 Consult to Rehabilitation Director [CONS] Stat Reason for SW Consult: Recommending SNF/ECF for rehab; patient would like [facility]. 09/14/16 19:26 Consult to Invasive Line Access Team [CONS] Routine Reason for Consult: limited access Line Type: EPIV Discharging clinician: Oralia Reid Anticipated date of discharge: 09/17/16 - Patient Status Disposition: Home, Self-Care Condition: Fair Functional capacity at discharge: uses cane/walker Overall status at discharge: patient is progressing back to baseline - Discharge Instructions Instructions: Urinary Tract Infection in Women (DC), Rheumatoid Arthritis (DC) Follow Up With: Tila Bhatti [employer] [Advanced Practice Nurse] - - Diet and Activity Activity: as per physical therapy Diet: advance to your usual diet Interval History: Ms. Masterson is a 76 year old female past history of hypertension diabetes C daily stage III anemia CVA atrial fibrillation. According to the patient for approximately 3 days she has been experiencing pain in the plantar aspect of her feet bilaterally. She denies any recent trauma or falls fevers or chills. She is unable to bear weight. According to ER records upon presentation patient did have a low-grade temperature 100.7 with a vital signs were stable . x-rays were obtained which were negative for any fractures or abnormalities lab work was unremarkable with no leukocytosis Uric acid was 11.4. Past records indicated previous urinary culture growing Klebsiella which was pansensitive. Patient was given IV fluids and pain medication, Rocephin, prednisone and Colchine . Swelling appears to be more diffuse and bilateral, clinically making it less likely to be gout. Uric acid high at 11, however she has elevated uric acid in the past which may be secondary to see daily as well.no indication for starting steroids at this time. colchicine was stopped due to diarrhea, bedside PT OT was consulted and recommended inpatient rehabilitation, patient will follow-up with rheumatology as outpatient . Even though she denies symptoms of UTI, she does have past history of UTI, urine culture also grew Klebsiella and she had temperature spike of 101 as inpatient. She was continued on ceftriaxone for 4 days as inpatient and is being discharged on Macrobid which is sensitive. She has chronic anemia for which she follows with oncology as outpatient and Patient is on B12 injections every other week for macrocytic anemia, patient was noted to have a hemoglobin of 7.0, received 1 units of blood transfusion, patient was advised to keep her follow-up appointment with oncology. Patient is being discharged in stable condition. Hospital course: Ms. Masterson is a 76 year old female - Time Spent with Patient Total time spent providing and/or coordinating discharge services: - Constitutional Vitals: Temp Pulse Resp BP Pulse Ox 98.2 F 102 18 170/77 95 09/17/16 07:26 09/17/16 07:26 09/17/16 07:26 09/17/16 07:26 09/17/16 07:26 General appearance: Present: A&O X 3 Exam: - Head Head exam: Present: atraumatic, normocephalic - Eye Eye exam: Present: PERRL, conjuntiva pink, sclera anicteric Pupils: Present: PERRL - Neck Neck exam general surgery: Present: supple, trachea midline. Absent: lymphadenopathy - Respiratory Respiratory exam: Present: CTAB. Absent: accessory muscle use, rales, rhonchi, wheezes - Cardiovascular Cardiovascular exam: Present: RRR, +S1, +S2. Absent: diastolic murmur, gallop, rubs, systolic murmur - GI/Abdominal GI/Abdominal exam: Present: normal bowel sounds, soft, no peritoneal signs. Absent: distended, tenderness - Extremities Exam Extremities exam: Present: mild swelling of b/l feet more on the right foot on the dorsal side, mild tenderness, no redness Absent: calf tenderness, cyanotic , pedal edema - Neurological Exam Neurological exam: Present: CN II-XII intact, oriented X3, no focal deficits. Absent: pronater drift, facial droop, speech deficit - Skin Skin exam: Present: dry, erythema, intact, warm
--- NOTE | 2016-09-17 13:21 | Physician Discharge Referral ---
ExtendedCare Referral Info Transfer To: f Provider in Charge: isreal harrell Institutional Level of Care: Intermediate - MR - Diagnosis (1) Anemia Status: Acute (2) Chronic kidney disease Status: Chronic (3) Atrial fibrillation Status: Chronic (4) Cor pulmonale Status: Chronic (5) Foot pain Status: Acute (6) UTI (urinary tract infection) Status: Acute - Transfer Medications Prescriptions: Nitrofurantoin (BID) [Macrobid] 100 mg PO BID #6 capsule Home Medications: Aspirin 81 mg PO DAILY 12/06/14 [History] HydrALAZINE 10 mg PO BID 12/06/14 [History] Lisinopril [Zestril] 10 mg PO DAILY 12/06/14 [History] Nitroglycerin 0.4 mg SL Q5MIN PRN 12/06/14 [History] Oxybutynin [Ditropan] 5 mg PO BID 12/06/14 [History] Simvastatin [Zocor] 40 mg PO HS 12/06/14 [History] Acetaminophen [Tylenol] 500 mg PO Q6HR PRN 05/03/16 [History] Albuterol Sulfate [Proair Hfa] 2 puff IH Q4H PRN 05/03/16 [History] Epoetin Gonzalo [Procrit] 10,000 unit IJ Q2W 05/03/16 [History] Furosemide [Lasix] 20 mg PO DAILY 05/03/16 [History] Metoprolol Succinate 100 mg PO DAILY 05/03/16 [History] Potassium Chloride [K-Tab ER] 10 meq PO DAILY 05/03/16 [History] Rivaroxaban [Xarelto] 15 mg PO DAILY 05/03/16 [History] Venlafaxine XR (24 HR) [Effexor XR] 75 mg PO DAILY 05/23/16 [History] Cyanocobalamin (B-12) [Vitamin B12] 1,000 mcg IM QWEEK 09/13/16 [History] Ergocalciferol (VITAMIN D2) [Vitamin D2] 50,000 unit PO QWEEK 09/13/16 [History] Triamcinolone Acet 0.1% CRM [Kenalog] 1 appl TP BID PRN 09/13/16 [History] Nitrofurantoin (BID) [Macrobid] 100 mg PO BID #6 capsule 09/17/16 [Rx] Allergies/Adverse Reactions: Allergies Donepezil [From Aricept] Adverse Reaction (Verified 09/13/16 18:09) Hallucinating memantine [From Namenda] Adverse Reaction (Verified 09/13/16 18:09) Hallucinating - Respiratory Orders Smoking Cessation: Smoking cessation has been advised. For more information, call the [place] Tobacco Quit Line at 6-643-XIAS-NOW. - Advance Directives Code Status: Full Code - Mobility Orders Chair, Ambulate - Rehabiliation Orders Rehab Potential: Fair Rehab Orders: Evaluation for Physical Therapy, Evaluation for Occupational Therapy - Diet Orders Regular CERTIFICATION: I certify that the transfer of the above named patient to an Extended Care Facility is necessary for the continuing treatment of the diagnosis listed. The above information is true and accurate reflection of patient's current condition. Confidential - Redisclosure prohibited without a patient's written consent.
== END 2016-09-17 15:00 ==
LOC: EMEROO 12:41 → 3ANU 12:41
PROVIDERS: ADMIT Nurse Practitioner Family; ATTEND Internal Medicine Endocrinology, Diabetes & Metabolism

== ENCOUNTER 2016-10-26 06:15 | Observation (INO) ==
--- NOTE | 2016-10-26 06:25 | Emergency Department Note ---
START Narrative - START START: I, Leon Palma, examined this patient and my medical decision-making was reviewed with the ULTRASONIC SOLDERER/PA/Advanced Practice Nurse/Resident Physician. I agree with the documented findings, disposition and treatment plan as described except to the extent set forth below. 76 yo female sent from [place] from hgb of 5.4. Denies cp, LH, n/v/d, abd pain. + hx of KS in the past. +CKD hx. Takes Xarelto and ASA. On PE HR irregularly irregular. Abd nontender, nondistended. Rectal exam performed by the medical student which showed black formed stool which was guaiac positive. Patient is pending her laboratory evaluation and disposition. Patient will be signed out to the day physician, Dr. Gao pending further evaluation and disposition.
[2016-10-26 06:44] LABS: Basophils % 0.3 %; Eosinophils # 0.5 K/mcL (0.0-0.6); Eosinophils % 6.5 %; Hematocrit 20.9 % (35.3-44.9); Immature Granulocytes % 0.5 % (0-4); Immature Platelets 2.4 % (1.1-6.1); Lymphocytes # 1.2 K/mcL (0.6-4.6); Lymphocytes % 16.5 %; Mean Corpuscular HGB Conc 31.1 g/dL (31.6-35.5); Mean Corpuscular Hemoglobin 31.6 pg (28.0-33.3); Mean Corpuscular Volume 101.5 fL (83.0-100.0); Mean Platelet Volume 9.7 fL (9.4-12.4); Monocytes # 0.7 K/mcL (0.0-1.3); Monocytes % 9.6 %; Neutrophils # 4.9 K/mcL (1.6-8.9); Platelet Count 239 K/mcL (140-400); Red Blood Count 2.06 M/mcL (3.82-4.97); Red Cell Distribution Width 17.3 % (11.5-14.5); Segmented Neutrophils % 66.6 %
[2016-10-26 06:48] LABS: Hemoglobin 6.5 g/dL (11.5-15.4)
[2016-10-26 06:53] LABS: Prothrombin Time 21.6 Seconds (9.4-12.1)
[2016-10-26 06:55] LABS: Calcium 8.9 mg/dL (8.6-10.8); Potassium 4.7 mEq/L (3.5-4.5)
[2016-10-26 06:56] LABS: Activated Partial Thrombo Time 30.7 Seconds (26.0-36.0)
--- NOTE | 2016-10-26 07:32 | Emergency Department Note ---
Disposition Clinical Impression: Anemia, A-fib Disposition: Admitted As Inpatient Condition: Good Referrals: Arabella Santos CNP [Primary Care Provider] - Forms: ED Satisfaction Letter Time of Disposition: 07:46 General Adult HPI - General Chief complaint: ED Recheck/Abnormal Lab/Rx Stated complaint: "anemia" Time Seen by Provider: 10/26/16 07:16 Source: EMS Limitations: no limitations Nursing Notes Reviewed: Yes Vital Signs Reviewed: Yes - History of Present Illness HPI Narrative: 76-year-old female presenting to the emergency department due to low hemoglobin. She is coming from [facility] by EMS. She is a poor historian. She states she has had no increase in any symptoms of tiredness or dizziness in the past week. She is previously admitted in September due to similar symptoms and lab results. She was transfused one unit of red blood cells at that time period and then was discharged. She follows Dr. Morris for her hematological needs. She is currently receiving B-12 and iron. Pain Scale: 0 - Related Data Home Medications Medication Instructions Recorded Confirmed Aspirin 81 mg PO DAILY 12/06/14 09/13/16 HydrALAZINE 10 mg PO BID 12/06/14 09/13/16 Lisinopril [Zestril] 10 mg PO DAILY 12/06/14 09/13/16 Nitroglycerin 0.4 mg SL Q5MIN PRN 12/06/14 09/13/16 Oxybutynin [Ditropan] 5 mg PO BID 12/06/14 09/13/16 Simvastatin [Zocor] 40 mg PO HS 12/06/14 09/13/16 Acetaminophen [Tylenol] 500 mg PO Q6HR PRN 05/03/16 09/13/16 Albuterol Sulfate [Proair Hfa] 2 puff IH Q4H PRN 05/03/16 09/13/16 Epoetin Gonzalo [Procrit] 10,000 unit IJ Q2W 05/03/16 09/13/16 Furosemide [Lasix] 20 mg PO DAILY 05/03/16 09/13/16 Metoprolol Succinate 100 mg PO DAILY 05/03/16 09/13/16 Potassium Chloride [K-Tab ER] 10 meq PO DAILY 05/03/16 09/13/16 Rivaroxaban [Xarelto] 15 mg PO DAILY 05/03/16 09/13/16 Venlafaxine XR (24 HR) [Effexor XR] 75 mg PO DAILY 05/23/16 09/13/16 Cyanocobalamin (B-12) [Vitamin B12] 1,000 mcg IM QWEEK 09/13/16 09/13/16 Ergocalciferol (VITAMIN D2) 50,000 unit PO QWEEK 09/13/16 09/13/16 [Vitamin D2] Triamcinolone Acet 0.1% CRM 1 appl TP BID PRN 09/13/16 09/13/16 [Kenalog] Previous Rx's Medication Instructions Recorded Nitrofurantoin (BID) [Macrobid] 100 mg PO BID #6 capsule 09/17/16 Allergies Allergy/AdvReac Type Severity Reaction Status Date / Time Donepezil [From Aricept] AdvReac Hallucinati Verified 09/13/16 18:09 ng memantine [From Namenda] AdvReac Hallucinati Verified 09/13/16 18:09 ng Constitutional: Reports: weakness. Denies: fever, chills Eyes: Denies: eye discharge ENT ED: Reports: as per HPI Cardiovascular: Denies: chest pain, palpitations Respiratory: Denies: cough, dyspnea, wheezes Gastrointestinal: Denies: abdominal pain, nausea, vomiting Genitourinary: Reports: as per HPI Musculoskeletal: Reports: as per HPI Neurological: Reports: headache, weakness. Denies: numbness, paresthesias Endocrine: Reports: fatigue Hematological/Lymphatic: Reports: as per HPI Past Medical History - Past Medical History Medical history: Reports: atrial fibrillation, diabetes, hyperlipidemia, hypertension, myocardial infarction Surgical history: Reports: other Psychiatric history: Reports: depression RIBBON BLOCKER history: Reports: no RIBBON BLOCKER history - Social History Smoking Status: Former smoker Smokeless Tobacco Status: No Alcohol use: Reports: none Drug use: Reports: none Physical Exam - General Limitations: no limitations General appearance: alert, in no apparent distress - Head Head exam: atraumatic, normocephalic - Eye Eye exam: Present: normal appearance - ENT ENT exam: normal exam - Neck Neck exam: Present: normal inspection - Chest Chest inspection: Present: normal inspection, symmetric chest wall rise - Respiratory Respiratory exam: Present: normal lung sounds bilaterally. Absent: respiratory distress, wheezes - Cardiovascular Cardiovascular exam: Present: tachycardia, irregular rhythm - Abdominal Exam Abdominal exam: Present: soft, Non-Tender. Absent: distention, guarding, rebound - Extremities Exam Extremities exam: Present: normal inspection, full ROM - Neurological Exam Neurological exam: Present: alert - Skin Skin exam: Present: warm, dry Course Course Narrative: Patient was signed out to me from the night team. After reviewing her lab work and speaking with the patient we have decided to admit her. This is due to her previous admission in September with need of a transfusion. A call to the hospitalist was completed. She promptly returned the call and accepted the patient. Vital Signs Temperature 98.7 F 10/26/16 06:17 Pulse Rate 105 10/26/16 06:17 Respiratory Rate 18 10/26/16 06:17 Blood Pressure 107/67 10/26/16 06:17 O2 Sat by Pulse Oximetry 96 10/26/16 06:17 Temperature 98.7 F 10/26/16 06:17 Pulse Rate 100 10/26/16 07:40 Respiratory Rate 16 10/26/16 07:40 Blood Pressure 119/66 10/26/16 07:40 O2 Sat by Pulse Oximetry 96 10/26/16 07:40 Oxygen Delivery Oxygen Delivery Room Air Medical Decision Making - Medical Records Medical records reviewed: Yes I reviewed the patient's medical records. - Lab Data Lab results reviewed: Yes I reviewed the patient's lab results. Result diagrams: 10/26/16 06:33 10/26/16 06:33 Lab Results 10/26/16 10/26/16 10/26/16 Range/Units 06:33 06:33 06:33 WBC 7.4 (4.3-11.1) K/mcL RBC 2.06 L (3.82-4.97) M/mcL Hgb 6.5 L (11.5-15.4) g/dL Hct 20.9 L (35.3-44.9) % MCV 101.5 H (83.0-100.0) fL MCH 31.6 (28.0-33.3) pg MCHC 31.1 L (31.6-35.5) g/dL RDW 17.3 H (11.5-14.5) % Plt Count 239 (140-400) K/mcL MPV 9.7 (9.4-12.4) fL Immature Gran % 0.5 (0-4) % Seg Neutrophils % 66.6 % Lymphocytes % 16.5 % Monocytes % 9.6 % Eosinophils % 6.5 % Basophils % 0.3 % Neutrophils # 4.9 (1.6-8.9) K/mcL Lymphocytes # 1.2 (0.6-4.6) K/mcL Monocytes # 0.7 (0.0-1.3) K/mcL Eosinophils # 0.5 (0.0-0.6) K/mcL Basophils # 0.0 (0.0-0.2) K/mcL Immature Plt Fraction 2.4 (1.1-6.1) % PT 21.6 H (9.4-12.1) Seconds INR 2.0 APTT 30.7 (26.0-36.0) Seconds Sodium 139 (136-145) mEq/L Potassium 4.7 H (3.5-4.5) mEq/L Chloride 106 (98-109) mEq/L Carbon Dioxide 26 (19-29) mEq/L BUN 66 H (7-20) mg/dL Creatinine 1.44 H (0.57-1.11) mg/dL Est GFR ( Amer) 43 L (> 60) Est GFR (Non-Af Amer) 36 L (> 60) BUN/Creatinine Ratio 46 H (6-26) Glucose 163 H (70-99) mg/dL Calculated Osmolality 311 H (280-300) Calcium 8.9 (8.6-10.8) mg/dL Blood Type Antibody Screen Crossmatch 10/26/16 Range/Units 06:33 WBC (4.3-11.1) K/mcL RBC (3.82-4.97) M/mcL Hgb (11.5-15.4) g/dL Hct (35.3-44.9) % MCV (83.0-100.0) fL MCH (28.0-33.3) pg MCHC (31.6-35.5) g/dL RDW (11.5-14.5) % Plt Count (140-400) K/mcL MPV (9.4-12.4) fL Immature Gran % (0-4) % Seg Neutrophils % % Lymphocytes % % Monocytes % % Eosinophils % % Basophils % % Neutrophils # (1.6-8.9) K/mcL Lymphocytes # (0.6-4.6) K/mcL Monocytes # (0.0-1.3) K/mcL Eosinophils # (0.0-0.6) K/mcL Basophils # (0.0-0.2) K/mcL Immature Plt Fraction (1.1-6.1) % PT (9.4-12.1) Seconds INR APTT (26.0-36.0) Seconds Sodium (136-145) mEq/L Potassium (3.5-4.5) mEq/L Chloride (98-109) mEq/L Carbon Dioxide (19-29) mEq/L BUN (7-20) mg/dL Creatinine (0.57-1.11) mg/dL Est GFR ( Amer) (> 60) Est GFR (Non-Af Amer) (> 60) BUN/Creatinine Ratio (6-26) Glucose (70-99) mg/dL Calculated Osmolality (280-300) Calcium (8.6-10.8) mg/dL Blood Type O POSITIVE Antibody Screen NEGATIVE Crossmatch See Detail - EKG Data EKG #1 EKG attestation: Yes I reviewed and interpreted this EKG. EKG results narrative: Rate of 95 bpm. Atrial fibrillation. Normal axis. QRS of 91 ms, QTC of 395 ms. No evidence of ischemia or other abnormalities. Attestation Statement - Attestation Attestation: I DR Gao examined this patient and my medical decision-making was reviewed with the [facility] [employer] [facility]/PA/Advanced Practice Nurse/Resident Physician. I agree with the documented findings, disposition and treatment plan as described except to the extent set forth below. pt with significant history of anemia. She was found to have anemia secondary to chronic kidney disease as well as B12 deficiency. She is receiving B-12 injections. She is also been on Procrit. She is being followed by hem/onc as well as nephrology for this. Her hemoglobin now is down to 6. She was last transfused a month ago for a hemoglobin of 7.2. She is on blood thinners for her chronic A. fib. I feel she needs to be readmitted for possible colonoscopy if she has not had this done since 2012.
[2016-10-26] MEDS ORDERED: 0.9 % Sodium Chloride 250 ML ONE ×2 (11:13→15:43)
[2016-10-26] MEDS ORDERED: Naloxone 0.4 MG/ML INJ IVP PRN (12:46)
[2016-10-26] MEDS ORDERED: *HR* LORazepam 0.5 MG TABLET PO PRN (12:50)
[2016-10-26] MEDS ORDERED: Nitroglycerin 0.4 MG TAB.SUBL SL PRN (12:50)
--- NOTE | 2016-10-26 13:15 | Internal Med History&Physical ---
Date of Encounter: 10/26/16 Time of Encounter: 13:05 Assessment and Plan (1) Anemia Current visit: Yes Status: Acute 1 patient has chronic history of anemia secondary to CK D and B12 deficiency she is being followed by oncology who was as an outpatient anticipating to perform a bone marrow aspiration to investigate for possible malignancy. Routine check of lab work today did reveal hemoglobin of 6.5. She is not actively bleeding she does have some slight lightheadedness with positional change no other symptoms voiced. We will type and cross and transfuse 2 units of PRBCs we will recheck hemoglobin at 6 PM 2 we will obtain stool for occult 3 outpatient follow-up with hematology upon discharge 4 continue with patient's relative for now due to no signs symptoms of active bleeding at this time 5 continuous cardiac monitoring Qualifiers: Anemia type: other cause Other causes of anemia: other cause, not classified Qualified Code(s): D64.89 - Other specified anemias (2) Atrial fibrillation Current visit: No Status: Chronic 1 presently rate controlled we will continue with xarelto Qualifiers: Atrial fibrillation type: chronic Qualified Code(s): I48.2 - Chronic atrial fibrillation (3) CKD (chronic kidney disease), stage III Current visit: No Status: Chronic 1 present creatinine is 1.4 for which appears to be around her baseline we will continue to monitor creatinine 2 we will avoid nephrotoxins 3 we will monitor intake and output daily weights 4 consult nephrology as needed (4) Diabetes mellitus Current visit: No Status: Chronic Accu-Cheks before meals at bedtime with sliding scale insulin Diabetic diet Qualifiers: Diabetes mellitus type: type 2 Diabetes mellitus complication status: with unspecified complications Diabetes mellitus termination clerk insulin use: without termination clerk use Qualified Code(s): E11.8 - Type 2 diabetes mellitus with unspecified complications (5) DVT prophylaxis Current visit: No Status: Acute Patient is on xarelto Internal Medicine - H&P: HPI Chief complaint: Anemia Admitted From: Emergency Dept Plans for Post Hospital Care: Transfer [facility] Facility History of present illness: Ms. Masterson is a 76 year old female past medical history of atrial fibrillation chronic anemia CK D stage III hypertension diabetes coronary artery disease with stent placement patient has had a long-standing history of chronic anemia dating back to 2012, which seems to be related to chronic kidney disease as well as B12 deficiency She is being followed by oncology, she is receiving B12 injections LILA therapy iron infusion and Procrit injections and it appears according to records oncology would like to perform a bone marrow aspiration to check for malignancy. She is on blood thinners for chronic atrial fibrillation however she denies any melena hematochezia hemaemesis. Last month her stool occult was negative she did have a colonoscopy in 2012 which was unremarkable. She was admitted last month for low hemoglobin and received blood transfusions. Patient resides in the [facility] and is receiving physical therapy due to deconditioning and she had routine lab work which revealed hemoglobin of 6.5. Patient denies any chest pain shortness of breath she does complain of some occasional lightheadedness with positional changes. She presented to the ER for anemia. Lab work was obtained which confirmed anemia hemoglobin 6.5 EKG with atrial fibrillation no ST-T wave abnormalities patient was typed and screened she will receive a total of 2 units of PRBCs. She has been admitted for further workup evaluation. Presently the patient does not appear to be any respiratory distress she denies any chest pain lung sounds are clear heart sounds are irregular S1-S2 with no rubs clicks murmurs noted abdomen soft and nontender no pedal edema noted. If no active bleeding, or changes in lab work patient will be discharged back to [facility] tomorrow. I reviewed this case with who agrees with plan. Past Med Surg Social Fam HX - Past Medical History Medical history: atrial fibrillation, diabetes, hyperlipidemia, hypertension, myocardial infarction Psychiatric history: depression - Past Surgical History Surgical History: other - Social History Smoking Status: Former smoker Smokeless Tobacco Status: No Alcohol use: none Drug use: none - Family History Mother Hx Family Cardiac Disorders: Yes (CAD, Pacemaker) Hx Family Endocrine Disorder: Yes (DM) Father Hx Family Cancer: Yes (Lung Cancer) Internal Medicine - H&P: Meds Aspirin 81 mg PO DAILY 12/06/14 [History] HydrALAZINE 10 mg PO BID 12/06/14 [History] Lisinopril [Zestril] 5 mg PO DAILY 12/06/14 [History] Nitroglycerin 0.4 mg SL Q5MIN PRN 12/06/14 [History] Oxybutynin [Ditropan] 5 mg PO BID 12/06/14 [History] Simvastatin [Zocor] 40 mg PO HS 12/06/14 [History] Acetaminophen [Tylenol] 500 mg PO Q6HR PRN 05/03/16 [History] Albuterol Sulfate [Proair Hfa] 2 puff IH Q4H PRN 05/03/16 [History] Epoetin Gonzalo [Procrit] 10,000 unit IJ Q2W 05/03/16 [History] Furosemide [Lasix] 20 mg PO DAILY 05/03/16 [History] Metoprolol Succinate 100 mg PO DAILY 05/03/16 [History] Potassium Chloride [K-Tab ER] 10 meq PO DAILY 05/03/16 [History] Rivaroxaban [Xarelto] 15 mg PO DAILY 05/03/16 [History] Venlafaxine XR (24 HR) [Effexor XR] 75 mg PO DAILY 05/23/16 [History] Cyanocobalamin (B-12) [Vitamin B12] 1,000 mcg IM QWEEK 09/13/16 [History] Ergocalciferol (VITAMIN D2) [Vitamin D2] 50,000 unit PO QWEEK 09/13/16 [History] Triamcinolone Acet 0.1% CRM [Kenalog] 1 appl TP BID PRN 09/13/16 [History] Albuterol Sulfate [Proair Hfa] 2 puff IH Q4H PRN 10/26/16 [History] Calcium Carbonate/Vitamin D3 [Calcium 600 + Vit D Tablet] 1 tab PO DAILY [History] LORazepam [Ativan] 0.5 mg PO BID PRN 10/26/16 [History] Tramadol HCl [Ultram] 50 mg PO BID PRN 10/26/16 [History] Allergies Donepezil [From Aricept] Adverse Reaction (Verified 09/13/16 18:09) Hallucinating memantine [From Namenda] Adverse Reaction (Verified 09/13/16 18:09) Hallucinating All Systems PM: A 10-system review of systems was performed and is negative for pertinent findings except as documented above in the HPI. - Constitutional Constitutional: weakness, no chills, no fever(s), no night sweats - EENT Eyes: no change in vision, no discharge, no pain, no photophobia Ears: no ear discharge, no ear pain, no tinnitus Nose, mouth and throat: no dysphagia, no nasal discharge, no neck pain, no sore throat - Cardiovascular Cardiovascular ROS IM: no chest pain, no diaphoresis, no dyspnea, no lightheadedness, no palpitations, no syncope - Respiratory Respiratory: no cough, no dyspnea, no wheezing, no excessive phlegm production - Gastrointestinal Gastrointestinal: no abdominal pain, no diarrhea, no hematemesis, no hematochezia, no melena, no nausea, no vomiting - Genitourinary Genitourinary: no change in urinary stream, no dysuria, no flank pain, no hematuria - Musculoskeletal Musculoskeletal ROS IM: no numbness, no tingling - Integumentary Integumentary IM: no rash, no unusual bruising - Neurological Neurological ROS: no confusion, no convulsions, no focal weakness, no numbness, no tingling, no tremor(s) - Hematologic/Lymphatic Hematologic/Lymphatic: no easy bruising - Constitutional Vitals: Temp Pulse Resp BP Pulse Ox 98.3 F 96 16 110/54 100 10/26/16 12:45 10/26/16 12:45 10/26/16 12:45 10/26/16 12:45 10/26/16 12:14 General appearance: Present: A&O X 3, answers questions appropriately - Head Head exam: Present: atraumatic, normocephalic - Eye Eye exam: Present: PERRL, conjuntiva pink, sclera anicteric Pupils: Present: PERRL - Neck Neck exam general surgery: Present: supple, trachea midline. Absent: lymphadenopathy - Respiratory Respiratory exam: Present: CTAB. Absent: accessory muscle use, rales, rhonchi, wheezes - Cardiovascular Cardiovascular exam: Present: irregular rhythm, +S1, +S2. Absent: diastolic murmur, gallop, rubs, systolic murmur - GI/Abdominal GI/Abdominal exam: Present: normal bowel sounds, soft, no peritoneal signs. Absent: distended, tenderness - Extremities Exam Extremities exam: Present: warm, radial pulses palpable and symetrical. Absent : calf tenderness, cyanotic, pedal edema - Neurological Exam Neurological exam: Present: CN II-XII intact, oriented X3, no focal deficits. Absent: pronater drift, facial droop, speech deficit - Skin Skin exam: Present: dry, intact Internal Med - H&P Results - Labs CBC & Chem 7: 10/26/16 06:33 10/26/16 06:33 - EKG Data EKG comments: 10/26/16 13:16 Atrial fibrillation - VTE Reasons for not Prescribing Prophylaxis: Medical contraindication
[2016-10-26] MEDS ORDERED: *HR* Dextrose 50 % in Water (Syg) 50 ML SYRINGE IVP PRN (13:23)
[2016-10-26] MEDS ORDERED: Dextrose Gel 15 GM PO PRN ×2 (13:23)
[2016-10-26] MEDS ORDERED: D5% in Water 1,000 ML IVC PRN (13:23)
--- NOTE | 2016-10-26 17:31 | Electrocardiograph Report ---
[place] [id number] Test Date: 2016-10-26 Pat Name: Ada Masterson Department: 102 Room: 3A23 Gender: F Hand Icer: Mansoor : 1940 Requested By: Leon Palma Order Number: [id number] Reading MD: Deangelo Brandt DO Measurements Intervals [place] Rate: 95 P: KS: 0 QRS: -5 QRSD: 91 T: 10 QT: 342 QTc: 395 Interpretive Statements ATRIAL FIBRILLATION ABNORMAL RHYTHM ECG Electronically Signed On 10-26-2016 17:29:49 EDT by Deangelo Brandt DO
[2016-10-26] MEDS: Insulin LISPRO 300 UNITS/3 ML VIAL SQ SCH ×2 (18:23→21:13)
[2016-10-26] MEDS: traMADol 50 MG TABLET PO PRN (21:12)
[2016-10-26] MEDS: hydrALAZINE 10 MG TABLET PO SCH (21:13)
[2016-10-26] MEDS: Triamcinolone Acet 0.1% CRM 15 GM TUBE TP PRN (21:16)
[2016-10-26 22:32] LABS: Hematocrit 26.6 % (35.3-44.9)
[2016-10-26 22:33] LABS: Hemoglobin 8.5 g/dL (11.5-15.4)
[2016-10-27 06:22] LABS: Basophils # 0.1 K/mcL (0.0-0.2); Basophils % 0.8 %; Eosinophils # 0.4 K/mcL (0.0-0.6); Eosinophils % 5.6 %; Hematocrit 24.6 % (35.3-44.9); Hemoglobin 7.8 g/dL (11.5-15.4); Immature Granulocytes % 0.5 % (0-4); Lymphocytes % 15.2 %; Mean Corpuscular HGB Conc 31.7 g/dL (31.6-35.5); Mean Corpuscular Hemoglobin 30.1 pg (28.0-33.3); Mean Platelet Volume 9.6 fL (9.4-12.4); Monocytes # 0.7 K/mcL (0.0-1.3); Monocytes % 11.1 %; Neutrophils # 4.4 K/mcL (1.6-8.9); Platelet Count 194 K/mcL (140-400); Red Blood Count 2.59 M/mcL (3.82-4.97); Red Cell Distribution Width 18.1 % (11.5-14.5); Segmented Neutrophils % 66.8 %
[2016-10-27 06:36] LABS: Calcium 8.7 mg/dL (8.6-10.8); Potassium 4.2 mEq/L (3.5-4.5)
[2016-10-27] MEDS: Insulin LISPRO 300 UNITS/3 ML VIAL SQ SCH ×4 (07:31→21:52)
[2016-10-27] MEDS: Venlafaxine XR (24 HR) 75 MG CAP.ER.24H PO SCH (07:34)
[2016-10-27] MEDS: *HR* Rivaroxaban 15 MG TABLET PO SCH (07:35)
[2016-10-27] MEDS: hydrALAZINE 10 MG TABLET PO SCH ×2 (07:35→21:51)
[2016-10-27] MEDS: Furosemide 20 MG TABLET PO SCH (07:35)
[2016-10-27] MEDS: Aspirin 81 MG TAB.CHEW PO SCH (07:35)
[2016-10-27] MEDS: Metoprolol XL (24 HR) Succ 50 MG TAB.ER.24H PO SCH (09:22)
--- NOTE | 2016-10-27 10:19 | Internal Med Progress Note ---
<Trey Barber - Last Filed: 10/27/16 15:28> Date of Encounter: 10/27/16 Time of Encounter: 10:17 - Assessment and plan (1) Anemia Current Visit: Yes Status: Acute Assessment and plan: -Pt got 2 units PRBC in ED. HgB 6.5-->8.5-->7.8 in 36 hours. -Occult stool negative despite positive guaic positive sample in ED -Patient has no known history of EGD procedure, however she had a colonoscopy in 2012 which reported no acute pathology. -Patient is on Xarelto d/t AFib -We will give one more unit of PRBC, and consult Surgery for possible endoscopy. Qualifiers: Anemia type: other cause Other causes of anemia: other cause, not classified Qualified Code(s): D64.89 - Other specified anemias (2) Chronic kidney disease Current Visit: No Status: Chronic Assessment and plan: Stable. We will avoid any nephrotoxic agents Qualifiers: Chronic kidney disease stage: stage 3 (moderate) Qualified Code(s): N18.3 - Chronic kidney disease, stage 3 (moderate) (3) Atrial fibrillation Current Visit: No Status: Chronic Assessment and plan: The patient is currently rate controlled and anticoagulated with Xarelto Qualifiers: Atrial fibrillation type: chronic Qualified Code(s): I48.2 - Chronic atrial fibrillation (4) Diabetes mellitus Current Visit: No Status: Chronic Assessment and plan: Accuchecks regularly and sliding scale insulin Qualifiers: Diabetes mellitus type: type 2 Diabetes mellitus complication status: with unspecified complications Diabetes mellitus senior care insulin use: without manager terminal use Qualified Code(s): E11.8 - Type 2 diabetes mellitus with unspecified complications; N18.3 - Chronic kidney disease, stage 3 (moderate) (5) DVT prophylaxis Current Visit: No Status: Acute Assessment and plan: Patient is on Xarelto - Subjective Interval history: The patient is resting comfortably in bed at the time of the exam. She says that she was able to get some sleep overnight, and has otherwise had no acute concerns. - Constitutional Vitals: Temp Pulse Resp BP Pulse Ox 98.1 F 87 18 132/68 100 10/27/16 07:55 10/27/16 07:55 10/27/16 07:55 10/27/16 07:55 10/27/16 07:55 General appearance: Present: A&O X 3, answers questions appropriately - Head Head exam: Present: atraumatic, normocephalic - Eye Eye exam: Present: PERRL, conjuntiva pink, sclera anicteric Pupils: Present: PERRL - Neck Neck exam general surgery: Present: supple, trachea midline. Absent: lymphadenopathy - Respiratory Respiratory exam: Present: CTAB. Absent: accessory muscle use, rales, rhonchi, wheezes - Cardiovascular Cardiovascular exam: Present: RRR, +S1, +S2. Absent: diastolic murmur, gallop, rubs, systolic murmur - GI/Abdominal GI/Abdominal exam: Present: normal bowel sounds, soft, tenderness, no peritoneal signs. Absent: distended, firm, guarding Additional comments: Mild tendernesss to shallow and deep palpation, primarily in the epigastric region and RUQ. No guarding, rebound tenderness, or rigidity. - Extremities Exam Extremities exam: Present: warm, radial pulses palpable and symetrical. Absent : calf tenderness, cyanotic, pedal edema - Neurological Exam Neurological exam: Present: CN II-XII intact, no focal deficits. Absent: pronater drift, facial droop, speech deficit Additional comments: Alert and oriented to person and time, but not place initially - Psychiatric Psychiatric exam: Present: normal affect, normal mood - Skin Skin exam: Present: dry, intact Internal Medicine: Result - Labs CBC & Chem 7: 10/27/16 05:53 10/27/16 05:53 Labs: Short CBC 10/26/16 10/27/16 Range/Units 22:18 05:53 WBC 6.6 (4.3-11.1) K/mcL Hgb 8.5 L D 7.8 L (11.5-15.4) g/dL Hct 26.6 L 24.6 L (35.3-44.9) % Plt Count 194 (140-400) K/mcL Neutrophils # 4.4 (1.6-8.9) K/mcL BMP 10/27/16 05:53 Sodium 140 Potassium 4.2 Chloride 108 Carbon Dioxide 26 BUN 56 H Creatinine 1.17 H Glucose 122 H Calcium 8.7 Cardiac Enzymes 10/26/16 10/27/16 Range/Units 22:18 05:53 Troponin I 0.02 0.03 (0-0.03) ng/mL - ABG Interpretation ABG results: PT/INR, D-dimer PT 21.6 Seconds (9.4-12.1) H 10/26/16 06:33 - VTE Reasons for not Prescribing Prophylaxis: Medical contraindication Consult Discharge Plan - Plan Referrals: Arabella Santos, [facility] [Primary Care Provider] - <Ravi Kebede - Last Filed: 10/27/16 17:47> Date of Encounter: 10/27/16 - Assessment and plan (1) Anemia Current Visit: Yes Status: Acute Qualifiers: Anemia type: other cause Other causes of anemia: other cause, not classified Qualified Code(s): D64.89 - Other specified anemias (2) CKD (chronic kidney disease), stage III Current Visit: No Status: Chronic (3) Diabetes mellitus Current Visit: No Status: Chronic Qualifiers: Diabetes mellitus type: type 2 Diabetes mellitus complication status: with kidney complications Diabetes mellitus complication detail: with chronic kidney disease Diabetes mellitus senior care insulin use: without manager terminal use Chronic kidney disease stage: stage 3 (moderate) Qualified Code(s): E11.22 - Type 2 diabetes mellitus with diabetic chronic kidney disease; N18.3 - Chronic kidney disease, stage 3 (moderate) (4) Cor pulmonale Current Visit: No Status: Chronic - Constitutional Vitals: Temp Pulse Resp BP Pulse Ox 98.0 F 64 16 137/67 99 10/27/16 16:18 10/27/16 16:18 10/27/16 16:18 10/27/16 16:18 10/27/16 13:56 Internal Medicine: Result - Labs CBC & Chem 7: 10/27/16 16:47 10/27/16 05:53 Labs: Short CBC 10/26/16 10/27/16 10/27/16 Range/Units 22:18 05:53 16:47 WBC 6.6 (4.3-11.1) K/mcL Hgb 8.5 L D 7.8 L 9.5 L D (11.5-15.4) g/dL Hct 26.6 L 24.6 L 29.5 L (35.3-44.9) % Plt Count 194 (140-400) K/mcL Neutrophils # 4.4 (1.6-8.9) K/mcL BMP 10/27/16 05:53 Sodium 140 Potassium 4.2 Chloride 108 Carbon Dioxide 26 BUN 56 H Creatinine 1.17 H Glucose 122 H Calcium 8.7 Cardiac Enzymes 10/26/16 10/27/16 10/27/16 Range/Units 22:18 05:53 11:08 Troponin I 0.02 0.03 0.03 (0-0.03) ng/mL - ABG Interpretation ABG results: PT/INR, D-dimer PT 21.6 Seconds (9.4-12.1) H 10/26/16 06:33 - Attending Attestation I examined this patient and my medical decision-making was reviewed with the Resident Physician on 10/27/16. I agree with the documented findings, disposition and treatment plan as described except to the extent set forth below. Ms. Masterson is currently in observation due to anemia. She is s/p 2 units PRBCs. She is moderate to high risk due to potential for worsening anemia. Ms. Masterson feels OK. Denies pain. No fever or chills. No diarrhea. H/H dropped a little this AM. ? if acute bleeding somewhere. Exam Alert. Comfortable Mucus membranes moist Heart reg No wheeze Abd nontender I/P 1. Anemia - chronic. Transfuse another unit blood. Check for GI bleeding. 2. CKD 3 3. Chronic a fib on Xarelto 4. Diabetes Further diagnoses and plan as above. Probable return to ECF in next 1-2 days if H/H stable and no sign of bleeding.
[2016-10-27] MEDS ORDERED: 0.9 % Sodium Chloride 250 ML ONE (13:39)
[2016-10-27 17:14] LABS: Hematocrit 29.5 % (35.3-44.9)
[2016-10-27 17:15] LABS: Hemoglobin 9.5 g/dL (11.5-15.4)
[2016-10-27] MEDS: Pantoprazole 40 MG VIAL IVP SCH (19:08)
[2016-10-27] MEDS: traMADol 50 MG TABLET PO PRN (21:51)
[2016-10-27] MEDS: Triamcinolone Acet 0.1% CRM 15 GM TUBE TP PRN (21:53)
[2016-10-28 05:27] LABS: Basophils % 0.4 %; Eosinophils # 0.4 K/mcL (0.0-0.6); Eosinophils % 4.4 %; Hematocrit 27.4 % (35.3-44.9); Hemoglobin 8.9 g/dL (11.5-15.4); Immature Granulocytes % 0.6 % (0-4); Lymphocytes # 0.9 K/mcL (0.6-4.6); Lymphocytes % 10.5 %; Mean Corpuscular HGB Conc 32.5 g/dL (31.6-35.5); Mean Corpuscular Volume 92.3 fL (83.0-100.0); Mean Platelet Volume 9.6 fL (9.4-12.4); Monocytes # 0.9 K/mcL (0.0-1.3); Monocytes % 11.2 %; Platelet Count 196 K/mcL (140-400); Red Blood Count 2.97 M/mcL (3.82-4.97); Red Cell Distribution Width 17.8 % (11.5-14.5); Segmented Neutrophils % 72.9 %
[2016-10-28 05:30] LABS: Calcium 8.7 mg/dL (8.6-10.8); Potassium 4.2 mEq/L (3.5-4.5)
[2016-10-28] MEDS: Pantoprazole 40 MG VIAL IVP SCH (05:44)
[2016-10-28] MEDS: Venlafaxine XR (24 HR) 75 MG CAP.ER.24H PO SCH (09:11)
[2016-10-28] MEDS: *HR* Rivaroxaban 15 MG TABLET PO SCH (09:11)
[2016-10-28] MEDS: Aspirin 81 MG TAB.CHEW PO SCH (09:12)
[2016-10-28] MEDS: Furosemide 20 MG TABLET PO SCH (09:12)
[2016-10-28] MEDS: hydrALAZINE 10 MG TABLET PO SCH (09:12)
[2016-10-28] MEDS: Metoprolol XL (24 HR) Succ 50 MG TAB.ER.24H PO SCH (09:12)
[2016-10-28] MEDS: Insulin LISPRO 300 UNITS/3 ML VIAL SQ SCH (09:13)
--- NOTE | 2016-10-28 10:21 | Discharge Summary ---
<Trey Barber - Last Filed: 10/28/16 10:24> Date of Encounter: 10/28/16 Time of Encounter: 10:17 - Discharge Diagnosis (1) Anemia Priority: Primary Status: Chronic Comments: -Patient has a history of anemia which has been seen and treated by both nephrology and heme/onc previously for chronic macrocytic anemia. -Hgb 8.9 s/p 3 units blood transfusion -Suspect a slow GI bleed, suggest outpatient follow up with GI or surgery. -Occult blood negative Qualifiers: Anemia type: other cause Other causes of anemia: other cause, not classified Qualified Code(s): D64.89 - Other specified anemias (2) Chronic kidney disease Priority: Secondary Status: Chronic Comments: SCr. was stable at around 1.1 over this admission. Qualifiers: Chronic kidney disease stage: stage 3 (moderate) Qualified Code(s): N18.3 - Chronic kidney disease, stage 3 (moderate) (3) Atrial fibrillation Priority: Secondary Status: Chronic Comments: The patient is on xarelto for anti-coagulation, and is rate controlled. Qualifiers: Atrial fibrillation type: chronic Qualified Code(s): I48.2 - Chronic atrial fibrillation (4) Diabetes mellitus Priority: Secondary Status: Chronic Comments: Patient has no home meds, follow up PCP to establish BG control. Qualifiers: Diabetes mellitus type: type 2 Diabetes mellitus complication status: with kidney complications Diabetes mellitus complication detail: with chronic kidney disease Diabetes mellitus snf insulin use: without assistant terminal manager use Chronic kidney disease stage: stage 3 (moderate) Qualified Code(s): E11.22 - Type 2 diabetes mellitus with diabetic chronic kidney disease; N18.3 - Chronic kidney disease, stage 3 (moderate) (5) DVT prophylaxis Priority: Secondary Status: Acute - Discharge Medications Home Medications: Aspirin 81 mg PO DAILY 12/06/14 [History] HydrALAZINE 10 mg PO BID 12/06/14 [History] Lisinopril [Zestril] 5 mg PO DAILY 12/06/14 [History] Nitroglycerin 0.4 mg SL Q5MIN PRN 12/06/14 [History] Oxybutynin [Ditropan] 5 mg PO BID 12/06/14 [History] Simvastatin [Zocor] 40 mg PO HS 12/06/14 [History] Acetaminophen [Tylenol] 500 mg PO Q6HR PRN 01/19/17 [History] Albuterol Sulfate [Proair Hfa] 2 puff IH Q4H PRN 05/03/16 [History] Epoetin Gonzalo [Procrit] 10,000 unit IJ Q2W 05/03/16 [History] Furosemide [Lasix] 20 mg PO DAILY 05/03/16 [History] Metoprolol Succinate 100 mg PO DAILY 05/03/16 [History] Potassium Chloride [K-Tab ER] 10 meq PO DAILY 05/03/16 [History] Rivaroxaban [Xarelto] 15 mg PO DAILY 05/03/16 [History] Venlafaxine XR (24 HR) [Effexor XR] 75 mg PO DAILY 05/23/16 [History] Cyanocobalamin (B-12) [Vitamin B12] 1,000 mcg IM QWEEK 09/13/16 [History] Ergocalciferol (VITAMIN D2) [Vitamin D2] 50,000 unit PO QWEEK 09/13/16 [History] Triamcinolone Acet 0.1% CRM [Kenalog] 1 appl TP BID PRN 09/13/16 [History] Albuterol Sulfate [Proair Hfa] 2 puff IH Q4H PRN 10/26/16 [History] Calcium Carbonate/Vitamin D3 [Calcium 600 + Vit D Tablet] 1 tab PO DAILY [History] LORazepam [Ativan] 0.5 mg PO BID PRN 10/26/16 [History] Tramadol HCl [Ultram] 50 mg PO BID PRN 10/26/16 [History] Allergies/Adverse Reactions: Allergies Donepezil [From Aricept] Adverse Reaction (Verified 09/13/16 18:09) Hallucinating memantine [From Namenda] Adverse Reaction (Verified 09/13/16 18:09) Hallucinating Date of admission: 10/26/16 08:03 Primary care physician: Arabella Santos CNP Consults: 10/27/16 12:55 Consult to Surgery [CONS] Routine Consulting Provider: [facility] Reason for Consult: GI Bleed Call Completed: Yes - Patient Status Disposition: Transfer LTC Condition: Good Functional capacity at discharge: independent ambulation Overall status at discharge: patient is back to baseline - Discharge Instructions Instructions: Anemia (DC) Follow Up With: Arabella Santos CNP [Primary Care Provider] - - Diet and Activity Activity: as per physical therapy, increase activity as tolerated Diet: advance to your usual diet Hospital course: Ms. Masterson is a 76 year old female - Time Spent with Patient Total time spent providing and/or coordinating discharge services: - Constitutional Vitals: Temp Pulse Resp BP Pulse Ox 98.6 F 96 18 149/73 96 10/28/16 07:44 10/28/16 07:44 10/28/16 07:44 10/28/16 07:44 10/28/16 07:44 General appearance: Present: A&O X 3, answers questions appropriately - Head Head exam: Present: atraumatic, normocephalic - Eye Eye exam: Present: PERRL, conjuntiva pink, sclera anicteric Pupils: Present: PERRL - Neck Neck exam general surgery: Present: supple, trachea midline. Absent: lymphadenopathy - Respiratory Respiratory exam: Present: CTAB. Absent: accessory muscle use, rales, rhonchi, wheezes - Cardiovascular Cardiovascular exam: Present: RRR, +S1, +S2. Absent: diastolic murmur, gallop, rubs, systolic murmur - GI/Abdominal GI/Abdominal exam: Present: normal bowel sounds, soft, no peritoneal signs. Absent: distended, tenderness - Extremities Exam Extremities exam: Present: warm, radial pulses palpable and symetrical. Absent : calf tenderness, cyanotic, pedal edema - Neurological Exam Neurological exam: Present: CN II-XII intact, oriented X3, no focal deficits. Absent: pronater drift, facial droop, speech deficit - Skin Skin exam: Present: dry, excoriation, intact - VTE Reasons for not Prescribing Prophylaxis: Medical contraindication <Ravi Kebede - Last Filed: 10/28/16 15:29> Date of Encounter: 10/28/16 - Discharge Diagnosis (1) Anemia Status: Chronic Qualifiers: Anemia type: other cause Other causes of anemia: other cause, not classified Qualified Code(s): D64.89 - Other specified anemias (2) CKD (chronic kidney disease), stage III Priority: Secondary Status: Chronic (3) Diabetes mellitus Status: Chronic Qualifiers: Diabetes mellitus type: type 2 Diabetes mellitus complication status: with kidney complications Diabetes mellitus complication detail: with chronic kidney disease Diabetes mellitus assistant terminal manager insulin use: without assistant terminal manager use Chronic kidney disease stage: stage 3 (moderate) Qualified Code(s): E11.22 - Type 2 diabetes mellitus with diabetic chronic kidney disease; N18.3 - Chronic kidney disease, stage 3 (moderate) (4) Cor pulmonale Priority: Secondary Status: Chronic Date of admission: 10/26/16 08:03 Primary care physician: Arabella Santos CNP Consults: 10/27/16 12:55 Consult to Surgery [CONS] Routine Consulting Provider: Surgery [facility] Reason for Consult: GI Bleed Call Completed: Yes Hospital course: Ms. Masterson is a 76 year old female - Time Spent with Patient Total time spent providing and/or coordinating discharge services: 29min - Constitutional Vitals: Temp Pulse Resp BP Pulse Ox 98.0 F 72 17 127/63 97 10/28/16 11:00 10/28/16 11:00 10/28/16 11:00 10/28/16 11:00 10/28/16 11:00 - Attending Attestation I examined this patient and my medical decision-making was reviewed with the Resident Physician on 10/28/16. I agree with the documented findings, disposition and treatment plan as described except to the extent set forth below. Ms. Masterson was in observation for recurrent macrocytic anemia. She was transfused 3 units of blood and hemoglobin has improved. Her stool guiac was negative but H/H lower overall. She is afebrile and vitals have been stable. Exam Alert. Comfortable Mucus membranes moist Heart irreg Lungs clear at this time No wheeze No edema Abd soft Plan D/C back to ECF today. Monitor H/H Follow up for potential endoscopy in the future.
--- NOTE | 2016-10-28 10:31 | Physician Discharge Referral ---
[facility] Referral Info Transfer To: [facility] Provider in Charge: Dr. Ravi Kebede Provider in Charge after Transfer: PCP Institutional Level of Care: Intermediate - Diagnosis (1) Anemia Priority: Primary Status: Chronic (2) Chronic kidney disease Priority: Secondary Status: Chronic (3) Atrial fibrillation Priority: Secondary Status: Chronic (4) Diabetes mellitus Priority: Secondary Status: Chronic (5) DVT prophylaxis Priority: Secondary Status: Acute - Transfer Medications Home Medications: Aspirin 81 mg PO DAILY 12/06/14 [History] HydrALAZINE 10 mg PO BID 12/06/14 [History] Lisinopril [Zestril] 5 mg PO DAILY 12/06/14 [History] Nitroglycerin 0.4 mg SL Q5MIN PRN 12/06/14 [History] Oxybutynin [Ditropan] 5 mg PO BID 12/06/14 [History] Simvastatin [Zocor] 40 mg PO HS 12/06/14 [History] Acetaminophen [Tylenol] 500 mg PO Q6HR PRN 05/03/16 [History] Albuterol Sulfate [Proair Hfa] 2 puff IH Q4H PRN 05/03/16 [History] Epoetin Gonzalo [Procrit] 10,000 unit IJ Q2W 05/03/16 [History] Furosemide [Lasix] 20 mg PO DAILY 05/03/16 [History] Metoprolol Succinate 100 mg PO DAILY 05/03/16 [History] Potassium Chloride [K-Tab ER] 10 meq PO DAILY 05/03/16 [History] Rivaroxaban [Xarelto] 15 mg PO DAILY 05/03/16 [History] Venlafaxine XR (24 HR) [Effexor XR] 75 mg PO DAILY 05/23/16 [History] Cyanocobalamin (B-12) [Vitamin B12] 1,000 mcg IM QWEEK 09/13/16 [History] Ergocalciferol (VITAMIN D2) [Vitamin D2] 50,000 unit PO QWEEK 09/13/16 [History] Triamcinolone Acet 0.1% CRM [Kenalog] 1 appl TP BID PRN 09/13/16 [History] Albuterol Sulfate [Proair Hfa] 2 puff IH Q4H PRN 10/26/16 [History] Calcium Carbonate/Vitamin D3 [Calcium 600 + Vit D Tablet] 1 tab PO DAILY [History] LORazepam [Ativan] 0.5 mg PO BID PRN 10/26/16 [History] Tramadol HCl [Ultram] 50 mg PO BID PRN 10/26/16 [History] Allergies/Adverse Reactions: Allergies Donepezil [From Aricept] Adverse Reaction (Verified 09/13/16 18:09) Hallucinating memantine [From Namenda] Adverse Reaction (Verified 09/13/16 18:09) Hallucinating - Respiratory Orders Smoking Cessation: Smoking cessation has been advised. For more information, call the [place] Tobacco Quit Line at 5-438-ZFGM-NOW. - Lab Orders Lab Orders: CBC (Weekly) - Ancillary Orders May consult with Dentist, Bead Picker, Automatic Spinning Lathe Operator PRN - Advance Directives Code Status: Full Code - Mobility Orders Ambulate - Rehabiliation Orders Rehab Potential: Good Rehab Orders: Evaluation for Physical Therapy, Evaluation for Occupational Therapy - Diet Orders Regular CERTIFICATION: I certify that the transfer of the above named patient to an Extended Care Facility is necessary for the continuing treatment of the diagnosis listed. The above information is true and accurate reflection of patient's current condition. Confidential - Redisclosure prohibited without a patient's written consent.
[2016-10-28 11:49] VITALS: BP 127/63
== END 2016-10-28 14:20 ==
LOC: EMEROO 06:15 → 3ANU 06:15 → SUATTDRO 08:03 → 3ANU 08:23
PROVIDERS: ADMIT Internal Medicine; ATTEND Internal Medicine

== ENCOUNTER 2016-11-15 21:43 | Inpatient (IN) ==
[2016-11-15] MEDS ORDERED: 0.9 % Sodium Chloride 1,000 ML IVC ONE (21:50)
--- NOTE | 2016-11-15 21:54 | Emergency Department Note ---
Disposition Clinical Impression: Hallucinations, Delirium, Acute on chronic renal insufficiency Altered mental status Qualifiers: Altered mental status type: unspecified Qualified Code(s): R41.82 - Altered mental status, unspecified Anemia Qualifiers: Anemia type: unspecified type Qualified Code(s): D64.9 - Anemia, unspecified Disposition: Admitted As Inpatient Condition: Fair Referrals: Unassigned,Provider [Non-Partnered Physician] - Forms: ED Satisfaction Letter Time of Disposition: 23:13 Altered Mental Status HPI - General Chief Complaint: ED Altered Mental Status Stated Complaint: AMS/hallucinations Time Seen by Provider: 11/15/16 21:50 Source: patient, EMS Mode of arrival: EMS Limitations: altered mental status Nursing Notes Reviewed: Yes Vital Signs Reviewed: Yes - History of Present Illness HPI Narrative: 76-year-old female history of atrial fibrillation hypertension hyperlipidemia, sent from [facility] (resident for 6 weeks) via EMS for altered mental state, patient states that she is not sure what is going on, she is alert and oriented to herself to place but not time, she does provide mostly her own history, however she mostly denies anything going wrong. She states that she has been somewhat confused for the last few days, she has no focal weakness. She reports no chest pain, abdominal pain, hematuria, dysuria, hematochezia, hematemesis. But the patient states that she thinks that she may need to be looked out for a kidney infection. Denies fever chills shortness of breath. On further history from her family who is at bedside, they state that she has been seeing rats and mice the [facility], she thinks that people are trying to kill her in the facility. She is intermittently tearful and having active visual hallucinations at that facility and was still reporting some hallucinations in the ER seeing some rats on the [facility]. History of benzodiazepine use, and has had cessation of her Ativan in the last couple of days. Has had a similar reaction in the past when she took "dementia meds". They state she is only been at the facility for the last 6 weeks for rehabilitation, and this is an acute change from her baseline in the last 2 days. MD complaint: altered mental status, confusion Onset (ago): day(s) - Related Data Home Medications Medication Instructions Recorded Confirmed Aspirin 81 mg PO DAILY 12/06/14 11/15/16 HydrALAZINE 10 mg PO BID 12/06/14 11/15/16 Lisinopril [Zestril] 10 mg PO DAILY 12/06/14 11/15/16 Nitroglycerin 0.4 mg SL Q5MIN PRN 12/06/14 11/15/16 Oxybutynin [Ditropan] 5 mg PO BID 12/06/14 11/15/16 Simvastatin [Zocor] 40 mg PO HS 12/06/14 11/15/16 Acetaminophen [Tylenol] 500 mg PO Q6HR PRN 05/03/16 11/15/16 Epoetin Gonzalo [Procrit] 10,000 unit SQ Q2W 05/03/16 11/15/16 Furosemide [Lasix] 20 mg PO DAILY 05/03/16 11/15/16 Metoprolol Succinate 100 mg PO DAILY 05/03/16 11/15/16 Potassium Chloride [K-Tab ER] 10 meq PO DAILY 05/03/16 11/15/16 Rivaroxaban [Xarelto] 15 mg PO DAILY 05/03/16 11/15/16 Venlafaxine XR (24 HR) [Effexor XR] 75 mg PO DAILY 05/23/16 11/15/16 Cyanocobalamin (B-12) [Vitamin B12] 1,000 mcg IM QWEEK 09/13/16 11/15/16 Ergocalciferol (VITAMIN D2) 50,000 unit PO QWEEK 09/13/16 11/15/16 [Vitamin D2] Triamcinolone Acet 0.1% CRM 1 appl TP BID PRN 09/13/16 11/15/16 [Kenalog] Albuterol Sulfate [Proair Hfa] 2 puff IH Q4H PRN 10/26/16 11/15/16 Calcium Carbonate/Vitamin D3 1 tab PO DAILY 10/26/16 11/15/16 [Calcium 600 + Vit D Tablet] LORazepam [Ativan] 0.5 mg PO BID PRN 10/26/16 11/15/16 Tramadol HCl [Ultram] 50 mg PO BID PRN 10/26/16 11/15/16 Gabapentin [Neurontin] 100 mg PO TID 11/15/16 11/15/16 Allergies Allergy/AdvReac Type Severity Reaction Status Date / Time Donepezil [From Aricept] AdvReac Hallucinati Verified 09/13/16 18:09 ng memantine [From Namenda] AdvReac Hallucinati Verified 09/13/16 18:09 ng All systems ED: reviewed and negative except as stated. Limitations: ROS unobtainable due to patients medical condition (Limited bc of altered mental state) ENT ED: Denies: ear pain Cardiovascular: Denies: chest pain Respiratory: Denies: cough, dyspnea Gastrointestinal: Denies: abdominal pain, nausea, vomiting Genitourinary: Denies: urgency Musculoskeletal: Denies: back pain Neurological: Denies: headache Past Medical History - Past Medical History Attestation: Yes The following information was validated with the patient. Source: patient, old records reviewed Medical history: Reports: atrial fibrillation, diabetes, hyperlipidemia, hypertension, myocardial infarction Surgical history: Reports: other Psychiatric history: Reports: depression TURBINE ENGINEER history: Reports: no TURBINE ENGINEER history - Social History Smoking Status: Former smoker Smokeless Tobacco Status: No Alcohol use: Reports: none Drug use: Reports: none Physical Exam Constitutional: Patient appears pleasantly confused, her vital signs are stable except for heart rate of 80s and irregular, temperature 100.0 Eyes: PERRLA, sclera anicteric ENT & Mouth: NCAT, normal external ears bilaterally, MMM Neck: normal inspection, neck is supple Resp: CTA bilaterally, no resp distress CV: irregularly irregular rhythmn, no m/g/r GI: normal inspection, soft, no guarding or rigidity Back: normal inspection, no tenderness to palpation Neuro: A&O2, speaks full sentences GCS 15 CNII-XII grossly intact, OLIVARES Psych: +active visual hallucinations (mice on wisdom) MSK: no gross deformities, normal ROM UE and LE Skin: on limited exam, skin intact with no rashes or lesions Course Course Narrative: 76-year-old female with mental status changes, worsening baseline, septic workup ordered given mild tachycardia, atrial fibrillation with no ischemic changes on EKG, temperature 100.0 does not meet criteria for sepsis at this time , but we will get a septic workup including CBC BMP, troponin, lactate, also having UDS urinalysis hydrated with 1 L of fluids, will reassess. Vital Signs Temperature 100.0 F H 11/15/16 21:45 Pulse Rate 102 11/15/16 21:45 Respiratory Rate 18 11/15/16 21:45 Blood Pressure 121/93 11/15/16 21:45 O2 Sat by Pulse Oximetry 98 11/15/16 21:45 Temperature 100.0 F H 11/15/16 21:45 Pulse Rate 102 11/15/16 21:45 Respiratory Rate 18 11/15/16 21:45 Blood Pressure 121/93 11/15/16 21:45 O2 Sat by Pulse Oximetry 98 11/15/16 21:45 Oxygen Delivery Oxygen Delivery Room Air Altered Mental Status - MDM Narrative Medical decision making narrative: 76-year-old female acute delirium with hallucinations in the setting of baseline dementia newly in a nursing facility in the last month, no evidence of UTI, acute on chronic renal insufficiency, acute on chronic anemia patient will be admitted to hospital service for observation. Wilbur redman. - Differential Diagnosis Likely: altered mental status, delirium, dementia, hypoglycemia, hyponatremia - Medical Records Medical records reviewed: Yes I reviewed the patient's medical records. - Lab Data Lab results reviewed: Yes I reviewed the patient's lab results. Result diagrams: 11/15/16 22:19 11/15/16 22:19 Lab Results 11/15/16 11/15/16 11/15/16 Range/Units 22:19 22:19 22:19 WBC 9.5 (4.3-11.1) K/mcL RBC 3.41 L (3.82-4.97) M/mcL Hgb 9.8 L (11.5-15.4) g/dL Hct 31.7 L (35.3-44.9) % MCV 93.0 (83.0-100.0) fL MCH 28.7 (28.0-33.3) pg MCHC 30.9 L (31.6-35.5) g/dL RDW 15.6 H (11.5-14.5) % Plt Count 315 (140-400) K/mcL MPV 9.3 L (9.4-12.4) fL Immature Gran % 0.4 (0-4) % Seg Neutrophils % 79.0 % Lymphocytes % 8.2 % Monocytes % 11.6 % Eosinophils % 0.3 % Basophils % 0.5 % Neutrophils # 7.5 (1.6-8.9) K/mcL Lymphocytes # 0.8 (0.6-4.6) K/mcL Monocytes # 1.1 (0.0-1.3) K/mcL Eosinophils # 0.0 (0.0-0.6) K/mcL Basophils # 0.1 (0.0-0.2) K/mcL PT 29.6 H (9.4-12.1) Seconds INR 2.7 Sodium 136 (136-145) mEq/L Potassium 4.5 (3.5-4.5) mEq/L Chloride 100 (98-109) mEq/L Carbon Dioxide 27 (19-29) mEq/L BUN 48 H (7-20) mg/dL Creatinine 1.26 H (0.57-1.11) mg/dL Est GFR ( Amer) 50 L (> 60) Est GFR (Non-Af Amer) 42 L (> 60) BUN/Creatinine Ratio 38 H (6-26) Glucose 156 H (70-99) mg/dL Calculated Osmolality 298 (280-300) Lactic Acid (0.5-2.2) mmol/L Calcium 9.5 (8.6-10.8) mg/dL Phosphorus 3.0 (2.3-4.7) mg/dL Magnesium 1.8 (1.6-2.6) mg/dL Total Bilirubin 0.7 (0.2-1.2) mg/dL Direct Bilirubin 0.5 (0.0-0.5) mg/dL Indirect Bilirubin 0.2 (0.0-1.2) mg/dL AST 63 H (5-34) Units/L ALT 67 H (0-55) Units/L Alkaline Phosphatase 189 H (38-126) Units/L Troponin I (0-0.03) ng/mL Serum Total Protein 7.7 (6.0-8.3) g/dL Albumin 2.7 L (3.5-5.0) g/dL Globulin 5.0 H (2.4-3.5) g/dL Albumin/Globulin Ratio 0.5 L (1.1-2.2) Lipase 21 (8-78) Units/L Urine Color (Yellow) Urine Clarity (Clear) Urine pH (5.0-8.0) pH Units Ur Specific [place] (1.010-1.025) Urine Protein (Neg-Trace) mg/dL Urine Glucose (UA) (Normal) mg/dL Urine Ketones (Negative) mg/dL Urine Blood (Negative) Urine Nitrite (Negative) Urine Bilirubin (Negative) Urine Urobilinogen (Normal) mg/dL Ur Leukocyte Esterase (Negative) Ethyl Alcohol (0-10) mg/dL 11/15/16 11/15/16 11/15/16 Range/Units 22:19 22:19 22:22 WBC (4.3-11.1) K/mcL RBC (3.82-4.97) M/mcL Hgb (11.5-15.4) g/dL Hct (35.3-44.9) % MCV (83.0-100.0) fL MCH (28.0-33.3) pg MCHC (31.6-35.5) g/dL RDW (11.5-14.5) % Plt Count (140-400) K/mcL MPV (9.4-12.4) fL Immature Gran % (0-4) % Seg Neutrophils % % Lymphocytes % % Monocytes % % Eosinophils % % Basophils % % Neutrophils # (1.6-8.9) K/mcL Lymphocytes # (0.6-4.6) K/mcL Monocytes # (0.0-1.3) K/mcL Eosinophils # (0.0-0.6) K/mcL Basophils # (0.0-0.2) K/mcL PT (9.4-12.1) Seconds INR Sodium (136-145) mEq/L Potassium (3.5-4.5) mEq/L Chloride (98-109) mEq/L Carbon Dioxide (19-29) mEq/L BUN (7-20) mg/dL Creatinine (0.57-1.11) mg/dL Est GFR ( Amer) (> 60) Est GFR (Non-Af Amer) (> 60) BUN/Creatinine Ratio (6-26) Glucose (70-99) mg/dL Calculated Osmolality (280-300) Lactic Acid 0.8 (0.5-2.2) mmol/L Calcium (8.6-10.8) mg/dL Phosphorus (2.3-4.7) mg/dL Magnesium (1.6-2.6) mg/dL Total Bilirubin (0.2-1.2) mg/dL Direct Bilirubin (0.0-0.5) mg/dL Indirect Bilirubin (0.0-1.2) mg/dL AST (5-34) Units/L ALT (0-55) Units/L Alkaline Phosphatase (38-126) Units/L Troponin I 0.02 (0-0.03) ng/mL Serum Total Protein (6.0-8.3) g/dL Albumin (3.5-5.0) g/dL Globulin (2.4-3.5) g/dL Albumin/Globulin Ratio (1.1-2.2) Lipase (8-78) Units/L Urine Color (Yellow) Urine Clarity (Clear) Urine pH (5.0-8.0) pH Units Ur Specific [place] (1.010-1.025) Urine Protein (Neg-Trace) mg/dL Urine Glucose (UA) (Normal) mg/dL Urine Ketones (Negative) mg/dL Urine Blood (Negative) Urine Nitrite (Negative) Urine Bilirubin (Negative) Urine Urobilinogen (Normal) mg/dL Ur Leukocyte Esterase (Negative) Ethyl Alcohol < 10 (0-10) mg/dL 11/15/16 Range/Units 22:56 WBC (4.3-11.1) K/mcL RBC (3.82-4.97) M/mcL Hgb (11.5-15.4) g/dL Hct (35.3-44.9) % MCV (83.0-100.0) fL MCH (28.0-33.3) pg MCHC (31.6-35.5) g/dL RDW (11.5-14.5) % Plt Count (140-400) K/mcL MPV (9.4-12.4) fL Immature Gran % (0-4) % Seg Neutrophils % % Lymphocytes % % Monocytes % % Eosinophils % % Basophils % % Neutrophils # (1.6-8.9) K/mcL Lymphocytes # (0.6-4.6) K/mcL Monocytes # (0.0-1.3) K/mcL Eosinophils # (0.0-0.6) K/mcL Basophils # (0.0-0.2) K/mcL PT (9.4-12.1) Seconds INR Sodium (136-145) mEq/L Potassium (3.5-4.5) mEq/L Chloride (98-109) mEq/L Carbon Dioxide (19-29) mEq/L BUN (7-20) mg/dL Creatinine (0.57-1.11) mg/dL Est GFR ( Amer) (> 60) Est GFR (Non-Af Amer) (> 60) BUN/Creatinine Ratio (6-26) Glucose (70-99) mg/dL Calculated Osmolality (280-300) Lactic Acid (0.5-2.2) mmol/L Calcium (8.6-10.8) mg/dL Phosphorus (2.3-4.7) mg/dL Magnesium (1.6-2.6) mg/dL Total Bilirubin (0.2-1.2) mg/dL Direct Bilirubin (0.0-0.5) mg/dL Indirect Bilirubin (0.0-1.2) mg/dL AST (5-34) Units/L ALT (0-55) Units/L Alkaline Phosphatase (38-126) Units/L Troponin I (0-0.03) ng/mL Serum Total Protein (6.0-8.3) g/dL Albumin (3.5-5.0) g/dL Globulin (2.4-3.5) g/dL Albumin/Globulin Ratio (1.1-2.2) Lipase (8-78) Units/L Urine Color Yellow (Yellow) Urine Clarity Cloudy A (Clear) Urine pH 6.0 (5.0-8.0) pH Units Ur Specific [place] 1.018 (1.010-1.025) Urine Protein 30 H (Neg-Trace) mg/dL Urine Glucose (UA) Normal (Normal) mg/dL Urine Ketones Negative (Negative) mg/dL Urine Blood Negative (Negative) Urine Nitrite Negative (Negative) Urine Bilirubin Negative (Negative) Urine Urobilinogen Normal (Normal) mg/dL Ur Leukocyte Esterase Small H (Negative) Ethyl Alcohol (0-10) mg/dL - Radiology Data Radiology results reviewed: Yes I reviewed the patient's radiology results. Chest X-Ray 11/15/16 21:50 IMPRESSION: No acute cardiopulmonary abnormality detected. D/ / Billy Garcia MD / Billy Garcia MD Interpreting Provider: Billy Garcia MD Head CT 11/15/16 21:51 IMPRESSION: No acute intracranial abnormality. Stable atrophy and chronic ischemic changes. D/ / Phill Shafer MD / Phill Shafer MD Interpreting Provider: Phill Shafer MD - EKG Data EKG attestation: Yes I reviewed and interpreted this EKG. Rhythm: A.Fib (Atrial fibrillation ventricular rate of 102 QRS [address] segment elevations or depressions, occasional PVCs. Unchanged from previous EKG.) TPA Checklist - LKW: 3-4.5 hrs Add. Warnings/Precautions Patient/family understanding: The patient/family members have been counseled and understood the risk, benefit , and alternatives of treatment.
--- NOTE | 2016-11-15 22:07 | Emergency Department Note ---
START Narrative - START START: I examined this patient and my medical decision-making was reviewed with the HEATER PLANER OPERATOR/PA/Advanced Practice Nurse/Resident Physician. I agree with the documented findings, disposition and treatment plan as described except to the extent set forth below. ED attending note: I saw this Patient with the emergency medicine resident Dr. Marcial. Please see a copy of his note for details of the H&P, evaluation, management and disposition of this emergency Department patient. We independently had [id number] contact with the patient. Briefly: A 76-year-old female by EMS from [facility] due to altered mental status and low-grade fever. Patient is awake and alert but slightly confused at this time per family at bedside. Is able to follow commands and knows where she is and who she is. Chest x-ray urinalysis EKG and other screening labs are pending. With admission anticipated. Disposition pending
[2016-11-15 22:29] LABS: Basophils # 0.1 K/mcL (0.0-0.2); Basophils % 0.5 %; Eosinophils % 0.3 %; Hematocrit 31.7 % (35.3-44.9); Hemoglobin 9.8 g/dL (11.5-15.4); Immature Granulocytes % 0.4 % (0-4); Lymphocytes # 0.8 K/mcL (0.6-4.6); Lymphocytes % 8.2 %; Mean Corpuscular HGB Conc 30.9 g/dL (31.6-35.5); Mean Corpuscular Hemoglobin 28.7 pg (28.0-33.3); Mean Platelet Volume 9.3 fL (9.4-12.4); Monocytes # 1.1 K/mcL (0.0-1.3); Monocytes % 11.6 %; Neutrophils # 7.5 K/mcL (1.6-8.9); Platelet Count 315 K/mcL (140-400); Red Blood Count 3.41 M/mcL (3.82-4.97); Red Cell Distribution Width 15.6 % (11.5-14.5)
[2016-11-15 22:34] LABS: INR 2.7; Prothrombin Time 29.6 Seconds (9.4-12.1)
[2016-11-15 22:46] LABS: Alanine Aminotransferase 67 Units/L (0-55); Albumin 2.7 g/dL (3.5-5.0); Albumin/Globulin Ratio 0.5 (1.1-2.2); Alkaline Phosphatase 189 Units/L (38-126); Aspartate Amino Transferase 63 Units/L (5-34); BUN/Creatinine Ratio 38 (6-26); Bilirubin,Direct 0.5 mg/dL (0.0-0.5); Bilirubin,Indirect 0.2 mg/dL (0.0-1.2); Bilirubin,Total 0.7 mg/dL (0.2-1.2); Blood Urea Nitrogen 48 mg/dL (7-20); Calcium 9.5 mg/dL (8.6-10.8); Carbon Dioxide 27 mEq/L (19-29); Chloride 100 mEq/L (98-109); Glucose 156 mg/dL (70-99); Lipase 21 Units/L (8-78); Magnesium 1.8 mg/dL (1.6-2.6); Osmolality,Calculated 298 (280-300); Potassium 4.5 mEq/L (3.5-4.5); Sodium 136 mEq/L (136-145); Total Protein 7.7 g/dL (6.0-8.3); eGFR For African Americans 50 (> 60); eGFR For Non-African Americans 42 (> 60)
[2016-11-15 23:07] LABS: Bilirubin,Urine Negative (Negative); Blood,Urine Negative (Negative); Clarity,Urine Cloudy (Clear); Color,Urine Yellow (Yellow); Glucose,Urine (UA) Normal (Normal); Ketones,Urine Negative (Negative); Leukocyte Esterase,Urine Small (Negative); Nitrite,Urine Negative (Negative); Protein,Urine 30 mg/dL (Neg-Trace); Specific Gravity,Urine 1.018 (1.010-1.025); Urobilinogen,Urine Normal (Normal)
[2016-11-15 23:09] LABS: Hyaline Casts,Urine None Seen per lpf (None-Few); RBC,Urine 0-3 per hpf (0-3); Squamous Epithelial Cell,Urine Many per lpf (None-Few)
[2016-11-15 23:14] LABS: Amphetamine Screen,Urine Negative ng/mL (Cutoff=1000); Barbiturate Screen,Urine Negative ng/mL (Cutoff=200); Benzodiazepines Screen,Urine Negative ng/mL (Cutoff=200); Cannabinoid Screen,Urine Negative ng/mL (Cutoff = 50); Cocaine Screen,Urine Negative ng/mL (Cutoff= 300); Opiate Screen,Urine Negative ng/mL (Cutoff=300); Phencyclidine Screen,Urine Negative ng/mL (Cutoff=25)
[2016-11-15 23:18] LABS: Bacteria,Urine Few per hpf (None-Few)
[2016-11-15 23:20] LABS: Acetaminophen < 1.0 mcg/mL (10-30); Salicylate < 5.0 mg/dL (15-30)
--- NOTE | 2016-11-15 23:53 | Internal Med History&Physical ---
Date of Encounter: 11/15/16 Time of Encounter: 23:51 Assessment and Plan (1) Acute encephalopathy Current visit: Yes Status: Acute patient with underlying dementia comes in with reports of vivid visual hallucinations concerning for encephalopathy, etiology could be related to toxic metabolic from infectious or medications, it could also be related to progressive dementia, for now her head CT is unremarkable, no recent medications changes has been reported, her UA is concerning for asymptomatic bacteriuria but in the setting of her current mental state it will be reasonable to empirically treat whist investigating for other possible causes, we appreciate neurology input (2) Renal insufficiency Current visit: Yes Status: Acute hx of CKS stage 3 but admitted with a slight bump in her baseline creatinine, we will hydrate and follow BMP, at the same time we will avoid nephrotoxins and renally dose al medications (3) Right leg pain Current visit: Yes Status: Acute she comes in with a few days hx of right lower extremity pain and subjective swelling, exam is concerning for a DVT vs vascular ischemia, we will get a venous doppler and if negative she will need an CRESENCIO (4) Atrial fibrillation Current visit: Yes Status: Chronic she is on rate control with metoprolol as well as systemic anticoagulation with xarelto, we will continue these Qualifiers: Atrial fibrillation type: chronic Qualified Code(s): I48.2 - Chronic atrial fibrillation (5) Diabetes mellitus Current visit: Yes Status: Chronic her home medication review did not suggest that she is on any medications for this however her admission glucose was elevated in the 150's, we do not have a recent A1c, will recheck it and follow basal bolus insulin regimen with FS ACHS Qualifiers: Diabetes mellitus type: type 2 Diabetes mellitus complication status: with neurologic complications Diabetes mellitus complication detail: with polyneuropathy Diabetes mellitus half-way insulin use: without ferry terminal agent use Qualified Code(s): E11.42 - Type 2 diabetes mellitus with diabetic polyneuropathy (6) HTN (hypertension) Current visit: Yes Status: Chronic will continue one antihypertensives with BP monitoring Qualifiers: Hypertension type: essential hypertension Qualified Code(s): I10 - Essential (primary) hypertension (7) Depression Current visit: Yes Status: Chronic will continue home medication Qualifiers: Depression Type: major depressive disorder Major depression recurrence: recurrent Active/Remission status: in partial remission Qualified Code(s): F33.41 - Major depressive disorder, recurrent, in partial remission Internal Medicine - H&P: HPI Chief complaint: altered mental status Admitted From: Emergency Dept Plans for Post Hospital Care: Transfer Jail Facility History of present illness: Ms. Masterson is a 76 year old female with a history of dementia was sent from her retirement facility for confusion and hallucinations. Per reports she has been having visual hallucinations and has also been paranoid that has been worsening over the course of today. Per patient she has been seeing small mice that crawls through the holes o the curtains in her room at the facility an some rats have been crawling on the wisdom, these visual hallucinations are sometimes continuous or intermittent. She also suspects tat her nurse has been overdosing her on some medications but she is not sure which ones. She reports that her nurse "hides behind a curtain and pulls her meds" to give t her. She report that she always has chills but denies fever, she also denies dysuria, frequency, urgency or urge incontinence. She called her family to come get her because she was increasingly getting scared, squad subsequently brought her in for further evaluation. PAST MEDICAL HISTORY: hypertension, hyperlipidemia, diabetes, chronic macrocytic anemia coronary artery disease with previous GA, history of stroke, chronic kidney disease stage 3, cataracts, depression anxiety, kidney stones, contact dermatitis, atrial fibrillation and is on anticoagulation pulmonary hypertension and sleep apnea degenerative joint disease that is managed by Dr. Vasquez. She has been getting periodic intraocular particular injections with some relief. Mammogram 05/24/14 was unremarkable BI-RADS category 1. Colonoscopy 10/21/[address] Cruz was unremarkable. 10 year follow-up was recommended. PAST SURGICAL HISTORY: Cardiac catheter/stent placement 2009. ORIF right wrist 2002. ORIF left shoulder 2001. Colonoscopy 2012. SOCIAL HISTORY Patient is and medically disabled. She was relatively independent in her own home but has been in a retirement facility for about 6 weeks now. Son lives close by and helped her out. She is a past smoker but quit 15 years ago. He does not use alcohol or recreational drugs. FAMILY HISTORY Father from lung cancer. Mother is . Diagnosed with diabetes. 2 brothers one sister. 4 sons 2 daughters. Breast family history significant for hypertension, diabetes, heart disease. Past Med Surg Social Fam HX - Past Medical History Medical history: atrial fibrillation, diabetes, hyperlipidemia, hypertension, myocardial infarction Psychiatric history: depression - Past Surgical History Surgical History: other - Social History Smoking Status: Former smoker Smokeless Tobacco Status: No Alcohol use: none Drug use: none - Family History Mother Hx Family Cardiac Disorders: Yes (CAD, Pacemaker) Hx Family Endocrine Disorder: Yes (DM) Father Hx Family Cancer: Yes (Lung Cancer) Internal Medicine - H&P: Meds Aspirin 81 mg PO DAILY 12/06/14 [History] HydrALAZINE 10 mg PO BID 12/06/14 [History] Lisinopril [Zestril] 10 mg PO DAILY 12/06/14 [History] Nitroglycerin 0.4 mg SL Q5MIN PRN 12/06/14 [History] Oxybutynin [Ditropan] 5 mg PO BID 12/06/14 [History] Simvastatin [Zocor] 40 mg PO HS 12/06/14 [History] Acetaminophen [Tylenol] 500 mg PO Q6HR PRN 05/03/16 [History] Epoetin Gonzalo [Procrit] 10,000 unit SQ Q2W 05/03/16 [History] Furosemide [Lasix] 20 mg PO DAILY 05/03/16 [History] Metoprolol Succinate 100 mg PO DAILY 05/03/16 [History] Potassium Chloride [K-Tab ER] 10 meq PO DAILY 05/03/16 [History] Rivaroxaban [Xarelto] 15 mg PO DAILY 05/03/16 [History] Venlafaxine XR (24 HR) [Effexor XR] 75 mg PO DAILY 05/23/16 [History] Cyanocobalamin (B-12) [Vitamin B12] 1,000 mcg IM QWEEK 09/13/16 [History] Ergocalciferol (VITAMIN D2) [Vitamin D2] 50,000 unit PO QWEEK 09/13/16 [History] Triamcinolone Acet 0.1% CRM [Kenalog] 1 appl TP BID PRN 09/13/16 [History] Albuterol Sulfate [Proair Hfa] 2 puff IH Q4H PRN 10/26/16 [History] Calcium Carbonate/Vitamin D3 [Calcium 600 + Vit D Tablet] 1 tab PO DAILY [History] LORazepam [Ativan] 0.5 mg PO BID PRN 10/26/16 [History] Tramadol HCl [Ultram] 50 mg PO BID PRN 10/26/16 [History] Gabapentin [Neurontin] 100 mg PO TID 11/15/16 [History] Allergies Donepezil [From Aricept] Adverse Reaction (Verified 09/13/16 18:09) Hallucinating memantine [From Namenda] Adverse Reaction (Verified 09/13/16 18:09) Hallucinating All Systems PM: A 10-system review of systems was performed and is negative for pertinent findings except as documented above in the HPI. - Constitutional Vitals: Temp Pulse Resp BP Pulse Ox 100.0 F H 102 18 119/74 98 11/15/16 21:45 11/15/16 21:45 11/15/16 23:43 11/15/16 23:43 11/15/16 21:45 GENERAL: Elderly female, lying in bed, Alert, not in acute distress, HEENT: NC/AT, EOMI, PERRLA, anicteric sclera, normal conjunctiva, supple, clear nares, moist mucous membranes, RESP: Lungs are clear to auscultation bilaterally, good AE bilaterally, No crackles or wheeze CARDIO: Irregularly irregular heart sounds with no murmurs, no JVD, no ankle edema GI: Soft, full, no tenderness, no organomegaly felt, normal bowel sounds heard MUSCULOSKELETAL: grossly normal movements bilaterally, no deformities noted, right leg slightly slightly swollen, differentially warm and tender NEUROLOGIC: CN 2-12 intact grossly. No gross motor/sensory deficit appreciated, PSYCHIATRY: AAO x 2(person and place) SKIN: lateral dorsal surface of her right foot is red Internal Med - H&P Results - Labs CBC & Chem 7: 11/16/16 01:05 11/16/16 01:05 - Diagnostic Studies Chest x-ray Status: image reviewed by me CT scan - head Status: image reviewed by me
[2016-11-16] MEDS ORDERED: Naloxone 0.4 MG/ML INJ IVP PRN (00:23)
[2016-11-16] MEDS ORDERED: Nitroglycerin 0.4 MG TAB.SUBL SL PRN (00:25)
[2016-11-16] MEDS ORDERED: *HR* LORazepam 0.5 MG TABLET PO PRN (00:25)
[2016-11-16] MEDS ORDERED: Cyanocobalamin (B-12) 1,000 MCG/ML VIAL IM SCH (00:30)
[2016-11-16] MEDS ORDERED: *HR* Dextrose 50 % in Water (Syg) 50 ML SYRINGE IVP PRN (00:36)
[2016-11-16] MEDS ORDERED: D5% in Water 1,000 ML IVC PRN (00:36)
[2016-11-16] MEDS ORDERED: Dextrose Gel 15 GM PO PRN ×2 (00:36)
[2016-11-16] MEDS: Insulin LISPRO 300 UNITS/3 ML VIAL SQ SCH ×6 (00:48→21:48)
[2016-11-16] MEDS: Gabapentin 100 MG CAPSULE PO SCH ×4 (01:17→20:53)
[2016-11-16] MEDS: Metoprolol XL (24 HR) Succ 50 MG TAB.ER.24H PO SCH ×2 (01:17→09:45)
[2016-11-16] MEDS: hydrALAZINE 10 MG TABLET PO SCH ×3 (01:17→20:54)
[2016-11-16] MEDS: traMADol 50 MG TABLET PO PRN (01:18)
[2016-11-16 01:50] LABS: Basophils % 0.4 %; Eosinophils % 0.2 %; Hematocrit 27.9 % (35.3-44.9); Hemoglobin 8.8 g/dL (11.5-15.4); Immature Granulocytes % 0.4 % (0-4); Lymphocytes # 0.8 K/mcL (0.6-4.6); Lymphocytes % 8.6 %; Mean Corpuscular HGB Conc 31.5 g/dL (31.6-35.5); Mean Corpuscular Hemoglobin 29.6 pg (28.0-33.3); Mean Corpuscular Volume 93.9 fL (83.0-100.0); Mean Platelet Volume 9.6 fL (9.4-12.4); Monocytes # 1.2 K/mcL (0.0-1.3); Monocytes % 12.9 %; Neutrophils # 7.1 K/mcL (1.6-8.9); Platelet Count 275 K/mcL (140-400); Red Blood Count 2.97 M/mcL (3.82-4.97); Red Cell Distribution Width 15.5 % (11.5-14.5); Segmented Neutrophils % 77.5 %
[2016-11-16 02:08] LABS: BUN/Creatinine Ratio 42 (6-26); Blood Urea Nitrogen 45 mg/dL (7-20); Calcium 8.7 mg/dL (8.6-10.8); Carbon Dioxide 24 mEq/L (19-29); Chloride 105 mEq/L (98-109); Glucose 135 mg/dL (70-99); Magnesium 1.8 mg/dL (1.6-2.6); Osmolality,Calculated 302 (280-300); Phosphorous 2.9 mg/dL (2.3-4.7); Sodium 139 mEq/L (136-145); eGFR For African Americans > 60 (> 60); eGFR For Non-African Americans 50 (> 60)
[2016-11-16 02:11] LABS: Potassium 4.3 mEq/L (3.5-4.5)
[2016-11-16 05:22] LABS: Hemoglobin A1C 5.3 %
[2016-11-16] MEDS: Venlafaxine XR (24 HR) 75 MG CAP.ER.24H PO SCH (09:45)
[2016-11-16] MEDS: Aspirin 81 MG TAB.CHEW PO SCH (09:46)
--- NOTE | 2016-11-16 11:43 | Electrocardiograph Report ---
[address] [address] Test Date: 2016-11-15 Pat Name: Ada Masterson Department: 103 Room: 3B22 Gender: F General Forecaster: [facility] : 1940 Requested By: Ben Marcial Order Number: [id number] Reading MD: Leon Reza Measurements Intervals [place] Rate: 102 P: ID: 0 QRS: -26 QRSD: 93 T: 39 QT: 319 QTc: 377 Interpretive Statements ATRIAL FIBRILLATION WITH RAPID VENTRICULAR RESPONSE WITH ABERRANT CONDUCTION OR VENTRICULAR PREMATURE COMPLEXES BORDERLINE LEFT AXIS DEVIATION MINIMAL ST DEPRESSION ABNORMAL RHYTHM ECG Electronically Signed On 11-16-2016 11:41:32 EDT by Leon Reza
[2016-11-16] MEDS ORDERED: 0.9 % Sodium Chloride 1,000 ML IVC SCH (13:30)
--- NOTE | 2016-11-16 14:35 | Internal Med Progress Note ---
Date of Encounter: 11/16/16 Time of Encounter: 13:50 - Assessment and plan (1) Acute encephalopathy Current Visit: Yes Status: Acute Assessment and plan: Acute onset. Pt has been a resident at [facility] for 6 weeks. Pt has no fever and no leukocytosis. Urine was concerning for infection with a small amount of leukocyte esterase, but no bacteria. Culture is still pending. Pt appears to have cellulitis to RLE and is being treated with Rocephin 2 grams IV daily and also with IVF gentle hydration. Sr Cr has returned to normal, GFR is improving at [address] head is negative and chest xray is negative for acute process. Neurology has been consulted and will see pt today. Telemetry Fall precautions Bed alarm Monitor labs and vitals (2) Anemia Current Visit: No Status: Chronic Assessment and plan: Chronic. Continue to monitor. Trend shows is macrocytic. Continue B12 injections and monitor labs. Qualifiers: Anemia type: other cause Other causes of anemia: other cause, not classified Qualified Code(s): D64.89 - Other specified anemias (3) CKD (chronic kidney disease), stage III Current Visit: No Status: Chronic Assessment and plan: Sr Cr 1.07, GFR 50, improving since admission. Renal diet Avoid NSAIDs and nephrotoxins. (4) Diabetes mellitus Current Visit: Yes Status: Chronic Assessment and plan: A1c 5.3. Continue diabetic diet and SSI. Qualifiers: Diabetes mellitus type: type 2 Diabetes mellitus complication status: with neurologic complications Diabetes mellitus complication detail: with polyneuropathy Diabetes mellitus joint terminal attack controller insulin use: without penitentiary use Qualified Code(s): E11.42 - Type 2 diabetes mellitus with diabetic polyneuropathy (5) Right leg pain Current Visit: Yes Status: Acute Assessment and plan: Pt with RLE pain x 1 week. Doppler negative for SVT or DVT. CRESENCIO pending. Foot and ankle red, painful to touch, edematous, warm. Area of redness outlined , will continue to monitor. No leukocytosis or fever. Continue Rocephin 2 grams IV daily. (6) Renal insufficiency Current Visit: Yes Status: Acute Assessment and plan: History of CKD stage III. Continue gentle hydration and vollow labs. Plan as above. (7) HTN (hypertension) Current Visit: Yes Status: Chronic Assessment and plan: Chronic. Well controlled. Continue home medications. Qualifiers: Hypertension type: essential hypertension Qualified Code(s): I10 - Essential (primary) hypertension (8) DVT prophylaxis Current Visit: No Status: Acute Assessment and plan: Pt is on Xarelto - Time Spent With Patient less than 15 minutes - Subjective Interval history: Pt was seen and assessed at 1350. Pt is alert and cooperative. She states that she is in a boat and is going to see her daughter down the street. She hands me her blanket and asks me to cut the meat because it is too tough. Her RLE foot/ lateral ankle are red, edematous, and painful to touch. She was unaware of place and states that it is , Apr 19, 1967, but is aware that Skye is president. - Constitutional Vitals: Temp Pulse Resp BP Pulse Ox 98.9 F 63 16 128/67 98 11/16/16 11:31 11/16/16 11:31 11/16/16 11:31 11/16/16 11:31 11/16/16 11:31 General appearance: Present: cooperative, A&O X 1, pleasant, no acute distress. Absent: answers questions appropriately - Head Head exam: Present: normal inspection - Eye Eye exam: Present: normal appearance, conjuntiva pink - ENT ENT exam: Present: mucous membranes moist, normal exam, normal external ear exam - Neck Neck exam general surgery: Present: normal inspection. Absent: lymphadenopathy , tenderness - Respiratory Respiratory exam: Present: CTAB. Absent: rales, respiratory distress, rhonchi, stridor, wheezes - Cardiovascular Cardiovascular exam: Present: RRR, +S1, +S2, tachycardia. Absent: diastolic murmur, gallop, systolic murmur - GI/Abdominal GI/Abdominal exam: Present: hyperactive bowel sounds, soft. Absent: hepatomegaly, tenderness - Extremities Exam Extremities exam: Present: pedal edema, tenderness, warm, radial pulses palpable and symetrical. Absent: normal inspection, mottling - Neurological Exam Neurological exam: Present: alert, oriented X3, no focal deficits. Absent: facial droop, speech deficit Internal Medicine: Result - Labs CBC & Chem 7: 11/16/16 01:05 11/16/16 01:05 Labs: Short CBC 11/16/16 Range/Units 01:05 WBC 9.2 (4.3-11.1) K/mcL Hgb 8.8 L (11.5-15.4) g/dL Hct 27.9 L (35.3-44.9) % Plt Count 275 (140-400) K/mcL Neutrophils # 7.1 (1.6-8.9) K/mcL BMP 11/16/16 01:05 Sodium 139 Potassium 4.3 Chloride 105 Carbon Dioxide 24 BUN 45 H Creatinine 1.07 Glucose 135 H Calcium 8.7 - ABG Interpretation ABG results: PT/INR, D-dimer PT 29.6 Seconds (9.4-12.1) H 11/15/16 22:19 Consult Discharge Plan - Plan Referrals: Arabella Santos, CONSTRUCTION MATERIALS TESTER [Primary Care Provider] -
--- NOTE | 2016-11-16 16:58 | Neurology - Consult Note ---
Date of Encounter: 11/16/16 Time of Encounter: 16:52 Assessment and Plan (1) Delirium Current Visit: Yes Status: Acute Agree with the assessment that this patient has delirium. Individuals with delirium classically have waxing and waning periods of consciousness as well as lucidity throughout the course of the day. I see no evidence of a primary central nervous system infectious or inflammatory process. She likely does have a baseline dementia with a superimposed metabolic process. There are multiple possibilities here including possible urinary tract infection, possible cellulitis, possible Ativan withdrawal, possible concomitant contributions due to chronic renal insufficiency. This may also be a sundowning component. Her initial CT scan of the head was negative. I would recommend restarting the benzodiazepines. Otherwise we will reevaluate her at your request. History of Present Illness HPI: Ms. Masterson is a 76 year old female with a previous medical history of renal insufficiency diabetes mellitus and dementia who was seen for neurologic evaluation secondary to acute delirium. The patient has been hallucinating and has also been using foul language without staff. She is found to have slightly elevated temperature upon admission at 100. Her CBC was normal. CT scan of the head was normal. She denies headache or nuchal rigidity. Apparently she takes Ativan at home however has not taken this since being in the hospital. She has had waxing and waning periods of more lucid responses along with confusion and inappropriate responses. She denies any numbness tingling or paresthesias of the face arms and legs. No recent changes in her medication schedule. Apparently she cannot tolerate "dementia medications". Past Med Surg Social Fam HX - Past Medical History Medical history: atrial fibrillation, diabetes, hyperlipidemia, hypertension, myocardial infarction Psychiatric history: depression - Past Surgical History Surgical History: other - Social History Smoking Status: Former smoker Smokeless Tobacco Status: No Alcohol use: none Drug use: none - Family History Mother Living Status: Hx Family Cardiac Disorders: Yes (CAD, Pacemaker) Hx Family Endocrine Disorder: Yes (DM) Father Living Status: Hx Family Cancer: Yes (Lung Cancer) Medications and Allergies Aspirin 81 mg PO DAILY 12/06/14 [History] HydrALAZINE 10 mg PO BID 12/06/14 [History] Lisinopril [Zestril] 10 mg PO DAILY 12/06/14 [History] Nitroglycerin 0.4 mg SL Q5MIN PRN 12/06/14 [History] Oxybutynin [Ditropan] 5 mg PO BID 12/06/14 [History] Simvastatin [Zocor] 40 mg PO HS 12/06/14 [History] Acetaminophen [Tylenol] 500 mg PO Q6HR PRN 05/03/16 [History] Epoetin Gonzalo [Procrit] 10,000 unit SQ Q2W 05/03/16 [History] Furosemide [Lasix] 20 mg PO DAILY 05/03/16 [History] Metoprolol Succinate 100 mg PO DAILY 05/03/16 [History] Potassium Chloride [K-Tab ER] 10 meq PO DAILY 05/03/16 [History] Rivaroxaban [Xarelto] 15 mg PO DAILY 05/03/16 [History] Venlafaxine XR (24 HR) [Effexor XR] 75 mg PO DAILY 05/23/16 [History] Cyanocobalamin (B-12) [Vitamin B12] 1,000 mcg IM QWEEK 09/13/16 [History] Ergocalciferol (VITAMIN D2) [Vitamin D2] 50,000 unit PO QWEEK 09/13/16 [History] Triamcinolone Acet 0.1% CRM [Kenalog] 1 appl TP BID PRN 09/13/16 [History] Albuterol Sulfate [Proair Hfa] 2 puff IH Q4H PRN 10/26/16 [History] Calcium Carbonate/Vitamin D3 [Calcium 600 + Vit D Tablet] 1 tab PO DAILY [History] LORazepam [Ativan] 0.5 mg PO BID PRN 10/26/16 [History] Tramadol HCl [Ultram] 50 mg PO BID PRN 10/26/16 [History] Gabapentin [Neurontin] 100 mg PO TID 11/15/16 [History] Allergies Donepezil [From Aricept] Adverse Reaction (Verified 09/13/16 18:09) Hallucinating memantine [From Namenda] Adverse Reaction (Verified 09/13/16 18:09) Hallucinating All Systems: A 10-system review of systems was performed and is negative for pertinent findings except as documented above in the HPI. Review of Systems: Denies headache, denies nuchal rigidity, denies numbness tingling paresthesias of the face arms or legs. Physical Examination - Vital Signs Vital Signs: Initial Vital Signs Temp Pulse Resp BP Pulse Ox 100.0 F H 102 18 121/93 98 11/15/16 21:45 11/15/16 21:45 11/15/16 21:45 11/15/16 21:45 11/15/16 21:45 - Exam Exam: Currently she is alert and oriented to person place and time. Follows commands and answers most questions appropriately. No nausea or aphasia or apraxia identified currently. However apparently she has been confused intermittently throughout the course of the day speaking inappropriately to the nursing staff. At this time she is not encephalopathic however. Cranial nerves-pupils are equal and reactive to light and accommodation, extraocular motility is intact, sensory to face intact, there is no facial asymmetry. Speech is somewhat dysarthric as she has false teeth. Hearing is intact, tongue protrudes midline. Motor exam finds weakness of the left shoulder however she has had previous left shoulder replacement. She has good strength of the right upper extremity has good strength of the biceps and triceps symmetrically. Urban Design Consultant strength is normal bilaterally. She is able to raise both legs off the bed from the hip. She is able to dorsiflex and plantarflex both feet symmetrically. There are no involuntary movements or atrophy identified. Sensory exam finds light touch and deep touch are globally intact. Deep tendon reflexes are 1 symmetrically in the biceps triceps brachial radialis. Patellar and Achilles reflexes are absent. Results - Laboratory Findings CBC and BMP: 11/16/16 01:05 11/16/16 01:05 Abnormal lab findings: Abnormal lab results RBC 2.97 M/mcL (3.82-4.97) L 11/16/16 01:05 Hgb 8.8 g/dL (11.5-15.4) L 11/16/16 01:05 Hct 27.9 % (35.3-44.9) L 11/16/16 01:05 MCHC 31.5 g/dL (31.6-35.5) L 11/16/16 01:05 RDW 15.5 % (11.5-14.5) H 11/16/16 01:05 PT 29.6 Seconds (9.4-12.1) H 11/15/16 22:19 BUN 45 mg/dL (7-20) H 11/16/16 01:05 Est GFR (Non-Af Amer) 50 (> 60) L 11/16/16 01:05 BUN/Creatinine Ratio 42 (6-26) H 11/16/16 01:05 Glucose 135 mg/dL (70-99) H 11/16/16 01:05 POC Glucose 133 (58-89) H 11/16/16 00:23 Calculated Osmolality 302 (280-300) H 11/16/16 01:05 AST 63 Units/L (5-34) H 11/15/16 22:19 ALT 67 Units/L (0-55) H 11/15/16 22:19 Alkaline Phosphatase 189 Units/L (38-126) H 11/15/16 22:19 Albumin 2.7 g/dL (3.5-5.0) L 11/15/16 22:19 Globulin 5.0 g/dL (2.4-3.5) H 11/15/16 22:19 Albumin/Globulin Ratio 0.5 (1.1-2.2) L 11/15/16 22:19 Urine Clarity Cloudy (Clear) A 11/15/16 22:56 Urine Protein 30 mg/dL (Neg-Trace) H 11/15/16 22:56 Ur Leukocyte Esterase Small (Negative) H 11/15/16 22:56 Urine Microscopic WBC 3-5 per hpf (0-3) H 11/15/16 22:56 Ur Squamous Epith Cells Many per lpf (None-Few) H 11/15/16 22:56 Ur Culture Indicated? YES (NO) A 11/15/16 22:56 Salicylates < 5.0 mg/dL (15-30) L 11/15/16 22:19 Acetaminophen < 1.0 mcg/mL (10-30) L 11/15/16 22:19 Consult Discharge Plan - Plan Referrals: Arabella Santos CNP [Primary Care Provider] - 11/23/16 2:20 pm Jacquelyn Mayer MD [Partnered Physician] - 11/23/16 2:20 pm (Appointment with Shay Santos)
[2016-11-16] MEDS: *HR* Rivaroxaban 15 MG TABLET PO SCH (17:24)
--- NOTE | 2016-11-16 18:22 | Venous Imaging Report ---
LE Venous Duplex Patient Name:Ada Masterson Order Number:[id number] Procedure Date:11/16/2016 Date:2Age:76 yrs Gender:Female Location:[facility] Room #: 3B22 Real Estate Legal Secretary:Desmond Funes RN Referring MD:Merrill Jean MD forest fire lookout:Arabella Santos, CHARHOUSE WORKER Reading MD:Billy Diane MD , FACS Primary Indications:Pain in limb Secondary Indications: Risk Factors Yes/No Smoking Current No Anticoagulants Yes Hx of DVT No Hx of Chemotherapy No Trauma to Veins No Recent Surgery No Hx of Superficial Phlebitis No Frida Filter No Impressions: Bilateral lower extremity: normal superficial and deep exam. Recommendations: Test completed on 11/16/2016 at 7:55:00 am. Findings Venous Duplex Results: Right: Venous imaging of the lower extremity reveals full patency and normal vessel compressibility of the right distal iliac, right common femoral, right superficial femoral, right popliteal, right posterior tibial, right peroneal, right great saphenous and right lesser saphenous. Doppler signals in the evaluated veins were normal. Left: Venous imaging of the lower extremity reveals full patency and normal vessel compressibility of the left distal iliac, left common femoral, left superficial femoral, left popliteal, left posterior tibial, left peroneal, left great saphenous and left lesser saphenous. Doppler signals in the evaluated veins were normal. Prior Study: No prior study available for comparison. Lower Extremity Venous Duplex Side Vein Compress Spontaneous Flow Augment Diameter (cm) Depth (cm) Right Distal Iliac Normal Yes Phasic Yes Right Common Femoral Normal Yes Phasic Yes Right Superficial Femoral Normal Yes Phasic Yes Right Popliteal Normal Yes Phasic Yes Right Posterior Tibial Normal Yes Phasic Yes Right Peroneal Normal Yes Phasic Yes Right Great Saphenous Normal Yes Phasic Yes Right Lesser Saphenous Normal Yes Phasic Yes Left Distal Iliac Normal Yes Phasic Yes Left Common Femoral Normal Yes Phasic Yes Left Superficial Femoral Normal Yes Phasic Yes Left Popliteal Normal Yes Phasic Yes Left Posterior Tibial Normal Yes Phasic Yes Left Peroneal Normal Yes Phasic Yes Left Great Saphenous Normal Yes Phasic Yes Left Lesser Saphenous Normal Yes Phasic Yes Updated by Billy Diane MD, FACS on 11/16/2016 6:17:46 PM Billy Diane MD electronically signed on 11/16/2016 6:18:06 PM with status of Final
[2016-11-16 21:21] LABS: Thyroid Stimulating Hormone 2.027 mcIU/mL (0.350-4.840)
[2016-11-17] MEDS ORDERED: *HR* LORazepam 0.5 MG TABLET PO PRN (08:13)
[2016-11-17] MEDS: Insulin LISPRO 300 UNITS/3 ML VIAL SQ SCH ×4 (08:14→20:08)
[2016-11-17 08:36] LABS: Basophils # 0.1 K/mcL (0.0-0.2); Basophils % 0.6 %; Eosinophils % 0.5 %; Hematocrit 28.2 % (35.3-44.9); Hemoglobin 8.6 g/dL (11.5-15.4); Immature Granulocytes % 0.4 % (0-4); Lymphocytes # 0.8 K/mcL (0.6-4.6); Lymphocytes % 10.3 %; Mean Corpuscular HGB Conc 30.5 g/dL (31.6-35.5); Mean Corpuscular Hemoglobin 28.7 pg (28.0-33.3); Mean Platelet Volume 9.3 fL (9.4-12.4); Monocytes % 12.1 %; Platelet Count 291 K/mcL (140-400); Red Cell Distribution Width 15.7 % (11.5-14.5); Segmented Neutrophils % 76.1 %
[2016-11-17 08:49] LABS: BUN/Creatinine Ratio 39 (6-26); Blood Urea Nitrogen 39 mg/dL (7-20); Calcium 9.3 mg/dL (8.6-10.8); Carbon Dioxide 22 mEq/L (19-29); Chloride 107 mEq/L (98-109); Glucose 80 mg/dL (70-99); Osmolality,Calculated 296 (280-300); Potassium 4.5 mEq/L (3.5-4.5); Sodium 139 mEq/L (136-145); eGFR For African Americans > 60 (> 60); eGFR For Non-African Americans 54 (> 60)
[2016-11-17] MEDS: hydrALAZINE 10 MG TABLET PO SCH ×2 (09:55→20:05)
[2016-11-17] MEDS: Gabapentin 100 MG CAPSULE PO SCH ×3 (09:55→20:05)
[2016-11-17] MEDS: Aspirin 81 MG TAB.CHEW PO SCH (09:55)
[2016-11-17] MEDS: Metoprolol XL (24 HR) Succ 50 MG TAB.ER.24H PO SCH (09:55)
[2016-11-17] MEDS: Venlafaxine XR (24 HR) 75 MG CAP.ER.24H PO SCH (09:55)
[2016-11-17 10:38] LABS: Bilirubin,Urine Negative (Negative); Blood,Urine Negative (Negative); Clarity,Urine Cloudy (Clear); Color,Urine Yellow (Yellow); Glucose,Urine (UA) Normal (Normal); Ketones,Urine Negative (Negative); Leukocyte Esterase,Urine Negative (Negative); Nitrite,Urine Negative (Negative); PH,Urine 5.5 pH Units (5.0-8.0); Protein,Urine Trace mg/dL (Neg-Trace); Urobilinogen,Urine Normal (Normal)
[2016-11-17 10:41] LABS: Bacteria,Urine None Seen per hpf (None-Few); Hyaline Casts,Urine None Seen per lpf (None-Few); Squamous Epithelial Cell,Urine Many per lpf (None-Few); WBC,Urine 0-3 per hpf (0-3)
--- NOTE | 2016-11-17 14:35 | Internal Med Progress Note ---
Date of Encounter: 11/17/16 Time of Encounter: 09:15 - Assessment and plan (1) Acute encephalopathy Current Visit: Yes Status: Acute Assessment and plan: Pt has returned to baseline. She is alert and oriented x 3, speech is clear. She has no recollection of events. Continue fall precautions Continue telemetry Bed alarm Continue to monitor labs and vitals. (2) Anemia Current Visit: No Status: Chronic Assessment and plan: Hgb 8.6 today. Pt states that anemia is chronic. She has been started on ferrous sulfate bid. She had not been taking previously. Will continue to monitor. Qualifiers: Anemia type: other cause Other causes of anemia: other cause, not classified Qualified Code(s): D64.89 - Other specified anemias (3) CKD (chronic kidney disease), stage III Current Visit: No Status: Chronic Assessment and plan: Sr Cr 1.01, GFR 54, improving since admission. Renal diet Avoid NSAIDs and nephrotoxins. (4) Diabetes mellitus Current Visit: Yes Status: Chronic Assessment and plan: A1c 5.3. Continue diabetic diet and SSI. Qualifiers: Diabetes mellitus type: type 2 Diabetes mellitus complication status: with neurologic complications Diabetes mellitus complication detail: with polyneuropathy Diabetes mellitus manager of enterprise insulin use: without manager of enterprise use Qualified Code(s): E11.42 - Type 2 diabetes mellitus with diabetic polyneuropathy (5) Right leg pain Current Visit: Yes Status: Acute Assessment and plan: Pt's pain has resolved, redness has decreased. Treat pain as needed. (6) Renal insufficiency Current Visit: Yes Status: Acute Assessment and plan: History of CKD stage III. Continue gentle hydration and follow labs. Plan as above. (7) HTN (hypertension) Current Visit: Yes Status: Chronic Assessment and plan: Chronic. Well controlled. Continue home medications. Qualifiers: Hypertension type: essential hypertension Qualified Code(s): I10 - Essential (primary) hypertension (8) DVT prophylaxis Current Visit: No Status: Acute Assessment and plan: Pt is on Xarelto (9) Cellulitis of right foot Current Visit: Yes Status: Acute Assessment and plan: Pt with redness, warmth, and pain to R lateral foot with redness extending to post ankle and medial ankle. Area was marked yesterday. Today redness has greatly improved, warmth and swelling have resolved. Pt denies pain with palpation. Will continue Rocephin 2 grams IV today and deescalate tomorrow. (10) Weakness Current Visit: Yes Status: Acute Assessment and plan: Pt was going to go home with family today and not return to [facility]. PT evaluated pt and she was found to be too weak to go home. They have recommended skilled therapy. Pt and family are aware and will discuss where pt should be placed on Saturday. Pt has been in bed for several days and not feeling well. She was in [facility] for rehab, however, was not feeling well and did not get up to do PT. Continue PT/OT SS consult for placement on Saturday. - Time Spent With Patient less than 15 minutes - Subjective Interval history: Pt was seen and assessed at 0915. She is alert, oriented x 3, speech is clear. She has no recollection of events of yesterday. She states that she does not wish to go back to [facility]. She states that the shift lab technician staff was talking to her over the call light system telling her that she was going to . She states that they were shaking her bed and standing behind the curtain. Pt states that she is too afraid to go back. Pt and family will discuss wishes for placement and talk with perinatal social worker on Saturday about placement. - Constitutional Vitals: Temp Pulse Resp BP Pulse Ox 99.6 F 104 16 121/63 98 11/17/16 12:12 11/17/16 12:12 11/17/16 12:12 11/17/16 12:12 11/17/16 12:12 General appearance: Present: cooperative, A&O X 3, pleasant, no acute distress, answers questions appropriately - Head Head exam: Present: normal inspection - Eye Eye exam: Present: normal appearance, conjuntiva pink - ENT ENT exam: Present: mucous membranes moist, normal exam, normal external ear exam - Neck Neck exam general surgery: Present: normal inspection. Absent: lymphadenopathy , tenderness - Respiratory Respiratory exam: Present: decreased breath sounds, CTAB. Absent: rales, respiratory distress, rhonchi, stridor, wheezes - Cardiovascular Cardiovascular exam: Present: RRR, +S1, +S2. Absent: diastolic murmur, systolic murmur - GI/Abdominal GI/Abdominal exam: Present: normal bowel sounds, soft. Absent: hepatomegaly, tenderness - Extremities Exam Extremities exam: Present: normal capillary refill, normal inspection, warm, radial pulses palpable and symetrical. Absent: calf tenderness, mottling, pedal edema, tenderness - Neurological Exam Neurological exam: Present: alert, oriented X3, no focal deficits. Absent: facial droop, speech deficit - Skin Skin exam: Present: dry, intact, warm Internal Medicine: Result - Labs CBC & Chem 7: 11/17/16 08:20 11/17/16 08:20 Labs: Short CBC 11/17/16 Range/Units 08:20 WBC 7.9 (4.3-11.1) K/mcL Hgb 8.6 L (11.5-15.4) g/dL Hct 28.2 L (35.3-44.9) % Plt Count 291 (140-400) K/mcL Neutrophils # 6.0 (1.6-8.9) K/mcL BMP 11/16/16 11/17/16 01:05 08:20 Sodium 139 139 Potassium 4.3 4.5 Chloride 105 107 Carbon Dioxide 24 22 BUN 45 H 39 H Creatinine 1.07 1.01 Glucose 135 H 80 Calcium 8.7 9.3 Urine 11/17/16 Range/Units 10:30 Urine Color Yellow (Yellow) Urine Clarity Cloudy A (Clear) Urine pH 5.5 (5.0-8.0) pH Units Ur Specific [place] 1.020 (1.010-1.025) Urine Protein Trace (Neg-Trace) mg/dL Urine Glucose (UA) Normal (Normal) mg/dL - ABG Interpretation ABG results: PT/INR, D-dimer PT 29.6 Seconds (9.4-12.1) H 11/15/16 22:19 Consult Discharge Plan - Plan Referrals: Arabella Santos CNP [Primary Care Provider] - 11/23/16 2:20 pm Jacquelyn Mayer MD [Partnered Physician] - 11/23/16 2:20 pm (Appointment with Shay Santos)
[2016-11-17] MEDS: *HR* Rivaroxaban 15 MG TABLET PO SCH (17:32)
[2016-11-18] MEDS: Metoprolol XL (24 HR) Succ 50 MG TAB.ER.24H PO SCH (08:16)
[2016-11-18] MEDS: Aspirin 81 MG TAB.CHEW PO SCH (08:16)
[2016-11-18] MEDS: Insulin LISPRO 300 UNITS/3 ML VIAL SQ SCH ×4 (08:16→20:18)
[2016-11-18] MEDS: Gabapentin 100 MG CAPSULE PO SCH ×3 (08:16→20:16)
[2016-11-18] MEDS: Venlafaxine XR (24 HR) 75 MG CAP.ER.24H PO SCH (08:16)
[2016-11-18] MEDS: hydrALAZINE 10 MG TABLET PO SCH ×2 (08:16→20:16)
--- NOTE | 2016-11-18 09:10 | Internal Med Progress Note ---
Date of Encounter: 11/18/16 Time of Encounter: 08:20 - Assessment and plan (1) Acute encephalopathy Current Visit: Yes Status: Resolved Assessment and plan: Pt has returned to baseline. She is alert and oriented x 3. (2) Anemia Current Visit: No Status: Chronic Assessment and plan: Hgb today. Stool occult blood collected and pending at this time. Continue Ferrous Sulfate 325mg po bid with meals and B12 IM weekly. Transfuse if hgb <8. Continue to monitor labs. Qualifiers: Anemia type: other cause Other causes of anemia: other cause, not classified Qualified Code(s): D64.89 - Other specified anemias (3) CKD (chronic kidney disease), stage III Current Visit: No Status: Chronic Assessment and plan: Sr Cr , improving since admission. Renal diet Avoid NSAIDs and nephrotoxins. (4) Diabetes mellitus Current Visit: Yes Status: Chronic Assessment and plan: A1c 5.3. Continue diabetic diet and SSI. Qualifiers: Diabetes mellitus type: type 2 Diabetes mellitus complication status: with neurologic complications Diabetes mellitus complication detail: with polyneuropathy Diabetes mellitus vermin exterminator insulin use: without intermediate use Qualified Code(s): E11.42 - Type 2 diabetes mellitus with diabetic polyneuropathy (5) Right leg pain Current Visit: Yes Status: Resolved Assessment and plan: Pt's pain has resolved, redness has decreased. Treat pain as needed. (6) Renal insufficiency Current Visit: Yes Status: Resolved (7) HTN (hypertension) Current Visit: Yes Status: Chronic Assessment and plan: Chronic. Well controlled. Continue home medications. Qualifiers: Hypertension type: essential hypertension Qualified Code(s): I10 - Essential (primary) hypertension (8) DVT prophylaxis Current Visit: No Status: Acute Assessment and plan: Pt is on Xarelto. Up to chair BID. AMARIS Veliz (9) Cellulitis of right foot Current Visit: Yes Status: Acute Assessment and plan: Small area of faint redness, approximately 2.5" x 1.5", remains to dorsal right foot. Continue antibiotics. Deescalate after next dose. (10) Weakness Current Visit: Yes Status: Acute Assessment and plan: PT has recommended skilled therapy. [facility] Pt has been up to bedside today for breakfast. Continue PT/OT SS consult for placement on Saturday. - Time Spent With Patient less than 15 minutes - Subjective Interval history: Pt was seen and assessed at 0915. She is alert, oriented x 3, speech is clear. She has no recollection of events of yesterday. She states that she does not wish to go back to [facility]. She states that the restaurant shift leader staff was talking to her over the call light system telling her that she was going to . She states that they were shaking her bed and standing behind the curtain. Pt states that she is too afraid to go back. Pt and family will discuss wishes for placement and talk with high school social science teacher on Saturday about placement. - Constitutional Vitals: Temp Pulse Resp BP Pulse Ox 99.1 F 128 18 141/68 97 11/18/16 07:33 11/18/16 07:33 11/18/16 07:33 11/18/16 07:33 11/18/16 07:33 General appearance: Present: cooperative, A&O X 3, pleasant, no acute distress, answers questions appropriately - Head Head exam: Present: normal inspection - Eye Eye exam: Present: normal appearance, conjuntiva pink - ENT ENT exam: Present: mucous membranes moist, normal exam, normal external ear exam - Neck Neck exam general surgery: Present: normal inspection. Absent: lymphadenopathy , tenderness - Respiratory Respiratory exam: Present: decreased breath sounds, CTAB. Absent: rales, respiratory distress, rhonchi, stridor, wheezes - Cardiovascular Cardiovascular exam: Present: RRR, +S1, +S2. Absent: clicks, diastolic murmur, gallop, systolic murmur - GI/Abdominal GI/Abdominal exam: Present: distended, normal bowel sounds, soft. Absent: hepatomegaly, tenderness - Extremities Exam Extremities exam: Present: normal capillary refill, tenderness, warm, radial pulses palpable and symetrical. Absent: pedal edema Additional comments: approximately 2.5"x 1.5" oval area of faint redness to R dorsal foot. - Neurological Exam Neurological exam: Present: alert, oriented X3, no focal deficits, strengths equal and symetr throughout. Absent: altered, facial droop, speech deficit - Skin Skin exam: Present: dry, intact, warm - Expanded Skin Exam Distribution of rash: Present: RLE Description of rash: Present: erythematous, swelling, tenderness. Absent: discharge Internal Medicine: Result - Labs CBC & Chem 7: 11/17/16 08:20 11/17/16 08:20 Labs: Urine 11/17/16 Range/Units 10:30 Urine Color Yellow (Yellow) Urine Clarity Cloudy A (Clear) Urine pH 5.5 (5.0-8.0) pH Units Ur Specific [place] 1.020 (1.010-1.025) Urine Protein Trace (Neg-Trace) mg/dL Urine Glucose (UA) Normal (Normal) mg/dL - ABG Interpretation ABG results: PT/INR, D-dimer PT 29.6 Seconds (9.4-12.1) H 11/15/16 22:19 Consult Discharge Plan - Plan Referrals: Arabella Santos CNP [Primary Care Provider] - 11/23/16 2:20 pm Jacquelyn Mayer MD [Partnered Physician] - 11/23/16 2:20 pm (Appointment with Shay Santos)
[2016-11-18 10:15] LABS: Basophils % 0.4 %; Eosinophils % 0.2 %; Hemoglobin 9.3 g/dL (11.5-15.4); Immature Granulocytes % 0.2 % (0-4); Lymphocytes # 0.6 K/mcL (0.6-4.6); Mean Corpuscular Volume 93.5 fL (83.0-100.0); Mean Platelet Volume 9.6 fL (9.4-12.4); Monocytes % 10.1 %; Neutrophils # 7.9 K/mcL (1.6-8.9); Platelet Count 330 K/mcL (140-400); Red Blood Count 3.21 M/mcL (3.82-4.97); Red Cell Distribution Width 15.9 % (11.5-14.5); Segmented Neutrophils % 83.1 %
[2016-11-18] MEDS: traMADol 50 MG TABLET PO PRN (13:29)
[2016-11-18] MEDS: *HR* Rivaroxaban 15 MG TABLET PO SCH (17:22)
[2016-11-19 04:10] LABS: Basophils % 0.7 %; Eosinophils # 0.2 K/mcL (0.0-0.6); Eosinophils % 3.5 %; Hematocrit 25.4 % (35.3-44.9); Hemoglobin 7.9 g/dL (11.5-15.4); Immature Granulocytes % 0.3 % (0-4); Lymphocytes # 0.9 K/mcL (0.6-4.6); Lymphocytes % 14.7 %; Mean Corpuscular HGB Conc 31.1 g/dL (31.6-35.5); Mean Corpuscular Hemoglobin 28.8 pg (28.0-33.3); Mean Corpuscular Volume 92.7 fL (83.0-100.0); Mean Platelet Volume 9.6 fL (9.4-12.4); Monocytes # 0.9 K/mcL (0.0-1.3); Platelet Count 276 K/mcL (140-400); Red Blood Count 2.74 M/mcL (3.82-4.97); Red Cell Distribution Width 15.8 % (11.5-14.5); Segmented Neutrophils % 65.8 %
[2016-11-19 04:35] LABS: BUN/Creatinine Ratio 41 (6-26); Blood Urea Nitrogen 41 mg/dL (7-20); Calcium 8.7 mg/dL (8.6-10.8); Carbon Dioxide 24 mEq/L (19-29); Chloride 107 mEq/L (98-109); Glucose 79 mg/dL (70-99); Osmolality,Calculated 295 (280-300); Potassium 4.3 mEq/L (3.5-4.5); Sodium 138 mEq/L (136-145); eGFR For African Americans > 60 (> 60); eGFR For Non-African Americans 55 (> 60)
[2016-11-19 08:07] LABS: Hematocrit 27.4 % (35.3-44.9); Hemoglobin 8.5 g/dL (11.5-15.4)
[2016-11-19] MEDS: Insulin LISPRO 300 UNITS/3 ML VIAL SQ SCH ×4 (08:21→20:21)
[2016-11-19] MEDS: hydrALAZINE 10 MG TABLET PO SCH ×2 (08:26→19:56)
[2016-11-19] MEDS: Gabapentin 100 MG CAPSULE PO SCH ×3 (08:26→19:56)
[2016-11-19] MEDS: Metoprolol XL (24 HR) Succ 50 MG TAB.ER.24H PO SCH (08:26)
[2016-11-19] MEDS: Aspirin 81 MG TAB.CHEW PO SCH (08:26)
[2016-11-19] MEDS: Venlafaxine XR (24 HR) 75 MG CAP.ER.24H PO SCH (08:27)
[2016-11-19] MEDS ORDERED: Cyanocobalamin (B-12) 1,000 MCG/ML VIAL IM SCH (09:00)
--- NOTE | 2016-11-19 09:08 | Internal Med Progress Note ---
Date of Encounter: 11/19/16 Time of Encounter: 07:55 - Assessment and plan (1) Anemia Current Visit: No Status: Chronic Assessment and plan: Chronic. Continue Iron supplement. Transfuse if less than 8. Qualifiers: Anemia type: other cause Other causes of anemia: other cause, not classified Qualified Code(s): D64.89 - Other specified anemias (2) CKD (chronic kidney disease), stage III Current Visit: No Status: Chronic Assessment and plan: Sr Cr WNL 0.99. GFR 55 Renal diet Avoid NSAIDs and nephrotoxins. (3) Diabetes mellitus Current Visit: Yes Status: Chronic Assessment and plan: Continue diabetic diet, accu checks and SSI. Qualifiers: Diabetes mellitus type: type 2 Diabetes mellitus complication status: with neurologic complications Diabetes mellitus complication detail: with polyneuropathy Diabetes mellitus shelter insulin use: without shelter use Qualified Code(s): E11.42 - Type 2 diabetes mellitus with diabetic polyneuropathy (4) Right leg pain Current Visit: Yes Status: Resolved (5) HTN (hypertension) Current Visit: Yes Status: Chronic Assessment and plan: Chronic. Well controlled in inpatient setting. Continue home medications. Qualifiers: Hypertension type: essential hypertension Qualified Code(s): I10 - Essential (primary) hypertension (6) Cellulitis of right foot Current Visit: Yes Status: Acute Assessment and plan: Appears to have worsened overnight. Pt denies pain. No leukocytosis, no fever. Rocephin stopped, changed to Doxycycline 100mg po bid and Levaquin 500mg po daily. Pt was in ECF for rehab, concern for MRSA. (7) Weakness Current Visit: Yes Status: Acute Assessment and plan: Pt was in rehab at [facility], does not wish to go back. Pt deconditioned and weak from bed-ridden status. PT and OT assessing. Pt to be placed in another facility for rehab. (8) DVT prophylaxis Current Visit: No Status: Acute Assessment and plan: Pt is on Xarelto. Up to chair BID. AMARIS Veliz ble. - Time Spent With Patient less than 15 minutes - Subjective Interval history: Pt was seen and assessed at 0755. She is alert, oriented x 3, speech is clear. Her affect seems to be flat today, she is upset that she can't go home. She reports pain to L foot today. There is a dime-sized bruise to plantar surface of foot. She denies known injury. - Constitutional Vitals: Temp Pulse Resp BP Pulse Ox 98.5 F 92 16 125/65 97 11/19/16 07:43 11/19/16 07:43 11/19/16 07:43 11/19/16 07:43 11/19/16 07:43 General appearance: Present: cooperative, A&O X 3, pleasant, no acute distress, answers questions appropriately - Head Head exam: Present: normal inspection - Eye Eye exam: Present: normal appearance, conjuntiva pink - ENT ENT exam: Present: mucous membranes moist, normal external ear exam - Neck Neck exam general surgery: Present: normal inspection. Absent: lymphadenopathy , tenderness - Respiratory Respiratory exam: Present: decreased breath sounds, CTAB. Absent: chest wall tenderness, rales, respiratory distress, rhonchi, wheezes, tachypnea - Cardiovascular Cardiovascular exam: Present: RRR, +S1, +S2. Absent: clicks, diastolic murmur, gallop, systolic murmur - GI/Abdominal GI/Abdominal exam: Present: normal bowel sounds, soft. Absent: hernia, hepatomegaly, tenderness - Extremities Exam Extremities exam: Present: pedal edema, warm, radial pulses palpable and symetrical. Absent: calf tenderness, normal inspection, tenderness - Neurological Exam Neurological exam: Present: alert, oriented X3, no focal deficits. Absent: facial droop, speech deficit - Psychiatric Psychiatric exam: Present: flat affect - Skin Skin exam: Present: dry, intact, warm. Absent: rash Internal Medicine: Result - Labs CBC & Chem 7: 11/19/16 07:40 11/19/16 03:28 Labs: Short CBC 11/18/16 11/19/16 11/19/16 Range/Units 09:47 03:28 07:40 WBC 9.5 6.1 (4.3-11.1) K/mcL Hgb 9.3 L 7.9 L 8.5 L (11.5-15.4) g/dL Hct 30.0 L 25.4 L 27.4 L (35.3-44.9) % Plt Count 330 276 (140-400) K/mcL Neutrophils # 7.9 4.0 (1.6-8.9) K/mcL BMP 11/19/16 03:28 Sodium 138 Potassium 4.3 Chloride 107 Carbon Dioxide 24 BUN 41 H Creatinine 0.99 Glucose 79 Calcium 8.7 - ABG Interpretation ABG results: PT/INR, D-dimer PT 29.6 Seconds (9.4-12.1) H 11/15/16 22:19 Consult Discharge Plan - Plan Referrals: Arabella Santos CNP [Primary Care Provider] - 11/23/16 2:20 pm Jacquelyn Mayer MD [Partnered Physician] - 11/23/16 2:20 pm (Appointment with Shay Santos)
[2016-11-19] MEDS ORDERED: levoFLOXacin 500 MG TABLET PO SCH (09:45)
[2016-11-19] MEDS: Furosemide 20 MG TABLET PO SCH (11:04)
[2016-11-19] MEDS: Doxycycline 100 MG CAPSULE PO SCH ×2 (12:32→19:55)
--- NOTE | 2016-11-19 14:58 | Arterial Study Report ---
LE Arterial Physiologic Study Patient Name:Ada Masterson Order Number:[id number] Procedure Date:11/16/2016 Date:2Age:76 yrs Gender:Female Lt BP:91 / mmHg Rt.BP:90 / mmHgHeart Rate: Location:[facility] Room #: 22 Embroidery Worker:Kentrell Farrell Referring MD:Diana Baxter CNP micrographics services supervisor:None Reading MD:Billy Diane MD , FACS Primary Indications:Right leg pain and swelling Risk Factors Yes/No Anticoagulants Yes Hypertension Yes Diabetes Yes Impressions: 1) Bilateral lower extremities waveform demonstrates normal hemodynamics. 2) Bilateral Ankle Brachial Index is normal. 3) Overall Impression: Arterial hemodynamics are well maintained at rest. Findings LE Arterial Physiologic Exam: PVR: Right: The PVR waveforms are normal in the right ankle. Left: The PVR waveforms are normal in the left ankle. Prior Study: No prior study available for comparison. Segmental Pressures Side Location Pressure Index Result Right Posterior Tibial 103 1.13 Normal Right Dorsalis Pedis 255 2.80 noncompressible Left Posterior Tibial 255 2.80 noncompressible Left Dorsalis Pedis 96 1.05 Normal Ankle Brachial Index Right Systolic Diastolic CRESENCIO Brachial 90 2.80 Dorsalis Pedis 255 2.80 Posterior Tibial 103 1.13 Left Systolic Diastolic CRESENCIO Brachial 91 2.80 Dorsalis Pedis 96 1.05 Posterior Tibial 255 2.80 Updated by Billy Diane MD, FACS on 11/16/2016 9:05:27 PM with Status of Final Billy Diane MD electronically signed on 11/16/2016 9:06:02 PM with status of Final
[2016-11-19] MEDS: *HR* Rivaroxaban 15 MG TABLET PO SCH (17:05)
[2016-11-19] MEDS: traMADol 50 MG TABLET PO PRN (19:56)
[2016-11-20 04:04] LABS: BUN/Creatinine Ratio 41 (6-26); Basophils % 0.4 %; Blood Urea Nitrogen 40 mg/dL (7-20); Calcium 9.1 mg/dL (8.6-10.8); Carbon Dioxide 23 mEq/L (19-29); Chloride 105 mEq/L (98-109); Eosinophils # 0.1 K/mcL (0.0-0.6); Eosinophils % 1.6 %; Glucose 133 mg/dL (70-99); Hematocrit 27.5 % (35.3-44.9); Hemoglobin 8.3 g/dL (11.5-15.4); Immature Granulocytes % 0.7 % (0-4); Lymphocytes # 0.9 K/mcL (0.6-4.6); Lymphocytes % 12.6 %; Mean Corpuscular HGB Conc 30.2 g/dL (31.6-35.5); Mean Corpuscular Hemoglobin 28.2 pg (28.0-33.3); Mean Corpuscular Volume 93.5 fL (83.0-100.0); Mean Platelet Volume 9.5 fL (9.4-12.4); Monocytes # 0.9 K/mcL (0.0-1.3); Monocytes % 13.5 %; Neutrophils # 4.8 K/mcL (1.6-8.9); Osmolality,Calculated 294 (280-300); Platelet Count 330 K/mcL (140-400); Potassium 4.2 mEq/L (3.5-4.5); Red Blood Count 2.94 M/mcL (3.82-4.97); Red Cell Distribution Width 15.8 % (11.5-14.5); Segmented Neutrophils % 71.2 %; Sodium 136 mEq/L (136-145); eGFR For African Americans > 60 (> 60); eGFR For Non-African Americans 56 (> 60)
[2016-11-20] MEDS: Insulin LISPRO 300 UNITS/3 ML VIAL SQ SCH ×4 (08:14→22:32)
[2016-11-20] MEDS: Venlafaxine XR (24 HR) 75 MG CAP.ER.24H PO SCH (09:02)
[2016-11-20] MEDS: hydrALAZINE 10 MG TABLET PO SCH ×2 (09:02→22:32)
[2016-11-20] MEDS: Metoprolol XL (24 HR) Succ 50 MG TAB.ER.24H PO SCH (09:02)
[2016-11-20] MEDS: Aspirin 81 MG TAB.CHEW PO SCH (09:02)
[2016-11-20] MEDS: Doxycycline 100 MG CAPSULE PO SCH ×2 (09:02→22:31)
[2016-11-20] MEDS: Furosemide 20 MG TABLET PO SCH (09:02)
[2016-11-20] MEDS: Gabapentin 100 MG CAPSULE PO SCH ×3 (09:02→22:31)
--- NOTE | 2016-11-20 09:38 | Physician Discharge Referral ---
ExtendedCare Referral Info Transfer To: [facility] Provider in Charge after Transfer: PCP Institutional Level of Care: Skilled - Diagnosis (1) Weakness Priority: Primary Status: Acute (2) Cellulitis of right foot Priority: Primary Status: Acute (3) Anemia Priority: Primary Status: Chronic (4) CKD (chronic kidney disease), stage III Priority: Secondary Status: Chronic (5) Diabetes mellitus Priority: Secondary Status: Chronic (6) HTN (hypertension) Priority: Secondary Status: Chronic (7) Right leg pain Priority: Primary Status: Resolved - Transfer Medications Home Medications: Aspirin 81 mg PO DAILY 12/06/14 [History] HydrALAZINE 10 mg PO BID 12/06/14 [History] Lisinopril [Zestril] 10 mg PO DAILY 12/06/14 [History] Nitroglycerin 0.4 mg SL Q5MIN PRN 12/06/14 [History] Oxybutynin [Ditropan] 5 mg PO BID 12/06/14 [History] Simvastatin [Zocor] 40 mg PO HS 12/06/14 [History] Acetaminophen [Tylenol] 500 mg PO Q6HR PRN 05/03/16 [History] Epoetin Gonzalo [Procrit] 10,000 unit SQ Q2W 05/03/16 [History] Furosemide [Lasix] 20 mg PO DAILY 05/03/16 [History] Metoprolol Succinate 100 mg PO DAILY 05/03/16 [History] Potassium Chloride [K-Tab ER] 10 meq PO DAILY 05/03/16 [History] Rivaroxaban [Xarelto] 15 mg PO DAILY 05/03/16 [History] Venlafaxine XR (24 HR) [Effexor XR] 75 mg PO DAILY 05/23/16 [History] Cyanocobalamin (B-12) [Vitamin B12] 1,000 mcg IM QWEEK 09/13/16 [History] Ergocalciferol (VITAMIN D2) [Vitamin D2] 50,000 unit PO QWEEK 09/13/16 [History] Triamcinolone Acet 0.1% CRM [Kenalog] 1 appl TP BID PRN 09/13/16 [History] Albuterol Sulfate [Proair Hfa] 2 puff IH Q4H PRN 10/26/16 [History] Calcium Carbonate/Vitamin D3 [Calcium 600 + Vit D Tablet] 1 tab PO DAILY [History] LORazepam [Ativan] 0.5 mg PO BID PRN 10/26/16 [History] Tramadol HCl [Ultram] 50 mg PO BID PRN 10/26/16 [History] Gabapentin [Neurontin] 100 mg PO TID 11/15/16 [History] Allergies/Adverse Reactions: Allergies Donepezil [From Aricept] Adverse Reaction (Verified 09/13/16 18:09) Hallucinating memantine [From Namenda] Adverse Reaction (Verified 09/13/16 18:09) Hallucinating - Respiratory Orders Smoking Cessation: Smoking cessation has been advised. For more information, call the [place] Tobacco Quit Line at 7-880-NHWV-NOW. - Advance Directives Code Status: Full Code - Rehabiliation Orders Rehab Potential: Fair Rehab Orders: Evaluation for Physical Therapy, Evaluation for Occupational Therapy - Diet Orders Regular CERTIFICATION: I certify that the transfer of the above named patient to an Extended Care Facility is necessary for the continuing treatment of the diagnosis listed. The above information is true and accurate reflection of patient's current condition. Confidential - Redisclosure prohibited without a patient's written consent.
--- NOTE | 2016-11-20 09:58 | Discharge Summary ---
<Angelina Hidalgo - Last Filed: 11/20/16 10:50> Date of Encounter: 11/20/16 Time of Encounter: 09:41 - Discharge Diagnosis (1) Weakness Priority: Primary Status: Acute (2) Cellulitis of right foot Priority: Primary Status: Acute (3) Anemia Priority: Secondary Status: Chronic Qualifiers: Anemia type: unspecified type Qualified Code(s): D64.9 - Anemia, unspecified (4) CKD (chronic kidney disease), stage III Priority: Secondary Status: Chronic (5) Diabetes mellitus Priority: Secondary Status: Chronic Qualifiers: Diabetes mellitus type: type 2 Diabetes mellitus complication status: with neurologic complications Diabetes mellitus complication detail: with polyneuropathy Diabetes mellitus senior living insulin use: without long term care pharmacist use Qualified Code(s): E11.42 - Type 2 diabetes mellitus with diabetic polyneuropathy (6) HTN (hypertension) Priority: Secondary Status: Chronic Qualifiers: Hypertension type: essential hypertension Qualified Code(s): I10 - Essential (primary) hypertension (7) Right leg pain Priority: Primary Status: Resolved (8) Delirium Priority: Primary Status: Resolved - Discharge Medications Prescriptions: Doxycycline 100 mg PO 799,1999 #17 Ferrous Sulfate 325 mg PO BIDWM #14 tab LORazepam [Ativan] 0.5 mg PO BID PRN #14 tab PRN Reason: Anxiety Tramadol HCl [Ultram] 50 mg PO BID PRN #14 tab PRN Reason: Pain Home Medications: Aspirin 81 mg PO DAILY 12/06/14 [History] HydrALAZINE 10 mg PO BID 12/06/14 [History] Lisinopril [Zestril] 10 mg PO DAILY 12/06/14 [History] Nitroglycerin 0.4 mg SL Q5MIN PRN 12/06/14 [History] Oxybutynin [Ditropan] 5 mg PO BID 12/06/14 [History] Simvastatin [Zocor] 40 mg PO HS 12/06/14 [History] Acetaminophen [Tylenol] 500 mg PO Q6HR PRN 05/03/16 [History] Epoetin Gonzalo [Procrit] 10,000 unit SQ Q2W 05/03/16 [History] Furosemide [Lasix] 20 mg PO DAILY 05/03/16 [History] Metoprolol Succinate 100 mg PO DAILY 05/03/16 [History] Potassium Chloride [K-Tab ER] 10 meq PO DAILY 05/03/16 [History] Rivaroxaban [Xarelto] 15 mg PO DAILY 05/03/16 [History] Venlafaxine XR (24 HR) [Effexor XR] 75 mg PO DAILY 05/23/16 [History] Cyanocobalamin (B-12) [Vitamin B12] 1,000 mcg IM QWEEK 09/13/16 [History] Ergocalciferol (VITAMIN D2) [Vitamin D2] 50,000 unit PO QWEEK 09/13/16 [History] Triamcinolone Acet 0.1% CRM [Kenalog] 1 appl TP BID PRN 09/13/16 [History] Albuterol Sulfate [Proair Hfa] 2 puff IH Q4H PRN 10/26/16 [History] Calcium Carbonate/Vitamin D3 [Calcium 600 + Vit D Tablet] 1 tab PO DAILY [History] Gabapentin [Neurontin] 100 mg PO TID 11/15/16 [History] Doxycycline 100 mg PO 799,1999 #17 11/20/16 [Rx] Ferrous Sulfate 325 mg PO BIDWM #14 tab 11/20/16 [Rx] LORazepam [Ativan] 0.5 mg PO BID PRN #14 tab 11/20/16 [Rx] Tramadol HCl [Ultram] 50 mg PO BID PRN #14 tab 11/20/16 [Rx] Allergies/Adverse Reactions: Allergies Donepezil [From Aricept] Adverse Reaction (Verified 09/13/16 18:09) Hallucinating memantine [From Namenda] Adverse Reaction (Verified 09/13/16 18:09) Hallucinating Date of admission: 11/16/16 00:24 Primary care physician: Arabella Santos CNP Consults: 11/16/16 03:04 Consult to Neurology [CONS] Routine Consulting Provider: Neurology [facility] Reason for Consult: pls assist in managing this pt with underlying dementia presenting with visual hallucinations, thanks Call Completed: No 11/17/16 10:14 Consult to Occupational Therapy [CONS] Routine Comment: Evaluate, develop and implement POC Reason for Consult: Weakness Consult to Physical Therapy [CONS] Routine Comment: Evaluate, develop and implement POC Reason for Consult: Weakness Discharging clinician: Ravi Kebede Anticipated date of discharge: 11/20/16 - Patient Status Disposition: Transfer Inpatient Rehab Fac Condition: Fair Functional capacity at discharge: uses cane/walker Overall status at discharge: patient is progressing back to baseline - Discharge Instructions Instructions: Anemia (GEN) Follow Up With: Arabella Santos CNP [Primary Care Provider] - Additional Instructions: Follow up with your PCP within 5 days. - Diet and Activity Activity: as per physical therapy Diet: advance to your usual diet Interval History: Patient alert and oriented to person, place and time this morning. Sitting up in the bed eating breakfast. Denies any acute complaints. Hospital course: Ms. Masterson is a 76 year old female who presented to [facility] ED from [facility] with acute onset of visual hallucinations and paranoia. Head CT was unremarkable, CXR negative. UA was concerning for asymptomatic bacteruria and she was treated empirically with rocephin. She was also noted to have Right foot/LE cellulitis. ABX were switched from rocephin to levaquin and doxycycline PO as cellulitis was noted to be worsening, but is currently improved. Neurology evaluated the patient and agreed that this was most likely an episode of delirium. Venous duplex performed was normal bilaterally. Bilateral CRESENCIO normal. The patient will be discharged back to [facility] today in stable condition for rehab. She will be discharged with a prescription for doxycycline, to complete a total 10 day course. - Time Spent with Patient Total time spent providing and/or coordinating discharge services: - Constitutional Vitals: Temp Pulse Resp BP Pulse Ox 99.3 F 111 14 116/72 98 11/20/16 07:12 11/20/16 07:12 11/20/16 07:12 11/20/16 07:12 11/20/16 07:12 General appearance: Present: cooperative, A&O X 3, pleasant, no acute distress, answers questions appropriately - Head Head exam: Present: atraumatic, normocephalic - Neck Neck exam general surgery: Present: supple, trachea midline. Absent: lymphadenopathy - Respiratory Respiratory exam: Present: CTAB. Absent: accessory muscle use, rales, rhonchi, wheezes - Cardiovascular Cardiovascular exam: Present: irregular rhythm - GI/Abdominal GI/Abdominal exam: Present: normal bowel sounds, soft, no peritoneal signs. Absent: distended, tenderness - Extremities Exam Extremities exam: Present: normal inspection, pedal edema, warm, radial pulses palpable and symmetrical. Absent: calf tenderness, cyanotic - Neurological Exam Neurological exam: Present: alert, oriented X3, no focal deficits. Absent: facial droop, speech deficit - Psychiatric Psychiatric exam: Present: normal affect, normal mood - Skin Skin exam: Present: dry, intact, warm. Absent: erythema <Ravi Kebede No - Last Filed: 11/20/16 19:33> Date of Encounter: 11/20/16 - Discharge Diagnosis (1) Cellulitis of right foot Status: Acute (2) CKD (chronic kidney disease), stage III Status: Chronic (3) Diabetes mellitus Status: Chronic Qualifiers: Diabetes mellitus type: type 2 Diabetes mellitus complication status: with neurologic complications Diabetes mellitus complication detail: with polyneuropathy Diabetes mellitus long term care pharmacist insulin use: without long term care pharmacist use Qualified Code(s): E11.42 - Type 2 diabetes mellitus with diabetic polyneuropathy (4) Atrial fibrillation Priority: Secondary Status: Chronic Qualifiers: Atrial fibrillation type: chronic Qualified Code(s): I48.2 - Chronic atrial fibrillation (5) Pulmonary hypertension Priority: Secondary Status: Chronic (6) Altered mental status Priority: Secondary Status: Acute Qualifiers: Altered mental status type: delirium Qualified Code(s): R41.0 - Disorientation, unspecified Date of admission: 11/16/16 00:24 Primary care physician: Arabella Santos CNP Consults: 11/16/16 03:04 Consult to Neurology [CONS] Routine Consulting Provider: Neurology [facility] Reason for Consult: pls assist in managing this pt with underlying dementia presenting with visual hallucinations, thanks Call Completed: No 11/17/16 10:14 Consult to Occupational Therapy [CONS] Routine Comment: Evaluate, develop and implement POC Reason for Consult: Weakness Consult to Physical Therapy [CONS] Routine Comment: Evaluate, develop and implement POC Reason for Consult: Weakness Hospital course: Ms. Masterson is a 76 year old female - Time Spent with Patient Total time spent providing and/or coordinating discharge services: 28min - Constitutional Vitals: Temp Pulse Resp BP Pulse Ox 98.5 F 82 16 122/68 93 11/20/16 18:52 11/20/16 18:52 11/20/16 18:52 11/20/16 18:52 11/20/16 18:52 - Attending Attestation I examined this patient and my medical decision-making was reviewed with the Resident Physician on 11/20/16. I agree with the documented findings, disposition and treatment plan as described except to the extent set forth below. Ms Masterson has been hospitalized for acute cellulitis and encephalopathy. She is afebrile and vitals are stable. She is to be discharged to ECF. Exam Alert. Comfortable Heart reg Lungs clear Abd soft Legs without erythema Plan D/C to ECF today.
[2016-11-20] MEDS: *HR* Rivaroxaban 15 MG TABLET PO SCH (17:11)
[2016-11-21] MEDS: Insulin LISPRO 300 UNITS/3 ML VIAL SQ SCH (08:08)
[2016-11-21] MEDS: Metoprolol XL (24 HR) Succ 50 MG TAB.ER.24H PO SCH (09:25)
[2016-11-21] MEDS: Gabapentin 100 MG CAPSULE PO SCH (09:25)
[2016-11-21] MEDS: Doxycycline 100 MG CAPSULE PO SCH (09:25)
[2016-11-21] MEDS: hydrALAZINE 10 MG TABLET PO SCH (09:25)
[2016-11-21] MEDS: Aspirin 81 MG TAB.CHEW PO SCH (09:25)
[2016-11-21] MEDS: Furosemide 20 MG TABLET PO SCH (09:25)
[2016-11-21] MEDS: Venlafaxine XR (24 HR) 75 MG CAP.ER.24H PO SCH (09:25)
--- NOTE | 2016-11-21 11:14 | Internal Med Progress Note ---
<Angelina Hidalgo - Last Filed: 11/21/16 11:11> Date of Encounter: 11/21/16 Time of Encounter: 11:11 - Assessment and plan (1) Weakness Status: Acute Assessment and plan: The patient was stable for discharge yesterday, however her bed was not available until today at [facility]. Thus her discharge was delayed until today. Patient is doing well, stable to discharge when bed is available, denies any complaints. Will discharge on oral doxycyline BIDx 8 more days for a total of 10 days of doxycycline for her cellulitis. (2) Cellulitis of right foot Status: Acute Assessment and plan: Per above (3) Delirium Status: Acute (4) Anemia Status: Chronic Qualifiers: Anemia type: unspecified type Qualified Code(s): D64.9 - Anemia, unspecified (5) CKD (chronic kidney disease), stage III Status: Chronic (6) Diabetes mellitus Status: Chronic Qualifiers: Diabetes mellitus type: type 2 Diabetes mellitus complication status: with neurologic complications Diabetes mellitus complication detail: with polyneuropathy Diabetes mellitus furniture polisher insulin use: without furniture polisher use Qualified Code(s): E11.42 - Type 2 diabetes mellitus with diabetic polyneuropathy (7) HTN (hypertension) Status: Chronic Qualifiers: Hypertension type: essential hypertension Qualified Code(s): I10 - Essential (primary) hypertension (8) Right leg pain Status: Resolved - Subjective Interval history: Patient seen and examined. She denies any complaints, no leg pain, fevers or chills, cp, sob. - Constitutional Vitals: Temp Pulse Resp BP Pulse Ox 97.5 F L 92 14 125/74 94 11/21/16 07:27 11/21/16 07:27 11/21/16 07:27 11/21/16 07:27 11/21/16 07:27 General appearance: Present: cooperative, A&O X 3, pleasant, no acute distress, answers questions appropriately - Head Head exam: Present: atraumatic, normocephalic - Respiratory Respiratory exam: Present: CTAB. Absent: accessory muscle use, rales, rhonchi, wheezes - Cardiovascular Cardiovascular exam: Present: RRR, +S1, +S2. Absent: diastolic murmur, gallop, rubs, systolic murmur - GI/Abdominal GI/Abdominal exam: Present: normal bowel sounds, soft, no peritoneal signs. Absent: distended, tenderness - Extremities Exam Extremities exam: Present: normal capillary refill, pedal edema, warm, radial pulses palpable and symmetrical. Absent: calf tenderness, cyanotic, tenderness - Neurological Exam Neurological exam: Present: alert, oriented X3, no focal deficits. Absent: facial droop, speech deficit - Psychiatric Psychiatric exam: Present: normal affect, normal mood - Skin Skin exam: Present: dry, intact, warm. Absent: erythema, rash Internal Medicine: Result - Labs CBC & Chem 7: 11/20/16 03:26 11/20/16 03:26 - ABG Interpretation ABG results: PT/INR, D-dimer PT 29.6 Seconds (9.4-12.1) H 11/15/16 22:19 Consult Discharge Plan - Plan Instructions: Anemia (GEN) Additional Instructions: Follow up with your PCP within 5 days. Referrals: Arabella Santos CNP [Primary Care Provider] - Prescriptions: Doxycycline 100 mg PO 799,1999 #17 Ferrous Sulfate 325 mg PO BIDWM #14 tab LORazepam [Ativan] 0.5 mg PO BID PRN #14 tab PRN Reason: Anxiety Tramadol HCl [Ultram] 50 mg PO BID PRN #14 tab PRN Reason: Pain <Ravi Kebede - Last Filed: 11/21/16 19:04> Date of Encounter: 11/21/16 - Assessment and plan (1) Cellulitis of right foot Status: Acute (2) CKD (chronic kidney disease), stage III Status: Chronic (3) Diabetes mellitus Status: Chronic Qualifiers: Diabetes mellitus type: type 2 Diabetes mellitus complication status: with neurologic complications Diabetes mellitus complication detail: with polyneuropathy Diabetes mellitus furniture polisher insulin use: without group home use Qualified Code(s): E11.42 - Type 2 diabetes mellitus with diabetic polyneuropathy (4) Atrial fibrillation Status: Chronic Qualifiers: Atrial fibrillation type: chronic Qualified Code(s): I48.2 - Chronic atrial fibrillation (5) Pulmonary hypertension Status: Chronic (6) Altered mental status Status: Acute Qualifiers: Altered mental status type: delirium Qualified Code(s): R41.0 - Disorientation, unspecified - Constitutional Vitals: Temp Pulse Resp BP Pulse Ox 98.6 F 97 17 122/63 100 11/21/16 12:02 11/21/16 12:02 11/21/16 12:02 11/21/16 12:02 11/21/16 12:02 Internal Medicine: Result - Labs CBC & Chem 7: 11/20/16 03:26 11/20/16 03:26 - ABG Interpretation ABG results: PT/INR, D-dimer PT 29.6 Seconds (9.4-12.1) H 11/15/16 22:19 - Attending Attestation I examined this patient and my medical decision-making was reviewed with the Resident Physician on 11/21/16. I agree with the documented findings, disposition and treatment plan as described except to the extent set forth below. Ms. Masterson is currently admitted for acute cellulitis. She is ready for discharge today. Exam Alert. Comfortable Heart reg No wheeze No erythema Plan D/C today to [facility].
[2016-11-21 12:03] VITALS: BP 122/63
== END 2016-11-21 14:45 | DRG 52 ==
LOC: EMEROO 21:43 → 3BNU 21:43 → SUATTDRO 11-16 00:24
PROVIDERS: ADMIT Hospitalist; ATTEND Internal Medicine

== ENCOUNTER 2017-04-06 19:31 | Inpatient (IN) ==
[2017-04-06] MEDS ORDERED: 0.9 % Sodium Chloride 1,000 ML IVC ONE (19:39)
--- NOTE | 2017-04-06 19:50 | Emergency Department Note ---
Disposition Clinical Impression: Acute kidney injury, Hypoglycemia Altered mental status Qualifiers: Altered mental status type: unspecified Qualified Code(s): R41.82 - Altered mental status, unspecified Anemia Qualifiers: Anemia type: unspecified type Qualified Code(s): D64.9 - Anemia, unspecified Disposition: Admitted As Inpatient Condition: Fair Altered Mental Status HPI - General Chief Complaint: ED Altered Mental Status Stated Complaint: AMS Time Seen by Provider: 04/06/17 19:39 Source: family Mode of arrival: EMS Limitations: altered mental status Nursing Notes Reviewed: Yes Vital Signs Reviewed: Yes - History of Present Illness HPI Narrative: 77-year-old female history of atrial fibrillation on xarelto, CKD who presents to the ER via EMS due to altered mental status. History is obtained by family as the patient is unable to interact. Family reports she was seen here 2 days ago complaining of right-sided pain. She had a normal abdominal CT scan was found to have a UTI. She was discharged and placed on Levaquin. Family states since then that she was hallucinating at home which she did over the summer when she had a UTI. They report up until a few hours prior to arrival that she was still hallucinating but then became less interactive. She has just been moaning for the last few hours at home. They spoke with her physician who said to just keep taking her antibiotics. They deny any head injury. 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 They deny any fevers, cough, vomiting, diarrhea at home. No other complaints. MD complaint: altered mental status Onset (ago): day(s) Timing confirmed by: family member - Related Data Home Medications Medication Instructions Recorded Confirmed Aspirin 81 mg PO DAILY 12/06/14 11/15/16 HydrALAZINE 10 mg PO BID 12/06/14 11/15/16 Lisinopril [Zestril] 10 mg PO DAILY 12/06/14 11/15/16 Nitroglycerin 0.4 mg SL Q5MIN PRN 12/06/14 11/15/16 Oxybutynin [Ditropan] 5 mg PO BID 12/06/14 11/15/16 Simvastatin [Zocor] 40 mg PO HS 12/06/14 11/15/16 Acetaminophen [Tylenol] 500 mg PO Q6HR PRN 05/03/16 11/15/16 Epoetin Gonzalo [Procrit] 10,000 unit SQ Q2W 05/03/16 11/15/16 Furosemide [Lasix] 20 mg PO DAILY 05/03/16 11/15/16 Metoprolol Succinate 100 mg PO DAILY 05/03/16 11/15/16 Potassium Chloride [K-Tab ER] 10 meq PO DAILY 05/03/16 11/15/16 Rivaroxaban [Xarelto] 15 mg PO DAILY 05/03/16 11/15/16 Venlafaxine XR (24 HR) [Effexor XR] 75 mg PO DAILY 05/23/16 11/15/16 Cyanocobalamin (B-12) [Vitamin B12] 1,000 mcg IM QWEEK 09/13/16 11/15/16 Ergocalciferol (VITAMIN D2) 50,000 unit PO QWEEK 09/13/16 11/15/16 [Vitamin D2] Triamcinolone Acet 0.1% CRM 1 appl TP BID PRN 09/13/16 11/15/16 [Kenalog] Albuterol Sulfate [Proair Hfa] 2 puff IH Q4H PRN 10/26/16 11/15/16 Calcium Carbonate/Vitamin D3 1 tab PO DAILY 10/26/16 11/15/16 [Calcium 600 + Vit D Tablet] Gabapentin [Neurontin] 100 mg PO TID 11/15/16 11/15/16 Previous Rx's Medication Instructions Recorded Doxycycline 100 mg PO 0800,1999 #17 11/20/16 Ferrous Sulfate 325 mg PO BIDWM #14 tab 11/20/16 LORazepam [Ativan] 0.5 mg PO BID PRN #14 tab 11/20/16 Tramadol HCl [Ultram] 50 mg PO BID PRN #14 tab 11/20/16 Levofloxacin [Levaquin] 750 mg PO DAILY #7 tablet 04/04/17 Allergies Allergy/AdvReac Type Severity Reaction Status Date / Time Donepezil [From Aricept] AdvReac Hallucinati Verified 04/06/17 19:36 ng memantine [From Namenda] AdvReac Hallucinati Verified 04/06/17 19:36 ng All systems ED: reviewed and negative except as stated. (As per family) Constitutional: Denies: fever Respiratory: Denies: cough Gastrointestinal: Denies: vomiting, diarrhea Past Medical History - Past Medical History Attestation: Yes The following information was validated with the patient. Source: old records reviewed, obtained from family Medical history: Reports: atrial fibrillation, diabetes, hyperlipidemia, hypertension, myocardial infarction, renal disease, other Surgical history: Reports: other Psychiatric history: Reports: depression GLASS TECHNOLOGIST history: Reports: no GLASS TECHNOLOGIST history - Social History Smoking Status: Former smoker Smokeless Tobacco Status: No Alcohol use: Reports: none Drug use: Reports: none Physical Exam - General Limitations: altered mental status General appearance: alert, in no apparent distress - Head Head exam: atraumatic, normocephalic, normal inspection - Eye Eye exam: Present: normal appearance, PERRL - ENT ENT exam: normal exam - Neck Neck exam: Present: normal inspection - Chest Chest inspection: Present: normal inspection, symmetric chest wall rise - Respiratory Respiratory exam: Present: normal lung sounds bilaterally - Cardiovascular Cardiovascular exam: Present: normal rhythm, tachycardia, normal heart sounds - Abdominal Exam Abdominal exam: Present: soft. Absent: distention, rigidity - Extremities Exam Extremities exam: Present: normal inspection, full ROM - Expanded Upper Extremity Exam Shoulder exam: Present: normal inspection, full ROM Arm exam: Present: normal inspection, full ROM Elbow exam: Present: normal inspection, full ROM Forearm/Wrist exam: Present: normal inspection, full ROM Hand exam: Present: normal inspection, full ROM - Expanded Lower Extremity Exam Hip/Pelvis exam: Present: normal inspection, full ROM Upper leg exam: Present: normal inspection, full ROM Knee exam: Present: normal inspection, full ROM Lower leg exam: Present: normal inspection, full ROM Ankle exam: Present: normal inspection, full ROM Foot/toe exam: Present: normal inspection, full ROM - Neurological Exam Neurological exam: Present: alert, other (Patient is alert. She is not currently answering questions or following commands. She is moving all extremities equally. She exhibits intermittent decorticate posturing of the upper extremities. She is making incoherent sounds.) - Skin Skin exam: Present: warm Course Course Narrative: Patient seen and examined at time of arrival. She is unable to answer any questions currently. Family states that she has been altered with hallucinations but she started speaking less a few hours prior to arrival. I reviewed her recent visit showing a normal abdominal CT scan. She did have leukocytosis of 14 as well as a creatinine of 2.6. She was placed on Levaquin for 7 days at that time. We will obtain a CT scan of her head as well as EKG, chest x-ray, labs including urinalysis. - Reevaluation(s) Reevaluation #1: Patient's Accu-Chek in route was reported as 68. After being here for less than half an hour re-check showed a glucose of 25. The patient was given an amp of D50 with improvement and a recheck glucose of 148. Her mental status improved and she is currently at baseline as per family. Reevaluation #2: Patient's glucose checked 45 minutes after last check. Noted to be back to 68 here. Patient given an additional amp of D50, placed on D5 half-normal saline at 125 per hour and will be given crackers and peanut butter. Vital Signs Temperature 97.4 F L 04/06/17 19:36 Pulse Rate 102 04/06/17 19:36 Respiratory Rate 20 04/06/17 19:36 Blood Pressure 149/65 04/06/17 19:36 O2 Sat by Pulse Oximetry 100 04/06/17 19:36 Temperature 97.4 F L 04/06/17 19:36 Pulse Rate 102 04/06/17 22:18 Respiratory Rate 16 04/06/17 22:18 Blood Pressure 137/92 04/06/17 22:18 O2 Sat by Pulse Oximetry 100 04/06/17 22:18 Oxygen Delivery Oxygen Delivery Room Air Altered Mental Status - MDM Narrative Medical decision making narrative: 77-year-old female presents to the ER due to altered mental status. Was here 2 days ago and treated for a UTI. Upon arrival she was making incomprehensible sounds. Initial glucose was 68. She did drop to 25 here. She was given an amp of D50 with improvement of her mental status and glucose of 148. Checked within the next hour she dropped back to 68. She was given a second amp of D50 and placed on D5 half-normal saline. Head CT shows no acute findings. Chest x- ray unremarkable. She does have an acute kidney injury from her baseline. Likely contributing to her hypoglycemia as she is on glipizide. She is also noted to be anemic at 6.8. No obvious source of bleeding at this time. Type and screen ordered and will transfuse 1 unit of red blood cells. Patient will be admitted for altered mental status, acute kidney injury, hypoglycemia. - Lab Data Lab results reviewed: Yes I reviewed the patient's lab results. Result diagrams: 04/06/17 20:00 04/06/17 20:00 Lab Results 04/06/17 04/06/17 04/06/17 Range/Units 20:00 20:00 20:00 WBC 9.9 (4.3-11.1) K/mcL RBC 2.30 L (3.82-4.97) M/mcL Hgb 6.8 L (11.5-15.4) g/dL Hct 22.0 L (35.3-44.9) % MCV 95.7 (83.0-100.0) fL MCH 29.6 (28.0-33.3) pg MCHC 30.9 L (31.6-35.5) g/dL RDW 14.0 (11.5-14.5) % Plt Count 331 (140-400) K/mcL MPV 9.6 (9.4-12.4) fL Immature Gran % 0.4 (0-4) % Seg Neutrophils % 87.4 % Lymphocytes % 3.9 % Monocytes % 8.1 % Eosinophils % 0.1 % Basophils % 0.1 % Neutrophils # 8.7 (1.6-8.9) K/mcL Lymphocytes # 0.4 L (0.6-4.6) K/mcL Monocytes # 0.8 (0.0-1.3) K/mcL Eosinophils # 0.0 (0.0-0.6) K/mcL Basophils # 0.0 (0.0-0.2) K/mcL PT 37.3 H (9.4-12.1) Seconds INR 3.4 APTT 37.3 H (26.0-36.0) Seconds Sodium 139 (136-145) mEq/L Potassium 4.8 (3.5-5.1) mEq/L Chloride 105 (98-107) mEq/L Carbon Dioxide 24 (23-29) mEq/L BUN 65 H (8-23) mg/dL Creatinine 2.39 H (0.60-1.20) mg/dL Est GFR ( Amer) 24 L (> 60) Est GFR (Non-Af Amer) 20 L (> 60) BUN/Creatinine Ratio 27 H (6-26) Glucose 24 L* (70-105) mg/dL Calculated Osmolality 303 H (280-300) Lactic Acid (0.5-2.2) mmol/L Calcium 9.3 (8.6-10.3) mg/dL Total Bilirubin 0.3 (0.3-1.0) mg/dL Direct Bilirubin 0.1 (0.0-0.2) mg/dL Indirect Bilirubin 0.2 (0.0-1.2) mg/dL AST 81 H (13-39) Units/L ALT 43 (7-52) Units/L Alkaline Phosphatase 135 H (34-104) Units/L Ammonia (16-53) mcmol/L Troponin I (< 0.04) ng/mL Serum Total Protein 6.5 (6.4-8.9) g/dL Albumin 3.5 (3.5-5.7) g/dL Globulin 3.0 (2.4-3.5) g/dL Albumin/Globulin Ratio 1.2 (1.1-2.2) TSH 0.855 (0.340-5.600) mcIU/mL Urine Color (Yellow) Urine Clarity (Clear) Urine pH (5.0-8.0) pH Units Ur Specific [place] (1.010-1.025) Urine Protein (Neg-Trace) mg/dL Urine Glucose (UA) (Normal) mg/dL Urine Ketones (Negative) mg/dL Urine Blood (Negative) Urine Nitrite (Negative) Urine Bilirubin (Negative) Urine Urobilinogen (Normal) mg/dL Ur Leukocyte Esterase (Negative) Urine Microscopic RBC (0-3) per hpf Urine Microscopic WBC (0-3) per hpf Ur Squamous Epith Cells (None-Few) per lpf Urine Bacteria (None-Few) per hpf Hyaline Casts (None-Few) per lpf Urine Yeast Ur Culture Indicated? (NO) Urine Opiates Screen (Xfwbpr=532) ng/mL Ur Barbiturates Screen (Avgnkt=643) ng/mL Ur Phencyclidine Scrn (Cutoff=25) ng/mL Ur Amphetamines Screen (Rckors=9854) ng/mL U Benzodiazepines Scrn (Aefoqe=047) ng/mL Urine Cocaine Screen (Cutoff= 300) ng/mL U Marijuana (THC) Screen (Cutoff = 50) ng/mL Blood Type Antibody Screen Crossmatch 04/06/17 04/06/17 04/06/17 Range/Units 20:00 20:00 20:00 WBC (4.3-11.1) K/mcL RBC (3.82-4.97) M/mcL Hgb (11.5-15.4) g/dL Hct (35.3-44.9) % MCV (83.0-100.0) fL MCH (28.0-33.3) pg MCHC (31.6-35.5) g/dL RDW (11.5-14.5) % Plt Count (140-400) K/mcL MPV (9.4-12.4) fL Immature Gran % (0-4) % Seg Neutrophils % % Lymphocytes % % Monocytes % % Eosinophils % % Basophils % % Neutrophils # (1.6-8.9) K/mcL Lymphocytes # (0.6-4.6) K/mcL Monocytes # (0.0-1.3) K/mcL Eosinophils # (0.0-0.6) K/mcL Basophils # (0.0-0.2) K/mcL PT (9.4-12.1) Seconds INR APTT (26.0-36.0) Seconds Sodium (136-145) mEq/L Potassium (3.5-5.1) mEq/L Chloride (98-107) mEq/L Carbon Dioxide (23-29) mEq/L BUN (8-23) mg/dL Creatinine (0.60-1.20) mg/dL Est GFR ( Amer) (> 60) Est GFR (Non-Af Amer) (> 60) BUN/Creatinine Ratio (6-26) Glucose (70-105) mg/dL Calculated Osmolality (280-300) Lactic Acid 0.9 (0.5-2.2) mmol/L Calcium (8.6-10.3) mg/dL Total Bilirubin (0.3-1.0) mg/dL Direct Bilirubin (0.0-0.2) mg/dL Indirect Bilirubin (0.0-1.2) mg/dL AST (13-39) Units/L ALT (7-52) Units/L Alkaline Phosphatase (34-104) Units/L Ammonia 29 (16-53) mcmol/L Troponin I 0.03 (< 0.04) ng/mL Serum Total Protein (6.4-8.9) g/dL Albumin (3.5-5.7) g/dL Globulin (2.4-3.5) g/dL Albumin/Globulin Ratio (1.1-2.2) TSH (0.340-5.600) mcIU/mL Urine Color (Yellow) Urine Clarity (Clear) Urine pH (5.0-8.0) pH Units Ur Specific [place] (1.010-1.025) Urine Protein (Neg-Trace) mg/dL Urine Glucose (UA) (Normal) mg/dL Urine Ketones (Negative) mg/dL Urine Blood (Negative) Urine Nitrite (Negative) Urine Bilirubin (Negative) Urine Urobilinogen (Normal) mg/dL Ur Leukocyte Esterase (Negative) Urine Microscopic RBC (0-3) per hpf Urine Microscopic WBC (0-3) per hpf Ur Squamous Epith Cells (None-Few) per lpf Urine Bacteria (None-Few) per hpf Hyaline Casts (None-Few) per lpf Urine Yeast Ur Culture Indicated? (NO) Urine Opiates Screen (Omljur=252) ng/mL Ur Barbiturates Screen (Lbacdz=895) ng/mL Ur Phencyclidine Scrn (Cutoff=25) ng/mL Ur Amphetamines Screen (Zsqlcp=1054) ng/mL U Benzodiazepines Scrn (Mppxeo=151) ng/mL Urine Cocaine Screen (Cutoff= 300) ng/mL U Marijuana (THC) Screen (Cutoff = 50) ng/mL Blood Type Antibody Screen Crossmatch 04/06/17 04/06/17 04/06/17 Range/Units 20:25 20:25 21:48 WBC (4.3-11.1) K/mcL RBC (3.82-4.97) M/mcL Hgb (11.5-15.4) g/dL Hct (35.3-44.9) % MCV (83.0-100.0) fL MCH (28.0-33.3) pg MCHC (31.6-35.5) g/dL RDW (11.5-14.5) % Plt Count (140-400) K/mcL MPV (9.4-12.4) fL Immature Gran % (0-4) % Seg Neutrophils % % Lymphocytes % % Monocytes % % Eosinophils % % Basophils % % Neutrophils # (1.6-8.9) K/mcL Lymphocytes # (0.6-4.6) K/mcL Monocytes # (0.0-1.3) K/mcL Eosinophils # (0.0-0.6) K/mcL Basophils # (0.0-0.2) K/mcL PT (9.4-12.1) Seconds INR APTT (26.0-36.0) Seconds Sodium (136-145) mEq/L Potassium (3.5-5.1) mEq/L Chloride (98-107) mEq/L Carbon Dioxide (23-29) mEq/L BUN (8-23) mg/dL Creatinine (0.60-1.20) mg/dL Est GFR ( Amer) (> 60) Est GFR (Non-Af Amer) (> 60) BUN/Creatinine Ratio (6-26) Glucose (70-105) mg/dL Calculated Osmolality (280-300) Lactic Acid (0.5-2.2) mmol/L Calcium (8.6-10.3) mg/dL Total Bilirubin (0.3-1.0) mg/dL Direct Bilirubin (0.0-0.2) mg/dL Indirect Bilirubin (0.0-1.2) mg/dL AST (13-39) Units/L ALT (7-52) Units/L Alkaline Phosphatase (34-104) Units/L Ammonia (16-53) mcmol/L Troponin I (< 0.04) ng/mL Serum Total Protein (6.4-8.9) g/dL Albumin (3.5-5.7) g/dL Globulin (2.4-3.5) g/dL Albumin/Globulin Ratio (1.1-2.2) TSH (0.340-5.600) mcIU/mL Urine Color Yellow (Yellow) Urine Clarity Cloudy A (Clear) Urine pH 5.0 (5.0-8.0) pH Units Ur Specific [place] 1.020 (1.010-1.025) Urine Protein Negative (Neg-Trace) mg/dL Urine Glucose (UA) Normal (Normal) mg/dL Urine Ketones Negative (Negative) mg/dL Urine Blood Negative (Negative) Urine Nitrite Negative (Negative) Urine Bilirubin Negative (Negative) Urine Urobilinogen Normal (Normal) mg/dL Ur Leukocyte Esterase Large H (Negative) Urine Microscopic RBC 0-3 (0-3) per hpf Urine Microscopic WBC TNTC H (0-3) per hpf Ur Squamous Epith Cells None Seen (None-Few) per lpf Urine Bacteria Many H (None-Few) per hpf Hyaline Casts None Seen (None-Few) per lpf Urine Yeast REGISTERED NURSES Ur Culture Indicated? YES A (NO) Urine Opiates Screen Positive H (Zqhmku=820) ng/mL Ur Barbiturates Screen Negative (Ptezhp=793) ng/mL Ur Phencyclidine Scrn Negative (Cutoff=25) ng/mL Ur Amphetamines Screen Negative (Armmhw=6523) ng/mL U Benzodiazepines Scrn Negative (Vqhnjh=949) ng/mL Urine Cocaine Screen Negative (Cutoff= 300) ng/mL U Marijuana (THC) Screen Negative (Cutoff = 50) ng/mL Blood Type O POSITIVE Antibody Screen NEGATIVE Crossmatch See Detail - Radiology Data Radiology results reviewed: Yes I reviewed the patient's radiology results. Chest X-Ray 04/06/17 19:39 IMPRESSION: No acute process. D/ / Zackery Lau MD / Zackery Lau MD Interpreting Provider: Zackery Lau MD Head CT 04/06/17 19:39 IMPRESSION: 1. No acute intracranial abnormality. 2. Stable chronic right frontoparietal infarct with associated encephalomalacia. D/ / 04/06/2017 21:16:33 Ced Lake MD / [facility] Interpreting Provider: Ced Lake MD - EKG Data EKG attestation: Yes I reviewed and interpreted this EKG. EKG results narrative: EKG demonstrates sinus tachycardia with a rate of 107. Left axis deviation. Normal intervals. Normal R-wave progression. Nonspecific ST T-wave changes in lead 1. No gross ST elevations or depressions. No acute ischemic findings. No significant changes from previous EKG dated 11/15/16. Critical Care Time Critical Care Time: Yes Total Critical Care Time: 40 Attestation: Critical care performed: Time is exclusive of separately billable procedures. Time includes: direct patient care, patient reassessment, coordination of patient care, interpretation of data (laboratory data, radiology data, and respiratory data), review of patient's medical records, medical consultation and documentation of patient care. Procedures included in critical care time: Procedures excluded from critical care time: Ori - Ori Situation: Demographics, MOA Background: Presenting Complaint, Relevant PMH, Meds, & Allergies Assessment: Vital Signs, Course and respsone to treatment, Exam Concerns, Patient/Family Expectation, Pertinant Lab Results Recommendation: Barrier(s) to disposition, Recommendation based on pending studies, treatments, or consults Ori Report Given to: Dr. Kurt Rehman Repor Time: 21:51 Attestation Statement - Attestation Attestation: I, Anam Gregory MD, personally evaluated this patient and discussed their management with the resident physician. I reviewed the resident's note and agree with the documented findings, medical decision making, and plan of care. 77-year-old female presents to the emergency department for altered mental status. Patient was seen here 2 days ago with right flank pain and diagnosed with UTI. Family reports that yesterday the patient started having hallucinations and seemed more confused. Today the symptoms progressively worsened and over the past several hours the patient has been nonverbal and thrashing around. She is diabetic. EMS reported a fingerstick blood sugar of bleeding 67 however here her fingerstick blood sugar was 25. Patient became more alert with D50. Family denies any fever. No vomiting. No cough or difficulty breathing. On examination the patient is a well-developed thin elderly female who is alert and thrashing. She does not respond to verbal stimuli or follow commands. She is nonverbal. She is moaning. There is no cyanosis or diaphoresis. Breath sounds are clear and equal bilaterally. Heart regular rate and rhythm. Abdomen is soft with normal bowel sounds and no apparent tenderness. She is moving all 4 extremities. Labs reviewed. Chest x-ray negative. Head CT shows no acute intracranial abnormality. The hospitalist, Dr. Hicks, was consulted and accepted admission of the patient.
[2017-04-06] MEDS ORDERED: *HR* Dextrose 50 % in Water (Syg) 50 ML SYRINGE ONE (19:58)
[2017-04-06] MEDS ORDERED: Dextrose Gel 15 GM/37.5 ML TUBE PO ONE (19:58)
[2017-04-06] MEDS ORDERED: *HR* Dextrose 50 % in Water (Syg) 50 ML SYRINGE IVP ONE ×2 (20:11→21:14)
[2017-04-06 20:15] LABS: Basophils % 0.1 %; Eosinophils % 0.1 %; Immature Granulocytes % 0.4 % (0-4); Lymphocytes # 0.4 K/mcL (0.6-4.6); Lymphocytes % 3.9 %; Mean Corpuscular HGB Conc 30.9 g/dL (31.6-35.5); Mean Corpuscular Hemoglobin 29.6 pg (28.0-33.3); Mean Corpuscular Volume 95.7 fL (83.0-100.0); Mean Platelet Volume 9.6 fL (9.4-12.4); Monocytes # 0.8 K/mcL (0.0-1.3); Monocytes % 8.1 %; Neutrophils # 8.7 K/mcL (1.6-8.9); Platelet Count 331 K/mcL (140-400); Segmented Neutrophils % 87.4 %
[2017-04-06 20:40] LABS: INR 3.4; Prothrombin Time 37.3 Seconds (9.4-12.1)
[2017-04-06 20:43] LABS: Activated Partial Thrombo Time 37.3 Seconds (26.0-36.0)
[2017-04-06 20:45] LABS: Albumin 3.5 g/dL (3.5-5.7); Albumin/Globulin Ratio 1.2 (1.1-2.2); Bilirubin,Direct 0.1 mg/dL (0.0-0.2); Bilirubin,Indirect 0.2 mg/dL (0.0-1.2); Bilirubin,Total 0.3 mg/dL (0.3-1.0); Calcium 9.3 mg/dL (8.6-10.3); Hemoglobin 6.8 g/dL (11.5-15.4); Potassium 4.8 mEq/L (3.5-5.1); Total Protein 6.5 g/dL (6.4-8.9)
[2017-04-06 20:53] LABS: Bilirubin,Urine Negative (Negative); Blood,Urine Negative (Negative); Clarity,Urine Cloudy (Clear); Color,Urine Yellow (Yellow); Glucose,Urine (UA) Normal (Normal); Ketones,Urine Negative (Negative); Leukocyte Esterase,Urine Large (Negative); Nitrite,Urine Negative (Negative); Protein,Urine Negative (Neg-Trace); Urobilinogen,Urine Normal (Normal)
[2017-04-06 20:57] LABS: Amphetamine Screen,Urine Negative ng/mL (Cutoff=1000); Barbiturate Screen,Urine Negative ng/mL (Cutoff=200); Benzodiazepines Screen,Urine Negative ng/mL (Cutoff=200); Cannabinoid Screen,Urine Negative ng/mL (Cutoff = 50); Cocaine Screen,Urine Negative ng/mL (Cutoff= 300); Hyaline Casts,Urine None Seen per lpf (None-Few); Opiate Screen,Urine Positive ng/mL (Cutoff=300); Phencyclidine Screen,Urine Negative ng/mL (Cutoff=25); RBC,Urine 0-3 per hpf (0-3); Squamous Epithelial Cell,Urine None Seen per lpf (None-Few); WBC,Urine TNTC per hpf (0-3)
[2017-04-06 21:02] LABS: Thyroid Stimulating Hormone 0.855 mcIU/mL (0.340-5.600)
[2017-04-06 21:13] LABS: Bacteria,Urine Many per hpf (None-Few)
[2017-04-06] MEDS ORDERED: D5% in 0.45% NACL 1,000 ML IVC SCH ×2 (21:15→21:48)
[2017-04-06] MEDS ORDERED: D5% in 0.45% NACL 1,000 ML IVC ONE (21:18)
[2017-04-06] MEDS ORDERED: Vancomycin 1,000 MG in D5% in Water 250 ML IVPB ONE (21:24)
[2017-04-06] MEDS ORDERED: D5% in Water 1,000 ML IVC PRN (22:22)
[2017-04-06] MEDS ORDERED: Dextrose Gel 15 GM/37.5 ML TUBE PO PRN ×2 (22:22)
[2017-04-06] MEDS ORDERED: Naloxone 0.4 MG/ML INJ IVP PRN (22:25)
[2017-04-06] MEDS ORDERED: Insulin LISPRO 300 UNITS/3 ML VIAL SQ SCH (22:45)
[2017-04-06] MEDS ORDERED: *HR* LORazepam 0.5 MG TABLET PO PRN (23:34)
--- NOTE | 2017-04-06 23:54 | Internal Med History&Physical ---
<Humberto Oneal - Last Filed: 04/07/17 00:55> Date of Encounter: 04/07/17 Time of Encounter: 10:00 Assessment and Plan (1) Altered mental status Current visit: Yes Status: Acute AMS likely secondary to UTI + hypoglycemia. 04/04 urine culture from prior ED visit sensitive to Vancomycin, resistant to Levaquin. Continue Vancomycin Hypoglycemia corrected with d5 1/2 NS, snacks. Qualifiers: Altered mental status type: unspecified Qualified Code(s): R41.82 - Altered mental status, unspecified (2) UTI (urinary tract infection) Current visit: No Status: Acute Continue Vancomycin. Qualifiers: Urinary tract infection type: site unspecified Hematuria presence: without hematuria Qualified Code(s): N39.0 - Urinary tract infection, site not specified (3) Acute kidney injury superimposed on chronic kidney disease Current visit: No Status: Acute Continue 100mL/hr d5 1/2 NS. Baseline Creat 1.5; currently 2.39; baseline GFR 40. currently 20. (4) Hypoglycemia Current visit: Yes Status: Acute on ADA diet (hx DM2); continue d5 1/2 NS. (5) A-fib Current visit: No Status: Acute Anticoagulated on Xarelto. Qualifiers: Atrial fibrillation type: unspecified Qualified Code(s): I48.91 - Unspecified atrial fibrillation (6) DVT prophylaxis Current visit: No Status: Acute On Xarelto. Internal Medicine - H&P: HPI Admitted From: Emergency Dept Plans for Post Hospital Care: Transfer Jail Facility History of present illness: Ms. Masterson is a 77 year old female with PMH afib on xarelto, DM2, HLD, HTN, KS, CKD with baseline GFR of 40, presents via EMS to ED for AMS with hallucinations starting 2 days ago. Pt recently sent home on levaquin 04/04 in ED for UTI, urine culture came back positive for MRSA with multiple drug resistance. Pt has had hallucinations before over the summer, with reported UTI during that time. ED course: accucheck resulted BS of 24, given D5 1/2 NS 1L, sweets; started on vanc, further fluid boluses. EKG shows no ST changes suggesting ischemia, UA positive for opiates, pt does not have Rx for opioid medication. Currently patient is alert x 3, conversant, non-agitated, however, reporting seeing cats in her bed. Denies shortness of breath, chest pain, no bleed/ bruising, no fever. Past Med Surg Social Fam HX - Past Medical History Medical history: atrial fibrillation, diabetes, hyperlipidemia, hypertension, myocardial infarction, renal disease, other Psychiatric history: depression - Past Surgical History Surgical History: other - Social History Smoking Status: Former smoker Smokeless Tobacco Status: No Alcohol use: none Drug use: none - Family History Mother Living Status: Hx Family Cardiac Disorders: Yes (CAD, Pacemaker) Hx Family Endocrine Disorder: Yes (DM) Father Living Status: Hx Family Cancer: Yes (Lung Cancer) Internal Medicine - H&P: Meds Aspirin 81 mg PO DAILY 12/06/14 [History] HydrALAZINE 10 mg PO BID 12/06/14 [History] Lisinopril [Zestril] 10 mg PO DAILY 12/06/14 [History] Nitroglycerin 0.4 mg SL Q5MIN PRN 12/06/14 [History] Oxybutynin [Ditropan] 5 mg PO BID 12/06/14 [History] Simvastatin [Zocor] 40 mg PO HS 12/06/14 [History] Acetaminophen [Tylenol] 500 mg PO Q6HR PRN 05/03/16 [History] Epoetin Gonzalo [Procrit] 10,000 unit SQ Q2W 05/03/16 [History] Furosemide [Lasix] 20 mg PO DAILY 05/03/16 [History] Metoprolol Succinate 100 mg PO DAILY 05/03/16 [History] Potassium Chloride [K-Tab ER] 10 meq PO DAILY 05/03/16 [History] Rivaroxaban [Xarelto] 15 mg PO DAILY 05/03/16 [History] Venlafaxine XR (24 HR) [Effexor XR] 75 mg PO DAILY 05/23/16 [History] Cyanocobalamin (B-12) [Vitamin B12] 1,000 mcg IM QWEEK 09/13/16 [History] Ergocalciferol (VITAMIN D2) [Vitamin D2] 50,000 unit PO QWEEK 09/13/16 [History] Triamcinolone Acet 0.1% CRM [Kenalog] 1 appl TP BID PRN 09/13/16 [History] Albuterol Sulfate [Proair Hfa] 2 puff IH Q4H PRN 10/26/16 [History] Calcium Carbonate/Vitamin D3 [Calcium 600 + Vit D Tablet] 1 tab PO DAILY [History] Gabapentin [Neurontin] 100 mg PO TID 11/15/16 [History] Doxycycline 100 mg PO 799,1999 #17 11/20/16 [Rx] Ferrous Sulfate 325 mg PO BIDWM #14 tab 11/20/16 [Rx] LORazepam [Ativan] 0.5 mg PO BID PRN #14 tab 11/20/16 [Rx] Tramadol HCl [Ultram] 50 mg PO BID PRN #14 tab 11/20/16 [Rx] Levofloxacin [Levaquin] 750 mg PO DAILY #7 tablet 04/04/17 [Rx] 3 Allergy/AdvReac Type Severity Reaction Status Date / Time Donepezil [From Aricept] AdvReac Hallucinati Verified 04/06/17 19:36 ng memantine [From Namenda] AdvReac Hallucinati Verified 04/06/17 19:36 ng All Systems PM: A 10-system review of systems was performed and is negative for pertinent findings except as documented above in the HPI. - Constitutional Vitals: Temp Pulse Resp BP Pulse Ox 98.4 F 100 22 147/56 100 04/06/17 22:58 04/06/17 22:58 04/06/17 22:58 04/06/17 22:58 04/06/17 22:58 General appearance: Present: A&O X 3 Exam: actively hallucinating, mild; non-agitated, non-anxious, answers most questions appropriately. Desires Full Code. - Head Head exam: Present: atraumatic, normal inspection, normocephalic - Eye Eye exam: Present: EOMI. Absent: nystagmus - Neck Neck exam general surgery: Present: full ROM. Absent: nuchal rigidity - Respiratory Respiratory exam: Present: CTAB. Absent: tachypnea - Cardiovascular Cardiovascular exam: Present: +S1, +S2, tachycardia. Absent: diastolic murmur, systolic murmur - Neurological Exam Neurological exam: Present: no focal deficits - Psychiatric Psychiatric exam: Present: normal affect. Absent: agitated Additional comments: visual hallucination at time of encounter - Skin Skin exam: Absent: cyanosis Internal Med - H&P Results - Labs CBC & Chem 7: 04/06/17 20:00 04/06/17 20:00 <Katheryn Hicks - Last Filed: 04/07/17 01:51> Date of Encounter: 04/07/17 Internal Medicine - H&P: HPI History of present illness: Ms. Masterson is a 77 year old female All Systems PM: A 10-system review of systems was performed and is negative for pertinent findings except as documented above in the HPI. - Constitutional Vitals: Temp Pulse Resp BP Pulse Ox 98.7 F 110 20 141/49 100 04/07/17 00:37 04/07/17 00:37 04/07/17 00:37 04/07/17 00:37 04/07/17 00:37 Internal Med - H&P Results - Labs CBC & Chem 7: 04/06/17 20:00 04/06/17 20:00 - Attending Attestation I have seen and examined the patient independently. I have discussed with Resident physician Dr Oneal regarding the management plan. Agree with documentation. Pt was admitted as AMS, she was found hypoglycemia in ER with Glu 24. Her mental status improved after giving glucose in ER. When I saw pt, she is awake alert, oriented x 3. Urine culture shows MRSA sensitive to vanco. Will cont D5+1 /2 NS for hypoglycemia, closely monitoring mental status and Glu level. Only place low dose AC insulin sliding scale for DM. Cont vanco for MRSA UTI. Pt has low H?H, which is chronic, will give 1 unit of PRBC.
[2017-04-07] MEDS ORDERED: 0.9 % Sodium Chloride 250 ML ONE ×2 (00:10→04:56)
[2017-04-07] MEDS ORDERED: Vancomycin 750 MG in D5% in Water 250 ML IVPB SCH ×2 (01:00→11:00)
[2017-04-07] MEDS: *HR* Dextrose 50 % in Water (Syg) 50 ML SYRINGE IVP PRN ×6 (01:55→05:41)
[2017-04-07] MEDS: *HR* Rivaroxaban 15 MG TABLET PO SCH ×2 (02:26→10:08)
[2017-04-07] MEDS: Metoprolol 100 MG TABLET PO SCH ×2 (02:27→10:08)
[2017-04-07] MEDS: Gabapentin 100 MG CAPSULE PO SCH ×4 (02:27→20:01)
[2017-04-07] MEDS: Aspirin 81 MG TAB.CHEW PO SCH ×2 (02:27→10:07)
[2017-04-07 05:23] LABS: Calcium 8.8 mg/dL (8.6-10.3); Potassium 4.7 mEq/L (3.5-5.1)
[2017-04-07 05:27] LABS: Basophils % 0.1 %; Eosinophils % 0.3 %; Hematocrit 23.9 % (35.3-44.9); Hemoglobin 7.7 g/dL (11.5-15.4); Immature Granulocytes % 0.3 % (0-4); Lymphocytes # 0.5 K/mcL (0.6-4.6); Lymphocytes % 6.5 %; Mean Corpuscular HGB Conc 32.2 g/dL (31.6-35.5); Mean Corpuscular Hemoglobin 29.8 pg (28.0-33.3); Mean Corpuscular Volume 92.6 fL (83.0-100.0); Mean Platelet Volume 9.5 fL (9.4-12.4); Monocytes # 0.9 K/mcL (0.0-1.3); Monocytes % 11.9 %; Platelet Count 281 K/mcL (140-400); Red Blood Count 2.58 M/mcL (3.82-4.97); Red Cell Distribution Width 14.3 % (11.5-14.5); Segmented Neutrophils % 80.9 %
[2017-04-07] MEDS: Insulin LISPRO 300 UNITS/3 ML VIAL SQ SCH ×3 (10:07→16:43)
--- NOTE | 2017-04-07 14:33 | Internal Med Progress Note ---
Date of Encounter: 04/07/17 Time of Encounter: 14:29 - Assessment and plan (1) SAUL (acute kidney injury) Current Visit: Yes Status: Acute Assessment and plan: Due to sepsis and dehydration. Hydrate. Following urine output. (2) Hypoglycemia Current Visit: Yes Status: Acute Assessment and plan: Due to sepsis and oral hypoglycemic's. Patient currently on D5 drip. Sugar stable. (3) UTI (urinary tract infection) Current Visit: Yes Status: Acute Assessment and plan: Culture growing MRSA. Patient is currently on vancomycin. Qualifiers: Qualified Code(s): N39.0 - Urinary tract infection, site not specified; R31.9 - Hematuria, unspecified; R31.9 - Hematuria, unspecified (4) Metabolic encephalopathy Current Visit: Yes Status: Acute Assessment and plan: Due to UTI and hypoglycemia. Improving. No focal neurological deficit (5) Paroxysmal A-fib Current Visit: Yes Status: Acute Assessment and plan: On anti-coagulation with xarelto. CT scan of the donis was no intracranial bleed. - Subjective Interval history: Agency examined at that site. Patient is more alert. Patient presented yesterday with altered mental status, hallucinations due to hypoglycemia in the setting of MRSA UTI. Patient started on D5 drip and sugars are stable now. Patient sitting in bed eating and talking. Still has intermittent hallucinations - Constitutional Vitals: Temp Pulse Resp BP Pulse Ox 99.0 F 68 22 146/60 98 04/07/17 11:21 04/07/17 11:27 04/07/17 11:21 04/07/17 11:21 04/07/17 11:21 General appearance: Present: A&O X 3 Exam: Gen.: patient is alert confused with occasional hallucinations not in distress. Cardiac: normal S1 S2 no additional sounds or murmurs. Chest: diminished air entry. Expiratory wheezing. Abdomen: soft nontender nondistended normal bowel sounds lower extremity: lax calf muscles no swelling neuro: no focal deficit Internal Medicine: Result - Labs CBC & Chem 7: 04/07/17 04:49 04/07/17 04:49 Labs: Short CBC 04/07/17 Range/Units 04:49 WBC 7.4 (4.3-11.1) K/mcL Hgb 7.7 L (11.5-15.4) g/dL Hct 23.9 L (35.3-44.9) % Plt Count 281 (140-400) K/mcL Neutrophils # 6.0 (1.6-8.9) K/mcL BMP 04/07/17 04:49 Sodium 139 Potassium 4.7 Chloride 108 H Carbon Dioxide 24 BUN 55 H Creatinine 1.94 H Glucose 64 L Calcium 8.8 - ABG Interpretation ABG results: PT/INR, D-dimer PT 37.3 Seconds (9.4-12.1) H 04/06/17 20:00 Consult Discharge Plan - Plan Referrals: Arabella Santos, GEOLOGICAL SAMPLE TESTER [Primary Care Provider] -
[2017-04-08] MEDS ORDERED: Vancomycin 1,000 MG in D5% in Water 250 ML IVPB ONE (00:01)
[2017-04-08 03:31] LABS: Basophils % 0.3 %; Eosinophils # 0.1 K/mcL (0.0-0.6); Eosinophils % 0.7 %; Hematocrit 29.4 % (35.3-44.9); Immature Granulocytes % 0.4 % (0-4); Lymphocytes # 0.9 K/mcL (0.6-4.6); Lymphocytes % 11.8 %; Mean Corpuscular HGB Conc 31.6 g/dL (31.6-35.5); Mean Corpuscular Hemoglobin 28.7 pg (28.0-33.3); Mean Corpuscular Volume 90.7 fL (83.0-100.0); Mean Platelet Volume 9.6 fL (9.4-12.4); Monocytes # 0.9 K/mcL (0.0-1.3); Monocytes % 11.2 %; Neutrophils # 5.7 K/mcL (1.6-8.9); Platelet Count 312 K/mcL (140-400); Red Blood Count 3.24 M/mcL (3.82-4.97); Red Cell Distribution Width 16.3 % (11.5-14.5); Segmented Neutrophils % 75.6 %
[2017-04-08 03:33] LABS: Hemoglobin 9.3 g/dL (11.5-15.4)
[2017-04-08 03:36] LABS: Hemoglobin A1C 5.1 %
[2017-04-08 03:55] LABS: Magnesium 1.7 mg/dL (1.6-2.6); Potassium 4.6 mEq/L (3.5-5.1)
[2017-04-08] MEDS: Aspirin 81 MG TAB.CHEW PO SCH (08:04)
[2017-04-08] MEDS: Gabapentin 100 MG CAPSULE PO SCH ×3 (08:04→21:33)
[2017-04-08] MEDS: *HR* Rivaroxaban 15 MG TABLET PO SCH (08:05)
[2017-04-08] MEDS: Insulin LISPRO 300 UNITS/3 ML VIAL SQ SCH ×4 (08:05→22:32)
[2017-04-08] MEDS: Metoprolol 100 MG TABLET PO SCH (08:05)
--- NOTE | 2017-04-08 10:19 | Internal Med Progress Note ---
Date of Encounter: 04/08/17 Time of Encounter: 10:17 - Assessment and plan (1) SAUL (acute kidney injury) Current Visit: Yes Status: Acute Assessment and plan: Due to sepsis and dehydration. Hydrate. Following urine output. (2) Hypoglycemia Current Visit: Yes Status: Acute Assessment and plan: Due to sepsis and oral hypoglycemic's. Sugar stable. D5 drip discontinued. Patient eating all of her meals (3) UTI (urinary tract infection) Current Visit: Yes Status: Acute Assessment and plan: Culture growing MRSA. Patient is currently on vancomycin. Qualifiers: Qualified Code(s): N39.0 - Urinary tract infection, site not specified; R31.9 - Hematuria, unspecified; R31.9 - Hematuria, unspecified (4) Metabolic encephalopathy Current Visit: Yes Status: Acute Assessment and plan: Due to UTI and hypoglycemia. Resolved (5) Paroxysmal A-fib Current Visit: Yes Status: Acute Assessment and plan: On anti-coagulation with xarelto. CT scan of the donis was no intracranial bleed. - Subjective Interval history: Patient is alert oriented times 3 today. Sugars stable. Tmax 99.4 - Constitutional Vitals: Temp Pulse Resp BP Pulse Ox 98.5 F 99 18 159/59 99 04/08/17 08:03 04/08/17 08:03 04/08/17 08:03 04/08/17 08:03 04/08/17 08:03 General appearance: Present: A&O X 3 Exam: Gen.: patient is alert oriented times 3 not in distress. Cardiac: normal S1 S2 no additional sounds chest: clear auscultation abdomen: soft nontender nondistended normal bowel sounds Neuro: no focal deficits LE: no swelling, Internal Medicine: Result - Labs CBC & Chem 7: 04/08/17 02:47 04/08/17 02:47 Labs: Short CBC 04/08/17 Range/Units 02:47 WBC 7.6 (4.3-11.1) K/mcL Hgb 9.3 L D (11.5-15.4) g/dL Hct 29.4 L (35.3-44.9) % Plt Count 312 (140-400) K/mcL Neutrophils # 5.7 (1.6-8.9) K/mcL BMP 04/08/17 02:47 Sodium 137 Potassium 4.6 Chloride 107 Carbon Dioxide 23 BUN 48 H Creatinine 1.70 H Glucose 203 H Calcium 9.0 - ABG Interpretation ABG results: PT/INR, D-dimer PT 37.3 Seconds (9.4-12.1) H 04/06/17 20:00 Consult Discharge Plan - Plan Referrals: Arabella Santos, RECORDING STUDIO INTERN [Primary Care Provider] -
[2017-04-08] MEDS: 0.9 % Sodium Chloride 1,000 ML IVC SCH (11:32)
[2017-04-08] MEDS: Heparin 25,000 UNIT/500 ML D5W 25,000 UNIT/500 ML BAG IVC SCH (14:58)
[2017-04-09] MEDS: 0.9 % Sodium Chloride 1,000 ML IVC SCH ×2 (01:08→14:59)
[2017-04-09] MEDS ORDERED: *HR* Heparin 5,000 UNIT/ML VIAL IVP PRN (07:02)
[2017-04-09] MEDS: Insulin LISPRO 300 UNITS/3 ML VIAL SQ SCH ×4 (08:29→21:42)
[2017-04-09] MEDS: Gabapentin 100 MG CAPSULE PO SCH ×3 (08:30→21:42)
[2017-04-09] MEDS: Aspirin 81 MG TAB.CHEW PO SCH (08:30)
[2017-04-09] MEDS: Metoprolol XL (24 HR) Succ 50 MG TAB.ER.24H PO SCH (08:30)
[2017-04-09] MEDS: *HR* Heparin 5,000 UNIT/ML VIAL IVP PRN ×2 (08:38→22:42)
--- NOTE | 2017-04-09 08:57 | Internal Med Progress Note ---
<Tristan Fabian - Last Filed: 04/09/17 11:43> Date of Encounter: 04/09/17 Time of Encounter: 07:45 - Assessment and plan (1) Peroneal DVT (deep venous thrombosis) Current Visit: Yes Status: Acute Assessment and plan: Right-sided peroneal DVT found on doppler yesterday afternoon Failure of xarelto therapy. Now on heparin Qualifiers: Laterality: right Qualified Code(s): I82.491 - Acute embolism and thrombosis of other specified deep vein of right lower extremity (2) Acute kidney injury Current Visit: Yes Status: Acute Assessment and plan: Improving BUN 48 < 55 < 65 Cr 1.70 < 1.94 < 2.39 (3) Hypoglycemia Current Visit: Yes Status: Acute Assessment and plan: Glucose 203 this morning. D5 discontinued and and patient eating. Will monitor. (4) UTI (urinary tract infection) Current Visit: Yes Status: Acute Assessment and plan: Urine culture grew MRSA. On vancomycin Day 3. (5) Metabolic encephalopathy Current Visit: Yes Status: Acute Assessment and plan: Secondary to UTI and hypoglycemia. Resolved. (6) Paroxysmal A-fib Current Visit: Yes Status: Chronic Assessment and plan: Continue heparin. Failure of xarelto therapy to prevent DVT. Will likely have to transition to coumadin therapy. - Subjective Interval history: No significant changes overnight. Patient feeling well. "80% better." Denies SOB , CP, palpitations, fever, chills. She denies any hallucinations. - Constitutional Vitals: Temp Pulse Resp BP Pulse Ox 99.6 F 104 16 170/69 97 04/09/17 07:31 04/09/17 07:31 04/09/17 07:31 04/09/17 07:31 04/09/17 07:31 General appearance: Present: cooperative, A&O X 3, pleasant, answers questions appropriately - Head Head exam: Present: atraumatic, normal inspection, normocephalic - ENT ENT exam: Present: mucous membranes moist - Neck Neck exam general surgery: Present: trachea midline - Respiratory Respiratory exam: Present: CTAB. Absent: accessory muscle use, respiratory distress - Cardiovascular Cardiovascular exam: Present: RRR, +S1, +S2 - GI/Abdominal GI/Abdominal exam: Present: soft, no peritoneal signs. Absent: tenderness - Neurological Exam Neurological exam: Present: alert, oriented X3 - Psychiatric Psychiatric exam: Present: normal affect, normal mood - Skin Skin exam: Present: dry, warm Internal Medicine: Result - Labs CBC & Chem 7: 04/08/17 02:47 04/08/17 02:47 - ABG Interpretation ABG results: PT/INR, D-dimer PT 37.3 Seconds (9.4-12.1) H 04/06/17 20:00 Consult Discharge Plan - Plan Referrals: Arabella Santos CNP [Primary Care Provider] - <Thomas Parker - Last Filed: 04/09/17 12:05> Date of Encounter: 04/09/17 - Constitutional Vitals: Temp Pulse Resp BP Pulse Ox 99.6 F 74 16 139/54 99 04/09/17 10:45 04/09/17 10:45 04/09/17 10:45 04/09/17 10:45 04/09/17 10:45 Internal Medicine: Result - Labs CBC & Chem 7: 04/08/17 02:47 04/08/17 02:47 - ABG Interpretation ABG results: PT/INR, D-dimer PT 37.3 Seconds (9.4-12.1) H 04/06/17 20:00 - Attending Attestation I have individually seen and examined this patient on 04/09/17 , and discussed plan of care with patient and resident physician 77 female who is admitted and being managed for sepsis secondary to urinary tract infection MRSA, acute metabolic encephalopathy secondary to hypoglycemia and sepsis, acute on chronic kidney injury, new diagnosis of peritoneal venous thrombosis, failure of xarelto therapy Seen and examined at bedside Sepsis and encephalopathy has resolved, SAUL is improving No new complains Physical examination: VSS. NAD. Chest is CTAB, HS S1, S2 only, no m/g/r, Abdomen is soft and not tender, Extremities with no edema. Alert, oriented X2 only, not oriented to time, moves all extremities equally. Labs and Imaging reviewed. A1C 5.1. Hyperglycemia, chem/cbc from 04/08 shows improvement A/P: Continue current care, D/C Vancomycin , patient has received 3 days of IV. Change to doxycycline by mouth. PTOT evaluation prior to discharge. Continue heparin drip, start warfarin tonight. High-risk due to use of heparin which needs to be monitored closely. Rest of details as in the resident physicians documentation.
[2017-04-09] MEDS ORDERED: Vancomycin 750 MG in D5% in Water 250 ML IVPB ONE (09:00)
[2017-04-09] MEDS: Sennosides/Docusate Sodium TABLET PO SCH ×2 (11:37→21:42)
[2017-04-09 14:20] LABS: Basophils % 0.3 %; Eosinophils % 0.2 %; Hematocrit 27.2 % (35.3-44.9); Hemoglobin 8.6 g/dL (11.5-15.4); Immature Granulocytes % 0.7 % (0-4); Lymphocytes # 1.1 K/mcL (0.6-4.6); Lymphocytes % 9.8 %; Mean Corpuscular HGB Conc 31.6 g/dL (31.6-35.5); Mean Corpuscular Hemoglobin 29.1 pg (28.0-33.3); Mean Corpuscular Volume 91.9 fL (83.0-100.0); Mean Platelet Volume 9.2 fL (9.4-12.4); Monocytes # 1.5 K/mcL (0.0-1.3); Monocytes % 12.9 %; Neutrophils # 8.6 K/mcL (1.6-8.9); Platelet Count 295 K/mcL (140-400); Red Blood Count 2.96 M/mcL (3.82-4.97); Red Cell Distribution Width 15.9 % (11.5-14.5); Segmented Neutrophils % 76.1 %
[2017-04-09 14:32] LABS: BUN/Creatinine Ratio 28 (6-26); Blood Urea Nitrogen 29 mg/dL (8-23); Calcium 8.2 mg/dL (8.6-10.3); Carbon Dioxide 22 mEq/L (23-29); Chloride 108 mEq/L (98-107); Glucose 163 mg/dL (70-105); Osmolality,Calculated 287 (280-300); Potassium 3.7 mEq/L (3.5-5.1); Sodium 134 mEq/L (136-145); eGFR For African Americans > 60 (> 60); eGFR For Non-African Americans 51 (> 60)
[2017-04-09 14:47] LABS: INR 1.7; Prothrombin Time 18.7 Seconds (9.4-12.1)
--- NOTE | 2017-04-09 15:20 | Physician Discharge Referral ---
Home Health/Hosp Referral Info Transfer to: Home Health Attending Provider: Elena Provider in Charge Post Discharge: PCP - Diagnosis (1) Peroneal DVT (deep venous thrombosis) Priority: Secondary Status: Acute (2) Acute kidney injury Priority: Secondary Status: Acute (3) Hypoglycemia Priority: Secondary Status: Acute (4) UTI (urinary tract infection) Priority: Secondary Status: Acute (5) Metabolic encephalopathy Priority: Primary Status: Acute (6) Paroxysmal A-fib Priority: Secondary Status: Chronic - Respiratory Orders Smoking Cessation: Smoking cessation has been advised. For more information, call the [place] Tobacco Quit Line at 0-955-VZEK-NOW. - Diet/Nutrition Diet/Nutrition Orders: Regular (Diabetic) - Activity Activity Orders: Walker - Services Needed Following services are medically necessary services: Nursing, Physical Therapy - Transfer Medications Home Medications: Aspirin 81 mg PO DAILY 12/06/14 [History] HydrALAZINE 10 mg PO BID 12/06/14 [History] Lisinopril [Zestril] 5 mg PO DAILY 12/06/14 [History] Nitroglycerin 0.4 mg SL Q5MIN PRN 12/06/14 [History] Oxybutynin [Ditropan] 5 mg PO BID 12/06/14 [History] Simvastatin [Zocor] 40 mg PO HS 12/06/14 [History] Acetaminophen [Tylenol] 500 mg PO Q6HR PRN 05/03/16 [History] Furosemide [Lasix] 20 mg PO DAILY 05/03/16 [History] Metoprolol Succinate 100 mg PO DAILY 05/03/16 [History] Potassium Chloride [K-Tab ER] 15 meq PO DAILY 05/03/16 [History] Rivaroxaban [Xarelto] 15 mg PO DAILY 05/03/16 [History] Venlafaxine XR (24 HR) [Effexor XR] 75 mg PO DAILY 05/23/16 [History] Cyanocobalamin (B-12) [Vitamin B12] 1,000 mcg IM QWEEK 09/13/16 [History] Ergocalciferol (VITAMIN D2) [Vitamin D2] 50,000 unit PO QWEEK 09/13/16 [History] Triamcinolone Acet 0.1% CRM [Kenalog] 1 appl TP BID PRN 09/13/16 [History] Albuterol Sulfate [Proair Hfa] 2 puff IH Q4H PRN 10/26/16 [History] Calcium Carbonate/Vitamin D3 [Calcium 600 + Vit D Tablet] 1 tab PO DAILY [History] Ferrous Sulfate 325 mg PO BIDWM #14 tab 11/20/16 [Rx] LORazepam [Ativan] 0.5 mg PO BID PRN #14 tab 11/20/16 [Rx] Tramadol HCl [Ultram] 50 mg PO BID PRN #14 tab 11/20/16 [Rx] Levofloxacin [Levaquin] 750 mg PO DAILY #7 tablet 04/04/17 [Rx] glipiZIDE [Glucotrol] 2.5 mg PO DAILY 04/07/17 [History] Allergies/Adverse Reactions: 3 Allergy/AdvReac Type Severity Reaction Status Date / Time Donepezil [From Aricept] AdvReac Hallucinati Verified 04/06/17 19:36 ng memantine [From Namenda] AdvReac Hallucinati Verified 04/06/17 19:36 ng Certification: Further, I certify that my clinical findings support that this patient is homebound (i.e. absences from home require considerable and taxing effort and are for medical reasons or mandaen services or infrequently or short duration when for other reasons) because: Homebound Reason: Patient requires assistance of a person or device to safely leave home, Leaving home requires considerable and taxing effort due to condition Attestation: My signature below is to certify that this patient is under my care and that I, or nurse practitioner, or a physician's family and divorce legal assistant working with me, has a face-to -face encounter with this patient.
--- NOTE | 2017-04-09 16:09 | Electrocardiograph Report ---
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
[2017-04-09] MEDS: Doxycycline 100 MG CAPSULE PO SCH (17:52)
[2017-04-09] MEDS: Heparin 25,000 UNIT/500 ML D5W 25,000 UNIT/500 ML BAG IVC SCH (17:52)
[2017-04-09] MEDS ORDERED: Warfarin perPT PO PRN (18:00)
[2017-04-09] MEDS ORDERED: *HR* Warfarin 5 MG TABLET PO ONE ×2 (18:00)
[2017-04-09] MEDS ORDERED: Insulin LISPRO 300 UNITS/3 ML VIAL SQ SCH (21:00)
[2017-04-10] MEDS: 0.9 % Sodium Chloride 1,000 ML IVC SCH ×2 (03:28→16:18)
[2017-04-10] MEDS: Doxycycline 100 MG CAPSULE PO SCH ×2 (04:53→18:32)
[2017-04-10 08:00] LABS: Basophils % 0.3 %; Calcium 7.5 mg/dL (8.6-10.3); Eosinophils % 0.3 %; Hematocrit 23.1 % (35.3-44.9); Hemoglobin 7.4 g/dL (11.5-15.4); Immature Granulocytes % 0.7 % (0-4); Lymphocytes % 9.9 %; Mean Corpuscular Hemoglobin 29.8 pg (28.0-33.3); Mean Corpuscular Volume 93.1 fL (83.0-100.0); Mean Platelet Volume 9.5 fL (9.4-12.4); Monocytes # 1.2 K/mcL (0.0-1.3); Monocytes % 12.4 %; Neutrophils # 7.5 K/mcL (1.6-8.9); Platelet Count 248 K/mcL (140-400); Potassium 3.4 mEq/L (3.5-5.1); Red Blood Count 2.48 M/mcL (3.82-4.97); Red Cell Distribution Width 15.8 % (11.5-14.5); Segmented Neutrophils % 76.4 %
[2017-04-10 08:21] LABS: INR 1.8; Prothrombin Time 20.1 Seconds (9.4-12.1)
[2017-04-10 08:22] LABS: Activated Partial Thrombo Time 72.4 Seconds (26.0-36.0)
[2017-04-10] MEDS: Sennosides/Docusate Sodium TABLET PO SCH ×2 (08:43→21:06)
[2017-04-10] MEDS: Metoprolol XL (24 HR) Succ 50 MG TAB.ER.24H PO SCH (08:43)
[2017-04-10] MEDS: Aspirin 81 MG TAB.CHEW PO SCH (08:43)
[2017-04-10] MEDS: Insulin LISPRO 300 UNITS/3 ML VIAL SQ SCH ×4 (08:44→21:07)
[2017-04-10] MEDS: Gabapentin 100 MG CAPSULE PO SCH ×3 (08:44→21:06)
--- NOTE | 2017-04-10 10:55 | Internal Med Progress Note ---
<RuiLorraineTristan - Last Filed: 04/10/17 12:32> Date of Encounter: 04/10/17 Time of Encounter: 07:45 - Assessment and plan (1) Peroneal DVT (deep venous thrombosis) Current Visit: Yes Status: Acute Assessment and plan: Right-sided peroneal DVT found on doppler yesterday afternoon Failure of xarelto therapy. Now on heparin Qualifiers: Laterality: right Qualified Code(s): I82.491 - Acute embolism and thrombosis of other specified deep vein of right lower extremity (2) Acute kidney injury Current Visit: Yes Status: Acute Assessment and plan: Improving BUN 48 < 55 < 65 Cr 1.70 < 1.94 < 2.39 (3) Hypoglycemia Current Visit: Yes Status: Acute Assessment and plan: Glucose 203 this morning. D5 discontinued and and patient eating. Will monitor. (4) UTI (urinary tract infection) Current Visit: Yes Status: Acute Assessment and plan: Urine culture grew MRSA. On Doxycycline, switched from vanco, Day 4. Qualifiers: Urinary tract infection type: site unspecified Hematuria presence: without hematuria Qualified Code(s): N39.0 - Urinary tract infection, site not specified (5) Metabolic encephalopathy Current Visit: Yes Status: Acute Assessment and plan: Secondary to UTI and hypoglycemia. Resolved. (6) Paroxysmal A-fib Current Visit: Yes Status: Chronic Assessment and plan: Continue heparin. Failure of xarelto therapy to prevent DVT. Will likely have to transition to coumadin therapy. (7) SIRS (systemic inflammatory response syndrome) Current Visit: Yes Status: Acute Assessment and plan: Patient developed fever overnight and had tachycardia this morning. Possible source as UTI, but it is being treated. CXR was clear. Possible thrombophlebitis in left arm. Will monitor. (8) Anemia Current Visit: Yes Status: Chronic Assessment and plan: Hgb has been steadily dropping 7.4 < 8.6 < 9.3 Last bowel movement had smear of possible melena. Ordered FOBT. Will monitor. Qualifiers: Anemia type: other cause Other causes of anemia: other cause, not classified Qualified Code(s): D64.89 - Other specified anemias (9) Left wrist pain Current Visit: Yes Status: Acute Assessment and plan: Pain, erythema, mild warmth, ROM loss Wrist XR negative This was an IV site, so thrombophlebitis is likely Will monitor - Subjective Interval history: No significant changes overnight. Patient feeling well. She did have a fever this morning. Denies SOB, CP, palpitations, chills. She denies any hallucinations. - Constitutional Vitals: Temp Pulse Resp BP Pulse Ox 98.4 F 86 17 122/57 99 04/10/17 07:30 04/10/17 07:30 04/10/17 07:30 04/10/17 07:30 04/10/17 07:30 General appearance: Present: cooperative, A&O X 3, pleasant, answers questions appropriately - Head Head exam: Present: atraumatic, normal inspection, normocephalic - ENT ENT exam: Present: mucous membranes moist - Neck Neck exam general surgery: Present: trachea midline - Respiratory Respiratory exam: Present: CTAB. Absent: accessory muscle use, respiratory distress - Cardiovascular Cardiovascular exam: Present: RRR, +S1, +S2 - GI/Abdominal GI/Abdominal exam: Present: normal bowel sounds, soft, no peritoneal signs. Absent: tenderness - Extremities Exam Additional comments: Swelling, exquisite pain, and erythema in the left wrist, especially at the metacarpals ROM limited due to pain - Psychiatric Psychiatric exam: Present: normal affect, normal mood - Skin Skin exam: Present: dry, warm Internal Medicine: Result - Labs CBC & Chem 7: 04/10/17 06:33 04/10/17 06:33 Labs: Short CBC 04/09/17 04/10/17 Range/Units 14:09 06:33 WBC 11.2 H 9.8 (4.3-11.1) K/mcL Hgb 8.6 L 7.4 L (11.5-15.4) g/dL Hct 27.2 L 23.1 L (35.3-44.9) % Plt Count 295 248 (140-400) K/mcL Neutrophils # 8.6 7.5 (1.6-8.9) K/mcL BMP 04/09/17 04/10/17 14:09 06:33 Sodium 134 L 138 Potassium 3.7 3.4 L Chloride 108 H 111 H Carbon Dioxide 22 L 22 L BUN 29 H 27 H Creatinine 1.05 1.08 Glucose 163 H 219 H Calcium 8.2 L 7.5 L - ABG Interpretation ABG results: PT/INR, D-dimer PT 20.1 Seconds (9.4-12.1) H 04/10/17 06:33 - Impressions Impressions Chest X-Ray 04/10/17 07:27 IMPRESSION: No acute cardiac or pulmonary disease. D/ / Krishna Jha MD / Krishna Jha MD Interpreting Provider: Krishna Jha MD Consult Discharge Plan - Plan Referrals: Arabella Santos, IN SERVICE EDUCATOR [Primary Care Provider] - (WEB REQUEST SENT ON 04/10/17) <LamontirishThomas T - Last Filed: 04/10/17 12:50> Date of Encounter: 04/10/17 - Constitutional Vitals: Temp Pulse Resp BP Pulse Ox 98.2 F 63 18 128/51 99 04/10/17 11:23 04/10/17 11:23 04/10/17 11:23 04/10/17 11:23 04/10/17 11:23 Internal Medicine: Result - Labs CBC & Chem 7: 04/10/17 06:33 04/10/17 06:33 Labs: Short CBC 04/09/17 04/10/17 Range/Units 14:09 06:33 WBC 11.2 H 9.8 (4.3-11.1) K/mcL Hgb 8.6 L 7.4 L (11.5-15.4) g/dL Hct 27.2 L 23.1 L (35.3-44.9) % Plt Count 295 248 (140-400) K/mcL Neutrophils # 8.6 7.5 (1.6-8.9) K/mcL BMP 04/09/17 04/10/17 14:09 06:33 Sodium 134 L 138 Potassium 3.7 3.4 L Chloride 108 H 111 H Carbon Dioxide 22 L 22 L BUN 29 H 27 H Creatinine 1.05 1.08 Glucose 163 H 219 H Calcium 8.2 L 7.5 L - ABG Interpretation ABG results: PT/INR, D-dimer PT 20.1 Seconds (9.4-12.1) H 04/10/17 06:33 - Impressions Impressions Chest X-Ray 04/10/17 07:27 IMPRESSION: No acute cardiac or pulmonary disease. D/ / Krishna Jha MD / Krishna Jha MD Interpreting Provider: Krishna Jha MD Wrist X-Ray 04/10/17 10:50 IMPRESSION: Previous ORIF of the distal radial and ulnar styloid injuries. No acute osseous findings or evidence of hardware complication. D/ / Drew Roland MD / Drew Roland MD Interpreting Provider: Drew Roland MD - Attending Attestation I have individually seen and examined this patient on 04/10/17 , and discussed plan of care with patient and resident physician 77 female who was admitted and being managed for sepsis secondary to urinary tract infection with MRSA, acute metabolic encephalopathy secondary to hypoglycemia and sepsis, acute on chronic kidney injury, new diagnosis of peritoneal venous thrombosis, failure of xarelto therapy Seen and examined at bedside Sepsis and encephalopathy has resolved, SAUL is improving She developed new high grade fever in the early hours of today, Flu swab negative, CXR negative, she is being treated for UTI. Her L wrist is warm and swollen and tender, previous site of IV access. Wrist Xray shows prior ORIF with intact implant. Physical examination: VSS. NAD. Chest is CTAB, HS S1, S2 only, no m/g/r, Abdomen is soft and not tender, Extremities with no pedal edema, L wrist with swelling , differential warmth and tenderness around a prior IV access site. Alert, oriented X2 only, not oriented to time, moves all extremities equally. Labs and Imaging reviewed. A1C 5.1. Mild drop in Hb. CXR no infiltrates. Flu negative, repeat blood culture is pending, Renal function is now at baseline, mild hypokalemia A/P: Sepsis secondary to MRSA UTI, resolved initially, new fever/SIRS possibly due to phlebitis, monitor closely. Continue heparin drip and warfarin tonight. Obtain FOBT for anemia High-risk due to use of heparin which needs to be monitored closely. Follow blood cultures Rest of details as in the resident physicians documentation.
[2017-04-10] MEDS: Heparin 25,000 UNIT/500 ML D5W 25,000 UNIT/500 ML BAG IVC SCH (16:37)
[2017-04-10] MEDS ORDERED: Vancomycin 750 MG in D5% in Water 250 ML IVPB SCH (17:00)
[2017-04-10] MEDS ORDERED: *HR* Warfarin 3 MG TABLET PO ONE (18:00)
[2017-04-10] MEDS: Vancomycin 750 MG in D5% in Water 250 ML IVPB SCH (18:33)
[2017-04-11 05:41] LABS: Basophils % 0.4 %; Eosinophils # 0.2 K/mcL (0.0-0.6); Eosinophils % 2.1 %; Hemoglobin 7.3 g/dL (11.5-15.4); Immature Granulocytes % 0.9 % (0-4); Lymphocytes # 1.2 K/mcL (0.6-4.6); Lymphocytes % 14.5 %; Mean Corpuscular HGB Conc 31.7 g/dL (31.6-35.5); Mean Corpuscular Hemoglobin 29.1 pg (28.0-33.3); Mean Corpuscular Volume 91.6 fL (83.0-100.0); Mean Platelet Volume 9.4 fL (9.4-12.4); Monocytes # 0.9 K/mcL (0.0-1.3); Monocytes % 11.1 %; Platelet Count 250 K/mcL (140-400); Red Blood Count 2.51 M/mcL (3.82-4.97); Red Cell Distribution Width 15.7 % (11.5-14.5)
[2017-04-11] MEDS: Doxycycline 100 MG CAPSULE PO SCH (05:42)
[2017-04-11 05:48] LABS: Prothrombin Time 21.8 Seconds (9.4-12.1)
[2017-04-11 05:55] LABS: Calcium 7.6 mg/dL (8.6-10.3); Potassium 3.4 mEq/L (3.5-5.1)
[2017-04-11] MEDS: Insulin LISPRO 300 UNITS/3 ML VIAL SQ SCH ×4 (07:35→20:59)
[2017-04-11] MEDS: Metoprolol XL (24 HR) Succ 50 MG TAB.ER.24H PO SCH (09:53)
[2017-04-11] MEDS: Sennosides/Docusate Sodium TABLET PO SCH ×2 (09:54→20:58)
[2017-04-11] MEDS: Aspirin 81 MG TAB.CHEW PO SCH (09:54)
[2017-04-11] MEDS: Gabapentin 100 MG CAPSULE PO SCH ×3 (09:54→20:58)
--- NOTE | 2017-04-11 11:16 | Internal Med Progress Note ---
<Tristan Fabian - Last Filed: 04/11/17 11:14> Date of Encounter: 04/11/17 Time of Encounter: 07:15 - Assessment and plan (1) Peroneal DVT (deep venous thrombosis) Current Visit: Yes Status: Acute Assessment and plan: Right-sided peroneal DVT found on doppler yesterday afternoon Failure of xarelto therapy. Now therapeutic on coumadin. Qualifiers: Laterality: right Qualified Code(s): I82.491 - Acute embolism and thrombosis of other specified deep vein of right lower extremity (2) SIRS (systemic inflammatory response syndrome) Current Visit: Yes Status: Acute Assessment and plan: Fever this morning. No longer has tachycardia. Normal WBC count. Possible source as UTI, but it is being treated. CXR was clear. Possible cellulitis in left arm Doxy escalated back to vanco for 5th day of therapy. Will monitor. (3) Left wrist pain Current Visit: Yes Status: Acute Assessment and plan: Pain, erythema, mild warmth, ROM loss. Additional pain in the elbow with limited range of motion. Ordered elbow XR. Wrist XR negative. With increased erythema, cellulitis more likely than phlebitis. Patient's abx therapy reescalated from doxy back to vanco (now day 5 of therapy ) due to fever (4) Acute kidney injury Current Visit: Yes Status: Acute Assessment and plan: Resolved. BUN 28 < 48 < 55 < 65 Cr 1.08 < 1.70 < 1.94 < 2.39 Will monitor. (5) Hypoglycemia Current Visit: Yes Status: Acute Assessment and plan: Resolved. Glucose 151 this morning. (6) UTI (urinary tract infection) Current Visit: Yes Status: Acute Assessment and plan: Urine culture grew MRSA. On Vancomycin Day 5. No urinary complaints currently. Qualifiers: Urinary tract infection type: site unspecified Hematuria presence: without hematuria Qualified Code(s): N39.0 - Urinary tract infection, site not specified (7) Metabolic encephalopathy Current Visit: Yes Status: Resolved Assessment and plan: Resolved. (8) Paroxysmal A-fib Current Visit: Yes Status: Chronic Assessment and plan: INR 2.0 this morning. Heparin discontinued. Continue Coumadin. (9) Anemia Current Visit: Yes Status: Chronic Assessment and plan: Hgb stabilized 7.3 < 7.4 < 8.6 < 9.3 FOBT negative. Will monitor. Transfuse for Hgb < 7 Qualifiers: Anemia type: other cause Other causes of anemia: other cause, not classified Qualified Code(s): D64.89 - Other specified anemias - Subjective Interval history: Patient's wrist continues to be swollen and painful, now erythematous. Fever this morning. Patient has no complaints aside from the pain in her wrist. Denies SOB, CP, palpitations, chills. She denies any hallucinations. - Constitutional Vitals: Temp Pulse Resp BP Pulse Ox 97.7 F 64 16 142/60 98 04/11/17 10:38 04/11/17 10:38 04/11/17 10:38 04/11/17 10:38 04/11/17 10:38 General appearance: Present: cooperative, A&O X 3, pleasant, answers questions appropriately - Head Head exam: Present: atraumatic, normal inspection, normocephalic - ENT ENT exam: Present: mucous membranes moist - Neck Neck exam general surgery: Present: trachea midline - Respiratory Respiratory exam: Present: CTAB. Absent: accessory muscle use, respiratory distress - Cardiovascular Cardiovascular exam: Present: RRR, +S1, +S2 - GI/Abdominal GI/Abdominal exam: Present: soft, no peritoneal signs. Absent: tenderness - Extremities Exam Extremities exam: Absent: pedal edema - Neurological Exam Neurological exam: Present: alert, oriented X3 - Psychiatric Psychiatric exam: Present: normal affect, normal mood - Skin Skin exam: Present: dry, warm Internal Medicine: Result - Labs CBC & Chem 7: 04/11/17 05:10 04/11/17 05:10 Labs: Short CBC 04/11/17 Range/Units 05:10 WBC 8.5 (4.3-11.1) K/mcL Hgb 7.3 L (11.5-15.4) g/dL Hct 23.0 L (35.3-44.9) % Plt Count 250 (140-400) K/mcL Neutrophils # 6.0 (1.6-8.9) K/mcL BMP 04/11/17 05:10 Sodium 139 Potassium 3.4 L Chloride 113 H Carbon Dioxide 21 L BUN 28 H Creatinine 1.08 Glucose 151 H Calcium 7.6 L - ABG Interpretation ABG results: PT/INR, D-dimer PT 21.8 Seconds (9.4-12.1) H 04/11/17 05:10 - Impressions Impressions Wrist X-Ray 04/10/17 10:50 IMPRESSION: Previous ORIF of the distal radial and ulnar styloid injuries. No acute osseous findings or evidence of hardware complication. D/ / Drew Roland MD / Drew Roland MD Interpreting Provider: Drew Roland MD Consult Discharge Plan - Plan Referrals: Arabella Santos DOCTOR OF NURSE ANESTHESIA PRACTICE [Primary Care Provider] - 04/18/17 2:30 pm () <Thomas Parker T - Last Filed: 04/11/17 12:36> Date of Encounter: 04/11/17 - Assessment and plan (1) Cellulitis Current Visit: Yes Status: Acute Qualifiers: Site of cellulitis: extremity Site of cellulitis of extremity: upper extremity Laterality: left Qualified Code(s): L03.114 - Cellulitis of left upper limb - Constitutional Vitals: Temp Pulse Resp BP Pulse Ox 97.7 F 64 16 142/60 98 04/11/17 10:38 04/11/17 10:38 04/11/17 10:38 04/11/17 10:38 04/11/17 10:38 Internal Medicine: Result - Labs CBC & Chem 7: 04/11/17 05:10 04/11/17 05:10 Labs: Short CBC 04/11/17 Range/Units 05:10 WBC 8.5 (4.3-11.1) K/mcL Hgb 7.3 L (11.5-15.4) g/dL Hct 23.0 L (35.3-44.9) % Plt Count 250 (140-400) K/mcL Neutrophils # 6.0 (1.6-8.9) K/mcL BMP 04/11/17 05:10 Sodium 139 Potassium 3.4 L Chloride 113 H Carbon Dioxide 21 L BUN 28 H Creatinine 1.08 Glucose 151 H Calcium 7.6 L - ABG Interpretation ABG results: PT/INR, D-dimer PT 21.8 Seconds (9.4-12.1) H 04/11/17 05:10 - Attending Attestation I have individually seen and examined this patient on 04/11/17 , and discussed plan of care with patient and resident physician 77 female who was admitted and being managed for sepsis secondary to urinary tract infection with MRSA, acute metabolic encephalopathy secondary to hypoglycemia and sepsis, acute on chronic kidney injury, new diagnosis of peroneal venous thrombosis, failure of xarelto therapy Seen and examined at bedside Sepsis and encephalopathy had resolved, SAUL is improving on 04/10, she developed new high grade fever in the early hours of today, Flu swab negative, CXR negative, she is being treated for UTI. Her L wrist is warm and swollen and tender, previous site of IV access. Wrist Xray shows prior ORIF with intact implant. On the same day, her left wrist became erythematous and more painful. We discontinued doxycycline and reinitiated vancomycin for cellulitis. This morning, she complained of being unable to move her left elbow. She has not has been in bed since admission and early getting out of bed. We are awaiting physical therapy and occupational therapy review. In the meantime, patient should be made out of bed to chair with assistance. Physical examination: VSS. NAD. Chest is CTAB, HS S1, S2 only, no m/g/r, Abdomen is soft and not tender, Extremities with no pedal edema, L wrist with erythema, swelling , differential warmth and tenderness around a prior IV access site. Alert, oriented X2 only, not oriented to time, moves all extremities equally. Left elbow with decreased range of movement. No obvious swelling, no warmth, and no redness. Labs and Imaging reviewed. A1C 5.1. Mild drop in Hb. CXR no infiltrates. Flu negative, repeat blood culture done 04/10is pending, Renal function is now at baseline, fecal occult is negative. INR is not therapeutic at 2.0 A/P: Sepsis secondary to MRSA UTI, resolved initially, new sepsis possibly due to left arm cellulitis without abscess,to vancomycin, total of 5 days of antibiotics as of today. INR is therapeutic, Continue heparin drip and warfarin, discontinue heparin after 2 therapeutic values. High-risk due to diagnoses of sepsis, use of vancomycin, and use of heparin which needs to be monitored closely. Follow blood cultures Rest of details as in the resident physicians documentation.
[2017-04-11] MEDS ORDERED: *HR* Warfarin 3 MG TABLET PO ONE (18:00)
[2017-04-11] MEDS: Vancomycin 750 MG in D5% in Water 250 ML IVPB SCH (18:36)
[2017-04-12 05:04] LABS: Hematocrit 23.3 % (35.3-44.9); Hemoglobin 7.4 g/dL (11.5-15.4); Mean Corpuscular HGB Conc 31.8 g/dL (31.6-35.5); Mean Corpuscular Hemoglobin 29.2 pg (28.0-33.3); Mean Corpuscular Volume 92.1 fL (83.0-100.0); Mean Platelet Volume 9.7 fL (9.4-12.4); Platelet Count 241 K/mcL (140-400); Red Blood Count 2.53 M/mcL (3.82-4.97); Red Cell Distribution Width 15.5 % (11.5-14.5)
[2017-04-12 05:12] LABS: Prothrombin Time 32.6 Seconds (9.4-12.1)
[2017-04-12 05:17] LABS: Calcium 7.9 mg/dL (8.6-10.3); Potassium 3.6 mEq/L (3.5-5.1)
[2017-04-12] MEDS: Sennosides/Docusate Sodium TABLET PO SCH ×2 (07:32→21:04)
[2017-04-12] MEDS: Insulin LISPRO 300 UNITS/3 ML VIAL SQ SCH ×4 (09:27→21:04)
[2017-04-12] MEDS: Metoprolol XL (24 HR) Succ 50 MG TAB.ER.24H PO SCH (09:33)
[2017-04-12] MEDS: Aspirin 81 MG TAB.CHEW PO SCH (09:33)
[2017-04-12] MEDS: Gabapentin 100 MG CAPSULE PO SCH ×3 (09:34→21:03)
--- NOTE | 2017-04-12 11:58 | Physician Discharge Referral ---
<Eladio Heard - Last Filed: 04/12/17 11:55> [facility] Referral Info Transfer To: [facility] Provider in Charge: Edgar Provider in Charge after Transfer: PCP Institutional Level of Care: Skilled - Diagnosis (1) Cellulitis Status: Acute (2) UTI (urinary tract infection) Priority: Secondary Status: Acute (3) Peroneal DVT (deep venous thrombosis) Priority: Primary Status: Acute (4) Acute kidney injury Priority: Secondary Status: Acute (5) Anemia Priority: Secondary Status: Chronic (6) Hypoglycemia Priority: Secondary Status: Acute (7) Left wrist pain Priority: Secondary Status: Acute (8) Metabolic encephalopathy Priority: Secondary Status: Resolved (9) Paroxysmal A-fib Priority: Secondary Status: Chronic (10) SIRS (systemic inflammatory response syndrome) Priority: Secondary Status: Acute - Transfer Medications Prescriptions: Vancomycin [Vancocin] 750 mg IV DAILY #4 vial Home Medications: Aspirin 81 mg PO DAILY 12/06/14 [History] HydrALAZINE 10 mg PO BID 12/06/14 [History] Lisinopril [Zestril] 5 mg PO DAILY 12/06/14 [History] Nitroglycerin 0.4 mg SL Q5MIN PRN 12/06/14 [History] Oxybutynin [Ditropan] 5 mg PO BID 12/06/14 [History] Simvastatin [Zocor] 40 mg PO HS 12/06/14 [History] Acetaminophen [Tylenol] 500 mg PO Q6HR PRN 05/03/16 [History] Furosemide [Lasix] 20 mg PO DAILY 05/03/16 [History] Metoprolol Succinate 100 mg PO DAILY 05/03/16 [History] Potassium Chloride [K-Tab ER] 15 meq PO DAILY 05/03/16 [History] Venlafaxine XR (24 HR) [Effexor XR] 75 mg PO DAILY 05/23/16 [History] Cyanocobalamin (B-12) [Vitamin B12] 1,000 mcg IM QWEEK 09/13/16 [History] Ergocalciferol (VITAMIN D2) [Vitamin D2] 50,000 unit PO QWEEK 09/13/16 [History] Triamcinolone Acet 0.1% CRM [Kenalog] 1 appl TP BID PRN 09/13/16 [History] Albuterol Sulfate [Proair Hfa] 2 puff IH Q4H PRN 10/26/16 [History] Calcium Carbonate/Vitamin D3 [Calcium 600 + Vit D Tablet] 1 tab PO DAILY [History] Ferrous Sulfate 325 mg PO BIDWM #14 tab 11/20/16 [Rx] LORazepam [Ativan] 0.5 mg PO BID PRN #14 tab 11/20/16 [Rx] Tramadol HCl [Ultram] 50 mg PO BID PRN #14 tab 11/20/16 [Rx] glipiZIDE [Glucotrol] 2.5 mg PO DAILY 04/07/17 [History] Epoetin Gonzalo [Procrit] 10,000 unit SQ Q2W vial 04/12/17 [Rx] Sennosides/Docusate Sodium [Senna Plus] 1 each PO BID tablet 04/12/17 [Rx] Vancomycin [Vancocin] 750 mg IV DAILY #4 vial 04/12/17 [Rx] Warfarin perPT [Coumadin perPT] 1 each PO DAILY@1800 PRN each 04/12/17 [Rx] Allergies/Adverse Reactions: 3 Allergy/AdvReac Type Severity Reaction Status Date / Time Donepezil [From Aricept] AdvReac Hallucinati Verified 04/06/17 19:36 ng memantine [From Namenda] AdvReac Hallucinati Verified 04/06/17 19:36 ng - Respiratory Orders None Smoking Cessation: Smoking cessation has been advised. For more information, call the [employer] Quit Line at 8-973-ENOO-NOW. - Ancillary Orders May use pressure relief devices daily prn - Advance Directives Code Status: Full Code - Mobility Orders Chair - Rehabiliation Orders Rehab Orders: Evaluation for Physical Therapy, Evaluation for Occupational Therapy - Treatments Skin tear care topically daily PRN per policy - Diet Orders No Concentrated Sweets (diabetic diet.) CERTIFICATION: I certify that the transfer of the above named patient to an Extended Care Facility is necessary for the continuing treatment of the diagnosis listed. The above information is true and accurate reflection of patient's current condition. Confidential - Redisclosure prohibited without a patient's written consent. <Lex Hernández G - Last Filed: 04/12/17 14:36> - Respiratory Orders Smoking Cessation: Smoking cessation has been advised. For more information, call the [employer] Quit Line at 0-737-OPDQ-NOW. CERTIFICATION: I certify that the transfer of the above named patient to an Extended Care Facility is necessary for the continuing treatment of the diagnosis listed. The above information is true and accurate reflection of patient's current condition. Confidential - Redisclosure prohibited without a patient's written consent.
--- NOTE | 2017-04-12 13:32 | Internal Med Progress Note ---
<Eladio Heard - Last Filed: 04/12/17 13:34> Date of Encounter: 04/12/17 Time of Encounter: 13:29 - Assessment and plan (1) Cellulitis Current Visit: Yes Status: Acute Assessment and plan: left wrist cellulitis improved erythema, pain compared to yesterday on vancomycin day 5 will continue for total 10 days will await final blood cultures before discharge as concern for MRSA infection. plan to d/c to ECF with powerglide. vacomyciin script written and in chart. nephrology social worker notified facility. Qualifiers: Site of cellulitis: extremity Site of cellulitis of extremity: upper extremity Laterality: left Qualified Code(s): L03.114 - Cellulitis of left upper limb (2) UTI (urinary tract infection) Current Visit: Yes Status: Acute Assessment and plan: MRSA UTI on vancomycin day 5 denies dysuria. Qualifiers: Urinary tract infection type: site unspecified Hematuria presence: without hematuria Qualified Code(s): N39.0 - Urinary tract infection, site not specified (3) Peroneal DVT (deep venous thrombosis) Current Visit: Yes Status: Acute Assessment and plan: Right-sided peroneal DVT found on doppler yesterday afternoon on Coumadin INR 3.0. Coumadin held today repeat INR tomorrow. Qualifiers: Laterality: right Qualified Code(s): I82.491 - Acute embolism and thrombosis of other specified deep vein of right lower extremity (4) Acute kidney injury Current Visit: Yes Status: Resolved Assessment and plan: Resolved. (5) Anemia Current Visit: Yes Status: Chronic Assessment and plan: Hgb stabilized Qualifiers: Anemia type: other cause Other causes of anemia: other cause, not classified Qualified Code(s): D64.89 - Other specified anemias (6) Hypoglycemia Current Visit: Yes Status: Resolved Assessment and plan: Resolved. (7) Left wrist pain Current Visit: Yes Status: Acute Assessment and plan: Pain, erythema, mild warmth, ROM loss x-ray negative for fracture. improved from yesterday 2nd to cellulitis on vancomycin repeat Blood cultures negative. (8) Metabolic encephalopathy Current Visit: Yes Status: Resolved Assessment and plan: Resolved. 2nd to UTI and left wrist cellulitis (9) Paroxysmal A-fib Current Visit: Yes Status: Chronic Assessment and plan: INR 3.0 this morning. coumadin held today recheck tomorrow. rate controlled. - Subjective Interval history: Denies any acue overnight events. Patient states she is able to move her left wrist and elbow. Her left arm is less painful and red. Denies urinary urgency and dysuria. Tolerating diet. - Constitutional Vitals: Temp Pulse Resp BP Pulse Ox 98.0 F 76 16 159/63 100 04/12/17 10:57 04/12/17 10:57 04/12/17 10:57 04/12/17 10:57 04/12/17 10:57 General appearance: Present: cooperative, A&O X 3, pleasant, answers questions appropriately - Other Additional findings: General: Pleasant without distress Heart: Regular rate and rhythm with no murmur Lungs: Clear to auscultation bilaterally Abdomen: Soft nontender, nondistended positive bowel sounds Skin: warm and dry. Decreased erythema left upper extremity at wrist. Decreased swelling. Extremities: Absent pedal edema, able to flex and extend wrist and elbow but there is some pain. Neuro: Alert and oriented 3 Vascular: Pedal and radial pulses 2 out of 4 Internal Medicine: Result - Labs CBC & Chem 7: 04/12/17 04:47 04/12/17 04:47 Labs: Short CBC 04/12/17 Range/Units 04:47 WBC 8.1 (4.3-11.1) K/mcL Hgb 7.4 L (11.5-15.4) g/dL Hct 23.3 L (35.3-44.9) % Plt Count 241 (140-400) K/mcL BMP 04/12/17 04:47 Sodium 139 Potassium 3.6 Chloride 112 H Carbon Dioxide 23 BUN 28 H Creatinine 1.08 Glucose 98 Calcium 7.9 L - ABG Interpretation ABG results: PT/INR, D-dimer PT 32.6 Seconds (9.4-12.1) H 04/12/17 04:47 - Impressions Impressions Elbow X-Ray 04/11/17 09:06 IMPRESSION: No acute fracture or dislocation of the left elbow. Positive posterior sail sign, likely related to joint effusion and internal derangement. Soft tissue swelling. D/ / Andrew Rey MD / Andrew Rey MD Interpreting Provider: Andrew Rey MD Consult Discharge Plan - Plan Referrals: Arabella Santos, TIBURCIO [Primary Care Provider] - 04/18/17 2:30 pm () Prescriptions: Vancomycin [Vancocin] 750 mg IV DAILY #4 vial <Lex Hernández - Last Filed: 04/12/17 14:42> Date of Encounter: 04/12/17 - Constitutional Vitals: Temp Pulse Resp BP Pulse Ox 98.0 F 76 16 159/63 100 04/12/17 10:57 04/12/17 10:57 04/12/17 10:57 04/12/17 10:57 04/12/17 10:57 Internal Medicine: Result - Labs CBC & Chem 7: 04/12/17 04:47 04/12/17 04:47 Labs: Short CBC 04/12/17 Range/Units 04:47 WBC 8.1 (4.3-11.1) K/mcL Hgb 7.4 L (11.5-15.4) g/dL Hct 23.3 L (35.3-44.9) % Plt Count 241 (140-400) K/mcL BMP 04/12/17 04:47 Sodium 139 Potassium 3.6 Chloride 112 H Carbon Dioxide 23 BUN 28 H Creatinine 1.08 Glucose 98 Calcium 7.9 L - ABG Interpretation ABG results: PT/INR, D-dimer PT 32.6 Seconds (9.4-12.1) H 04/12/17 04:47 - Attending Attestation I have physically examined the patient at the bedside reviewed the progress note , obtained and documented by the resident,and I personally participated in the mlalory components. I have discussed the case and management of the patient's care.
[2017-04-12] MEDS: Vancomycin 750 MG in D5% in Water 250 ML IVPB SCH (17:25)
[2017-04-13 04:23] LABS: Basophils % 0.4 %; Eosinophils # 0.2 K/mcL (0.0-0.6); Eosinophils % 1.5 %; Hematocrit 22.7 % (35.3-44.9); Hemoglobin 7.1 g/dL (11.5-15.4); Immature Granulocytes % 0.8 % (0-4); Lymphocytes % 10.5 %; Mean Corpuscular HGB Conc 31.3 g/dL (31.6-35.5); Mean Corpuscular Hemoglobin 28.6 pg (28.0-33.3); Mean Corpuscular Volume 91.5 fL (83.0-100.0); Mean Platelet Volume 9.7 fL (9.4-12.4); Monocytes # 0.7 K/mcL (0.0-1.3); Monocytes % 7.6 %; Neutrophils # 7.7 K/mcL (1.6-8.9); Platelet Count 261 K/mcL (140-400); Red Blood Count 2.48 M/mcL (3.82-4.97); Red Cell Distribution Width 15.2 % (11.5-14.5); Segmented Neutrophils % 79.2 %
[2017-04-13 04:30] LABS: INR 2.8; Prothrombin Time 30.7 Seconds (9.4-12.1)
[2017-04-13 05:07] LABS: BUN/Creatinine Ratio 32 (6-26); Blood Urea Nitrogen 33 mg/dL (8-23); Calcium 7.8 mg/dL (8.6-10.3); Carbon Dioxide 23 mEq/L (23-29); Chloride 110 mEq/L (98-107); Glucose 198 mg/dL (70-105); Osmolality,Calculated 299 (280-300); Potassium 3.8 mEq/L (3.5-5.1); Sodium 138 mEq/L (136-145); eGFR For African Americans > 60 (> 60); eGFR For Non-African Americans 53 (> 60)
[2017-04-13] MEDS: Metoprolol XL (24 HR) Succ 50 MG TAB.ER.24H PO SCH (07:57)
[2017-04-13] MEDS: Insulin LISPRO 300 UNITS/3 ML VIAL SQ SCH ×2 (07:57→12:04)
[2017-04-13] MEDS: Aspirin 81 MG TAB.CHEW PO SCH (07:57)
[2017-04-13] MEDS: Sennosides/Docusate Sodium TABLET PO SCH (07:57)
[2017-04-13] MEDS: Gabapentin 100 MG CAPSULE PO SCH (07:57)
--- NOTE | 2017-04-13 10:32 | Discharge Summary ---
Date of Encounter: 04/13/17 Time of Encounter: 10:30 - Discharge Diagnosis (1) Cellulitis Priority: Primary Status: Acute Qualifiers: Site of cellulitis: extremity Site of cellulitis of extremity: upper extremity Laterality: left Qualified Code(s): L03.114 - Cellulitis of left upper limb (2) Anemia Priority: Secondary Status: Chronic Qualifiers: Anemia type: other cause Other causes of anemia: other cause, not classified Qualified Code(s): D64.89 - Other specified anemias (3) Pulmonary hypertension Priority: Secondary Status: Chronic (4) Acute kidney injury superimposed on chronic kidney disease Priority: Primary Status: Resolved (5) Diabetes mellitus Priority: Secondary Status: Chronic Qualifiers: Diabetes mellitus type: type 2 Diabetes mellitus complication status: with neurologic complications Diabetes mellitus complication detail: with polyneuropathy Diabetes mellitus local intermodal truck driver insulin use: without local intermodal truck driver use Qualified Code(s): E11.42 - Type 2 diabetes mellitus with diabetic polyneuropathy (6) HTN (hypertension) Priority: Secondary Status: Chronic Qualifiers: Hypertension type: essential hypertension Qualified Code(s): I10 - Essential (primary) hypertension (7) Hypoglycemia Priority: Primary Status: Resolved (8) UTI (urinary tract infection) Priority: Primary Status: Acute Qualifiers: Urinary tract infection type: site unspecified Hematuria presence: without hematuria Qualified Code(s): N39.0 - Urinary tract infection, site not specified (9) Metabolic encephalopathy Priority: Primary Status: Resolved (10) Paroxysmal A-fib Priority: Secondary Status: Chronic (11) Peroneal DVT (deep venous thrombosis) Priority: Primary Status: Acute Qualifiers: Laterality: right Qualified Code(s): I82.491 - Acute embolism and thrombosis of other specified deep vein of right lower extremity - Discharge Medications Prescriptions: LORazepam [Ativan] 0.5 mg PO BID PRN #14 tab PRN Reason: Anxiety Tramadol HCl [Ultram] 50 mg PO BID PRN #14 tab PRN Reason: Pain Vancomycin [Vancocin] 750 mg IV DAILY #4 vial Warfarin [Coumadin] 2 mg PO 1800 #30 tablet Home Medications: Aspirin 81 mg PO DAILY 12/06/14 [History] HydrALAZINE 10 mg PO BID 12/06/14 [History] Lisinopril [Zestril] 5 mg PO DAILY 12/06/14 [History] Nitroglycerin 0.4 mg SL Q5MIN PRN 12/06/14 [History] Oxybutynin [Ditropan] 5 mg PO BID 12/06/14 [History] Simvastatin [Zocor] 40 mg PO HS 12/06/14 [History] Acetaminophen [Tylenol] 500 mg PO Q6HR PRN 05/03/16 [History] Furosemide [Lasix] 20 mg PO DAILY 05/03/16 [History] Metoprolol Succinate 100 mg PO DAILY 05/03/16 [History] Potassium Chloride [K-Tab ER] 15 meq PO DAILY 05/03/16 [History] Venlafaxine XR (24 HR) [Effexor XR] 75 mg PO DAILY 05/23/16 [History] Cyanocobalamin (B-12) [Vitamin B12] 1,000 mcg IM QWEEK 09/13/16 [History] Ergocalciferol (VITAMIN D2) [Vitamin D2] 50,000 unit PO QWEEK 09/13/16 [History] Triamcinolone Acet 0.1% CRM [Kenalog] 1 appl TP BID PRN 09/13/16 [History] Albuterol Sulfate [Proair Hfa] 2 puff IH Q4H PRN 10/26/16 [History] Calcium Carbonate/Vitamin D3 [Calcium 600 + Vit D Tablet] 1 tab PO DAILY [History] Ferrous Sulfate 325 mg PO BIDWM #14 tab 11/20/16 [Rx] glipiZIDE [Glucotrol] 2.5 mg PO DAILY 04/07/17 [History] Epoetin Gonzalo [Procrit] 10,000 unit SQ Q2W vial 04/12/17 [Rx] Sennosides/Docusate Sodium [Senna Plus] 1 each PO BID tablet 04/12/17 [Rx] Vancomycin [Vancocin] 750 mg IV DAILY #4 vial 04/12/17 [Rx] LORazepam [Ativan] 0.5 mg PO BID PRN #14 tab 04/13/17 [Rx] Tramadol HCl [Ultram] 50 mg PO BID PRN #14 tab 04/13/17 [Rx] Warfarin [Coumadin] 2 mg PO 1800 #30 tablet 04/13/17 [Rx] Allergies/Adverse Reactions: 3 Allergy/AdvReac Type Severity Reaction Status Date / Time Donepezil [From Aricept] AdvReac Hallucinati Verified 04/06/17 19:36 ng memantine [From Namenda] AdvReac Hallucinati Verified 04/06/17 19:36 ng Date of admission: 04/06/17 22:25 Primary care physician: Arabella Santos CNP Consults: 04/06/17 23:39 Consult to Insulation Worker Interior Surface [CONS] Routine Reason for SW Consult: patient had home health may need home health again 04/10/17 14:39 Consult to Occupational Therapy [CONS] Routine Comment: Evaluate, develop and implement POC Reason for Consult: eval for ecf Consult to Physical Therapy [CONS] Routine Comment: Evaluate, develop and implement POC Reason for Consult: eval for ecf Discharging clinician: Thomas Parker Anticipated date of discharge: 04/13/17 - Patient Status Disposition: Transfer SNF Condition: Fair Functional capacity at discharge: bed bound Overall status at discharge: patient is progressing back to baseline - Discharge Instructions Follow Up With: Arabella Santos CNP [Primary Care Provider] - 04/18/17 2:30 pm () - Diet and Activity Activity: as per physical therapy, resume usual activities as tolerated Diet: diabetic diet, low fat, low cholesterol, low salt diet Interval History: See below Hospital course: Ms. Masterson is a 77 year old female with past medical history of dementia, chronic kidney disease stage III, atrial fibrillation, recurrent falls, hypertension, anemia of chronic disease and diabetes mellitus. The patient was admitted to this facility and managed for acute metabolic encephalopathy secondary to hypoglycemia, sepsis secondary to MRSA urinary tract infection and L arm cellulitis, acute on chronic kidney injury, new diagnosis of peroneal venous thrombosis, with Xarelto, and atrial fibrillation. Hospital stay complicated by left hand cellulitis secondary to thrombophlebitis from a bad intravenous access site. Patient's hypoglycemia has resolved, her A1C was 5.8, evidence of no necessity for oral hypoglycemia agents which the patient was using at home. This has since been discontinued. The patient sepsis has resolved, she has been afebrile for 48 hours, she has been on vancomycin intravenously for methicillin-resistant staph aureus urinary tract infection. She was discharged on vancomycin for completion of 10 days of intravenous therapy. Blood culture was negative. She also had acute kidney injury on chronic kidney disease on arrival, dizziness has since resolved. Due to a new diagnosis of deep venous thromboses while on Xarelto therapy, the patient was started on heparin drip and bridged with warfarin. She has had 3 therapeutic values. Her HR has been mostly controlled on her current regimen Patient is chronically deconditioned and is recommended by PT/OT for in-patient rehab therapy She is seen and evaluated at bedside this morning, deconditioned, no new complains. L wrist redness and swelling has remarkably resolved and tenderness is minimal She is medically stable to be transferred to a SNF - Time Spent with Patient Total time spent providing and/or coordinating discharge services: Greater than 30 minutes - Constitutional Vitals: Temp Pulse Resp BP Pulse Ox 97.8 F 99 16 153/67 93 04/13/17 07:06 04/13/17 07:06 04/13/17 07:06 04/13/17 07:06 04/13/17 07:06 General appearance: Present: cooperative, A&O X 3, pleasant, no acute distress, answers questions appropriately - Head Head exam: Present: atraumatic, normocephalic - Eye Eye exam: Present: PERRL, conjuntiva pink, sclera anicteric Pupils: Present: PERRL - Neck Neck exam general surgery: Present: supple, trachea midline. Absent: lymphadenopathy - Respiratory Respiratory exam: Present: CTAB. Absent: accessory muscle use, rales, rhonchi, wheezes - Cardiovascular Cardiovascular exam: Present: RRR, +S1, +S2. Absent: diastolic murmur, gallop, rubs, systolic murmur - GI/Abdominal GI/Abdominal exam: Present: normal bowel sounds, soft, no peritoneal signs. Absent: distended, tenderness - Extremities Exam Extremities exam: Present: warm, radial pulses palpable and symmetrical. Absent : calf tenderness, cyanotic, pedal edema - Neurological Exam Neurological exam: Present: alert, CN II-XII intact, oriented X3, no focal deficits. Absent: pronater drift, facial droop, speech deficit - Skin Skin exam: Present: dry, intact
[2017-04-13 11:59] VITALS: BP 137/73
[2017-04-13] MEDS ORDERED: Aminoglycoside Consult 1 EACH MC ONE (12:59)
[2017-04-13] MEDS ORDERED: *HR* Warfarin 2 MG TABLET PO ONE (18:00)
== END 2017-04-13 13:00 | DRG 720 ==
LOC: EMEROO 19:31 → 2NNU 19:31 → SUATTDRO 22:25 → 2NNU 22:36 → 2ANU 04-08 10:39
PROVIDERS: ADMIT Internal Medicine; ATTEND Internal Medicine

== ENCOUNTER 2019-05-18 13:21 | Inpatient (IN) ==
[2019-05-18] MEDS ORDERED: Isovue-370 500 ML BOTTLE IVP ONE (13:31)
[2019-05-18 14:48] LABS: Basophils % 0.3 %; Eosinophils % 0.4 %; Hematocrit 24.1 % (35.3-44.9); Hemoglobin 7.5 g/dL (11.5-15.4); Immature Granulocytes % 0.5 % (0-4); Lymphocytes % 9.8 %; Mean Corpuscular HGB Conc 31.1 g/dL (31.6-35.5); Mean Corpuscular Hemoglobin 31.3 pg (28.0-33.3); Mean Corpuscular Volume 100.4 fL (83.0-100.0); Mean Platelet Volume 10.4 fL (9.4-12.4); Monocytes # 0.7 K/mcL (0.0-1.3); Monocytes % 7.3 %; Neutrophils # 8.1 K/mcL (1.6-8.9); Platelet Count 189 K/mcL (140-400); Red Cell Distribution Width 13.1 % (11.5-14.5); Segmented Neutrophils % 81.7 %; White Blood Count 9.9 K/mcL (4.3-11.1)
[2019-05-18 14:57] LABS: INR 4.8; Prothrombin Time 54.4 Seconds (9.4-12.1)
[2019-05-18 15:09] LABS: Calcium 8.3 mg/dL (8.6-10.3); Potassium 3.8 mEq/L (3.5-5.1)
[2019-05-18] MEDS ORDERED: Azithromycin 500 MG in 0.9 % Sodium Chloride 250 ML IVPB ONE (16:28)
[2019-05-18] MEDS ORDERED: cefTRIAXone 1,000 MG in Water for inj. (sterile) 10 ML IVP ONE (16:28)
[2019-05-18] MEDS ORDERED: Ondansetron 4 MG/2 ML VIAL IVP PRN (17:15)
[2019-05-18] MEDS ORDERED: *HR* Phytonadione 10 MG/ML AMPUL SQ ONE (17:18)
[2019-05-18] MEDS ORDERED: Famotidine 20 MG TABLET PO PRN (17:34)
[2019-05-18] MEDS ORDERED: Nitroglycerin 0.4 MG TAB.SUBL SL PRN (17:34)
[2019-05-18] MEDS: Venlafaxine XR (24 HR) 75 MG CAP.ER.24H PO SCH (18:35)
[2019-05-18] MEDS: hydrALAZINE 25 MG TABLET PO SCH (20:00)
[2019-05-18 20:03] LABS: Adenovirus Not Detected (Not Detect); Bordetella Pertussis Not Detected (Not Detect); Chlamydophila pneumoniae Not Detected (Not Detect); Coronavirus 229E Not Detected (Not Detect); Coronavirus HKU1 Not Detected (Not Detect); Coronavirus NL63 Not Detected (Not Detect); Coronavirus OC43 Not Detected (Not Detect); Human Metapneumovirus Not Detected (Not Detect); Human Rhinovirus/Enterovirus Not Detected (Not Detect); Influenza A Subtype 2009 H1 Not Detected (Not Detect); Influenza B Not Detected (Not Detect); Mycoplasma pneumoniae Not Detected (Not Detect); Parainfluenza Virus 1 Not Detected (Not Detect); Parainfluenza Virus 2 Not Detected (Not Detect); Parainfluenza Virus 3 Not Detected (Not Detect); Parainfluenza Virus 4 Not Detected (Not Detect); Respiratory Syncytial Virus Not Detected (Not Detect)
[2019-05-18] MEDS ORDERED: *HR* LORazepam 0.5 MG TABLET PO SCH (21:00)
[2019-05-19 01:03] LABS: Basophils % 0.4 %; Eosinophils # 0.2 K/mcL (0.0-0.6); Hematocrit 23.2 % (35.3-44.9); Hemoglobin 7.4 g/dL (11.5-15.4); Immature Granulocytes % 0.3 % (0-4); Lymphocytes # 1.2 K/mcL (0.6-4.6); Lymphocytes % 16.3 %; Mean Corpuscular HGB Conc 31.9 g/dL (31.6-35.5); Mean Corpuscular Hemoglobin 30.7 pg (28.0-33.3); Mean Corpuscular Volume 96.3 fL (83.0-100.0); Mean Platelet Volume 10.2 fL (9.4-12.4); Monocytes # 0.7 K/mcL (0.0-1.3); Monocytes % 9.3 %; Neutrophils # 5.3 K/mcL (1.6-8.9); Platelet Count 191 K/mcL (140-400); Red Blood Count 2.41 M/mcL (3.82-4.97); Red Cell Distribution Width 13.2 % (11.5-14.5); Segmented Neutrophils % 71.7 %; White Blood Count 7.4 K/mcL (4.3-11.1)
[2019-05-19 01:10] LABS: INR 3.8; Prothrombin Time 42.8 Seconds (9.4-12.1)
[2019-05-19 01:25] LABS: % Iron Saturation 5 % (15-50); Iron 10 mcg/dL (50-170); Potassium 4.1 mEq/L (3.5-5.1); Transferrin 131 mg/dL (203-362)
[2019-05-19 01:42] LABS: Ferritin 318 ng/mL (10-120)
[2019-05-19 01:47] LABS: Folate 11.7 ng/mL (3.0-16.0)
[2019-05-19] MEDS: Cholecalciferol (D-3) 1,000 UNIT (25MCG) TABLET PO SCH (08:02)
[2019-05-19] MEDS: hydrALAZINE 25 MG TABLET PO SCH ×3 (08:02→19:41)
[2019-05-19] MEDS: Aspirin 81 MG TAB.CHEW PO SCH (08:02)
[2019-05-19] MEDS: cefTRIAXone 2,000 MG in 0.9 % Sodium Chloride Mini Bag 100 ML IVPB SCH (08:03)
[2019-05-19] MEDS: Azithromycin 250 MG TABLET PO SCH (08:03)
[2019-05-19] MEDS: Potassium Chloride Elixir 20 MEQ/15 ML UDC PO SCH (08:03)
[2019-05-19] MEDS: Iron Sucrose Complex 250 MG in 0.9 % Sodium Chloride 250 ML IVPB SCH (08:58)
[2019-05-19] MEDS ORDERED: Metoprolol XL (24 HR) Succ 50 MG TAB.ER.24H PO SCH (09:00)
[2019-05-19] MEDS ORDERED: cefTRIAXone 2,000 MG in Water for inj. (sterile) 20 ML IVP SCH (09:00)
[2019-05-19] MEDS ORDERED: *HR* LORazepam 0.5 MG TABLET PO PRN (09:14)
[2019-05-19] MEDS: predniSONE 20 MG TABLET PO SCH (11:29)
[2019-05-19] MEDS ORDERED: Gadolinium Contrast Agent (WT Based) IV PRN (15:29)
[2019-05-19] MEDS: carvediloL 6.25 MG TABLET PO SCH (16:42)
[2019-05-19 16:54] LABS: Albumin 3.1 g/dL (3.5-5.7); Albumin/Globulin Ratio 1.1 (1.1-2.2); Bilirubin,Indirect 0.3 mg/dL (0.0-1.0); Bilirubin,Total 0.3 mg/dL (0.3-1.0); Globulin 2.9 g/dL (2.4-3.5)
[2019-05-19] MEDS: Venlafaxine XR (24 HR) 75 MG CAP.ER.24H PO SCH (17:27)
[2019-05-19] MEDS ORDERED: Azithromycin 500 MG in 0.9 % Sodium Chloride 250 ML IVPB SCH (18:00)
[2019-05-19] MEDS ORDERED: *HR* Phytonadione 5 MG TABLET PO ONE (18:32)
[2019-05-20 02:35] LABS: INR 1.2
[2019-05-20 02:43] LABS: Hematocrit 24.1 % (35.3-44.9); Hemoglobin 7.6 g/dL (11.5-15.4); Mean Corpuscular HGB Conc 31.5 g/dL (31.6-35.5); Mean Corpuscular Hemoglobin 31.4 pg (28.0-33.3); Mean Corpuscular Volume 99.6 fL (83.0-100.0); Mean Platelet Volume 10.4 fL (9.4-12.4); Platelet Count 206 K/mcL (140-400); Red Blood Count 2.42 M/mcL (3.82-4.97)
[2019-05-20 02:57] LABS: Calcium 8.3 mg/dL (8.6-10.3); Potassium 4.2 mEq/L (3.5-5.1)
[2019-05-20] MEDS: Menthol 9.1 MG LOZENGE PO PRN ×2 (03:41→19:55)
[2019-05-20] MEDS: Azithromycin 250 MG TABLET PO SCH (08:14)
[2019-05-20] MEDS: cefTRIAXone 2,000 MG in 0.9 % Sodium Chloride Mini Bag 100 ML IVPB SCH (08:14)
[2019-05-20] MEDS: Potassium Chloride Elixir 20 MEQ/15 ML UDC PO SCH (08:14)
[2019-05-20] MEDS: carvediloL 6.25 MG TABLET PO SCH ×2 (08:15→15:57)
[2019-05-20] MEDS: Aspirin 81 MG TAB.CHEW PO SCH (08:15)
[2019-05-20] MEDS: predniSONE 20 MG TABLET PO SCH (08:15)
[2019-05-20] MEDS: Cholecalciferol (D-3) 1,000 UNIT (25MCG) TABLET PO SCH (08:15)
[2019-05-20] MEDS: hydrALAZINE 25 MG TABLET PO SCH ×3 (08:15→19:47)
[2019-05-20] MEDS ORDERED: Isovue-300 50ML VIAL IVP ONE (09:08)
[2019-05-20] MEDS: Iron Sucrose Complex 250 MG in 0.9 % Sodium Chloride 250 ML IVPB SCH (09:44)
[2019-05-20] MEDS: NIFEdipine XL (24 HR) 30 MG TAB.ER.24 PO SCH (12:15)
[2019-05-20] MEDS: Venlafaxine XR (24 HR) 75 MG CAP.ER.24H PO SCH (17:09)
[2019-05-20] MEDS ORDERED: *HR* Warfarin 3 MG TABLET PO ONE (18:00)
[2019-05-20] MEDS ORDERED: Warfarin perPT PO PRN (18:00)
[2019-05-21 04:58] LABS: INR 1.1; Prothrombin Time 12.2 Seconds (9.4-12.1)
[2019-05-21] MEDS: predniSONE 20 MG TABLET PO SCH (09:38)
[2019-05-21] MEDS: carvediloL 6.25 MG TABLET PO SCH (09:39)
[2019-05-21] MEDS: hydrALAZINE 25 MG TABLET PO SCH (09:40)
[2019-05-21] MEDS: Cholecalciferol (D-3) 1,000 UNIT (25MCG) TABLET PO SCH (09:40)
[2019-05-21] MEDS: Aspirin 81 MG TAB.CHEW PO SCH (09:40)
[2019-05-21] MEDS: Azithromycin 250 MG TABLET PO SCH (09:41)
[2019-05-21] MEDS: Potassium Chloride Elixir 20 MEQ/15 ML UDC PO SCH (09:42)
[2019-05-21] MEDS: cefTRIAXone 2,000 MG in 0.9 % Sodium Chloride Mini Bag 100 ML IVPB SCH (09:42)
[2019-05-21] MEDS: NIFEdipine XL (24 HR) 30 MG TAB.ER.24 PO SCH (09:42)
[2019-05-21 10:59] VITALS: BP 159/72
[2019-05-21] MEDS: Iron Sucrose Complex 250 MG in 0.9 % Sodium Chloride 250 ML IVPB SCH (11:50)
[2019-05-21] MEDS ORDERED: *HR* Warfarin 3 MG TABLET PO ONE (18:00)
[2019-05-22] MEDS ORDERED: Ergocalciferol (VIT D2) 50,000 UNIT (1.25MG) CAP PO SCH (17:34)
[2019-05-23 17:00] LABS: Alpha 2 Globulin (PEP) 0.89 g/dL (0.48-1.05); Beta Globulin (PEP) 0.71 g/dL (0.48-1.10)
[2019-05-24 08:26] LABS: IFE Reflexed NOT DONE
== END 2019-05-21 14:48 | disposition home health service (06) | DRG 137 ==
LOC: EMEROOARM 13:21 → 2ANU 13:21 → SUATTDRO 16:53 → 2ANU 17:45
PROVIDERS: ADMIT Internal Medicine; ATTEND Internal Medicine

== ENCOUNTER 2019-06-19 18:46 | Inpatient (IN) ==
[2019-06-19] MEDS ORDERED: Isovue-370 500 ML BOTTLE IVP ONE (18:56)
[2019-06-19] MEDS ORDERED: 0.9 % Sodium Chloride 1,000 ML IVC ONE ×2 (18:56→20:09)
[2019-06-19 20:01] LABS: Clarity,Urine Hazy (Clear); Color,Urine Yellow (Yellow)
[2019-06-19 20:02] LABS: Bilirubin,Urine Negative (Negative); Blood,Urine Negative (Negative); Glucose,Urine (UA) 100 mg/dL (Normal); Ketones,Urine Negative (Negative); Protein,Urine >=300 mg/dL (Neg-Trace); Specific Gravity,Urine 1.022 (1.010-1.025)
[2019-06-19 20:03] LABS: Leukocyte Esterase,Urine Negative (Negative); Nitrite,Urine Negative (Negative); Urobilinogen,Urine Normal (Normal)
[2019-06-19 20:15] LABS: Prothrombin Time 68.4 Seconds (9.4-12.1)
[2019-06-19 20:17] LABS: RBC,Urine 15-30 per hpf (0-3); Squamous Epithelial Cell,Urine Many per lpf (None-Few)
[2019-06-19 20:26] LABS: Amorphous Sediment,Urine Moderate per hpf (Few)
[2019-06-19 20:33] LABS: Calcium 8.6 mg/dL (8.6-10.3); Potassium 4.4 mEq/L (3.5-5.1)
[2019-06-19] MEDS ORDERED: Pantoprazole 40 MG VIAL IVP ONE (20:41)
[2019-06-19] MEDS ORDERED: *HR* Phytonadione 10 MG/ML AMPUL SQ ONE (20:41)
[2019-06-19 20:44] LABS: Basophils # 0.1 K/mcL (0.0-0.2); Basophils % 0.6 %; Eosinophils # 0.1 K/mcL (0.0-0.6); Eosinophils % 1.3 %; Hematocrit 29.9 % (35.3-44.9); Immature Granulocytes % 0.2 % (0-4); Lymphocytes # 1.2 K/mcL (0.6-4.6); Lymphocytes % 13.5 %; Mean Corpuscular HGB Conc 30.1 g/dL (31.6-35.5); Mean Corpuscular Hemoglobin 30.7 pg (28.0-33.3); Monocytes # 0.9 K/mcL (0.0-1.3); Monocytes % 9.6 %; Neutrophils # 6.7 K/mcL (1.6-8.9); Platelet Count 264 K/mcL (140-400); Red Blood Count 2.93 M/mcL (3.82-4.97); Segmented Neutrophils % 74.8 %
[2019-06-19] MEDS ORDERED: *HR* Phytonadione 5 MG TABLET PO ONE (20:48)
[2019-06-19] MEDS ORDERED: MetroNIDAZOLE 500 MG/100 ML 500 MG/100 ML BAG IVPB ONE (23:35)
[2019-06-20] MEDS ORDERED: Acetaminophen 325 MG TABLET PO PRN (01:09)
[2019-06-20] MEDS ORDERED: *HR* HYDROcodone/Acet 5/325 mg TABLET PO PRN (01:09)
[2019-06-20] MEDS ORDERED: Ondansetron 4 MG/2 ML VIAL IVP PRN (01:09)
[2019-06-20] MEDS ORDERED: Naloxone 0.4 MG/ML INJ IVP PRN (01:09)
[2019-06-20 07:25] LABS: INR 3.2; Prothrombin Time 36.5 Seconds (9.4-12.1)
[2019-06-20 07:28] LABS: Hematocrit 26.9 % (35.3-44.9); Hemoglobin 8.1 g/dL (11.5-15.4); Mean Corpuscular HGB Conc 30.1 g/dL (31.6-35.5); Mean Corpuscular Hemoglobin 30.8 pg (28.0-33.3); Mean Corpuscular Volume 102.3 fL (83.0-100.0); Mean Platelet Volume 10.1 fL (9.4-12.4); Platelet Count 219 K/mcL (140-400); Red Blood Count 2.63 M/mcL (3.82-4.97); White Blood Count 8.9 K/mcL (4.3-11.1)
[2019-06-20 07:39] LABS: Albumin 3.1 g/dL (3.5-5.7); Albumin/Globulin Ratio 1.5 (1.1-2.2); Bilirubin,Total 0.3 mg/dL (0.3-1.0); Globulin 2.1 g/dL (2.4-3.5); Magnesium 1.6 mg/dL (1.6-2.6); Potassium 3.8 mEq/L (3.5-5.1); Total Protein 5.2 g/dL (6.4-8.9)
[2019-06-20 09:23] LABS: Hemoglobin 8.1 g/dL (11.5-15.4)
[2019-06-20] MEDS: carvediloL 6.25 MG TABLET PO SCH ×2 (09:45→16:31)
[2019-06-20] MEDS: Insulin LISPRO 300 UNITS/3 ML VIAL SQ SCH ×3 (09:46→16:36)
[2019-06-20] MEDS: Piperacillin/Tazobactam 3.375 GM in 0.9 % Sodium Chloride Mini Bag 100 ML IVPB SCH ×2 (09:46→16:32)
[2019-06-20 10:07] LABS: Folate 15.3 ng/mL (3.0-16.0)
[2019-06-20 14:44] LABS: Hematocrit 26.5 % (35.3-44.9)
[2019-06-20] MEDS: Insulin DETEMIR 100 UNIT/ML X5UNITS SQ SCH (21:33)
[2019-06-20] MEDS ORDERED: *HR* LORazepam 2 MG/ML VIAL IVP ONE (23:47)
[2019-06-20] MEDS ORDERED: QUEtiapine Fumarate 25 MG TABLET PO ONE (23:48)
[2019-06-21] MEDS: Piperacillin/Tazobactam 3.375 GM in 0.9 % Sodium Chloride Mini Bag 100 ML IVPB SCH ×2 (00:04→11:56)
[2019-06-21] MEDS: Insulin LISPRO 300 UNITS/3 ML VIAL SQ SCH ×3 (09:50→17:06)
[2019-06-21] MEDS: carvediloL 6.25 MG TABLET PO SCH ×2 (11:57→17:10)
[2019-06-21 12:36] LABS: Hematocrit 27.8 % (35.3-44.9); Hemoglobin 8.4 g/dL (11.5-15.4); Mean Corpuscular HGB Conc 30.2 g/dL (31.6-35.5); Mean Corpuscular Hemoglobin 30.8 pg (28.0-33.3); Mean Corpuscular Volume 101.8 fL (83.0-100.0); Mean Platelet Volume 9.9 fL (9.4-12.4); Platelet Count 210 K/mcL (140-400); Red Blood Count 2.73 M/mcL (3.82-4.97); White Blood Count 6.6 K/mcL (4.3-11.1)
[2019-06-21 12:39] LABS: INR 1.4; Prothrombin Time 15.6 Seconds (9.4-12.1)
[2019-06-21 12:54] LABS: Calcium 8.5 mg/dL (8.6-10.3); Potassium 3.8 mEq/L (3.5-5.1)
[2019-06-21] MEDS ORDERED: *HR* LORazepam 0.5 MG TABLET PO PRN (15:03)
[2019-06-21] MEDS ORDERED: Famotidine 20 MG TABLET PO PRN (15:03)
[2019-06-21] MEDS ORDERED: Venlafaxine XR (24 HR) 75 MG CAP.ER.24H PO SCH (18:00)
[2019-06-21] MEDS ORDERED: lisinopriL 20 MG TABLET PO SCH (21:00)
[2019-06-21] MEDS ORDERED: QUEtiapine Fumarate 25 MG TABLET PO SCH (21:00)
[2019-06-21] MEDS ORDERED: hydrALAZINE 25 MG TABLET PO SCH (21:00)
[2019-06-21] MEDS: Insulin DETEMIR 100 UNIT/ML X5UNITS SQ SCH (21:14)
[2019-06-21] MEDS: hydrALAZINE 25 MG TABLET PO SCH (21:14)
[2019-06-22 04:40] LABS: Hematocrit 26.2 % (35.3-44.9); Hemoglobin 8.2 g/dL (11.5-15.4); Mean Corpuscular HGB Conc 31.3 g/dL (31.6-35.5); Mean Corpuscular Hemoglobin 31.4 pg (28.0-33.3); Mean Corpuscular Volume 100.4 fL (83.0-100.0); Mean Platelet Volume 9.9 fL (9.4-12.4); Platelet Count 194 K/mcL (140-400); Red Blood Count 2.61 M/mcL (3.82-4.97); Red Cell Distribution Width 12.8 % (11.5-14.5); White Blood Count 6.5 K/mcL (4.3-11.1)
[2019-06-22 04:44] LABS: INR 1.3; Prothrombin Time 15.2 Seconds (9.4-12.1)
[2019-06-22 04:59] LABS: Calcium 8.2 mg/dL (8.6-10.3); Potassium 3.9 mEq/L (3.5-5.1)
[2019-06-22] MEDS: Insulin LISPRO 300 UNITS/3 ML VIAL SQ SCH ×2 (07:55→11:08)
[2019-06-22] MEDS: carvediloL 6.25 MG TABLET PO SCH (08:04)
[2019-06-22] MEDS: hydrALAZINE 25 MG TABLET PO SCH (08:04)
[2019-06-22] MEDS ORDERED: Metoprolol 100 MG TABLET PO SCH (09:00)
[2019-06-22] MEDS ORDERED: NIFEdipine XL (24 HR) 30 MG TAB.ER.24 PO SCH (09:00)
[2019-06-22 14:20] VITALS: BP 106/52
[2019-06-23] MEDS ORDERED: Amoxicillin/Clavulanate 500 MG TABLET PO SCH (09:00)
== END 2019-06-22 15:27 | disposition home health service (06) ==
LOC: 3ANU 18:46 → EMEROOARM 18:46 → SUATTDRO 23:56 → 3ANU 06-20 00:31
PROVIDERS: ADMIT Internal Medicine; ATTEND Internal Medicine

== ENCOUNTER 2020-12-07 16:10 | Inpatient (IN) ==
[2020-12-07 16:56] LABS: Basophils # 0.1 K/mcL (0.0-0.2); Basophils % 0.4 %; Eosinophils % 0.2 %; Hematocrit 25.9 % (35.3-44.9); Immature Granulocytes % 0.4 % (0-4); Lymphocytes # 0.6 K/mcL (0.6-4.6); Lymphocytes % 3.9 %; Mean Corpuscular HGB Conc 30.9 g/dL (31.6-35.5); Mean Corpuscular Hemoglobin 29.9 pg (28.0-33.3); Mean Corpuscular Volume 96.6 fL (83.0-100.0); Mean Platelet Volume 9.9 fL (9.4-12.4); Monocytes # 0.8 K/mcL (0.0-1.3); Monocytes % 5.5 %; Neutrophils # 12.7 K/mcL (1.6-8.9); Platelet Count 236 K/mcL (140-400); Red Blood Count 2.68 M/mcL (3.82-4.97); Red Cell Distribution Width 14.2 % (11.5-14.5); Segmented Neutrophils % 89.6 %; White Blood Count 14.2 K/mcL (4.3-11.1)
[2020-12-07] MEDS ORDERED: 0.9 % Sodium Chloride 500 ML IVC ONE (16:57)
[2020-12-07 17:09] LABS: INR 2.3
[2020-12-07 17:12] LABS: Activated Partial Thrombo Time 30.3 Seconds (26.0-36.0)
[2020-12-07] MEDS: DilTIAZem 50 MG/50 ML IV.SOLN IVC SCH (17:20)
[2020-12-07 17:22] LABS: Calcium 9.1 mg/dL (8.6-10.3); Potassium 4.3 mEq/L (3.5-5.1)
[2020-12-07 17:42] LABS: Troponin I 0.04 ng/mL (< 0.04)
[2020-12-07] MEDS ORDERED: Azithromycin 500 MG in 0.9 % Sodium Chloride 250 ML IVPB ONE (17:50)
[2020-12-07] MEDS ORDERED: cefTRIAXone 1,000 MG in Water for inj. (sterile) 10 ML IVP ONE (17:50)
[2020-12-07 17:51] LABS: Adenovirus Not Detected (Not Detect); Bordetella Pertussis Not Detected (Not Detect); Chlamydophila pneumoniae Not Detected (Not Detect); Coronavirus 229E Not Detected (Not Detect); Coronavirus HKU1 Not Detected (Not Detect); Coronavirus NL63 Not Detected (Not Detect); Coronavirus OC43 Not Detected (Not Detect); Human Metapneumovirus Not Detected (Not Detect); Human Rhinovirus/Enterovirus Not Detected (Not Detect); Influenza A Subtype 2009 H1 Not Detected (Not Detect); Influenza B Not Detected (Not Detect); Mycoplasma pneumoniae Not Detected (Not Detect); Parainfluenza Virus 1 Not Detected (Not Detect); Parainfluenza Virus 2 Not Detected (Not Detect); Parainfluenza Virus 3 Not Detected (Not Detect); Parainfluenza Virus 4 Not Detected (Not Detect); Respiratory Syncytial Virus Not Detected (Not Detect); SARS-CoV-2 Not Detected (Not Detect)
[2020-12-07] MEDS ORDERED: 0.9 % Sodium Chloride 1,000 ML IVC ONE (17:51)
[2020-12-07 18:37] LABS: Bacteria,Urine Few per hpf (None-Few); Bilirubin,Urine Negative (Negative); Blood,Urine Negative (Negative); Clarity,Urine Turbid (Clear); Color,Urine Yellow (Yellow); Glucose,Urine (UA) Normal (Normal); Ketones,Urine Negative (Negative); Leukocyte Esterase,Urine Large (Negative); Nitrite,Urine Negative (Negative); Protein,Urine 70 mg/dL (Neg-Trace); RBC,Urine 0-3 per hpf (0-3); Specific Gravity,Urine 1.016 (1.010-1.025); Squamous Epithelial Cell,Urine Few per hpf (None-Few); Urobilinogen,Urine Normal (Normal); WBC,Urine TNTC per hpf (0-3)
[2020-12-07] MEDS ORDERED: Ondansetron 4 MG/2 ML VIAL IVP PRN (21:22)
[2020-12-07] MEDS ORDERED: Acetaminophen 325 MG TABLET PO PRN (21:22)
[2020-12-07] MEDS ORDERED: Naloxone 0.4 MG/ML INJ IVP PRN (21:22)
[2020-12-07] MEDS ORDERED: Perflutren Lipid Microsphere 1.3 ML in 0.9 % Sodium Chloride 8.7 ML IVP PRN (21:25)
[2020-12-08] MEDS: DilTIAZem 50 MG/50 ML IV.SOLN IVC SCH (03:34)
[2020-12-08 03:59] LABS: Basophils % 0.3 %; Eosinophils % 0.2 %; Hematocrit 22.3 % (35.3-44.9); Hemoglobin 6.8 g/dL (11.5-15.4); Immature Granulocytes % 0.5 % (0-4); Lymphocytes # 0.4 K/mcL (0.6-4.6); Lymphocytes % 2.5 %; Mean Corpuscular HGB Conc 30.5 g/dL (31.6-35.5); Mean Corpuscular Hemoglobin 30.1 pg (28.0-33.3); Mean Corpuscular Volume 98.7 fL (83.0-100.0); Mean Platelet Volume 9.9 fL (9.4-12.4); Monocytes % 6.2 %; Platelet Count 182 K/mcL (140-400); Red Blood Count 2.26 M/mcL (3.82-4.97); Red Cell Distribution Width 14.6 % (11.5-14.5); Segmented Neutrophils % 90.3 %; White Blood Count 15.4 K/mcL (4.3-11.1)
[2020-12-08 04:22] LABS: Albumin/Globulin Ratio 1.2 (1.1-2.2); Bilirubin,Total 0.4 mg/dL (0.3-1.0); Calcium 8.1 mg/dL (8.6-10.3); Globulin 2.6 g/dL (2.4-3.5); Magnesium 1.6 mg/dL (1.6-2.6); Potassium 4.4 mEq/L (3.5-5.1); Total Protein 5.6 g/dL (6.4-8.9)
[2020-12-08 04:35] LABS: Thyroid Stimulating Hormone 1.098 mcIU/mL (0.340-5.600)
[2020-12-08 05:14] LABS: Troponin I 0.05 ng/mL (< 0.04)
[2020-12-08] MEDS ORDERED: Ringers Solution, Lactated 1,000 ML IVC ONE (08:16)
[2020-12-08] MEDS ORDERED: 0.9 % Sodium Chloride 250 ML ONE (08:52)
[2020-12-08] MEDS: Lactobacillus 1 EACH CAP.SPRINK PO SCH ×2 (11:13→21:02)
[2020-12-08] MEDS: Metoprolol XL (24 HR) Succ 25 MG TAB.ER.24H PO SCH ×2 (13:01→21:02)
[2020-12-08] MEDS: Piperacillin/Tazobactam 3.375 GM in 0.9 % Sodium Chloride Mini Bag 100 ML IVPB SCH (15:17)
[2020-12-08] MEDS ORDERED: Vancomycin 500 MG in 0.9 % Sodium Chloride Mini Bag 100 ML IVPB ONE (18:00)
[2020-12-08] MEDS ORDERED: Nitroglycerin 0.4 MG TAB.SUBL SL PRN (18:14)
[2020-12-08] MEDS ORDERED: Apixaban 2.5 MG TABLET PO SCH (21:00)
[2020-12-08] MEDS: QUEtiapine Fumarate 25 MG TABLET PO SCH (21:06)
[2020-12-08] MEDS: hydrALAZINE 25 MG TABLET PO SCH (21:13)
[2020-12-08] MEDS: lisinopriL 20 MG TABLET PO SCH (21:13)
[2020-12-08] MEDS ORDERED: Ipratropium/Albuterol Neb 3 ML IH ONE (23:37)
[2020-12-09] MEDS: Piperacillin/Tazobactam 3.375 GM in 0.9 % Sodium Chloride Mini Bag 100 ML IVPB SCH ×3 (00:10→17:11)
[2020-12-09 01:33] LABS: Basophils # 0.1 K/mcL (0.0-0.2); Basophils % 0.7 %; Eosinophils # 0.1 K/mcL (0.0-0.6); Eosinophils % 1.4 %; Hematocrit 28.1 % (35.3-44.9); Immature Granulocytes % 0.2 % (0-4); Lymphocytes # 0.9 K/mcL (0.6-4.6); Lymphocytes % 10.2 %; Mean Corpuscular HGB Conc 30.6 g/dL (31.6-35.5); Mean Corpuscular Hemoglobin 29.4 pg (28.0-33.3); Mean Corpuscular Volume 95.9 fL (83.0-100.0); Mean Platelet Volume 10.1 fL (9.4-12.4); Monocytes # 0.9 K/mcL (0.0-1.3); Monocytes % 10.4 %; Platelet Count 186 K/mcL (140-400); Red Blood Count 2.93 M/mcL (3.82-4.97); Red Cell Distribution Width 15.8 % (11.5-14.5); Segmented Neutrophils % 77.1 %; White Blood Count 9.1 K/mcL (4.3-11.1)
[2020-12-09 01:34] LABS: Hemoglobin 8.6 g/dL (11.5-15.4)
[2020-12-09 01:49] LABS: Estimated Average Glucose 137 mg/dl; Hemoglobin A1C 6.4 %
[2020-12-09 02:01] LABS: Calcium 8.4 mg/dL (8.6-10.3); Magnesium 1.7 mg/dL (1.6-2.6); Potassium 4.1 mEq/L (3.5-5.1)
[2020-12-09] MEDS: lisinopriL 20 MG TABLET PO SCH ×2 (07:59→23:50)
[2020-12-09] MEDS: Lactobacillus 1 EACH CAP.SPRINK PO SCH ×2 (07:59→22:59)
[2020-12-09] MEDS: hydrALAZINE 25 MG TABLET PO SCH ×3 (07:59→23:51)
[2020-12-09] MEDS: Metoprolol XL (24 HR) Succ 25 MG TAB.ER.24H PO SCH ×2 (07:59→23:51)
[2020-12-09] MEDS ORDERED: carvediloL 6.25 MG TABLET PO SCH (08:00)
[2020-12-09] MEDS ORDERED: Levalbuterol Neb 1.25 MG/3 ML ONE (08:15)
[2020-12-09] MEDS ORDERED: Levalbuterol Neb 1.25 MG/3 ML IH STA (08:17)
[2020-12-09] MEDS ORDERED: Furosemide 40 MG/4 ML VIAL IVP STA (08:19)
[2020-12-09] MEDS ORDERED: Furosemide 40 MG/4 ML VIAL ONE (08:20)
[2020-12-09] MEDS ORDERED: Perflutren Lipid Microsphere 1.3 ML in 0.9 % Sodium Chloride 8.7 ML IVP PRN (08:50)
[2020-12-09] MEDS ORDERED: Cholecalciferol (D-3) 1,000 UNIT (25MCG) TABLET PO SCH (09:00)
[2020-12-09] MEDS: Ipratropium Neb 0.5 MG NEBULIZER IH SCH ×3 (11:20→22:29)
[2020-12-09] MEDS: Levalbuterol Neb 0.63 MG/3 ML IH SCH ×3 (11:20→22:29)
[2020-12-09] MEDS ORDERED: Nitroglycerin 1,000 MCG/5 ML VIAL IV ONE (15:07)
[2020-12-09] MEDS ORDERED: *HR* Heparin 10,000 UNIT/10 ML VIAL ONE (15:07)
[2020-12-09] MEDS ORDERED: ISOVUE-370 200 ML INFUS..BTL ONE (15:07)
[2020-12-09] MEDS ORDERED: Heparin 1,000 UNITS/500 mL 500 ML ONE (15:07)
[2020-12-09] MEDS ORDERED: 0.9 % Sodium Chloride 1,000 ML ONE ×2 (15:07→15:08)
[2020-12-09] MEDS ORDERED: *HR* Rocuronium Bromide 50 MG/5 ML VIAL ONE (17:56)
[2020-12-09] MEDS ORDERED: *HR* FentaNYL (PF) 250 MCG/5 ML VIAL ONE (17:56)
[2020-12-09] MEDS ORDERED: *HR* Etomidate 20 MG/10 ML AMPUL IVP ONE (17:56)
[2020-12-09] MEDS ORDERED: Venlafaxine XR (24 HR) 75 MG CAP.ER.24H PO SCH (18:00)
[2020-12-09] MEDS ORDERED: Lidocaine 1% 20 ML MDV ONE (18:17)
[2020-12-09] MEDS ORDERED: Ondansetron 4 MG/2 ML VIAL IVP PRN (19:55)
[2020-12-09] MEDS ORDERED: *HR* HYDROcodone/Acet 7.5/325 mg TABLET PO PRN ×2 (19:55→23:42)
[2020-12-09] MEDS ORDERED: Ringers Solution, Lactated 1,000 ML IVC SCH (20:00)
[2020-12-09] MEDS: *HR* FentaNYL (PF) 100 MCG/2 ML VIAL IVP PRN ×4 (20:33→21:25)
[2020-12-09 21:42] LABS: Appearance of Pericardial Fl Clear (Clear)
[2020-12-09] MEDS: QUEtiapine Fumarate 25 MG TABLET PO SCH (23:50)
[2020-12-10] MEDS ORDERED: *HR* Metoprolol 5 MG/5 ML VIAL IVP PRN ×3 (01:23→07:44)
[2020-12-10] MEDS ORDERED: Dexmedetomidine HCl 400 MCG/100 ML MLS IVC SCH (01:30)
[2020-12-10] MEDS: Piperacillin/Tazobactam 3.375 GM in 0.9 % Sodium Chloride Mini Bag 100 ML IVPB SCH ×3 (01:33→16:07)
[2020-12-10] MEDS: Levalbuterol Neb 0.63 MG/3 ML IH SCH ×4 (03:30→21:44)
[2020-12-10] MEDS: Ipratropium Neb 0.5 MG NEBULIZER IH SCH ×4 (03:30→21:44)
[2020-12-10 06:14] LABS: Basophils # 0.1 K/mcL (0.0-0.2); Basophils % 0.5 %; Eosinophils # 0.1 K/mcL (0.0-0.6); Eosinophils % 0.9 %; Hematocrit 30.1 % (35.3-44.9); Hemoglobin 9.3 g/dL (11.5-15.4); Immature Granulocytes % 0.4 % (0-4); Lymphocytes # 0.7 K/mcL (0.6-4.6); Mean Corpuscular HGB Conc 30.9 g/dL (31.6-35.5); Mean Corpuscular Hemoglobin 29.4 pg (28.0-33.3); Mean Corpuscular Volume 95.3 fL (83.0-100.0); Mean Platelet Volume 9.7 fL (9.4-12.4); Monocytes # 0.8 K/mcL (0.0-1.3); Monocytes % 8.4 %; Neutrophils # 8.2 K/mcL (1.6-8.9); Platelet Count 175 K/mcL (140-400); Red Blood Count 3.16 M/mcL (3.82-4.97); Red Cell Distribution Width 15.1 % (11.5-14.5); Segmented Neutrophils % 82.8 %; White Blood Count 9.9 K/mcL (4.3-11.1)
[2020-12-10 06:37] LABS: Calcium 7.9 mg/dL (8.6-10.3); Magnesium 1.5 mg/dL (1.6-2.6); Potassium 3.6 mEq/L (3.5-5.1)
[2020-12-10] MEDS ORDERED: Nitroglycerin 0.4 MG TAB.SUBL SL PRN (07:44)
[2020-12-10] MEDS ORDERED: Amiodarone Premix 150 MG/100 ML BAG IVPB ONE (07:44)
[2020-12-10] MEDS ORDERED: 0.9 % Sodium Chloride 1,000 ML IVC SCH (07:44)
[2020-12-10] MEDS ORDERED: Naloxone 0.4 MG/ML INJ IVP PRN (07:44)
[2020-12-10] MEDS ORDERED: Acetaminophen 325 MG TABLET PO PRN (07:44)
[2020-12-10] MEDS ORDERED: *HR* HYDROcodone/Acet 5/325 mg TABLET PO PRN (07:44)
[2020-12-10] MEDS ORDERED: Amiodarone Premix 360 MG/200 ML BAG IVC SCH (07:44)
[2020-12-10] MEDS ORDERED: Ondansetron 4 MG/2 ML VIAL IVP PRN (07:44)
[2020-12-10] MEDS ORDERED: Amiodarone Premix 360 MG/200 ML BAG IVC ONE (07:44)
[2020-12-10] MEDS ORDERED: Ringers Solution, Lactated 1,000 ML IVC ONE (08:29)
[2020-12-10] MEDS ORDERED: Ringers Solution, Lactated 1,000 ML IVC SCH (08:45)
[2020-12-10] MEDS ORDERED: hydrALAZINE 25 MG TABLET PO SCH (09:00)
[2020-12-10] MEDS ORDERED: Metoprolol XL (24 HR) Succ 25 MG TAB.ER.24H PO SCH (09:00)
[2020-12-10] MEDS ORDERED: *HR* Amiodarone 200 MG TABLET PO SCH (09:00)
[2020-12-10] MEDS ORDERED: lisinopriL 20 MG TABLET PO SCH (09:00)
[2020-12-10] MEDS: Lactobacillus 1 EACH CAP.SPRINK PO SCH ×2 (09:23→19:59)
[2020-12-10] MEDS: *HR* Amiodarone 200 MG TABLET PO SCH ×2 (09:23→19:59)
[2020-12-10] MEDS: Ringers Solution, Lactated 1,000 ML IVC SCH ×2 (11:12→19:59)
[2020-12-10] MEDS: Albumin 25% 25gram/100mL 25 GM/100 ML IV.SOLN IVPB SCH ×2 (13:00→19:58)
[2020-12-10] MEDS: Venlafaxine XR (24 HR) 75 MG CAP.ER.24H PO SCH (17:40)
[2020-12-10] MEDS: QUEtiapine Fumarate 25 MG TABLET PO SCH (19:59)
[2020-12-11] MEDS: Ipratropium Neb 0.5 MG NEBULIZER IH SCH ×4 (03:34→21:54)
[2020-12-11] MEDS: Levalbuterol Neb 0.63 MG/3 ML IH SCH ×4 (03:34→21:54)
[2020-12-11] MEDS: Piperacillin/Tazobactam 3.375 GM in 0.9 % Sodium Chloride Mini Bag 100 ML IVPB SCH ×2 (04:06→16:25)
[2020-12-11] MEDS: Albumin 25% 25gram/100mL 25 GM/100 ML IV.SOLN IVPB SCH (05:48)
[2020-12-11] MEDS: Dexmedetomidine HCl 400 MCG/100 ML MLS IVC SCH (07:22)
[2020-12-11] MEDS: Lactobacillus 1 EACH CAP.SPRINK PO SCH ×2 (07:44→20:45)
[2020-12-11] MEDS: *HR* Amiodarone 200 MG TABLET PO SCH ×2 (07:44→20:44)
[2020-12-11] MEDS: Ringers Solution, Lactated 1,000 ML IVC SCH ×2 (08:20)
[2020-12-11 08:39] LABS: Basophils % 0.5 %; Eosinophils # 0.1 K/mcL (0.0-0.6); Eosinophils % 1.2 %; Hematocrit 24.5 % (35.3-44.9); Hemoglobin 7.8 g/dL (11.5-15.4); Immature Granulocytes % 0.5 % (0-4); Lymphocytes # 0.7 K/mcL (0.6-4.6); Lymphocytes % 11.5 %; Mean Corpuscular HGB Conc 31.8 g/dL (31.6-35.5); Mean Corpuscular Hemoglobin 30.1 pg (28.0-33.3); Mean Corpuscular Volume 94.6 fL (83.0-100.0); Mean Platelet Volume 9.9 fL (9.4-12.4); Monocytes # 0.7 K/mcL (0.0-1.3); Monocytes % 12.1 %; Neutrophils # 4.2 K/mcL (1.6-8.9); Platelet Count 134 K/mcL (140-400); Red Blood Count 2.59 M/mcL (3.82-4.97); Red Cell Distribution Width 15.2 % (11.5-14.5); Segmented Neutrophils % 74.2 %; White Blood Count 5.7 K/mcL (4.3-11.1)
[2020-12-11 09:01] LABS: Albumin 3.5 g/dL (3.5-5.7); Albumin/Globulin Ratio 1.8 (1.1-2.2); Bilirubin,Direct 0.3 mg/dL (0.0-0.2); Bilirubin,Indirect 0.3 mg/dL (0.0-1.0); Bilirubin,Total 0.6 mg/dL (0.3-1.0); Globulin 1.9 g/dL (2.4-3.5); Magnesium 2.1 mg/dL (1.6-2.6); Phosphorous 3.5 mg/dL (2.7-4.5); Potassium 3.6 mEq/L (3.5-5.1); Total Protein 5.4 g/dL (6.4-8.9)
[2020-12-11] MEDS ORDERED: 0.9 % Sodium Chloride 250 ML IVC SCH (09:45)
[2020-12-11 10:22] LABS: Calcium 8.1 mg/dL (8.6-10.3)
[2020-12-11] MEDS ORDERED: 0.9 % Sodium Chloride 250 ML ONE (10:34)
[2020-12-11] MEDS: Venlafaxine XR (24 HR) 75 MG CAP.ER.24H PO SCH (17:43)
[2020-12-11] MEDS: *HR* HYDROcodone/Acet 7.5/325 mg TABLET PO PRN (20:44)
[2020-12-11] MEDS: QUEtiapine Fumarate 25 MG TABLET PO SCH (20:44)
[2020-12-12] MEDS: Dexmedetomidine HCl 400 MCG/100 ML MLS IVC SCH ×2 (01:33→17:14)
[2020-12-12] MEDS: Piperacillin/Tazobactam 3.375 GM in 0.9 % Sodium Chloride Mini Bag 100 ML IVPB SCH (03:25)
[2020-12-12] MEDS: Ipratropium Neb 0.5 MG NEBULIZER IH SCH ×4 (03:59→22:47)
[2020-12-12] MEDS: Levalbuterol Neb 0.63 MG/3 ML IH SCH ×4 (03:59→22:47)
[2020-12-12 06:59] LABS: Calcium 8.7 mg/dL (8.6-10.3); Magnesium 2.8 mg/dL (1.6-2.6); Potassium 3.8 mEq/L (3.5-5.1)
[2020-12-12] MEDS: *HR* Amiodarone 200 MG TABLET PO SCH (07:41)
[2020-12-12] MEDS: Lactobacillus 1 EACH CAP.SPRINK PO SCH ×2 (07:42→20:39)
[2020-12-12] MEDS ORDERED: Ringers Solution, Lactated 1,000 ML IVC SCH (08:00)
[2020-12-12] MEDS ORDERED: Ondansetron 4 MG/2 ML VIAL IVP PRN (08:08)
[2020-12-12] MEDS: carvediloL 6.25 MG TABLET PO SCH ×2 (09:43→17:12)
[2020-12-12] MEDS: cefTRIAXone 1,000 MG in 0.9 % Sodium Chloride Mini Bag 100 ML IVPB SCH (09:45)
[2020-12-12 12:35] LABS: Basophils % 0.4 %; Eosinophils # 0.2 K/mcL (0.0-0.6); Eosinophils % 1.8 %; Hematocrit 31.8 % (35.3-44.9); Immature Granulocytes % 0.3 % (0-4); Lymphocytes # 0.9 K/mcL (0.6-4.6); Lymphocytes % 9.4 %; Mean Corpuscular HGB Conc 32.1 g/dL (31.6-35.5); Mean Corpuscular Hemoglobin 29.8 pg (28.0-33.3); Mean Platelet Volume 10.7 fL (9.4-12.4); Monocytes # 1.1 K/mcL (0.0-1.3); Monocytes % 11.7 %; Platelet Count 180 K/mcL (140-400); Red Blood Count 3.42 M/mcL (3.82-4.97); Red Cell Distribution Width 15.8 % (11.5-14.5); Segmented Neutrophils % 76.4 %
[2020-12-12 12:44] LABS: Hemoglobin 10.2 g/dL (11.5-15.4); White Blood Count 9.1 K/mcL (4.3-11.1)
[2020-12-12] MEDS: Venlafaxine XR (24 HR) 75 MG CAP.ER.24H PO SCH (17:12)
[2020-12-12] MEDS: hydrALAZINE 25 MG TABLET PO SCH ×2 (17:42→20:39)
[2020-12-12] MEDS: QUEtiapine Fumarate 25 MG TABLET PO SCH (20:39)
[2020-12-13] MEDS: Levalbuterol Neb 0.63 MG/3 ML IH SCH ×4 (03:51→21:35)
[2020-12-13] MEDS: Ipratropium Neb 0.5 MG NEBULIZER IH SCH ×4 (03:51→21:35)
[2020-12-13 06:20] LABS: Basophils % 0.4 %; Eosinophils # 0.3 K/mcL (0.0-0.6); Eosinophils % 4.2 %; Hematocrit 32.9 % (35.3-44.9); Hemoglobin 10.2 g/dL (11.5-15.4); Immature Granulocytes % 0.3 % (0-4); Lymphocytes # 0.6 K/mcL (0.6-4.6); Lymphocytes % 8.3 %; Mean Corpuscular Hemoglobin 29.5 pg (28.0-33.3); Mean Corpuscular Volume 95.1 fL (83.0-100.0); Mean Platelet Volume 10.5 fL (9.4-12.4); Monocytes # 0.7 K/mcL (0.0-1.3); Monocytes % 9.9 %; Neutrophils # 5.3 K/mcL (1.6-8.9); Platelet Count 145 K/mcL (140-400); Red Blood Count 3.46 M/mcL (3.82-4.97); Red Cell Distribution Width 15.7 % (11.5-14.5); Segmented Neutrophils % 76.9 %; White Blood Count 6.9 K/mcL (4.3-11.1)
[2020-12-13 06:44] LABS: Calcium 8.4 mg/dL (8.6-10.3); Potassium 3.8 mEq/L (3.5-5.1)
[2020-12-13] MEDS: carvediloL 6.25 MG TABLET PO SCH ×2 (08:43→16:34)
[2020-12-13] MEDS: *HR* Amiodarone 200 MG TABLET PO SCH (08:43)
[2020-12-13] MEDS: Colchicine 0.6 MG TABLET PO SCH (08:43)
[2020-12-13] MEDS: Lactobacillus 1 EACH CAP.SPRINK PO SCH ×2 (08:43→21:11)
[2020-12-13] MEDS: Sennosides/Docusate Sodium TABLET PO SCH ×2 (08:44→21:11)
[2020-12-13] MEDS: Famotidine 20 MG TABLET PO SCH (08:44)
[2020-12-13] MEDS: cefTRIAXone 1,000 MG in 0.9 % Sodium Chloride Mini Bag 100 ML IVPB SCH (08:44)
[2020-12-13] MEDS: Venlafaxine XR (24 HR) 75 MG CAP.ER.24H PO SCH (16:34)
[2020-12-13] MEDS: Apixaban 5 MG TABLET PO SCH (21:11)
[2020-12-13] MEDS: QUEtiapine Fumarate 25 MG TABLET PO SCH (21:11)
[2020-12-13] MEDS: *HR* HYDROcodone/Acet 7.5/325 mg TABLET PO PRN (21:16)
[2020-12-14 02:57] LABS: Basophils % 0.6 %; Eosinophils # 0.1 K/mcL (0.0-0.6); Eosinophils % 1.6 %; Hematocrit 32.1 % (35.3-44.9); Hemoglobin 9.8 g/dL (11.5-15.4); Immature Granulocytes % 0.3 % (0-4); Lymphocytes # 0.7 K/mcL (0.6-4.6); Lymphocytes % 10.3 %; Mean Corpuscular HGB Conc 30.5 g/dL (31.6-35.5); Mean Corpuscular Hemoglobin 28.7 pg (28.0-33.3); Mean Corpuscular Volume 93.9 fL (83.0-100.0); Mean Platelet Volume 10.3 fL (9.4-12.4); Monocytes # 0.9 K/mcL (0.0-1.3); Monocytes % 12.9 %; Platelet Count 145 K/mcL (140-400); Red Blood Count 3.42 M/mcL (3.82-4.97); Red Cell Distribution Width 15.2 % (11.5-14.5); Segmented Neutrophils % 74.3 %; White Blood Count 6.7 K/mcL (4.3-11.1)
[2020-12-14 03:05] LABS: Calcium 8.6 mg/dL (8.6-10.3); Magnesium 2.5 mg/dL (1.6-2.6); Potassium 3.9 mEq/L (3.5-5.1)
[2020-12-14] MEDS: Levalbuterol Neb 0.63 MG/3 ML IH SCH ×4 (03:57→22:18)
[2020-12-14] MEDS: Ipratropium Neb 0.5 MG NEBULIZER IH SCH ×4 (03:57→22:18)
[2020-12-14] MEDS: *HR* Amiodarone 200 MG TABLET PO SCH (07:34)
[2020-12-14] MEDS: Sennosides/Docusate Sodium TABLET PO SCH ×2 (07:34→19:55)
[2020-12-14] MEDS: Famotidine 20 MG TABLET PO SCH (07:34)
[2020-12-14] MEDS: cefTRIAXone 1,000 MG in 0.9 % Sodium Chloride Mini Bag 100 ML IVPB SCH (07:35)
[2020-12-14] MEDS: Colchicine 0.6 MG TABLET PO SCH (07:35)
[2020-12-14] MEDS: carvediloL 6.25 MG TABLET PO SCH ×2 (07:35→17:02)
[2020-12-14] MEDS: Apixaban 5 MG TABLET PO SCH ×2 (07:35→19:55)
[2020-12-14] MEDS: Lactobacillus 1 EACH CAP.SPRINK PO SCH ×2 (07:35→19:56)
[2020-12-14] MEDS: *HR* HYDROcodone/Acet 7.5/325 mg TABLET PO PRN (07:37)
[2020-12-14] MEDS: Venlafaxine XR (24 HR) 75 MG CAP.ER.24H PO SCH (17:02)
[2020-12-14] MEDS: QUEtiapine Fumarate 25 MG TABLET PO SCH (19:56)
[2020-12-15 03:21] LABS: Basophils # 0.1 K/mcL (0.0-0.2); Basophils % 0.9 %; Eosinophils # 0.2 K/mcL (0.0-0.6); Eosinophils % 3.6 %; Hematocrit 34.1 % (35.3-44.9); Hemoglobin 10.7 g/dL (11.5-15.4); Immature Granulocytes % 0.5 % (0-4); Lymphocytes # 0.8 K/mcL (0.6-4.6); Lymphocytes % 12.5 %; Mean Corpuscular HGB Conc 31.4 g/dL (31.6-35.5); Mean Corpuscular Hemoglobin 29.5 pg (28.0-33.3); Mean Corpuscular Volume 93.9 fL (83.0-100.0); Mean Platelet Volume 10.4 fL (9.4-12.4); Monocytes # 0.8 K/mcL (0.0-1.3); Monocytes % 12.1 %; Neutrophils # 4.5 K/mcL (1.6-8.9); Platelet Count 145 K/mcL (140-400); Red Blood Count 3.63 M/mcL (3.82-4.97); Segmented Neutrophils % 70.4 %; White Blood Count 6.4 K/mcL (4.3-11.1)
[2020-12-15 03:46] LABS: Calcium 8.6 mg/dL (8.6-10.3); Magnesium 2.3 mg/dL (1.6-2.6)
[2020-12-15] MEDS: Ipratropium Neb 0.5 MG NEBULIZER IH SCH ×3 (04:01→12:34)
[2020-12-15] MEDS: Levalbuterol Neb 0.63 MG/3 ML IH SCH ×3 (04:01→12:34)
[2020-12-15 07:02] LABS: Aspergillus Ab by CF <1:8 (<1:8); Coccidioides Ab by CF <1:2 (<1:2)
[2020-12-15] MEDS: cefTRIAXone 1,000 MG in 0.9 % Sodium Chloride Mini Bag 100 ML IVPB SCH (08:33)
[2020-12-15] MEDS ORDERED: 0.9 % Sodium Chloride 1,000 ML IVC SCH (09:00)
[2020-12-15] MEDS: carvediloL 6.25 MG TABLET PO SCH (09:46)
[2020-12-15] MEDS: Sennosides/Docusate Sodium TABLET PO SCH (09:47)
[2020-12-15] MEDS: Colchicine 0.6 MG TABLET PO SCH (09:47)
[2020-12-15] MEDS: Lactobacillus 1 EACH CAP.SPRINK PO SCH (09:48)
[2020-12-15] MEDS: Apixaban 5 MG TABLET PO SCH (09:48)
[2020-12-15] MEDS: Famotidine 20 MG TABLET PO SCH (09:49)
[2020-12-15] MEDS: *HR* Amiodarone 200 MG TABLET PO SCH (09:51)
[2020-12-15 11:22] VITALS: PULSE 88
[2020-12-15] MEDS ORDERED: lisinopriL 20 MG TABLET PO SCH (11:30)
[2020-12-15 15:42] LABS: Influenza A PCR Negative (Negative); Influenza B PCR Negative (Negative); Resp. Syncytial Virus PCR Negative (Negative)
[2020-12-15 16:07] LABS: SARS-CoV-2 by PCR (In House) Negative (Negative)
[2020-12-15 16:08] VITALS: BP 176/82; TEMP 97.3; O2SAT 94
== END 2020-12-15 17:26 | DRG 710 ==
LOC: EMEROOARM 16:10 → CDU 16:10 → SUATTDRO 22:03 → 3ANU 12-08 13:46 → ICNU 12-09 20:14 → 2NNU 12-14 00:18 → 2ANU 12-15 10:47
PROVIDERS: ADMIT Internal Medicine; ATTEND Internal Medicine